=== PATIENT | male | born 1950 | race Caucasian/White ===

== ENCOUNTER → 2016-07-31 | Outpatient (REF) | payer MEDICARE, OTHER ==
[~2016-07-31] MED LIST: ACET500C PO; ASPI325T OR; ATEN100T OR; CARD8TAB2 OR; CHAN0.5P6 PO; CYMB1CAP PO; DILA100C OR; KEPPRA PO; LANO0.252 OR; MAG-TAB OR; NEUR600T PO; PERC7.5T12 PO; PLAV75TA2 OR; SPIR25TA2 OR; VITA250T PO; ZEST20TA OR; ZOCO40TA OR
== END ==
LOC: M LAB REF 11:57
PROVIDERS: ATTEND Physician Assistant
DX: S97.82XA Crushing injury of left foot, initial encounter (principal); X58.XXXA Exposure to other specified factors, initial encounter; Y92.89 Other specified places as the place of occurrence of the external cause; Y93.89 Activity, other specified; Y99.8 Other external cause status; L03.116 Cellulitis of left lower limb

== ENCOUNTER → 2016-07-31 | Outpatient (CLI) | payer MEDICARE, OTHER ==
--- NOTE | 2016-07-31 10:38 | REP ---
LEFT FOOT, FOUR VIEWS: HISTORY: Injury. There is no acute fracture or dislocation. The joint spaces are normal in appearance. IMPRESSION: There is no acute fracture or dislocation. Signed by Deondre Zaidi MD 07/31/2016 10:45 A
== END ==
LOC: M WUC 08:59
PROVIDERS: ATTEND Physician Assistant
DX: S97.82XA Crushing injury of left foot, initial encounter (principal); L03.116 Cellulitis of left lower limb; X58.XXXA Exposure to other specified factors, initial encounter; Y92.89 Other specified places as the place of occurrence of the external cause; Y93.89 Activity, other specified; Y99.8 Other external cause status

== ENCOUNTER → 2016-08-11 | Outpatient (CLI) | payer MEDICARE, OTHER ==
[2016-08-11 18:12] LABS: ALBUMIN 3.8 GM/DL (3.2-5.2); ALBUMIN/GLOBULIN RATIO 1.27 (1.00-1.93); ALKALINE PHOSPHATASE 65 U/L (45-117); ALT/SGPT 26 U/L (12-78); ANION GAP 5 MEQ/L (8-16); AST/SGOT 19 U/L (15-37); BILIRUBIN,TOTAL 0.4 MG/DL (0.2-1.0); BLOOD UREA NITROGEN 7 MG/DL (7-18); CALCIUM LEVEL 8.8 MG/DL (8.8-10.2); CARBON DIOXIDE LEVEL 32 MEQ/L (21-32); CHLORIDE LEVEL 99 MEQ/L (98-107); CREATININE FOR GFR 0.87 MG/DL (0.70-1.30); GLOMERULAR FILTRATION RATE > 60.0 (>49); GLUCOSE, FASTING 94 MG/DL (80-110); SODIUM LEVEL 136 MEQ/L (136-145); TOTAL PROTEIN 6.8 GM/DL (6.4-8.2)
[2016-08-11 19:44] LABS: MEAN CORPUSCULAR HEMOGLOBIN 31.8 pg (27.0-33.0); MEAN CORPUSCULAR VOLUME 96.4 fl (80.0-96.0); WHITE BLOOD COUNT 8.5 K/mm3 (4.0-10.0)
== END ==
LOC: M WUC 13:53
PROVIDERS: ATTEND Family Medicine
DX: D64.9 Anemia, unspecified (principal); I11.9 Hypertensive heart disease without heart failure

== ENCOUNTER → 2017-06-18 | Outpatient (CLI) | payer MEDICARE, OTHER ==
[2017-06-18 14:11] LABS: CREATININE FOR GFR 0.75 MG/DL (0.70-1.30); GLOMERULAR FILTRATION RATE > 60.0 (>49)
[2017-06-18 14:11] LABS: BLOOD UREA NITROGEN 7 MG/DL (7-18)
== END ==
LOC: M WUC 09:23
DX: I70.412 Atherosclerosis of autologous vein bypass graft(s) of the extremities with intermittent claudication, left leg (principal)
CPT/HCPCS: 82565

== ENCOUNTER → 2017-07-07 | Outpatient (CLI) | payer MEDICARE, OTHER ==
[~2017-07-07] MED LIST changes: -ACET500C PO; -ASPI325T OR; -ATEN100T OR; -CARD8TAB2 OR; -CHAN0.5P6 PO; -CYMB1CAP PO; -DILA100C OR; +ISOVUE-370 76% 100ML VIAL (Q9967) As Ordered; -KEPPRA PO; -LANO0.252 OR; -MAG-TAB OR; -NEUR600T PO; -PERC7.5T12 PO; -PLAV75TA2 OR; -SPIR25TA2 OR; -VITA250T PO; -ZEST20TA OR; -ZOCO40TA OR
== END ==
LOC: M RAD 07:47
DX: I65.21 Occlusion and stenosis of right carotid artery (principal)
CPT/HCPCS: Q9967

== ENCOUNTER 2017-09-14 09:45 | Inpatient (IN) | payer MEDICARE, OTHER ==
[2017-09-14] MEDS: NS 1,000 ML IV (11:00)
[2017-09-14 11:23] LABS: BASO % 0.3 % (0.0-1.0); EOS % 0.1 % (0.0-3.0); HEMATOCRIT 16.9 % (42.0-52.0); IMMATURE GRANULOCYTE % 0.7 % (0-3.0); LYMPH # 1.5 10^3/uL (1.5-4.5); LYMPH % 13.2 % (24.0-44.0); MEAN CORPUSCULAR HEMOGLOBIN 26.5 pg (27.0-33.0); MEAN CORPUSCULAR HGB CONC 31.4 g/dl (32.0-36.5); MEAN CORPUSCULAR VOLUME 84.5 fl (80.0-96.0); MONO # 1.2 10^3/uL (0.0-0.8); MONO % 10.9 % (0.0-5.0); NEUTROPHILS # 8.2 10^3/uL (1.8-7.7); NEUTROPHILS % 74.8 % (36.0-66.0); PLATELET COUNT, AUTOMATED 347 10^3/uL (150-450); RED CELL DISTRIBUTION WIDTH 15.6 % (11.5-14.5)
[2017-09-14 11:27] LABS: HEMOGLOBIN 5.3 g/dl (13.5-17.5)
[2017-09-14 11:36] LABS: INR 1.52; PROTHROMBIN TIME 18.7 SECONDS (12.4-14.5)
[2017-09-14 11:37] LABS: PARTIAL THROMBOPLASTIN TIME 29.6 SECONDS (26.8-37.9)
[2017-09-14 11:53] LABS: ALBUMIN 3.6 GM/DL (3.2-5.2); ALBUMIN/GLOBULIN RATIO 0.97 (1.00-1.93); ALKALINE PHOSPHATASE 49 U/L (45-117); ALT/SGPT 134 U/L (12-78); AMYLASE 95 U/L (25-115); ANION GAP 9 MEQ/L (8-16); AST/SGOT 164 U/L (7-37); BILIRUBIN,DIRECT 0.2 MG/DL (0.0-0.2); BLOOD UREA NITROGEN 11 MG/DL (7-18); CALCIUM LEVEL 8.7 MG/DL (8.8-10.2); CARBON DIOXIDE LEVEL 24 MEQ/L (21-32); CHLORIDE LEVEL 100 MEQ/L (98-107); CPK CREATINE PHOSPHOKINASE 80 U/L (39-308); CREATININE FOR GFR 1.02 MG/DL (0.70-1.30); GLOMERULAR FILTRATION RATE > 60.0 (>49); GLUCOSE, FASTING 114 MG/DL (70-100); LIPASE 194 U/L (73-393); POTASSIUM SERUM 4.3 MEQ/L (3.5-5.1); SODIUM LEVEL 133 MEQ/L (136-145); TOTAL PROTEIN 7.3 GM/DL (6.4-8.2); TROPONIN I 0.45 NG/ML (< 0.10)
[2017-09-14 11:55] LABS: CK-MB VALUE MASS 3.2 NG/ML (<3.6); GAMMA GLUTAMYLTRANSPEPTIDASE 34 U/L (15-85)
[2017-09-14 11:56] LABS: AMMONIA 39 uMOL/L (<32)
[2017-09-14] MEDS ORDERED: ACETAMINOPHEN TAB 650MG DOSE (2X325MG) PO (12:45)
[2017-09-14 13:13] LABS: IRON (FE) 16 UG/DL (65-175); PERCENT SATURATION 2.8 % (19.7-50.0); TOTAL IRON BINDING CAPACITY 568 UG/DL (250-450)
[2017-09-14] MEDS: GASTROGRAFIN SOLUTION 30ML PO ×2 (13:26→13:55)
[2017-09-14] MEDS ORDERED: ISOVUE-370 76% 100ML VIAL (Q9967) As Ordered (13:48)
[2017-09-14 14:04] LABS: CPK CREATINE PHOSPHOKINASE 75 U/L (39-308)
[2017-09-14 14:05] LABS: CK-MB VALUE MASS 2.9 NG/ML (<3.6); MB/CK RELATIVE INDEX 3.86 (< OR =4)
[2017-09-14 16:41] LABS: IMMEDIATE SPIN CROSSMATCH 1 2
[2017-09-14] MEDS: DULoxetine 30 MG CAP (CYMBALTA) PO ×2 (16:57→21:33)
[2017-09-14] MEDS: ASCORBIC ACID 250 MG TAB PO ×2 (16:57→21:33)
[2017-09-14] MEDS: levETIRAcetam 250MG TABLET (KEPPRA) PO ×2 (16:57→21:33)
[2017-09-14] MEDS: ATENOLOL 50 MG TAB PO ×2 (16:57→21:34)
[2017-09-14] MEDS: MAGNESIUM CHLORIDE 64 MG TABCR (SLO MAG) PO (16:58)
[2017-09-14] MEDS: ATORVASTATIN 20 MG TAB PO (16:58)
[2017-09-14] MEDS: SPIRONOLACTONE 25 MG TAB PO (16:59)
[2017-09-14] MEDS: GABAPENTIN 400 MG CAP PO ×2 (16:59→21:33)
[2017-09-14] MEDS: LISINOPRIL 20 MG TAB PO (16:59)
[2017-09-14] MEDS: amLODIPine 5 MG TAB PO (17:00)
[2017-09-14] MEDS: DIGOXIN 0.25 MG TAB PO (17:00)
[2017-09-14 17:23] LABS: CK-MB VALUE MASS 2.9 NG/ML (<3.6); CPK CREATINE PHOSPHOKINASE 86 U/L (39-308); MB/CK RELATIVE INDEX 3.37 (< OR =4); TROPONIN I 0.49 NG/ML (< 0.10)
[2017-09-14] MEDS ORDERED: SLF 3 ML SYR IV (18:45)
[2017-09-14 20:41] LABS: MEAN CORPUSCULAR HEMOGLOBIN 27.6 pg (27.0-33.0); MEAN CORPUSCULAR HGB CONC 33.5 g/dl (32.0-36.5); MEAN CORPUSCULAR VOLUME 82.3 fl (80.0-96.0); PLATELET COUNT, AUTOMATED 281 10^3/uL (150-450); RED BLOOD COUNT 2.43 10^6/uL (4.30-6.10); RED CELL DISTRIBUTION WIDTH 14.8 % (11.5-14.5); WHITE BLOOD COUNT 9.9 10^3/uL (4.0-10.0)
[2017-09-14 20:51] LABS: CK-MB VALUE MASS 2.6 NG/ML (<3.6); CPK CREATINE PHOSPHOKINASE 87 U/L (39-308); MB/CK RELATIVE INDEX 2.98 (< OR =4); TROPONIN I 0.47 NG/ML (< 0.10)
[2017-09-14] MEDS: SLF 3 ML SYR IV (21:34)
[2017-09-14 21:51] LABS: HEMOGLOBIN 6.7 g/dl (13.5-17.5)
[2017-09-15 00:44] LABS: IMMEDIATE SPIN CROSSMATCH 1 2
[2017-09-15 03:11] LABS: APPEARANCE, URINE CLEAR (CLEAR); BACTERIA, URINE AUTO NEGATIVE (NEGATIVE); BILIRUBIN, URINE AUTO NEGATIVE (NEGATIVE); BLOOD, URINE BLOOD NEGATIVE (NEGATIVE); COLOR, URINE YELLOW (YELLOW); GLUCOSE, URINE (UA) AUTO NEGATIVE (NEGATIVE); KETONE, URINE AUTO NEGATIVE (NEGATIVE); LEUKOCYTE ESTERASE, URINE AUTO NEGATIVE (NEGATIVE); NITRITE, URINE AUTO NEGATIVE (NEGATIVE); PROTEIN, URINE AUTO NEGATIVE (NEGATIVE); RBC, URINE AUTO 1 /HPF (0-3); SPECIFIC GRAVITY URINE AUTO 1.032 (1.002-1.035); SQUAMOUS EPITHELIAL CELL UR AU 0 /HPF (0-6); UROBILINOGEN, URINE AUTO 0.2 mg/dL (0.0-2.0); WBC, URINE AUTO 1 /HPF (0-3)
[2017-09-15] MEDS: SLF 3 ML SYR IV ×3 (03:26→21:19)
[2017-09-15 05:39] LABS: HEMATOCRIT 26.7 % (42.0-52.0); MEAN CORPUSCULAR HEMOGLOBIN 27.6 pg (27.0-33.0); MEAN CORPUSCULAR HGB CONC 33.3 g/dl (32.0-36.5); MEAN CORPUSCULAR VOLUME 82.7 fl (80.0-96.0); PLATELET COUNT, AUTOMATED 268 10^3/uL (150-450); RED BLOOD COUNT 3.23 10^6/uL (4.30-6.10); RED CELL DISTRIBUTION WIDTH 14.6 % (11.5-14.5); WHITE BLOOD COUNT 11.6 10^3/uL (4.0-10.0)
[2017-09-15 05:43] LABS: HEMOGLOBIN 8.9 g/dl (13.5-17.5)
[2017-09-15 05:54] LABS: ALBUMIN 3.3 GM/DL (3.2-5.2); ALKALINE PHOSPHATASE 50 U/L (45-117); ALT/SGPT 172 U/L (12-78); ANION GAP 5 MEQ/L (8-16); AST/SGOT 184 U/L (7-37); BILIRUBIN,TOTAL 1.8 MG/DL (0.2-1.0); BLOOD UREA NITROGEN 8 MG/DL (7-18); CALCIUM LEVEL 7.8 MG/DL (8.8-10.2); CARBON DIOXIDE LEVEL 25 MEQ/L (21-32); CHLORIDE LEVEL 105 MEQ/L (98-107); CPK CREATINE PHOSPHOKINASE 91 U/L (39-308); GLOMERULAR FILTRATION RATE > 60.0 (>49); GLUCOSE, FASTING 92 MG/DL (70-100); POTASSIUM SERUM 3.4 MEQ/L (3.5-5.1); SODIUM LEVEL 135 MEQ/L (136-145); TOTAL PROTEIN 6.3 GM/DL (6.4-8.2); TROPONIN I 0.42 NG/ML (< 0.10)
[2017-09-15 05:59] LABS: CK-MB VALUE MASS 2.1 NG/ML (<3.6)
[2017-09-15] MEDS: MAGNESIUM CHLORIDE 64 MG TABCR (SLO MAG) PO (08:28)
[2017-09-15] MEDS: ATORVASTATIN 20 MG TAB PO (08:28)
[2017-09-15] MEDS: GABAPENTIN 400 MG CAP PO ×3 (08:29→21:18)
[2017-09-15] MEDS: ATENOLOL 50 MG TAB PO ×2 (08:30→21:18)
[2017-09-15] MEDS: POTASSIUM CHLORIDE 10 MEQ SR TABLET PO (08:31)
[2017-09-15] MEDS: levETIRAcetam 250MG TABLET (KEPPRA) PO ×2 (08:32→21:18)
[2017-09-15] MEDS: DULoxetine 30 MG CAP (CYMBALTA) PO ×2 (08:33→21:18)
[2017-09-15] MEDS: DIGOXIN 0.25 MG TAB PO (08:33)
[2017-09-15] MEDS: amLODIPine 5 MG TAB PO (08:34)
[2017-09-15] MEDS: ASCORBIC ACID 250 MG TAB PO ×2 (08:35→21:18)
[2017-09-15] MEDS: LISINOPRIL 20 MG TAB PO (08:35)
[2017-09-15] MEDS: SPIRONOLACTONE 25 MG TAB PO (08:38)
[2017-09-15] MEDS ORDERED: PILL CRUSHER/CUTTER 1 EACH XX (08:45)
[2017-09-15] MEDS: FERROUS SULFATE 325MG TAB PO (13:40)
[2017-09-15] MEDS: GOLYTELY SOLN 4000 ML BTL PO (22:21)
[2017-09-16] MEDS: SLF 3 ML SYR IV ×3 (05:40→21:53)
[2017-09-16 07:05] LABS: HEMATOCRIT 25.4 % (42.0-52.0); HEMOGLOBIN 8.4 g/dl (13.5-17.5); MEAN CORPUSCULAR HEMOGLOBIN 27.6 pg (27.0-33.0); MEAN CORPUSCULAR HGB CONC 33.1 g/dl (32.0-36.5); MEAN CORPUSCULAR VOLUME 83.6 fl (80.0-96.0); PLATELET COUNT, AUTOMATED 274 10^3/uL (150-450); RED BLOOD COUNT 3.04 10^6/uL (4.30-6.10); RED CELL DISTRIBUTION WIDTH 15.1 % (11.5-14.5); WHITE BLOOD COUNT 10.9 10^3/uL (4.0-10.0)
[2017-09-16] MEDS ORDERED: LIDOCAINE 2% INJ 100 MG/5 ML SYRINGE As Ordered (07:21)
[2017-09-16] MEDS ORDERED: PROPOFOL 200 MG/20 ML VIAL As Ordered ×2 (07:21→15:21)
[2017-09-16 07:22] LABS: ALBUMIN 3.1 GM/DL (3.2-5.2); ALBUMIN/GLOBULIN RATIO 1.07 (1.00-1.93); ALKALINE PHOSPHATASE 54 U/L (45-117); ALT/SGPT 177 U/L (12-78); ANION GAP 6 MEQ/L (8-16); AST/SGOT 119 U/L (7-37); BLOOD UREA NITROGEN 7 MG/DL (7-18); CALCIUM LEVEL 7.9 MG/DL (8.8-10.2); CARBON DIOXIDE LEVEL 25 MEQ/L (21-32); CHLORIDE LEVEL 106 MEQ/L (98-107); GLOMERULAR FILTRATION RATE > 60.0 (>49); GLUCOSE, FASTING 95 MG/DL (70-100); POTASSIUM SERUM 3.8 MEQ/L (3.5-5.1); SODIUM LEVEL 137 MEQ/L (136-145)
[2017-09-16] MEDS: ATORVASTATIN 20 MG TAB PO (08:45)
[2017-09-16] MEDS: levETIRAcetam 250MG TABLET (KEPPRA) PO ×2 (08:45→21:43)
[2017-09-16] MEDS: amLODIPine 5 MG TAB PO (08:46)
[2017-09-16] MEDS: DIGOXIN 0.25 MG TAB PO (08:46)
[2017-09-16] MEDS: LISINOPRIL 20 MG TAB PO (08:46)
[2017-09-16] MEDS: GABAPENTIN 400 MG CAP PO ×3 (08:46→21:43)
[2017-09-16] MEDS: ATENOLOL 50 MG TAB PO ×2 (08:46→21:44)
[2017-09-16] MEDS: DULoxetine 30 MG CAP (CYMBALTA) PO ×2 (08:46→21:43)
[2017-09-16] MEDS: POTASSIUM CHLORIDE 10 MEQ SR TABLET PO (08:47)
[2017-09-16] MEDS: ASCORBIC ACID 250 MG TAB PO ×2 (08:47→21:44)
[2017-09-16] MEDS: SPIRONOLACTONE 25 MG TAB PO (08:47)
[2017-09-16] MEDS: MAGNESIUM CHLORIDE 64 MG TABCR (SLO MAG) PO (11:23)
[2017-09-16] MEDS ORDERED: ISOVUE-370 76% 100ML VIAL (Q9967) As Ordered (11:38)
[2017-09-16] MEDS ORDERED: PHENYLephrine HCL 500 MCG/5 ML (100MCG/ML) SYRINGE (J2370) As Ordered (15:15)
[2017-09-17] MEDS: SLF 3 ML SYR IV (05:37)
[2017-09-17 06:43] LABS: HEMOGLOBIN 8.8 g/dl (13.5-17.5); MEAN CORPUSCULAR HGB CONC 32.6 g/dl (32.0-36.5); PLATELET COUNT, AUTOMATED 267 10^3/uL (150-450); RED BLOOD COUNT 3.14 10^6/uL (4.30-6.10); RED CELL DISTRIBUTION WIDTH 15.2 % (11.5-14.5); WHITE BLOOD COUNT 8.9 10^3/uL (4.0-10.0)
[2017-09-17 07:10] LABS: ANION GAP 6 MEQ/L (8-16); BLOOD UREA NITROGEN 7 MG/DL (7-18); CALCIUM LEVEL 8.4 MG/DL (8.8-10.2); CARBON DIOXIDE LEVEL 24 MEQ/L (21-32); CHLORIDE LEVEL 106 MEQ/L (98-107); CREATININE FOR GFR 0.66 MG/DL (0.70-1.30); GLOMERULAR FILTRATION RATE > 60.0 (>49); GLUCOSE, FASTING 87 MG/DL (70-100); POTASSIUM SERUM 3.9 MEQ/L (3.5-5.1); SODIUM LEVEL 136 MEQ/L (136-145)
[2017-09-17] MEDS: ATORVASTATIN 20 MG TAB PO (08:38)
[2017-09-17] MEDS: FERROUS SULFATE 325MG TAB PO (08:38)
[2017-09-17] MEDS: GABAPENTIN 400 MG CAP PO (08:38)
[2017-09-17] MEDS: DULoxetine 30 MG CAP (CYMBALTA) PO (08:38)
[2017-09-17] MEDS: PANTOPRAZOLE 40MG TAB (PROTONIX) PO (08:39)
[2017-09-17] MEDS: SPIRONOLACTONE 25 MG TAB PO (08:39)
[2017-09-17] MEDS: LISINOPRIL 20 MG TAB PO (08:39)
[2017-09-17] MEDS: ASCORBIC ACID 250 MG TAB PO (08:39)
[2017-09-17] MEDS: levETIRAcetam 250MG TABLET (KEPPRA) PO (08:40)
[2017-09-17] MEDS: amLODIPine 5 MG TAB PO (08:40)
[2017-09-17] MEDS: DIGOXIN 0.25 MG TAB PO (08:40)
[2017-09-17] MEDS: MAGNESIUM CHLORIDE 64 MG TABCR (SLO MAG) PO (08:40)
[2017-09-17] MEDS: ATENOLOL 50 MG TAB PO (08:40)
[2017-09-17] MEDS: POTASSIUM CHLORIDE 10 MEQ SR TABLET PO (08:41)
[2017-09-17] MEDS: SUCRALFATE 1 GM TAB PO (10:16)
== END 2017-09-17 10:30 | disposition home or self-care (01) | DRG 812 ==
LOC: M ED 09:45 → M MS5PR 09-15 18:07 → M ED INP 12:32 → M PCU 15:42
PROC: 0DJ08ZZ Inspection of Upper Intestinal Tract, Via Natural or Artificial Opening Endoscopic (ICD-10-PCS; principal; 2017-09-16 14:00)
PROC: 0DJD8ZZ Inspection of Lower Intestinal Tract, Via Natural or Artificial Opening Endoscopic (ICD-10-PCS; 2017-09-16 14:00)
PROC: 30233N1 Transfusion of Nonautologous Red Blood Cells into Peripheral Vein, Percutaneous Approach (ICD-10-PCS; 2017-09-16 14:52)
DX: D62 Acute posthemorrhagic anemia (principal); K92.2 Gastrointestinal hemorrhage, unspecified; I70.213 Atherosclerosis of native arteries of extremities with intermittent claudication, bilateral legs; I48.2 Chronic atrial fibrillation; Z95.0 Presence of cardiac pacemaker; K26.7 Chronic duodenal ulcer without hemorrhage or perforation; K25.7 Chronic gastric ulcer without hemorrhage or perforation; N28.1 Cyst of kidney, acquired; I10 Essential (primary) hypertension; E78.00 Pure hypercholesterolemia, unspecified; J44.9 Chronic obstructive pulmonary disease, unspecified; F17.200 Nicotine dependence, unspecified, uncomplicated; G40.909 Epilepsy, unspecified, not intractable, without status epilepticus; Z88.8 Allergy status to other drugs, medicaments and biological substances; Z79.899 Other long term (current) drug therapy; Z79.82 Long term (current) use of aspirin; K44.9 Diaphragmatic hernia without obstruction or gangrene; K62.4 Stenosis of anus and rectum

== ENCOUNTER → 2017-09-30 | Outpatient (REF) | payer MEDICARE, OTHER ==
[2017-09-30 19:10] LABS: ALBUMIN 3.8 GM/DL (3.2-5.2); ALBUMIN/GLOBULIN RATIO 1.15 (1.00-1.93); ALKALINE PHOSPHATASE 57 U/L (45-117); ALT/SGPT 27 U/L (12-78); ANION GAP 7 MEQ/L (8-16); AST/SGOT 13 U/L (7-37); BILIRUBIN,TOTAL 0.4 MG/DL (0.2-1.0); BLOOD UREA NITROGEN 7 MG/DL (7-18); CALCIUM LEVEL 9.4 MG/DL (8.8-10.2); CARBON DIOXIDE LEVEL 28 MEQ/L (21-32); CHLORIDE LEVEL 102 MEQ/L (98-107); CHOLESTEROL LEVEL 140 MG/DL (<200); CHOLESTEROL RISK RATIO 2.295 (<5); CREATININE FOR GFR 0.93 MG/DL (0.70-1.30); GLOMERULAR FILTRATION RATE > 60.0 (>49); GLUCOSE, FASTING 69 MG/DL (70-100); HDL CHOLESTEROL 61 MG/DL (>40); LDL CHOLESTEROL 62.8 MG/DL (<100); NON-HDL-C 79 MG/DL; POTASSIUM SERUM 4.6 MEQ/L (3.5-5.1); PSA SCREENING 0.78 NG/ML (< 4.0); SODIUM LEVEL 137 MEQ/L (136-145); TOTAL PROTEIN 7.1 GM/DL (6.4-8.2); TRIGLYCERIDES LEVEL 81 MG/DL (<150)
[2017-09-30 19:29] LABS: HEMATOCRIT 32.9 % (42.0-52.0); HEMOGLOBIN 10.2 g/dl (13.5-17.5); MEAN CORPUSCULAR HEMOGLOBIN 27.6 pg (27.0-33.0); MEAN CORPUSCULAR VOLUME 88.9 fl (80.0-96.0); PLATELET COUNT, AUTOMATED 394 10^3/uL (150-450); RED CELL DISTRIBUTION WIDTH 16.5 % (11.5-14.5); WHITE BLOOD COUNT 7.9 10^3/uL (4.0-10.0)
== END ==
LOC: M SFHCADAM 14:19
DX: D64.9 Anemia, unspecified (principal); E78.5 Hyperlipidemia, unspecified; Z12.5 Encounter for screening for malignant neoplasm of prostate
CPT/HCPCS: 80053

== ENCOUNTER → 2018-01-15 | Outpatient (REF) | payer MEDICARE, OTHER ==
[2018-01-15 16:14] LABS: HEMATOCRIT 35.5 % (42.0-52.0); HEMOGLOBIN 12.5 g/dl (13.5-17.5); MEAN CORPUSCULAR HEMOGLOBIN 32.3 pg (27.0-33.0); MEAN CORPUSCULAR HGB CONC 35.2 g/dl (32.0-36.5); MEAN CORPUSCULAR VOLUME 91.7 fl (80.0-96.0); PLATELET COUNT, AUTOMATED 256 10^3/uL (150-450); RED BLOOD COUNT 3.87 10^6/uL (4.30-6.10); RETIC HEMOGLOBIN EQUIVALENT 37.5 pg (24-36); RETICULOCYTE # 57.7 10^9/L (17-77); RETICULOCYTE % 1.5 % (0.5-1.5)
[2018-01-15 16:28] LABS: ALBUMIN 3.7 GM/DL (3.2-5.2); ALBUMIN/GLOBULIN RATIO 1.19 (1.00-1.93); ALKALINE PHOSPHATASE 58 U/L (45-117); ALT/SGPT 29 U/L (12-78); ANION GAP 7 MEQ/L (8-16); AST/SGOT 17 U/L (7-37); BILIRUBIN,TOTAL 0.5 MG/DL (0.2-1.0); BLOOD UREA NITROGEN 8 MG/DL (7-18); CALCIUM LEVEL 9.1 MG/DL (8.8-10.2); CARBON DIOXIDE LEVEL 29 MEQ/L (21-32); CHLORIDE LEVEL 101 MEQ/L (98-107); CHOLESTEROL LEVEL 123 MG/DL (<200); CHOLESTEROL RISK RATIO 2.411 (<5); CREATININE FOR GFR 0.88 MG/DL (0.70-1.30); FERRITIN 45 NG/ML (26-388); GLOMERULAR FILTRATION RATE > 60.0 (>49); GLUCOSE, FASTING 70 MG/DL (70-100); HDL CHOLESTEROL 51 MG/DL (>40); IRON (FE) 220 UG/DL (65-175); LDL CHOLESTEROL 49.2 MG/DL (<100); NON-HDL-C 72 MG/DL; PERCENT SATURATION 58.8 % (19.7-50.0); POTASSIUM SERUM 4.4 MEQ/L (3.5-5.1); SODIUM LEVEL 137 MEQ/L (136-145); TOTAL IRON BINDING CAPACITY 374 UG/DL (250-450); TOTAL PROTEIN 6.8 GM/DL (6.4-8.2); TRIGLYCERIDES LEVEL 114 MG/DL (<150)
== END ==
LOC: M SFHCADAM 14:18
DX: D50.0 Iron deficiency anemia secondary to blood loss (chronic) (principal); E78.5 Hyperlipidemia, unspecified; Z23 Encounter for immunization
CPT/HCPCS: 83550

== ENCOUNTER → 2018-04-06 | Outpatient (CLI) | payer MEDICARE, OTHER ==
[2018-04-06 11:35] LABS: ANION GAP 7 MEQ/L (8-16); BLOOD UREA NITROGEN 9 MG/DL (7-18); CALCIUM LEVEL 8.8 MG/DL (8.8-10.2); CARBON DIOXIDE LEVEL 29 MEQ/L (21-32); CHLORIDE LEVEL 100 MEQ/L (98-107); CREATININE FOR GFR 0.85 MG/DL (0.70-1.30); GLOMERULAR FILTRATION RATE > 60.0 (>49); GLUCOSE, FASTING 141 MG/DL (70-100); POTASSIUM SERUM 4.1 MEQ/L (3.5-5.1); SODIUM LEVEL 136 MEQ/L (136-145)
== END ==
LOC: M WUC 08:43
DX: N28.1 Cyst of kidney, acquired (principal)
CPT/HCPCS: 80048

== ENCOUNTER → 2018-04-09 | Outpatient (CLI) | payer MEDICARE, OTHER | LOC: M RAD 10:41 | DX: N28.1 Cyst of kidney, acquired (principal); K55.1 Chronic vascular disorders of intestine; I70.1 Atherosclerosis of renal artery; I70.8 Atherosclerosis of other arteries | CPT/HCPCS: Q9967 ==

== ENCOUNTER → 2018-07-08 | Outpatient (REF) | payer MEDICARE, OTHER ==
[~2018-07-08] MED LIST changes: +ACET500C PO; +AMLO5TAB6 PO; +ASPI1TAB15 PO; +ASPI325T OR; +ATEN100T OR; +ATEN50TA2 PO; +CARD8TAB2 OR; +CHAN0.5P6 PO; +CYMB1CAP PO; +CYMB1CAP5 PO; +DILA100C OR; +ELIQ5TAB PO; +FERR325T3 PO; -ISOVUE-370 76% 100ML VIAL (Q9967) As Ordered; +KEPP10002 PO; +KEPPRA PO; +LANO0.252 PO; +LIPI80TA PO; +MAG-TAB PO; +NEUR600T PO; +NEUR800T PO; +PANT40TA3 PO; +PERC7.5T12 PO; +PLAV75TA2 PO; +SPIR-10 PO; +SPIR25TA2 OR; +SUCR1TA PO; +VITA250T PO; +ZEST20TA PO; +ZOCO40TA OR
[2018-07-08 19:43] LABS: HEMOGLOBIN 8.4 g/dl (13.5-17.5); MEAN CORPUSCULAR HEMOGLOBIN 28.4 pg (27.0-33.0); MEAN CORPUSCULAR HGB CONC 31.1 g/dl (32.0-36.5); MEAN CORPUSCULAR VOLUME 91.2 fl (80.0-96.0); PLATELET COUNT, AUTOMATED 352 10^3/uL (150-450); RED BLOOD COUNT 2.96 10^6/uL (4.30-6.10); WHITE BLOOD COUNT 9.1 10^3/uL (4.0-10.0)
[2018-07-08 19:51] LABS: ALBUMIN 3.7 GM/DL (3.2-5.2); ALT/SGPT 16 U/L (12-78); BILIRUBIN,TOTAL 0.2 MG/DL (0.2-1.0); BLOOD UREA NITROGEN 12 MG/DL (7-18); CARBON DIOXIDE LEVEL 30 MEQ/L (21-32); CHLORIDE LEVEL 101 MEQ/L (98-107); CHOLESTEROL LEVEL 126 MG/DL (<200); FERRITIN 29 NG/ML (26-388); FREE T4 0.88 NG/DL (0.76-1.46); GLOMERULAR FILTRATION RATE > 60.0 (>49); GLUCOSE, FASTING 81 MG/DL (70-100); HDL CHOLESTEROL 47 MG/DL (>40); IRON (FE) 261 UG/DL (65-175); LDL CHOLESTEROL 45 MG/DL (<100); NON-HDL-C 79 MG/DL; PERCENT SATURATION 47.4 % (19.7-50.0); POTASSIUM SERUM 4.2 MEQ/L (3.5-5.1); SODIUM LEVEL 137 MEQ/L (136-145); TOTAL IRON BINDING CAPACITY 551 UG/DL (250-450); TOTAL PROTEIN 6.7 GM/DL (6.4-8.2); TRIGLYCERIDES LEVEL 168 MG/DL (<150)
== END ==
LOC: M SFHCADAM 14:34
PROVIDERS: ATTEND Family Medicine
DX: I11.9 Hypertensive heart disease without heart failure (principal); E78.5 Hyperlipidemia, unspecified; D50.0 Iron deficiency anemia secondary to blood loss (chronic); I48.91 Unspecified atrial fibrillation
CPT/HCPCS: 80053; 80061; 82728; 83550; 84439; 84443; 85027; 85046; 99406; G0463

== ENCOUNTER → 2018-07-21 | Outpatient (CLI) | payer MEDICARE, OTHER ==
[~2018-07-21] MED LIST changes: +CLOP75TA2 PO; +DIGO0.25 PO; +LISI-538 PO; +MAGN1CAP PO; +VITA500C24 PO; +[UNRECOGNIZED DRUG - CODE] PO
--- NOTE | 2018-07-21 10:38 | REP ---
Clinical: Chronic obstructive pulmonary disease . Comparison: 09/14/2017 . Technique: PA and lateral. Findings: The mediastinum and cardiac silhouette are normal. Single lead pacemaker in stable position. The lung munson demonstrate chronic stable changes without acute consolidation, effusion, or pneumothorax. The skeletal structures are intact and normal. Impression: 1. No acute cardiopulmonary process. Electronically Signed by Flaco Lomeli MD 07/21/2018 10:29 A
== END ==
LOC: M ADAMS 09:57
PROVIDERS: ATTEND Family Medicine
DX: J44.9 Chronic obstructive pulmonary disease, unspecified (principal)
CPT/HCPCS: 71046; 82607; 82746; 83883; 84165; 86335; G0463

== ENCOUNTER → 2018-07-21 | Outpatient (REF) | payer MEDICARE, OTHER ==
[~2018-07-21] MED LIST changes: -CLOP75TA2 PO; -DIGO0.25 PO; -LISI-538 PO; -MAGN1CAP PO; -VITA500C24 PO; -[UNRECOGNIZED DRUG - CODE] PO
[2018-07-21 13:20] LABS: TOTAL PROTEIN 7.4 GM/DL (6.4-8.2)
[2018-07-21 13:30] LABS: FOLATE > 24.0 NG/ML (>5.4); VITAMIN B12 LEVEL 791 PG/ML (247-911)
[2018-07-22 15:01] LABS: ALBUMIN 4.53 GM/DL (3.29-5.55); ALBUMIN % 61.2 % (55.8-66.1); ALPHA-1-GLOBULIN % 5.1 % (2.9-4.9); ALPHA-1-GLOBULINS 0.38 GM/DL (0.17-0.41); ALPHA-2-GLOBULINS 0.67 GM/DL (0.42-0.99); ALPHA-2-GLOBULINS % 9.1 % (7.1-11.8); BETA-1-GLOBULINS 0.61 GM/DL (0.28-0.60); BETA-1-GLOBULINS % 8.3 % (4.7-7.2); BETA-2-GLOBULINS 0.42 GM/DL (0.19-0.55); BETA-2-GLOBULINS % 5.7 % (3.2-6.5); GAMMA GLOBULIN % 10.6 % (11.1-18.8); GAMMA GLOBULINS 0.78 GM/DL (0.65-1.58)
[2018-07-23 00:08] LABS: FREE KAPPA LIGHT CHAINS SERUM 15.7 mg/L (3.3-19.4); KAPPA/LAMBDA RATIO SERUM 1.12 (0.26-1.65)
== END ==
LOC: M SFHCADAM 09:43
PROVIDERS: ATTEND Family Medicine
DX: D64.9 Anemia, unspecified (principal)

== ENCOUNTER → 2018-09-20 | Outpatient (REF) | payer MEDICARE, OTHER ==
[~2018-09-20] MED LIST changes: +CLOP75TA2 PO; +DIGO0.25 PO; +LISI-538 PO; +MAGN1CAP PO; +VITA500C24 PO; +[UNRECOGNIZED DRUG - CODE] PO
== END ==
LOC: M SFHCADAM 11:16
PROVIDERS: ATTEND Family Medicine
DX: D50.9 Iron deficiency anemia, unspecified (principal)

== ENCOUNTER → 2018-09-28 | Outpatient (CLI) | payer MEDICARE, OTHER ==
[2018-09-28 16:59] LABS: HEMATOCRIT 32.3 % (42.0-52.0); HEMOGLOBIN 10.3 g/dl (13.5-17.5); MEAN CORPUSCULAR HEMOGLOBIN 29.3 pg (27.0-33.0); MEAN CORPUSCULAR HGB CONC 31.9 g/dl (32.0-36.5); PLATELET COUNT, AUTOMATED 279 10^3/uL (150-450); RED BLOOD COUNT 3.51 10^6/uL (4.30-6.10); WHITE BLOOD COUNT 9.2 10^3/uL (4.0-10.0)
[2018-09-28 17:28] LABS: PERCENT SATURATION 6.2 % (19.7-50.0)
== END ==
LOC: M WUC 11:57
PROVIDERS: ATTEND Family Medicine
DX: D50.9 Iron deficiency anemia, unspecified (principal)

== ENCOUNTER 2019-02-04 14:59 | Observation (INO) | payer MEDICARE, OTHER ==
[~2019-02-04] VITALS: Ht 167.6 cm; Wt 59.9 kg
[2019-02-04] MEDS ORDERED: NS 1,000 ML IV ONE (17:00)
[2019-02-04] MEDS ORDERED: ACETAMINOPHEN TAB 650MG DOSE (2X325MG) PO ONE (17:00)
[2019-02-04 17:41] LABS: BASO % 0.1 % (0.0-1.0); HEMATOCRIT 26.6 % (42.0-52.0); HEMOGLOBIN 8.9 g/dl (13.5-17.5); LYMPH # 0.6 10^3/uL (1.5-5.0); LYMPH % 7.2 % (24.0-44.0); MEAN CORPUSCULAR HEMOGLOBIN 29.5 pg (27.0-33.0); MEAN CORPUSCULAR HGB CONC 33.5 g/dl (32.0-36.5); MEAN CORPUSCULAR VOLUME 88.1 fl (80.0-96.0); MONO % 11.1 % (0.0-5.0); NEUTROPHILS % 80.9 % (36.0-66.0); PLATELET COUNT, AUTOMATED 176 10^3/uL (150-450); RED BLOOD COUNT 3.02 10^6/uL (4.30-6.10); WHITE BLOOD COUNT 8.6 10^3/uL (4.0-10.0)
[2019-02-04] MEDS ORDERED: ALBUTEROL SULFATE 2.5 MG/0.5 ML INH NEB SOLN NEB ONE (17:45)
[2019-02-04 17:54] LABS: INR 1.34; PROTHROMBIN TIME 16.3 SECONDS (11.8-14.0)
[2019-02-04 17:55] LABS: PARTIAL THROMBOPLASTIN TIME 37.3 SECONDS (25.0-38.4)
[2019-02-04 17:59] LABS: ALBUMIN 3.2 GM/DL (3.2-5.2); ALT/SGPT 51 U/L (12-78); BILIRUBIN,DIRECT 0.2 MG/DL (0.0-0.2); BILIRUBIN,TOTAL 0.5 MG/DL (0.2-1.0); BLOOD UREA NITROGEN 12 MG/DL (7-18); CALCIUM LEVEL 8.5 MG/DL (8.8-10.2); CARBON DIOXIDE LEVEL 23 MEQ/L (21-32); CHLORIDE LEVEL 90 MEQ/L (98-107); CK-MB VALUE MASS < 1.0 NG/ML (<3.6); CPK CREATINE PHOSPHOKINASE 43 U/L (39-308); CREATININE FOR GFR 0.92 MG/DL (0.70-1.30); GLOMERULAR FILTRATION RATE > 60.0 (>49); GLUCOSE, FASTING 89 MG/DL (70-100); MB/CK RELATIVE INDEX 2.33 (< OR =4); POTASSIUM SERUM 4.3 MEQ/L (3.5-5.1); SODIUM LEVEL 124 MEQ/L (136-145); TOTAL PROTEIN 5.7 GM/DL (6.4-8.2); TROPONIN I < 0.02 NG/ML (< 0.10)
--- NOTE | 2019-02-04 18:21 | REP ---
HISTORY: Abdominal pain. COMPARISON: Multiple, the latest portable examination of 09/14/2017. There is a single chamber bipolar pacemaker device in placed, status quo. The heart is not enlarged. The pleural angles are sharp. The lung munson are clear. IMPRESSION: No acute cardiopulmonary disease. Electronically Signed by Asim Lauren DO 02/04/2019 07:41 P
[2019-02-04 18:32] LABS: ETHYL ALCOHOL (ETHANOL) < 0.003 % (0.000-0.010)
[2019-02-04] MEDS ORDERED: IPRATROPIUM 0.5MG/ALBUTEROL 2.5MG INH SOL UD 3ML (DUONEB)(J7620) NEB ONE (19:15)
[2019-02-04 19:58] LABS: INFLUENZA A AMPLIFICATION NEGATIVE (NEGATIVE); INFLUENZA B AMPLIFICATION NEGATIVE (NEGATIVE)
[2019-02-04] MEDS ORDERED: ACET-897 PO (19:58)
[2019-02-04] MEDS ORDERED: MAGN64TASA PO (19:58)
[2019-02-04] MEDS ORDERED: PURE500C5 PO (19:58)
[2019-02-04] MEDS ORDERED: ACETAMINOPHEN 500 MG TAB PO PRN (20:15)
--- NOTE | 2019-02-04 20:15 | HPEPDOC ---
General Date of Admission 02/04/19 Date of Service: Feb 04, 2019 Primary Care Physician: Louis Seaman MD Attending Physician: ZAID ACKERMAN DO Chief Complaint The patient is a 68-year-old male admitted with a reason for visit of FEVER. Source: Patient, Family Exam Limitations: No limitations Timing/Duration: Day(s) Severity: Mild Associated Symptoms: Fever, Loss of appetite, Malaise History of Present Illness Patient is 68 years old male with past medical history of atrial fibrillation, PVD, pacemaker, seizures, hypertension chronic anemia, duodenal and gastric ulcers presented hospital with generalized weakness and fever. Patient stated that 4 days ago he developed progressive weakness associated with chills. On next day he checked his temperature and it was 100.2. His fever was associated with sweating and loss of appetite. Patient denied any sick contact. Patient denies any cough, sputum, diarrhea or dysuria. HE took Tylenol which alleviate his chills and fever. He decided to come to ER due to continuous weakness and fever. In ER patient was found to have fever of 100.3, chest x-ray was done and it was negative for acute cardiopulmonary diseases. Leukocytes count within normal limit. Hemoglobin 8.9 and sodium level of 124. Home Medications Scheduled Amlodipine Besylate (Amlodipine Besylate) 5 Mg Tab, 5 MG PO DAILY, (Reported) Apixaban (Eliquis) 5 Mg Tab, 5 MG PO BID, (Reported) Ascorbic Acid (Vitamin C) 500 Mg Capsule.er, 500 MG PO DAILY, (Reported) Atenolol (Atenolol) 50 Mg Tab, 50 MG PO BID, (Reported) Atorvastatin Calcium (Lipitor) 80 Mg Tab, 80 MG PO DAILY, (Reported) AT LUNCH Clopidogrel Bisulfate (Clopidogrel) 75 Mg Tab, 75 MG PO DAILY, (Reported) Digoxin (Digoxin) 250 Mcg Tab, 250 MCG PO DAILY, (Reported) Duloxetine Hcl (Cymbalta) 30 Mg Cap, 30 MG PO BID, (Reported) Gabapentin (Neurontin) 800 Mg Tab, 800 MG PO TID, (Reported) Levetiracetam (Keppra) 1,000 Mg Tab, 1,000 MG PO BID, (Reported) Lisinopril (Lisinopril) 20 Mg Tab, 20 MG PO DAILY, (Reported) Magnesium Chloride (Mag64) 64 Mg Tablet.dr, 128 MG PO BID, (Reported) Spironolactone (Spironolactone) 25 Mg Tab, 12.5 MG PO DAILY, (Reported) Scheduled PRN Acetaminophen (Tylenol Extra Strength) 500 Mg Tablet, 1,000 MG PO QHS PRN for FEVER, (Reported) Allergies Coded Allergies: hydrochlorothiazide (Verified Adverse Reaction, Mild, LOW SODIUM , 08/18/18) Past Medical History Medical History Atrial fibrillation, PVD, gastric, duodenal ulcers, anemia, smoking abuse, pacemaker, chronic hyponatremia, seizures, hypertension Surgical History Left and right iliac endarterectomy, right profound femoral endarterectomy, pacemaker placement, bilateral carotid enterectomy Family History Mother from heart attack, father from kidney cancer Social History * Smoker: current smoker Alcohol: other (2 beers daily) Psychosocial History: No pertinent psych hx A-FIB/CHADSVASC A-FIB History Current/History of A-Fib/PAF?: Yes Current PO Anticoag Therapy: Yes Review of Systems Constitutional: Reports: Chills, Fever, Malaise, Fatigue Eyes: Denies: Pain ENT: Denies: Head Aches, Ear Pain Skin: Denies: Rash Pulmonary: Denies: Dyspnea Cardiovascular: Denies: Chest Pain, Orthopnea Gastrointestinal: Denies: Nausea, Vomiting, Abdominal Pain Genitourinary: Denies: Dysuria, Frequency Hematologic: Denies: Bruising, Bleeding Excessively Endocrine: Denies: Polydipsia, Polyphagia, Polyuria Musculoskeletal: Denies: Neck Pain, Back Pain, Shoulder Pain Neurological: Denies: Weakness, Change in speech Psych: Reports: Mood Normal Physical Examination General Exam: Positive: Alert, Cooperative Eye Exam: Positive: PERRLA ENT Exam: Positive: Atraumatic, Mucous membr. moist/pink Neck Exam: Positive: Supple; Negative: JVD, thyromegaly Chest Exam: Positive: Clear to auscultation, Rhonchi (rhonchi bilaterally) Heart Exam: Positive: Irregular Rhythm Telemetry: Positive: Atrial fibrillation Abdomen Exam: Positive: Normal bowel sounds Extremity Exam: Negative: Clubbing, Cyanosis Skin Exam: Positive: Nl turgor and temperature; Negative: Rash Neuro Exam: Positive: Normal Gait, Strength at 5/5 X4 ext Psych Exam: Positive: Mental status NL, Mood NL Vital Signs Vital Signs Date Time Temp Pulse Resp B/P (MAP) Pulse Ox O2 Delivery O2 Flow Rate FiO2 02/04/19 18:36 100.3 02/04/19 18:29 82 136/60 (85) 85 159/70 (99) 88 146/64 (91) 02/04/19 18:10 18 Room Air 02/04/19 15:00 100 Laboratory Data Labs 24H Laboratory Tests 2 02/04/19 17:25: Immature Granulocyte % (Auto) 0.7, White Blood Count 8.6, Red Blood Count 3.02L, Hemoglobin 8.9L, Hematocrit 26.6L, Mean Corpuscular Volume 88.1, Mean Corpuscular Hemoglobin 29.5, Mean Corpuscular Hemoglobin Concent 33.5, Red Cell Distribution Width 21.3H, Platelet Count 176, Neutrophils (%) (Auto) 80.9H, Lymphocytes (%) (Auto) 7.2L, Monocytes (%) (Auto) 11.1H, Eosinophils (%) (Auto) 0.0, Basophils (%) (Auto) 0.1, Neutrophils # (Auto) 7.0, Lymphocytes # (Auto) 0.6L, Monocytes # (Auto) 1.0H, Eosinophils # (Auto) 0.0, Basophils # (Auto) 0.0, Nucleated Red Blood Cells % (auto) 0.0, Prothrombin Time 16.3H, Prothromb Time International Ratio 1.34, Activated Partial Thromboplast Time 37.3, Anion Gap 11, Glomerular Filtration Rate > 60.0, Calcium Level 8.5L, Aspartate Amino Transf (AST/SGOT) 40H, Alanine Aminotransferase (ALT/SGPT) 51, Alkaline Phosphatase 93, Total Bilirubin 0.5, Direct Bilirubin 0.2, Total Creatine Kinase 43, Creatine Kinase MB < 1.0, Creatine Kinase MB Relative Index 2.33, Troponin I < 0.02, Total Protein 5.7L, Albumin 3.2, Albumin/Globulin Ratio 1.28, Ethyl Alcohol Level < 0.003 02/04/19 17:26: Lactic Acid Level 1.3 02/04/19 19:02: CBC/BMP Laboratory Tests 02/04/19 17:25 Red Blood Count 3.02 L, Mean Corpuscular Volume 88.1, Mean Corpuscular Hemoglobin 29.5, Mean Corpuscular Hemoglobin Concent 33.5, Red Cell Distribution Width 21.3 H, Neutrophils (%) (Auto) 80.9 H, Lymphocytes (%) (Auto) 7.2 L, Monocytes (%) (Auto) 11.1 H, Eosinophils (%) (Auto) 0.0, Basophils (%) (Auto) 0.1, Neutrophils # (Auto) 7.0, Lymphocytes # (Auto) 0.6 L, Monocytes # (Auto) 1.0 H, Eosinophils # (Auto) 0.0, Basophils # (Auto) 0.0 Microbiology Microbiology 02/04/19 Blood Culture, Received Pending 02/04/19 Blood Culture, Received Pending Assessment/Plan Patient is 68 years old male with past medical history of atrial fib, pacemaker, PVD, gastric and duodenal ulcer, chronic anemia, chronic hyponatremia presented to the hospital with fever and and generalized weakness. Problems (1) Fever Status: Acute Problem Text: Most likely secondary to viral infection Patient febrile on admission, however he doesn't have leukocytosis, does not have cough, lactic acid within normal limit. Chest x-ray shows clear lungs Blood culture, urine culture, pro-calcitonin, respiratory panel Flu antigen antibody test pending Will hold antibiotics for now Tylenol when necessary (2) Hyponatremia Status: Acute Problem Text: Most likely secondary to beer potomania or spironolactone I will hold spironolactone for now Will check urine lites, serum and urine osmolarity (3) A-fib Status: Chronic Problem Text: Rate is under control, continue by mouth anticoagulation (4) Anemia Problem Text: Chronic anemia most likely secondary to gastric and duodenal ulcer. EGD was done on August 2018 and showed multiple gastric and duodenal ulcers Patient will have appointment with GI on February 10 Continue iron supplementation (5) Alcohol abuse Problem Text: [place] protocol Plan / VTE VTE Prophylaxis Ordered?: Yes ZAID ACKERMAN DO Feb 04, 2019 20:15
[2019-02-04] MEDS ORDERED: ACETAMINOPHEN TAB 650MG DOSE (2X325MG) PO PRN (20:30)
[2019-02-04] MEDS ORDERED: LORazepam 2 MG TAB PO PRN (20:45)
[2019-02-04] MEDS: MAGNESIUM CHLORIDE 64 MG TABCR (SLO MAG) PO SCH (21:00)
[2019-02-04] MEDS: APIXABAN 5 MG TAB (ELIQUIS) PO SCH (21:24)
[2019-02-04] MEDS: DULoxetine 30 MG CAP (CYMBALTA) PO SCH (21:24)
[2019-02-04] MEDS: GABAPENTIN 400 MG CAP PO SCH (21:25)
[2019-02-04] MEDS: levETIRAcetam 250MG TABLET (KEPPRA) PO SCH (21:25)
[2019-02-04] MEDS: THIAMINE 100 MG TAB PO SCH (21:26)
[2019-02-04] MEDS: ATENOLOL 50 MG TAB PO SCH (21:26)
[2019-02-04 22:15] VITALS: BP 138/60
[2019-02-04 22:20] VITALS: BP 138/60
--- NOTE | 2019-02-05 05:53 | ECGEPIP ---
[facility] - ED Test Date: 2019-02-04 Pat Name: TON MATTSON Department: Room: - Gender: Male Fingerer: KAROLINE : 1950 Requested By: BETHANY Harris PA-C Order Number: [id number] Reading MD: Robbin Salter Measurements Intervals [place] Rate: 83 P: MD: 0 QRS: 92 QRSD: 93 T: 56 QT: 314 QTc: 371 Interpretive Statements ATRIAL FIBRILLATION BORDERLINE RIGHT AXIS DEVIATION SIMILAR TO 09/15/17 Electronically Signed on 02-05-2019 5:53:18 EDT by Robbin Salter
[2019-02-05 06:00] VITALS: BP 134/62
[2019-02-05 06:29] LABS: HEMATOCRIT 24.5 % (42.0-52.0); HEMOGLOBIN 8.4 g/dl (13.5-17.5); MEAN CORPUSCULAR HEMOGLOBIN 29.1 pg (27.0-33.0); MEAN CORPUSCULAR HGB CONC 34.3 g/dl (32.0-36.5); MEAN CORPUSCULAR VOLUME 84.8 fl (80.0-96.0); PLATELET COUNT, AUTOMATED 191 10^3/uL (150-450); RED BLOOD COUNT 2.89 10^6/uL (4.30-6.10); WHITE BLOOD COUNT 9.6 10^3/uL (4.0-10.0)
[2019-02-05 06:49] LABS: ALBUMIN 2.9 GM/DL (3.2-5.2); ALT/SGPT 42 U/L (12-78); BILIRUBIN,TOTAL 0.6 MG/DL (0.2-1.0); BLOOD UREA NITROGEN 12 MG/DL (7-18); CALCIUM LEVEL 8.2 MG/DL (8.8-10.2); CARBON DIOXIDE LEVEL 21 MEQ/L (21-32); CHLORIDE LEVEL 93 MEQ/L (98-107); CREATININE FOR GFR 0.91 MG/DL (0.70-1.30); GLOMERULAR FILTRATION RATE > 60.0 (>49); GLUCOSE, FASTING 85 MG/DL (70-100); MAGNESIUM LEVEL 1.5 MG/DL (1.8-2.4); SODIUM LEVEL 124 MEQ/L (136-145); TOTAL PROTEIN 5.8 GM/DL (6.4-8.2)
[2019-02-05 07:00] VITALS: BP 134/62
[2019-02-05] MEDS: FOLIC ACID 1 MG TAB PO SCH (09:00)
[2019-02-05] MEDS ORDERED: SPIRONOLACTONE 25 MG TAB PO SCH (09:00)
[2019-02-05] MEDS: APIXABAN 5 MG TAB (ELIQUIS) PO SCH ×2 (10:28→21:47)
[2019-02-05] MEDS: MULTIVITAMINS/MINERALS THERAP 1 TAB PO SCH (10:29)
[2019-02-05] MEDS: DULoxetine 30 MG CAP (CYMBALTA) PO SCH ×2 (10:29→21:47)
[2019-02-05] MEDS: CLOPIDOGREL 75 MG TAB PO SCH (10:29)
[2019-02-05] MEDS: DIGOXIN 0.25 MG TAB PO SCH (10:29)
[2019-02-05] MEDS: GABAPENTIN 400 MG CAP PO SCH ×3 (10:30→21:46)
[2019-02-05] MEDS: THIAMINE 100 MG TAB PO SCH ×2 (10:30→21:46)
[2019-02-05] MEDS: LISINOPRIL 20 MG TAB PO SCH (10:30)
[2019-02-05] MEDS: ATORVASTATIN 20 MG TAB PO SCH (10:31)
[2019-02-05] MEDS: levETIRAcetam 250MG TABLET (KEPPRA) PO SCH ×2 (10:31→21:46)
[2019-02-05] MEDS: amLODIPine 5 MG TAB PO SCH (10:31)
[2019-02-05] MEDS: ATENOLOL 50 MG TAB PO SCH ×2 (10:32→21:47)
[2019-02-05] MEDS: MAGNESIUM CHLORIDE 64 MG TABCR (SLO MAG) PO SCH ×2 (10:33→21:46)
[2019-02-05] MEDS: PIPERACILLIN/TAZOBACTAM SOD 3.375 GM in D5W MINI-BAG PLUS 50 ML IV SCH ×2 (13:52→19:33)
[2019-02-05] MEDS: NS 0.45% 1,000 ML IV SCH (13:56)
[2019-02-05 14:00] VITALS: BP 169/74
[2019-02-05 14:01] VITALS: BP 162/64
[2019-02-05 22:00] VITALS: BP 120/42
[2019-02-06] MEDS: PIPERACILLIN/TAZOBACTAM SOD 3.375 GM in D5W MINI-BAG PLUS 50 ML IV SCH ×4 (00:02→18:33)
[2019-02-06] MEDS: NS 0.45% 1,000 ML IV SCH ×2 (03:11→15:19)
[2019-02-06 06:00] VITALS: BP 140/65
[2019-02-06 06:29] LABS: HEMATOCRIT 25.9 % (42.0-52.0); HEMOGLOBIN 8.8 g/dl (13.5-17.5); MEAN CORPUSCULAR HEMOGLOBIN 29.5 pg (27.0-33.0); MEAN CORPUSCULAR VOLUME 86.9 fl (80.0-96.0); PLATELET COUNT, AUTOMATED 199 10^3/uL (150-450); RED BLOOD COUNT 2.98 10^6/uL (4.30-6.10); WHITE BLOOD COUNT 9.1 10^3/uL (4.0-10.0)
[2019-02-06 06:54] LABS: BLOOD UREA NITROGEN 15 MG/DL (7-18); CALCIUM LEVEL 8.1 MG/DL (8.8-10.2); CARBON DIOXIDE LEVEL 21 MEQ/L (21-32); CHLORIDE LEVEL 95 MEQ/L (98-107); CREATININE FOR GFR 0.83 MG/DL (0.70-1.30); GLOMERULAR FILTRATION RATE > 60.0 (>49); GLUCOSE, FASTING 91 MG/DL (70-100); POTASSIUM SERUM 3.5 MEQ/L (3.5-5.1); SODIUM LEVEL 125 MEQ/L (136-145)
[2019-02-06] MEDS: DULoxetine 30 MG CAP (CYMBALTA) PO SCH ×2 (08:54→22:03)
[2019-02-06] MEDS: levETIRAcetam 250MG TABLET (KEPPRA) PO SCH ×2 (08:54→22:04)
[2019-02-06] MEDS: APIXABAN 5 MG TAB (ELIQUIS) PO SCH ×2 (08:55→22:04)
[2019-02-06] MEDS: FOLIC ACID 1 MG TAB PO SCH (08:55)
[2019-02-06] MEDS: CLOPIDOGREL 75 MG TAB PO SCH (08:55)
[2019-02-06] MEDS: MULTIVITAMINS/MINERALS THERAP 1 TAB PO SCH (08:55)
[2019-02-06] MEDS: THIAMINE 100 MG TAB PO SCH ×2 (08:55→22:03)
[2019-02-06] MEDS: DIGOXIN 0.25 MG TAB PO SCH (08:56)
[2019-02-06] MEDS: ATENOLOL 50 MG TAB PO SCH ×2 (08:56→22:05)
[2019-02-06] MEDS: LISINOPRIL 20 MG TAB PO SCH (08:57)
[2019-02-06] MEDS: GABAPENTIN 400 MG CAP PO SCH ×3 (08:58→22:04)
[2019-02-06] MEDS: amLODIPine 5 MG TAB PO SCH (08:59)
[2019-02-06] MEDS: MAGNESIUM CHLORIDE 64 MG TABCR (SLO MAG) PO SCH ×2 (09:58→22:06)
[2019-02-06] MEDS: ATORVASTATIN 20 MG TAB PO SCH (12:27)
--- NOTE | 2019-02-06 13:24 | IPN ---
DATE: 02/05/2019 Gio was admitted with fever of unknown origin, certainly looks like he has a urinary tract infection. He has 2+ leukocytes, 26 white cells in urine. He now has bacteremia with gram positive cocci in chains being isolated on two blood cultures (simultaneous). I started him on Zosyn today. PHYSICAL EXAM: Maximum temperature (Tmax) 102.8, blood pressure 172/76, pulse of 90. GENERAL APPEARANCE: He looks well, no distress. HEENT: Unremarkable. LUNGS: Clear. HEART: Regular rate and rhythm. ABDOMEN: Soft. Nontender. No masses. No peripheral edema. IMPRESSION: Suspected urinary tract infection with bacteremia. He has no urinary tract infection (UTI) symptoms at all such as frequency, urgency, dysuria. It could still be prostate symptoms; however, it does look like it is probably urinary source. Urine culture is pending. Blood cultures are pending. Start Zosyn in the meantime. Gram positive cocci in chains could be enterococcus. Zosyn should cover that. He will be here through the weekend until the blood cultures identify (ID) the bacteremia. edited: 02/06/2019 1425 tkf MTDD
[2019-02-06 14:00] VITALS: BP 130/70
--- NOTE | 2019-02-06 20:59 | IPN ---
DATE: 02/06/2019 Gio is seen in [address] [place] [address]. He is admitted with possible urinary tract infection (UTI). He has bacteremia. Blood culture results are still pending. He denies fever, chills, dysuria, frequency, or any prostatic symptoms. PHYSICAL EXAMINATION: Afebrile, vital signs stable. Maximum temperature (T-max) was 102 yesterday, he has had no fever today. Alert, conversant, no distress. Lungs clear. Heart regular rate, rhythm, no murmur. Abdomen soft, nontender, no masses. No peripheral edema. LABORATORY DATA: CBC is unremarkable. He is chronically hyponatremic, sodium is 125. IMPRESSION: 1. Bacteremia with gram-positive cocci in chains on two blood cultures (simultaneous). He is on IV Zosyn to cover for Enterococcus. We are waiting for results of blood cultures. Urine culture was ordered, results are pending. 2. Hyperlipidemia. Continue his atorvastatin. 3. Hypertensive heart disease. Continue his antihypertensives. 4. Atrial fibrillation. Rate is controlled. He is on Eliquis. He is status post pacemaker. 5. Peripheral arterial disease / coronary artery disease. Continue statin therapy and Plavix. 6. Chronic hyponatremia. This is stable and unchanged. When drawing blood cultures again today, make sure these are sterilized. I expect that he will probably be going home Thursday after blood cultures from admission are back and followup blood cultures return sterilized.
[2019-02-06 22:00] VITALS: BP_SYST 136; BP_SYST 151; BP_DIAS 65; BP_DIAS 69
[2019-02-07] MEDS: PIPERACILLIN/TAZOBACTAM SOD 3.375 GM in D5W MINI-BAG PLUS 50 ML IV SCH ×2 (02:03→05:51)
[2019-02-07] MEDS: NS 0.45% 1,000 ML IV SCH ×2 (02:07→14:37)
[2019-02-07 06:00] VITALS: BP 120/62
[2019-02-07 06:22] LABS: HEMATOCRIT 24.3 % (42.0-52.0); HEMOGLOBIN 8.3 g/dl (13.5-17.5); MEAN CORPUSCULAR HEMOGLOBIN 29.7 pg (27.0-33.0); MEAN CORPUSCULAR HGB CONC 34.2 g/dl (32.0-36.5); MEAN CORPUSCULAR VOLUME 87.1 fl (80.0-96.0); PLATELET COUNT, AUTOMATED 220 10^3/uL (150-450); RED BLOOD COUNT 2.79 10^6/uL (4.30-6.10); WHITE BLOOD COUNT 9.8 10^3/uL (4.0-10.0)
[2019-02-07 06:48] LABS: BLOOD UREA NITROGEN 10 MG/DL (7-18); CALCIUM LEVEL 7.9 MG/DL (8.8-10.2); CARBON DIOXIDE LEVEL 19 MEQ/L (21-32); CHLORIDE LEVEL 95 MEQ/L (98-107); CREATININE FOR GFR 0.69 MG/DL (0.70-1.30); GLOMERULAR FILTRATION RATE > 60.0 (>49); GLUCOSE, FASTING 94 MG/DL (70-100); POTASSIUM SERUM 3.3 MEQ/L (3.5-5.1); SODIUM LEVEL 125 MEQ/L (136-145)
[2019-02-07] MEDS ORDERED: POTASSIUM CHLORIDE 10 MEQ SR TABLET PO ONE (08:15)
--- NOTE | 2019-02-07 08:45 | IPNPDOC ---
Subjective Date Seen The patient was seen on 02/07/19. Subjective Chief Complaint/HPI Patient lying comfortably in bed as I entered the room. He reports to be feeling well. Constitutional: Denies: Chills, Fever Pulmonary: Denies: Dyspnea, Cough Cardiovascular: Denies: Chest Pain, Palpitations, Edema Gastrointestinal: Denies: Nausea, Vomiting, Abdominal Pain Genitourinary: Denies: Dysuria, Frequency, Hematuria Psych: Reports: Mood Normal Objective Physical Examination General Exam: Positive: Alert, Cooperative Eye Exam: Positive: PERRLA ENT Exam: Positive: Atraumatic, Mucous membr. moist/pink Neck Exam: Positive: Supple; Negative: JVD, thyromegaly Chest Exam: Positive: Clear to auscultation, Rhonchi (rhonchi bilaterally) Heart Exam: Positive: Irregular Rhythm Telemetry: Positive: Atrial fibrillation Abdomen Exam: Positive: Normal bowel sounds Extremity Exam: Negative: Clubbing, Cyanosis Skin Exam: Positive: Nl turgor and temperature; Negative: Rash Neuro Exam: Positive: Normal Gait, Strength at 5/5 X4 ext Psych Exam: Positive: Mental status NL, Mood NL Assessment /Plan Problems (1) UTI (urinary tract infection) due to Enterococcus Status: Acute Problem Text: 02/07/19: Urine culture positive for E-coli and Enterococcus Faecalis. Patient has remained afebrile. WBC down to 9.8. Temp 98.7. We will tr ansition from IV Zoysn to oral Levaquin (2) Bacteremia due to Enterococcus Status: Acute Response to Treatment: Stable Problem Text: 02/07/19: Blood cultures positive for Enterococcus faecalis, urin culture results as above. Transition to oral Levaquin as stated above. Temp 98.7, WBC 9.8 (3) Hyponatremia Status: Acute Problem Text: 02/07/19: Na+ 125 Most likely secondary to beer potomania or spironolactone I will hold spironolactone for now Will check urine lites, serum and urine osmolarity (4) A-fib Status: Chronic Response to Treatment: Stable Problem Text: 02/07/19: Rate controlled, on Eliquis Rate is under control, continue by mouth anticoagulation (5) Anemia Problem Text: 02/07/19: Remains stable, Hgb 8.3. See comment in next paragraph, will start pantoprazole 40. Chronic anemia most likely secondary to gastric and duodenal ulcer. EGD was done on August 2018 and showed multiple gastric and duodenal ulcers Patient will have appointment with GI on February 10 Continue iron supplementation (6) Alcohol abuse Problem Text: [facility] protocol (7) Fever Status: Resolved Problem Text: Most likely secondary to viral infection Patient febrile on admission, however he doesn't have leukocytosis, does not have cough, lactic acid within normal limit. Chest x-ray shows clear lungs Blood culture, urine culture, pro-calcitonin, respiratory panel Flu antigen antibody test pending Will hold antibiotics for now Tylenol when necessary Plan/VTE VTE Prophylaxis Ordered?: Yes (Eliquis ) VS, I&O, 24H, Fishbone Vital Signs/I&O Vital Signs Date Time Temp Pulse Resp B/P (MAP) Pulse Ox O2 Delivery O2 Flow Rate FiO2 02/07/19 06:00 98.7 79 16 120/62 (81) 94 02/04/19 18:10 Room Air I&O- Last 24 Hours up to 6 AM 02/07/19 06:00 Intake Total 2150 ml Output Total 0 ml Balance 2150 ml Laboratory Data 24H LABS Laboratory Tests 2 02/07/19 05:42: Nucleated Red Blood Cells % (auto) 0.0, Anion Gap 11, Glomerular Filtration Rate > 60.0, Blood Urea Nitrogen 10, Creatinine 0.69L, Sodium Level 125L, Potassium Level 3.3L, Chloride Level 95L, Carbon Dioxide Level 19L, Calcium Level 7.9L CBC/BMP Laboratory Tests 02/07/19 05:42 Red Blood Count 2.79 L, Mean Corpuscular Volume 87.1, Mean Corpuscular Hemoglobin 29.7, Mean Corpuscular Hemoglobin Concent 34.2, Red Cell Distribution Width 21.1 H, Calcium Level 7.9 L Microbiology Microbiology 02/06/19 Blood Culture, Received Pending 02/06/19 Blood Culture, Received Pending 02/04/19 Blood Culture - Final, Complete Enterococcus Faecalis 02/04/19 Blood Culture - Final, Complete Enterococcus Faecalis 02/04/19 Respiratory Virus Panel (PCR) (JUAN M) - Final, Complete 02/04/19 Urine Culture - Final, Complete Escherichia Coli Enterococcus Faecalis MIHIR VAUGHN Feb 07, 2019 08:45 Ry Hassan MD Feb 07, 2019 15:34
[2019-02-07] MEDS: MAGNESIUM CHLORIDE 64 MG TABCR (SLO MAG) PO SCH ×2 (09:26→21:33)
[2019-02-07] MEDS: THIAMINE 100 MG TAB PO SCH (09:27)
[2019-02-07] MEDS: levETIRAcetam 250MG TABLET (KEPPRA) PO SCH ×2 (09:27→21:32)
[2019-02-07] MEDS: GABAPENTIN 400 MG CAP PO SCH ×3 (09:27→21:32)
[2019-02-07] MEDS: LevoFLOXacin 500 MG TABLET PO SCH (09:27)
[2019-02-07] MEDS: FOLIC ACID 1 MG TAB PO SCH (09:28)
[2019-02-07] MEDS: LISINOPRIL 20 MG TAB PO SCH (09:28)
[2019-02-07] MEDS: CLOPIDOGREL 75 MG TAB PO SCH (09:28)
[2019-02-07] MEDS: DIGOXIN 0.25 MG TAB PO SCH (09:29)
[2019-02-07] MEDS: MULTIVITAMINS/MINERALS THERAP 1 TAB PO SCH (09:29)
[2019-02-07] MEDS: DULoxetine 30 MG CAP (CYMBALTA) PO SCH ×2 (09:29→21:32)
[2019-02-07] MEDS: APIXABAN 5 MG TAB (ELIQUIS) PO SCH ×2 (09:30→21:33)
[2019-02-07] MEDS: amLODIPine 5 MG TAB PO SCH (09:30)
[2019-02-07] MEDS: ATENOLOL 50 MG TAB PO SCH ×2 (09:31→21:36)
[2019-02-07] MEDS: ATORVASTATIN 20 MG TAB PO SCH (12:17)
[2019-02-07 14:00] VITALS: BP 138/63
[2019-02-07 22:00] VITALS: BP 131/61
[2019-02-08] MEDS: NS 0.45% 1,000 ML IV SCH ×2 (02:00→02:59)
[2019-02-08 06:00] VITALS: BP 136/72
[2019-02-08] MEDS: LevoFLOXacin 500 MG TABLET PO SCH (06:05)
[2019-02-08 06:44] LABS: HEMATOCRIT 24.5 % (42.0-52.0); HEMOGLOBIN 8.2 g/dl (13.5-17.5); MEAN CORPUSCULAR HEMOGLOBIN 28.9 pg (27.0-33.0); MEAN CORPUSCULAR HGB CONC 33.5 g/dl (32.0-36.5); MEAN CORPUSCULAR VOLUME 86.3 fl (80.0-96.0); PLATELET COUNT, AUTOMATED 307 10^3/uL (150-450); RED BLOOD COUNT 2.84 10^6/uL (4.30-6.10)
[2019-02-08 07:07] LABS: BLOOD UREA NITROGEN 8 MG/DL (7-18); CALCIUM LEVEL 8.2 MG/DL (8.8-10.2); CARBON DIOXIDE LEVEL 21 MEQ/L (21-32); CHLORIDE LEVEL 98 MEQ/L (98-107); CREATININE FOR GFR 0.66 MG/DL (0.70-1.30); GLOMERULAR FILTRATION RATE > 60.0 (>49); GLUCOSE, FASTING 92 MG/DL (70-100); POTASSIUM SERUM 3.7 MEQ/L (3.5-5.1); SODIUM LEVEL 128 MEQ/L (136-145)
[2019-02-08] MEDS ORDERED: LEVA1TAB2 PO (08:18)
[2019-02-08] MEDS ORDERED: PANT40TA3 PO (08:18)
[2019-02-08] MEDS ORDERED: FOLI1TAB11 PO (08:18)
[2019-02-08] MEDS: MAGNESIUM CHLORIDE 64 MG TABCR (SLO MAG) PO SCH (08:46)
[2019-02-08] MEDS: amLODIPine 5 MG TAB PO SCH (08:47)
[2019-02-08] MEDS: MULTIVITAMINS/MINERALS THERAP 1 TAB PO SCH (08:47)
[2019-02-08] MEDS: DIGOXIN 0.25 MG TAB PO SCH (08:47)
[2019-02-08] MEDS: FOLIC ACID 1 MG TAB PO SCH (08:48)
[2019-02-08] MEDS: LISINOPRIL 20 MG TAB PO SCH (08:48)
[2019-02-08] MEDS: DULoxetine 30 MG CAP (CYMBALTA) PO SCH (08:49)
[2019-02-08] MEDS: APIXABAN 5 MG TAB (ELIQUIS) PO SCH (08:49)
[2019-02-08 08:50] VITALS: BP 128/93
[2019-02-08] MEDS: ATENOLOL 50 MG TAB PO SCH (08:50)
[2019-02-08] MEDS: GABAPENTIN 400 MG CAP PO SCH (08:50)
[2019-02-08] MEDS: levETIRAcetam 250MG TABLET (KEPPRA) PO SCH (08:50)
[2019-02-08] MEDS: CLOPIDOGREL 75 MG TAB PO SCH (08:50)
[2019-02-08] MEDS ORDERED: PANTOPRAZOLE 40MG TAB (PROTONIX) PO SCH (09:00)
--- NOTE | 2019-02-08 09:35 | DS.PDOC ---
Discharge Summary General Date of Admission Feb 04, 2019 at 15:00 Date of Discharge Feb 08, 2019 Primary Care Physician: Louis Seaman MD Attending Physician: Ry Hassan MD Discharge Summary PROCEDURES PERFORMED DURING STAY: None ADMITTING DIAGNOSES: 1. Fever of unknown origin 2. Chronic anemia 3. Atrial Fibrillation 4. Seizures DISCHARGE DIAGNOSES: 1. UT-ecoli and enterococcus 2. Bacteremia-enterococcus 3. Chronic anemia 4. Atrial Fibrillation 5. Seizures COMPLICATIONS/CHIEF COMPLAINT: A-Fib,Anemia,Fever,Hyponatremia,Malaise. HISTORY OF PRESENT ILLNESS: Patient is 68 years old male with past medical history of atrial fibrillation, PVD, pacemaker, seizures, hypertension chronic anemia, duodenal and gastric ulcers presented to the hospital with generalized weakness and fever. Patient stated that 4 days prior to hospitalization he developed progressive weakness associated with chills. On next day he checked his temperature and it was 100.2. His fever was associated with sweating and loss of appetite. Patient denied any sick contact. Patient denies any cough, sputum, diarrhea or dysuria. He decided to come to ER due to continuous weakness and fever. In ER patient was found to have fever of 100.3, chest x-ray was done and it was negative for acute cardiopulmonary diseases. Leukocytes count within normal limit. Hemoglobin 8.9 and sodium level of 124. Patient was admitted with fever of unknown origin, believed to be from urinary tract. HOSPITAL COURSE: Patient was admitted with fever of unknown origin, believed to be from urinary tract. He had 2+ leukocytes, 26 white cells in urine. He developed bacteremia with gram positive cocci in chains being isolated on two blood cultures (simultaneous). He was started him on Zosyn initially. BC returned positive for enterococcus and urine culture was positive for e-coli and enteroccous. He was transitioned from IV Zoysn to oral Levaquin. He did well throughout his hospital course and was ready for discharge on 02/08/19 DISCHARGE MEDICATIONS: Please see below. ALLERGIES: Please see below. PHYSICAL EXAMINATION ON DISCHARGE: VITAL SIGNS: Please see below. GENERAL: AOx3, in NAD HEENT: unremarkable NECK: soft, supple CARDIOVASCULAR EXAMINATION: Regular rate RESPIRATORY EXAMINATION: CTA ABDOMINAL EXAMINATION: soft, non-tender, non-distended, no CVA tenderness EXTREMITIES: no edema SKIN: warm, dry, good turgor LABORATORY DATA: Please see below. IMAGING: Chest x-ray: IMPRESSION: No acute cardiopulmonary disease. ACTIVITY: As tolerated DIET: As tolerated DISCHARGE PLAN: To home DISCHARGE INSTRUCTIONS: 1. Complete entire course of Levaquin 2. F/U with PCP within one week 3. Keep upcoming appt with GI 4. Keep upcoming appt with Hematology DISCHARGE CONDITION: Stable Vital Signs/I&Os Vital Signs Date Time Temp Pulse Resp B/P (MAP) Pulse Ox O2 Delivery O2 Flow Rate FiO2 02/08/19 06:00 97.7 71 16 136/72 (93) 94 02/04/19 18:10 Room Air I&O- Last 24 Hours up to 6 AM 02/08/19 06:00 Intake Total 2942 ml Output Total 0 ml Balance 2942 ml Laboratory Data Labs 24H Laboratory Tests 2 02/08/19 06:17: Nucleated Red Blood Cells % (auto) 0.0, Anion Gap 9, Glomerular Filtration Rate > 60.0, Blood Urea Nitrogen 8, Creatinine 0.66L, Sodium Level 128L, Potassium Level 3.7, Chloride Level 98, Carbon Dioxide Level 21, Calcium Level 8.2L CBC/BMP Laboratory Tests 02/08/19 06:17 Red Blood Count 2.84 L, Mean Corpuscular Volume 86.3, Mean Corpuscular Hemoglobin 28.9, Mean Corpuscular Hemoglobin Concent 33.5, Red Cell Distribution Width 21.0 H, Calcium Level 8.2 L Microbiology Microbiology 02/06/19 Blood Culture - Preliminary, Resulted No growth after 24 hours . All specim... 02/06/19 Blood Culture - Preliminary, Resulted No growth after 24 hours . All specim... 02/04/19 Blood Culture - Final, Complete Enterococcus Faecalis 02/04/19 Blood Culture - Final, Complete Enterococcus Faecalis 02/04/19 Respiratory Virus Panel (PCR) (JUAN M) - Final, Complete 02/04/19 Urine Culture - Final, Complete Escherichia Coli Enterococcus Faecalis Discharge Medications Scheduled Amlodipine Besylate (Amlodipine Besylate) 5 Mg Tab, 5 MG PO DAILY, (Reported) Apixaban (Eliquis) 5 Mg Tab, 5 MG PO BID, (Reported) Ascorbic Acid (Vitamin C) 500 Mg Capsule.er, 500 MG PO DAILY, (Reported) Atenolol (Atenolol) 50 Mg Tab, 50 MG PO BID, (Reported) Atorvastatin Calcium (Lipitor) 80 Mg Tab, 80 MG PO DAILY, (Reported) AT LUNCH Clopidogrel Bisulfate (Clopidogrel) 75 Mg Tab, 75 MG PO DAILY, (Reported) Digoxin (Digoxin) 250 Mcg Tab, 250 MCG PO DAILY, (Reported) Duloxetine Hcl (Cymbalta) 30 Mg Cap, 30 MG PO BID, (Reported) Folic Acid (Folic Acid) 1 Mg Tablet, 1 MG PO DAILY Gabapentin (Neurontin) 800 Mg Tab, 800 MG PO TID, (Reported) Levetiracetam (Keppra) 1,000 Mg Tab, 1,000 MG PO BID, (Reported) Levofloxacin (Levaquin) 500 Mg Tablet, 500 MG PO DAILY@06 Lisinopril (Lisinopril) 20 Mg Tab, 20 MG PO DAILY, (Reported) Magnesium Chloride (Mag64) 64 Mg Tablet.dr, 128 MG PO BID, (Reported) Pantoprazole Sodium (Pantoprazole Sodium) 40 Mg Tablet.dr, 40 MG PO DAILY Spironolactone (Spironolactone) 25 Mg Tab, 12.5 MG PO DAILY, (Reported) Scheduled PRN Acetaminophen (Tylenol Extra Strength) 500 Mg Tablet, 1,000 MG PO QHS PRN for FEVER, (Reported) Allergies Coded Allergies: hydrochlorothiazide (Verified Adverse Reaction, Mild, LOW SODIUM , 08/18/18) MIHIR VAUGHN Feb 08, 2019 08:20
== END 2019-02-08 11:00 | disposition home or self-care (01) ==
LOC: M ED 14:59 → M ED INP 15:00 → M MSPAV 22:22
PROVIDERS: ADMIT Internal Medicine; ATTEND Family Medicine
DX: N39.0 Urinary tract infection, site not specified (principal); R78.81 Bacteremia; B95.2 Enterococcus as the cause of diseases classified elsewhere; B96.20 Unspecified Escherichia coli [E. coli] as the cause of diseases classified elsewhere; I48.91 Unspecified atrial fibrillation; G40.919 Epilepsy, unspecified, intractable, without status epilepticus; D64.9 Anemia, unspecified; E87.1 Hypo-osmolality and hyponatremia; I10 Essential (primary) hypertension; I73.9 Peripheral vascular disease, unspecified; Z95.0 Presence of cardiac pacemaker; K25.9 Gastric ulcer, unspecified as acute or chronic, without hemorrhage or perforation; K26.9 Duodenal ulcer, unspecified as acute or chronic, without hemorrhage or perforation; Z79.02 Long term (current) use of antithrombotics/antiplatelets; Z88.8 Allergy status to other drugs, medicaments and biological substances; Z79.899 Other long term (current) drug therapy
CPT/HCPCS: 36415; 71046; 80048; 80053; 80076; 81001; 82550; 82553; 83605; 83735; 83930; 84145; 84484; 85025; 85027; 85610; 85730; 86850; 86900; 86901; 87040; 87077; 87088; 87186; 87486; 87502; 87581; 87633; 87798; 93005; 94640; 96365; 96366; 99285; G0378; G0480; J2543

== ENCOUNTER → 2019-02-15 | Outpatient (REF) | payer MEDICARE, OTHER ==
[~2019-02-15] MED LIST changes: +ACET-897 PO; +AMPI2INJ2 IV; +AMPI500C9 PO; +CEFT2ADD INJ; +CEFU1TAB22 PO; +CEFU50TA PO; +DIGO0.123 PO; -DIGO0.25 PO; +DIGO0.253 PO; +FERR150C PO; +FLOM0.4C39 PO; +FOLI1TAB11 PO; +LEVA1TAB2 PO; +MAGN100T PO; +MAGN400T2 PO; +MAGN64TASA PO; +METR-265 PO; +NEOM500T PO; +PANT-23 PO; +PURE500C5 PO
[2019-02-15 19:11] LABS: ALBUMIN 3.2 GM/DL (3.2-5.2); BLOOD UREA NITROGEN 11 MG/DL (7-18); CALCIUM LEVEL 9.4 MG/DL (8.8-10.2); CARBON DIOXIDE LEVEL 29 MEQ/L (21-32); CHLORIDE LEVEL 99 MEQ/L (98-107); CREATININE FOR GFR 0.94 MG/DL (0.70-1.30); GLOMERULAR FILTRATION RATE > 60.0 (>49); GLUCOSE, FASTING 87 MG/DL (70-100); PHOSPHORUS LEVEL 3.8 MG/DL (2.5-4.9); POTASSIUM SERUM 5.1 MEQ/L (3.5-5.1); SODIUM LEVEL 137 MEQ/L (136-145)
[2019-02-15 19:29] LABS: BASO # 0.1 10^3/uL (0.0-0.2); BASO % 1.1 % (0.0-1.0); EOS # 0.4 10^3/uL (0.0-0.5); EOS % 4.4 % (0.0-3.0); HEMATOCRIT 31.6 % (42.0-52.0); HEMOGLOBIN 10.2 g/dl (13.5-17.5); LYMPH # 2.3 10^3/uL (1.5-5.0); LYMPH % 27.3 % (24.0-44.0); MEAN CORPUSCULAR HEMOGLOBIN 28.7 pg (27.0-33.0); MEAN CORPUSCULAR HGB CONC 32.3 g/dl (32.0-36.5); MEAN CORPUSCULAR VOLUME 88.8 fl (80.0-96.0); MONO # 1.1 10^3/uL (0.0-0.8); NEUTROPHILS # 4.4 10^3/uL (1.5-8.5); NEUTROPHILS % 53.4 % (36.0-66.0); PLATELET COUNT, AUTOMATED 669 10^3/uL (150-450); RED BLOOD COUNT 3.56 10^6/uL (4.30-6.10); WHITE BLOOD COUNT 8.3 10^3/uL (4.0-10.0)
== END ==
LOC: M SFHCADAM 14:56
PROVIDERS: ATTEND Physician Assistant Medical
DX: E87.1 Hypo-osmolality and hyponatremia (principal); D50.0 Iron deficiency anemia secondary to blood loss (chronic)
CPT/HCPCS: 80069; 85025; 99496; G0463

== ENCOUNTER 2019-03-18 01:13 | Inpatient (IN) | payer MEDICARE, OTHER ==
[~2019-03-18] VITALS: Ht 167.6 cm; Wt 59.3 kg
[~2019-03-18 01:13] MED LIST changes: -AMPI2INJ2 IV; -AMPI500C9 PO; -CEFT2ADD INJ; -CEFU1TAB22 PO; -CEFU50TA PO; -DIGO0.123 PO; +DIGO0.25 PO; -DIGO0.253 PO; -FLOM0.4C39 PO; -MAGN100T PO; -MAGN400T2 PO; -METR-265 PO; -NEOM500T PO; -PANT-23 PO
[2019-03-18 01:54] LABS: BASO # 0.1 10^3/uL (0.0-0.2); BASO % 0.3 % (0.0-1.0); EOS # 0.1 10^3/uL (0.0-0.5); EOS % 0.5 % (0.0-3.0); HEMATOCRIT 33.3 % (42.0-52.0); LYMPH # 1.1 10^3/uL (1.5-5.0); LYMPH % 6.3 % (24.0-44.0); MEAN CORPUSCULAR HEMOGLOBIN 29.5 pg (27.0-33.0); MEAN CORPUSCULAR VOLUME 89.3 fl (80.0-96.0); MONO # 1.3 10^3/uL (0.0-0.8); MONO % 7.5 % (0.0-5.0); NEUTROPHILS # 14.6 10^3/uL (1.5-8.5); NEUTROPHILS % 84.8 % (36.0-66.0); PLATELET COUNT, AUTOMATED 405 10^3/uL (150-450); RED BLOOD COUNT 3.73 10^6/uL (4.30-6.10); WHITE BLOOD COUNT 17.2 10^3/uL (4.0-10.0)
[2019-03-18 02:07] LABS: BLOOD UREA NITROGEN 13 MG/DL (7-18); CALCIUM LEVEL 8.7 MG/DL (8.8-10.2); CARBON DIOXIDE LEVEL 27 MEQ/L (21-32); CHLORIDE LEVEL 97 MEQ/L (98-107); CK-MB VALUE MASS < 1.0 NG/ML (<3.6); CPK CREATINE PHOSPHOKINASE 43 U/L (39-308); CREATININE FOR GFR 0.96 MG/DL (0.70-1.30); GLOMERULAR FILTRATION RATE > 60.0 (>49); GLUCOSE, FASTING 94 MG/DL (70-100); MB/CK RELATIVE INDEX 2.33 (< OR =4); NT-PRO BNP 3159 PG/ML (<125); POTASSIUM SERUM 4.6 MEQ/L (3.5-5.1); SODIUM LEVEL 133 MEQ/L (136-145); TROPONIN I < 0.02 NG/ML (< 0.10)
[2019-03-18] MEDS ORDERED: dexameTHASONE 20 MG/5 ML VIAL (J1100) IV ONE (02:15)
[2019-03-18] MEDS ORDERED: FUROSEMIDE 100 MG/10 ML VIAL (J1940) IV ONE (03:15)
[2019-03-18] MEDS ORDERED: PANT-23 PO (03:25)
[2019-03-18] MEDS ORDERED: MAGN100T PO (03:25)
[2019-03-18] MEDS ORDERED: ACETAMINOPHEN TAB 650MG DOSE (2X325MG) PO PRN (03:45)
--- NOTE | 2019-03-18 05:02 | HPEPDOC ---
[facility] Medical History & Physical Date of Admission Mar 18, 2019 Date of Service: Mar 18, 2019 Primary Care Physician: Louis Seaman MD Attending Physician: Louis Seaman MD History and Physical CC: Dyspnea HISTORY OF PRESENT ILLNESS:This is a 68 yr old M who presents with complaints of shortness of breath that began earlier today, and awoke from bed. Associated symptoms include a coughing spell; the cough was not productive. He denied any chest pain, denied increased work of breathing, or orthopnea. Earlier today patient received 2 units of blood transfusion at the cancer center for his chronic anemia. He stated that he felt fine after that blood transfusion. The patient's reports the patient was warm at home, but denies any fever. In the ED patient was noticed to have poor to saturation, was afebrile, hypotensive, with normal respiratory rate. He was given IV Decadron, as well as Lasix. REVIEW OF SYSTEMS: CONSTITUTIONAL: No fevers (admits to being warm), denies chills, denies weight loss, denies lethargy HEENT: No rhinorrhea, no itchy eyes, no congestion, No tonsilar exudates CARDIOVASCULAR: No murmurs no palpitations and arrhythmias RESPIRATORY: Admits to shortness of breath GASTROINTESTINAL: No nausea, no vomiting, no difficulty swallowing, no pain with eating, no diarrhea HEMATOLOGICAL: No bleeding GENITOURINARY:No Issues HEMATOLOGIC/LYMPHATIC: No swelling, No bleeding PAST MEDICAL / SURGICAL HISTORY: Atrial fibrillation ablation PAD COPD pacemaker Seizures chronic hypertension chronic anemia hx of duodenal and gastric ulcer disease, s/p Left and right iliac endarterectomy, right profound femoral endarterectomy, bilateral carotid enterectomy SOCIAL HISTORY: Patient is a current smoker, with occasional alcohol use ALLERGIES: Please see below. PE VITAL SIGNS: see below GENERAL APPEARANCE: Elderly gentleman resting in bed, speaking in full sentences, does not appear to be in distress. SKIN: Warm, LUNGS: Expiratory crackles heard throughout bilateral lower lung [place] HEART: Irregular S1 and S2, tachycardia, no murmurs EXTREMITIES: Moves all extremities equally. No gross deformities. PULSES: 2+ upper and lower extremity . VIEW OF SYSTEMS: HOME MEDICATIONS: Please see below. LABORATORY DATA: See below. IMAGING: Chest x-ray, showed increased vascular pattern, with bilateral lung infiltration, possible pleural fluid as well, pending official read. MICROBIOLOGY: Please see below. ASSESSMENT/PLAN: This is a 68-year-old male with a past medical history of Atrial fibrillation ablation, PAD, COPD, pacemaker, seizures, chronic hypertension, chronic anemia, duodenal and gastric ulcer disease who presented with dyspnea following the transfusion possibly secondary to transfusion associated circulatory overload. 1. Dyspnea -Possibly 2/2 transfusion associated circulatory overload vs possible CHF -Less likely to be PE -BNP 3159 -Obtain echocardiogram -Telemetry -Low-sodium diet -Lasix as needed 2. Leukocytosis. -Possible infectious in origin vs reactive 2/2 blood transfusion - will order influenza panel 3. Chronic Blood Loss Anemia. -Hemoglobin and hematocrit is stable. -We'll continue to monitor. 4. Chronic Hypertension. -Continue home med 5. Chronic A. fib. -Continue anticoagulation 6.Seizure Disorder -Continue home medication 7. Tobacco Abuse -Smoking cessation education DVT prophylaxis with apixaban Vital Signs Vital Signs Date Time Temp Pulse Resp B/P (MAP) Pulse Ox O2 Delivery O2 Flow Rate FiO2 03/18/19 03:25 Nasal Cannula 3.0 03/18/19 03:15 100 20 171/73 (105) 92 03/18/19 01:18 99.6 Laboratory Data Labs 24H Laboratory Tests 2 03/18/19 01:38: Immature Granulocyte % (Auto) 0.6, Neutrophils (%) (Auto) 84.8H, Lymphocytes (%) (Auto) 6.3L, Monocytes (%) (Auto) 7.5H, Eosinophils (%) (Auto) 0.5, Basophils (%) (Auto) 0.3, Neutrophils # (Auto) 14.6H, Lymphocytes # (Auto) 1.1L, Monocytes # (Auto) 1.3H, Eosinophils # (Auto) 0.1, Basophils # (Auto) 0.1, Nucleated Red Blood Cells % (auto) 0.0, Anion Gap 9, Glomerular Filtration Rate > 60.0, Calcium Level 8.7L, Total Creatine Kinase 43, Creatine Kinase MB < 1.0, Creatine Kinase MB Relative Index 2.33, Troponin I < 0.02, ZL-Dee-P-Type Natriuretic Peptide 3159H 03/18/19 02:11: POC pH (Misc Panel) 7.455H, POC Base Excess (Misc Panel) -1.0, POC Saturated Percent O2 (Misc) 88L, POC pO2 (Misc Panel) 52.0L, POC pCO2 (Misc Panel) 32.1L, POC HCO3 (Misc Panel) 22.6, POC Total CO2 (Misc Panel) 24.0 CBC/BMP Laboratory Tests 03/18/19 01:38 Home Medications Scheduled Amlodipine Besylate (Amlodipine Besylate) 5 Mg Tab, 5 MG PO DAILY Apixaban (Eliquis) 5 Mg Tab, 5 MG PO BID Ascorbic Acid (Vitamin C) 500 Mg Capsule.er, 500 MG PO DAILY Atenolol (Atenolol) 50 Mg Tab, 50 MG PO BID Atorvastatin Calcium (Lipitor) 80 Mg Tab, 80 MG PO DAILY TAKES AT LUNCHTIME Cefuroxime Axetil (Cefuroxime) 500 Mg Tablet, 500 MG PO BID Clopidogrel Bisulfate (Clopidogrel) 75 Mg Tab, 75 MG PO DAILY Digoxin (Digoxin) 250 Mcg Tab, 250 MCG PO QHS Duloxetine Hcl (Cymbalta) 30 Mg Cap, 30 MG PO BID Gabapentin (Neurontin) 800 Mg Tab, 800 MG PO TID Iron Polysaccharide Complex (Ferrex 150) 150 Mg Capsule, 150 MG PO BID Levetiracetam (Keppra) 1,000 Mg Tab, 1,000 MG PO BID Lisinopril (Lisinopril) 20 Mg Tab, 20 MG PO DAILY TAKES AT LUNCHTIME Magnesium Citrate (Magnesium Citrate) 100 Mg Tablet, 100 MG PO DAILY Pantoprazole Sodium (Pantoprazole Sodium) 40 Mg Tablet.dr, 40 MG PO BID Spironolactone (Spironolactone) 25 Mg Tab, 12.5 MG PO DAILY TAKES AT LUNCHTIME Scheduled PRN Acetaminophen (Tylenol Extra Strength) 500 Mg Tablet, 1,000 MG PO Q6H PRN for PAIN / FEVER Allergies Coded Allergies: hydrochlorothiazide (Verified Adverse Reaction, Mild, LOW SODIUM , 03/18/19) GME ATTESTATION GME ATTESTATION My faculty preceptor for this patient encounter was physically present during the encounter and was fully available. All aspects of the patient interview, examination, medical decision making process, and medical care plan development were reviewed and approved by the faculty preceptor. The faculty preceptor is aware and concurs with the plan as stated in the body of this note and will attest to such by his/her cosignature. ATTENDING NOTE I examined at 450AM and discussed the case with and agree with the findings as documented above. DAT MENDOZA DO Mar 18, 2019 05:02 SYDNEE SERRA MD Mar 18, 2019 05:05
[2019-03-18 05:05] VITALS: BP 155/68
[2019-03-18] MEDS: BENZONATATE 100 MG CAP PO SCH ×3 (06:09→21:29)
[2019-03-18 06:27] LABS: VENOUS BASE EXCESS 0.4 (-2.0-2.0); VENOUS HCO3 23.9 MEQ/L (23.0-27.0); VENOUS O2 SATURATION 98.9 % (60.0-80.0); VENOUS PARTIAL PRESSURE CO2 34.6 mmHg (38.0-50.0); VENOUS PARTIAL PRESSURE O2 123.1 mmHg (30.0-50.0); VENOUS PH 7.457 UNITS (7.330-7.430); VENOUS STANDARD HCO3 24.9 MEQ/L
[2019-03-18] MEDS: GABAPENTIN 400 MG CAP PO SCH ×3 (08:59→20:54)
[2019-03-18] MEDS: CLOPIDOGREL 75 MG TAB PO SCH (08:59)
[2019-03-18] MEDS: APIXABAN 5 MG TAB (ELIQUIS) PO SCH ×2 (08:59→20:55)
[2019-03-18] MEDS: IRON POLYSAC (NIFEREX) 150 MG CAP PO SCH ×2 (08:59→20:54)
[2019-03-18] MEDS: levETIRAcetam 250MG TABLET (KEPPRA) PO SCH ×2 (08:59→20:54)
[2019-03-18] MEDS: amLODIPine 5 MG TAB PO SCH (09:00)
[2019-03-18] MEDS: DULoxetine 30 MG CAP (CYMBALTA) PO SCH ×2 (09:00→20:55)
[2019-03-18] MEDS: PANTOPRAZOLE 40MG TAB (PROTONIX) PO SCH ×2 (09:00→20:55)
[2019-03-18] MEDS ORDERED: MAGNESIUM CITRATE 300 ML BTL PO SCH (09:00)
[2019-03-18] MEDS: ATENOLOL 50 MG TAB PO SCH ×2 (09:00→20:55)
--- NOTE | 2019-03-18 09:23 | REP ---
Single view chest: 03/18/2019. Indication: Dyspnea. Comparison: 02/04/2019. Findings: There is a new small air space consolidation. There is no pleural effusion or pneumothorax. The left lung is clear. The cardiomediastinal silhouette is unremarkable. Left sided pacer is unchanged in position. Impression: Small right lower lobe pneumonia. Electronically Signed by Amari Quintana DO 03/18/2019 09:15 A
[2019-03-18 10:00] VITALS: BP 150/64
[2019-03-18] MEDS ORDERED: cefTRIAXone SOD 1 GM in D5W MINI-BAG PLUS 50 ML IV SCH (10:00)
--- NOTE | 2019-03-18 11:07 | IPN ---
DATE: 03/18/2019 Today, Gio says he feels well. He is not experiencing dyspnea as he is lying comfortably semi recumbent in his bed. There is no cough and no flaring or use of accessory muscles. He says that he began to feel ill a little before he got transfused yesterday. He was transfused as ordered by medical oncology for a hemoglobin of 8.9. He has a history of blood loss anemia associated with use of his anti clotting regimen, which includes combination of Eliquis 5 mg by mouth twice a day and clopidogrel 75 mg daily. Aspirin had also been on board at this agent was stopped some time in the past. Denies fevers, chills or sputum production. Denies pleuritic pain. After receiving transfusion as an outpatient, he presented to the emergency department with complaints of dyspnea. Pulse oximetry of 100%, 91%, 93% and 91% on room air. Pulse was initially 100. His temperature is 99.6 on presentation and 01:18 today. Respiratory rate was 24. With oxygen his saturations have been 93 to 82 on 2 liters. Heart rate has been a little fast 103, although slowing to 92 this morning. Pressure 155/68. No fever since 0505 this morning. Laboratory did show an elevated white count when he presented at 17,200, definite left shift with 84.8% neutrophils, platelet count was 405,000, hemoglobin 11. BNP was elevated at 3159 and there is no previous BNP for comparison. Chest x-ray did show right lower lobe infiltrate differential compared to the left. He was presumed, despite having elevated white count, low grade temperature and differential interstitial increased markings in right base, to be suffering from fluid overload related to his transfusion rather than infectious process, although a single blood culture was ordered and an influenza screen was apparently ordered and has not yet been resulted, it is unclear that it has even been performed. PHYSICAL EXAMINATION: On examination today, he has faint basilar rales, more prominent on the right than elsewhere. Abdomen: Soft, nontender. HEENT: No oropharyngeal lesions are noted. Heart: Irregular rhythm. No murmur noted. Extremities: No pedal edema and no calf tenderness. IMPRESSION: 1. Dyspnea, cough, right lower lobe infiltrate, elevated white count, low grade temperature, symptoms developing a few hours after receiving transfusion, which brought his hemoglobin from pretransfusion level of 8.9 to posttransfusion level of 11. There was not itching, no hives, no rigors and chest x-ray shows asymmetric increased markings in the right base compared to left, interpreted by the radiologist as representing findings compatible with a small right lower lobe pneumonia. He has received Lasix 100 mg times one dose which resulted in 1100 mL diuresis. Sodium was 133 on admission. In the recent past he has been low with sodiums in the 125 range, documented on February 07. At this point, the possibility of pneumonia should be stronger consideration, particularly in light of the leukocytosis and differential right lower lobe density, which looks like an interstitial infiltrate. PLAN: Procalcitonin, respiratory panel, sputum culture if there is any produced, we will order a second blood culture, one is pending. Start Rocephin and azithromycin, Rocephin IV and azithromycin is equally effective oral versus IV. He is able to take orally so we will give it orally. Activity can be as tolerated. Because of the history of blood loss, we will also order hemoccult testing.
[2019-03-18] MEDS: AZITHROMYCIN 250 MG TAB PO SCH (11:25)
[2019-03-18] MEDS: SPIRONOLACTONE 25 MG TAB PO SCH (11:27)
[2019-03-18] MEDS: LISINOPRIL 20 MG TAB PO SCH (11:27)
[2019-03-18] MEDS: ATORVASTATIN 20 MG TAB PO SCH (11:28)
[2019-03-18 11:32] LABS: DIGOXIN LEVEL 1.3 NG/ML (0.5-2.0)
[2019-03-18] MEDS: MAGNESIUM CHLORIDE 64 MG TABCR (SLO MAG) PO SCH ×3 (13:09→20:56)
[2019-03-18 14:00] VITALS: BP 131/59
[2019-03-18 18:00] VITALS: BP 148/60
--- NOTE | 2019-03-18 18:14 | ECHO ---
DATE OF PROCEDURE: 03/18/2019 DATE OF : 1950 AGE: 68 GENDER: Male HEIGHT: 66 inches WEIGHT: 128 pounds BODY SURFACE AREA: 1.65 meters squared INPATIENT: [address] [place] [address], room 4219 REFERRING PHYSICIAN: Dr. Laney Manley INDICATION: Dyspnea. MEASUREMENTS: 2D Measurements: RV: 4.0 cm LV: 5.2 cm Septum: 1.1 cm Posterior wall: 1.1 cm Aortic root: 3.0 cm LA: 4.7 cm LVEF: 70% DOPPLER MEASUREMENTS: AV: 1.76 meters per second LVOT: 1.1 meters per second MV- E: 90 Early mitral deceleration time: 239 milliseconds E-prime: 10.6 (medial), E prime: 11.6 (lateral), average E/E prime ratio: 8.1. Pulmonary capillary wedge pressure: 12 mmHg PV: 0.9 meters per second Pulmonary artery acceleration time: 102 milliseconds RVSP: 37 mmHg IVC: 2.2 cm COMMENTS: Underlying atrial fibrillation with controlled ventricular response. No intraventricular conduction disturbance. M-mode and two-dimensional echocardiography was performed with pulsed, continuous wave, color flow and tissue Doppler studies. Normal left ventricular size and wall thickness with hyperkinetic wall motion. Moderately dilated left atrium but unable to define LV diastolic function in light of atrial fibrillation. Current estimated mean left atrial pressure was upper limits of normal. Normal right ventricular size and wall motion with current Doppler evidence of mild pulmonary hypertension. Mildly dilated right atrium with inferior vena cava (IVC) upper limits of normal but adequate respiratory collapse against an elevated central venous pressure at this time. Mild-moderate aortic valvular sclerosis without stenosis but mild insufficiency. Normal aortic dimensions. Normal appearing and functioning mitral valvular apparatus. No more than very mild insufficiency (physiologic). Normal appearing tricuspid valve with mild insufficiency (physiologic). Pacing lead can be visualized traversing right heart structures. No separate intracardiac mass. No pericardial effusion.
[2019-03-18] MEDS: DIGOXIN 0.25 MG TAB PO SCH (20:55)
--- NOTE | 2019-03-18 21:26 | ECGEPIP ---
[facility] - ED Test Date: 2019-03-18 Pat Name: TON MATTSON Department: Room: [place] [address] Gender: Male Supervisor Looping: ANNIE : 1950 Requested By: ZAIZA REYNA Order Number: [id number] Reading MD: Ameena Martinez Measurements Intervals [place] Rate: 100 P: NV: 0 QRS: 33 QRSD: 90 T: 57 QT: 312 QTc: 404 Interpretive Statements ATRIAL FIBRILLATION WITH RAPID VENTRICULAR RESPONSE MODERATE ST DEPRESSION INCREASED RATE 02/04/19 Electronically Signed on 03-18-2019 21:26:21 EDT by Ameena Martinez
[2019-03-19] MEDS: BENZONATATE 100 MG CAP PO SCH ×3 (05:16→21:25)
[2019-03-19 06:00] VITALS: BP 124/64
[2019-03-19] MEDS ORDERED: FLUBLOK(EGG FREE)(QUAD)INFLUENZA VACC 0.5ML SYRINGE (90682)18YRS&OLDER IM ONE (06:00)
[2019-03-19] MEDS ORDERED: PNEUMOCOCCAL VACCINE 0.5ML SYRINGE(90732) PNEUMOVAX 23 IM ONE (06:00)
[2019-03-19 07:02] LABS: HEMATOCRIT 31.9 % (42.0-52.0); HEMOGLOBIN 10.6 g/dl (13.5-17.5); MEAN CORPUSCULAR HEMOGLOBIN 29.3 pg (27.0-33.0); MEAN CORPUSCULAR HGB CONC 33.2 g/dl (32.0-36.5); MEAN CORPUSCULAR VOLUME 88.1 fl (80.0-96.0); PLATELET COUNT, AUTOMATED 435 10^3/uL (150-450); RED BLOOD COUNT 3.62 10^6/uL (4.30-6.10); WHITE BLOOD COUNT 17.8 10^3/uL (4.0-10.0)
[2019-03-19 07:29] LABS: ALBUMIN 2.8 GM/DL (3.2-5.2); ALT/SGPT 15 U/L (12-78); BILIRUBIN,TOTAL 0.9 MG/DL (0.2-1.0); BLOOD UREA NITROGEN 28 MG/DL (7-18); CALCIUM LEVEL 8.9 MG/DL (8.8-10.2); CARBON DIOXIDE LEVEL 29 MEQ/L (21-32); CHLORIDE LEVEL 97 MEQ/L (98-107); CREATININE FOR GFR 1.09 MG/DL (0.70-1.30); GLOMERULAR FILTRATION RATE > 60.0 (>49); GLUCOSE, FASTING 119 MG/DL (70-100); MAGNESIUM LEVEL 1.9 MG/DL (1.8-2.4); POTASSIUM SERUM 3.9 MEQ/L (3.5-5.1); SODIUM LEVEL 132 MEQ/L (136-145); TOTAL PROTEIN 6.6 GM/DL (6.4-8.2)
[2019-03-19 08:00] VITALS: BP 113/66
[2019-03-19] MEDS: MAGNESIUM CHLORIDE 64 MG TABCR (SLO MAG) PO SCH ×3 (08:23→20:17)
[2019-03-19] MEDS: levETIRAcetam 250MG TABLET (KEPPRA) PO SCH ×2 (08:23→20:16)
[2019-03-19] MEDS: DULoxetine 30 MG CAP (CYMBALTA) PO SCH ×2 (08:24→20:15)
[2019-03-19] MEDS: AZITHROMYCIN 250 MG TAB PO SCH (08:24)
[2019-03-19] MEDS: PANTOPRAZOLE 40MG TAB (PROTONIX) PO SCH ×2 (08:24→20:15)
[2019-03-19] MEDS: GABAPENTIN 400 MG CAP PO SCH ×3 (08:24→20:16)
[2019-03-19] MEDS: APIXABAN 5 MG TAB (ELIQUIS) PO SCH ×2 (08:24→20:16)
[2019-03-19] MEDS: IRON POLYSAC (NIFEREX) 150 MG CAP PO SCH ×2 (08:24→20:15)
[2019-03-19] MEDS: CLOPIDOGREL 75 MG TAB PO SCH (08:24)
[2019-03-19] MEDS: amLODIPine 5 MG TAB PO SCH (08:25)
[2019-03-19] MEDS: ATENOLOL 50 MG TAB PO SCH ×2 (08:25→20:16)
[2019-03-19] MEDS: cefTRIAXone SOD 2 GM in D5W MINI-BAG PLUS 50 ML IV SCH (09:13)
[2019-03-19] MEDS: ATORVASTATIN 20 MG TAB PO SCH (12:06)
[2019-03-19] MEDS: SPIRONOLACTONE 25 MG TAB PO SCH (12:06)
[2019-03-19] MEDS: LISINOPRIL 20 MG TAB PO SCH (12:08)
[2019-03-19 14:00] VITALS: BP 105/63
[2019-03-19] MEDS: DIGOXIN 0.25 MG TAB PO SCH (20:16)
[2019-03-19 22:00] VITALS: BP 145/58
[2019-03-20 02:00] VITALS: BP 133/61
[2019-03-20] MEDS: BENZONATATE 100 MG CAP PO SCH ×2 (05:12→13:16)
[2019-03-20 06:00] VITALS: BP 139/66
[2019-03-20 06:49] LABS: ALBUMIN 2.7 GM/DL (3.2-5.2); ALT/SGPT 20 U/L (12-78); BILIRUBIN,TOTAL 0.4 MG/DL (0.2-1.0); BLOOD UREA NITROGEN 29 MG/DL (7-18); CARBON DIOXIDE LEVEL 28 MEQ/L (21-32); CHLORIDE LEVEL 103 MEQ/L (98-107); GLOMERULAR FILTRATION RATE > 60.0 (>49); GLUCOSE, FASTING 92 MG/DL (70-100); POTASSIUM SERUM 4.3 MEQ/L (3.5-5.1); SODIUM LEVEL 136 MEQ/L (136-145); TOTAL PROTEIN 6.4 GM/DL (6.4-8.2)
[2019-03-20] MEDS: levETIRAcetam 250MG TABLET (KEPPRA) PO SCH (08:31)
[2019-03-20] MEDS: IRON POLYSAC (NIFEREX) 150 MG CAP PO SCH (08:32)
[2019-03-20] MEDS: GABAPENTIN 400 MG CAP PO SCH (08:32)
[2019-03-20] MEDS: CLOPIDOGREL 75 MG TAB PO SCH (08:32)
[2019-03-20] MEDS: PANTOPRAZOLE 40MG TAB (PROTONIX) PO SCH (08:32)
[2019-03-20] MEDS: amLODIPine 5 MG TAB PO SCH (08:32)
[2019-03-20] MEDS: AZITHROMYCIN 250 MG TAB PO SCH (08:32)
[2019-03-20] MEDS: DULoxetine 30 MG CAP (CYMBALTA) PO SCH (08:32)
[2019-03-20] MEDS: ATENOLOL 50 MG TAB PO SCH (08:33)
[2019-03-20] MEDS: MAGNESIUM CHLORIDE 64 MG TABCR (SLO MAG) PO SCH (08:33)
[2019-03-20] MEDS: APIXABAN 5 MG TAB (ELIQUIS) PO SCH (08:33)
[2019-03-20] MEDS: cefTRIAXone SOD 2 GM in D5W MINI-BAG PLUS 50 ML IV SCH (08:34)
[2019-03-20] MEDS ORDERED: CEFU50TA PO (10:46)
--- NOTE | 2019-03-20 11:58 | IPN ---
DATE: 03/19/2019 Gio was seen on 03/19/2019 on [facility], feeling better, less short of breath, less wheezy. He actually says he feels basically at his baseline. PHYSICAL EXAM: VITAL SIGNS: Stable. LUNGS: Have fibrotic rales, which are baseline. HEART: Regular rate and rhythm. ABDOMEN: Soft. Nontender. No peripheral edema. IMPRESSION: Pneumonia. PLAN: Continue current antibiotic therapy with plan for discharge tomorrow if stable.
[2019-03-20 12:10] VITALS: BP 133/66
[2019-03-20] MEDS: ATORVASTATIN 20 MG TAB PO SCH (12:10)
[2019-03-20] MEDS: LISINOPRIL 20 MG TAB PO SCH (12:10)
[2019-03-20] MEDS: SPIRONOLACTONE 25 MG TAB PO SCH (12:10)
--- NOTE | 2019-03-20 12:12 | DSES ---
DATE OF ADMISSION: 03/18/2019 DATE OF DISCHARGE: PRINCIPAL DIAGNOSIS: Right lower lobe pneumonia. HISTORY: Gio Garcia was admitted with shortness of breath. He had received an outpatient transfusion, presented to emergency room with dyspnea. Oxygen saturation was 91% on room air. Originally felt to have a transfusion-related event, but chest x-ray actually showed a pneumonia, so he was admitted for further treatment of that. HOSPITAL COURSE: He felt well on admission and felt well during the course of the hospitalization. On day of discharge, he is eager to go home. His vital signs are stable. His oxygen saturation is 99% on room air at rest but drops to 80% with walking on room air, comes back up to over 90% with 2 liters, so he will be discharged on 2 liters nasal cannula. SIGNIFICANT LABS: Electrolytes are unremarkable. White count 17.8, hemoglobin 10.6, platelets 435. Procalcitonin is 0.28, which is slightly elevated. With history of severe lung disease, we are going to cover with antibiotic regardless DISCHARGE MEDICATIONS: He has received Zithromax for 3 days in the hospital. He will receive Ceftin 500 mg twice a day for 7 days after discharge. He needs O2 a liter nasal cannula with exertion. Oxygen saturation 80-82% with exertion on room air and corrects to 96%.
[2019-03-20] MEDS ORDERED: FLUBLOK(EGG FREE)(QUAD)INFLUENZA VACC 0.5ML SYRINGE (90682)18YRS&OLDER IM ONE (13:15)
[2019-03-20 14:00] VITALS: BP 145/63
[2019-03-21] MEDS ORDERED: PNEUMOCOCCAL VACCINE 0.5ML SYRINGE(90732) PNEUMOVAX 23 IM ONE (09:00)
== END 2019-03-20 14:17 | disposition home or self-care (01) | DRG 195 ==
LOC: M ED 01:13 → M ED INP 03:34 → M MSPAV 05:09
PROVIDERS: ADMIT Internal Medicine; ATTEND Family Medicine
DX: J18.9 Pneumonia, unspecified organism (principal); D50.0 Iron deficiency anemia secondary to blood loss (chronic); J44.9 Chronic obstructive pulmonary disease, unspecified; Z95.0 Presence of cardiac pacemaker; I10 Essential (primary) hypertension; F17.200 Nicotine dependence, unspecified, uncomplicated; D72.829 Elevated white blood cell count, unspecified; G40.909 Epilepsy, unspecified, not intractable, without status epilepticus; Z79.899 Other long term (current) drug therapy; Z88.8 Allergy status to other drugs, medicaments and biological substances

== ENCOUNTER → 2019-03-21 | Outpatient (CLI) | payer MEDICARE, OTHER ==
[~2019-03-21] MED LIST changes: +AMPI500C9 PO; +CEFU1TAB22 PO; +CEFU50TA PO; +MAGN100T PO; +MAGN400T2 PO; +PANT-23 PO
== END ==
LOC: M LAB 13:58
PROVIDERS: ATTEND Family Medicine
DX: R78.81 Bacteremia (principal)

== ENCOUNTER → 2019-03-23 | Outpatient (CLI) | payer MEDICARE, OTHER | LOC: M LAB 15:49 | PROVIDERS: ATTEND Family Medicine | DX: R78.81 Bacteremia (principal) ==

== ENCOUNTER 2019-03-24 09:47 | Inpatient (IN) | payer MEDICARE, OTHER ==
[~2019-03-24] VITALS: Ht 167.6 cm; Wt 55.1 kg
[~2019-03-24 09:47] MED LIST changes: -AMPI500C9 PO; -CEFU1TAB22 PO; -MAGN400T2 PO
[2019-03-24] MEDS ORDERED: AMPICILLIN SOD 2 GM in D5W 50 ML IV SCH (10:15)
[2019-03-24] MEDS ORDERED: GENTAMICIN 80 MG in IV 1 EA IV SCH (10:15)
[2019-03-24 11:25] VITALS: BP 165/73
[2019-03-24] MEDS ORDERED: CEFU1TAB22 PO (11:57)
[2019-03-24] MEDS ORDERED: AMPI500C9 PO (11:57)
[2019-03-24] MEDS ORDERED: MAGN400T2 PO (11:57)
[2019-03-24] MEDS ORDERED: FERR150C PO (11:57)
[2019-03-24 12:00] VITALS: BP 185/87
[2019-03-24 12:08] LABS: HEMATOCRIT 33.9 % (42.0-52.0); HEMOGLOBIN 10.8 g/dl (13.5-17.5); MEAN CORPUSCULAR HEMOGLOBIN 28.7 pg (27.0-33.0); MEAN CORPUSCULAR HGB CONC 31.9 g/dl (32.0-36.5); MEAN CORPUSCULAR VOLUME 90.2 fl (80.0-96.0); PLATELET COUNT, AUTOMATED 421 10^3/uL (150-450); RED BLOOD COUNT 3.76 10^6/uL (4.30-6.10); WHITE BLOOD COUNT 9.2 10^3/uL (4.0-10.0)
[2019-03-24 12:19] LABS: INR 1.32; PARTIAL THROMBOPLASTIN TIME 31.1 SECONDS (25.0-38.4); PROTHROMBIN TIME 16.1 SECONDS (11.8-14.0)
[2019-03-24 12:43] LABS: ALBUMIN 3.2 GM/DL (3.2-5.2); ALT/SGPT 36 U/L (12-78); BILIRUBIN,TOTAL 0.4 MG/DL (0.2-1.0); BLOOD UREA NITROGEN 15 MG/DL (7-18); CALCIUM LEVEL 9.3 MG/DL (8.8-10.2); CARBON DIOXIDE LEVEL 28 MEQ/L (21-32); CHLORIDE LEVEL 101 MEQ/L (98-107); GLOMERULAR FILTRATION RATE > 60.0 (>49); GLUCOSE, FASTING 87 MG/DL (70-100); POTASSIUM SERUM 4.6 MEQ/L (3.5-5.1); SODIUM LEVEL 135 MEQ/L (136-145); TOTAL PROTEIN 6.6 GM/DL (6.4-8.2)
[2019-03-24] MEDS ORDERED: ACETAMINOPHEN 500 MG TAB PO PRN (13:45)
[2019-03-24] MEDS ORDERED: AMPICILLIN SOD 2 GM in D5W MINI-BAG PLUS 100 ML IV SCH (14:00)
[2019-03-24] MEDS: ATORVASTATIN 20 MG TAB PO SCH (14:35)
[2019-03-24] MEDS: SPIRONOLACTONE 12.5MG PER 1/2 TABLET PO SCH (14:36)
[2019-03-24] MEDS: LISINOPRIL 20 MG TAB PO SCH (14:36)
[2019-03-24] MEDS: AMPICILLIN SOD 2 GM in D5W MINI-BAG PLUS 100 ML IV SCH ×3 (14:36→22:50)
[2019-03-24] MEDS ORDERED: GENTAMICIN 60 MG in D5W 50 ML IV SCH (15:00)
[2019-03-24] MEDS ORDERED: GENTAMICIN 60 MG in D5W 50 ML IV ONE (15:00)
[2019-03-24 15:03] LABS: APPEARANCE, URINE CLEAR (CLEAR); BACTERIA, URINE AUTO NEGATIVE (NEGATIVE); BILIRUBIN, URINE AUTO NEGATIVE (NEGATIVE); BLOOD, URINE BLOOD NEGATIVE (NEGATIVE); COLOR, URINE STRAW (YELLOW); GLUCOSE, URINE (UA) AUTO NEGATIVE (NEGATIVE); KETONE, URINE AUTO NEGATIVE (NEGATIVE); LEUKOCYTE ESTERASE, URINE AUTO NEGATIVE (NEGATIVE); NITRITE, URINE AUTO NEGATIVE (NEGATIVE); PROTEIN, URINE AUTO NEGATIVE (NEGATIVE); RBC, URINE AUTO 1 /HPF (0-3); SPECIFIC GRAVITY URINE AUTO 1.006 (1.002-1.035); SQUAMOUS EPITHELIAL CELL UR AU 0 /HPF (0-6); UROBILINOGEN, URINE AUTO 0.2 mg/dL (0.0-2.0); WBC, URINE AUTO 0 /HPF (0-3)
[2019-03-24] MEDS: GABAPENTIN 400 MG CAP PO SCH ×2 (15:29→20:24)
[2019-03-24 16:00] VITALS: BP 158/80
[2019-03-24] MEDS ORDERED: LIDOCAINE 2% INJ 100 MG/5 ML SDV (FOR ANES.) As Ordered ONE (17:52)
[2019-03-24] MEDS ORDERED: PROPOFOL 200 MG/20 ML VIAL As Ordered ONE ×2 (17:52→18:48)
[2019-03-24] MEDS ORDERED: PERCOCET 5MG/325MG TAB PO PRN (19:30)
[2019-03-24] MEDS ORDERED: fentaNYL 100 MCG/2 ML INJECTION (J3010) IV PRN (19:30)
[2019-03-24] MEDS ORDERED: ONDANSETRON 4MG/2ML VIAL (J2405) IV PRN (19:30)
[2019-03-24] MEDS ORDERED: LR 1,000 ML IV SCH (19:30)
[2019-03-24] MEDS ORDERED: METOCLOPRAMIDE INJ 10MG/2ML VIAL (J2765) IV PRN (19:30)
[2019-03-24 20:00] VITALS: BP 173/70
[2019-03-24] MEDS: DULoxetine 30 MG CAP (CYMBALTA) PO SCH (20:25)
[2019-03-24] MEDS: PANTOPRAZOLE 40MG TAB (PROTONIX) PO SCH (20:25)
[2019-03-24] MEDS: ATENOLOL 50 MG TAB PO SCH (20:25)
[2019-03-24] MEDS: APIXABAN 5 MG TAB (ELIQUIS) PO SCH (20:26)
[2019-03-24] MEDS: DIGOXIN 0.25 MG TAB PO SCH (20:26)
[2019-03-24] MEDS: levETIRAcetam 250MG TABLET (KEPPRA) PO SCH (20:32)
[2019-03-24] MEDS: cefTRIAXone SOD 2 GM in D5W MINI-BAG PLUS 50 ML IV SCH (23:55)
[2019-03-25] VITALS (8 sets, daily range): BP systolic 140–174; BP diastolic 58–84
[2019-03-25] MEDS: AMPICILLIN SOD 2 GM in D5W MINI-BAG PLUS 100 ML IV SCH ×6 (01:55→22:09)
[2019-03-25] MEDS ORDERED: GENTAMICIN 60 MG in D5W 50 ML IV SCH (03:00)
[2019-03-25 05:55] LABS: BASO # 0.1 10^3/uL (0.0-0.2); BASO % 0.8 % (0.0-1.0); EOS # 0.3 10^3/uL (0.0-0.5); EOS % 3.7 % (0.0-3.0); HEMATOCRIT 33.8 % (42.0-52.0); HEMOGLOBIN 10.7 g/dl (13.5-17.5); LYMPH # 1.4 10^3/uL (1.5-5.0); LYMPH % 16.1 % (24.0-44.0); MEAN CORPUSCULAR HEMOGLOBIN 28.4 pg (27.0-33.0); MEAN CORPUSCULAR HGB CONC 31.7 g/dl (32.0-36.5); MEAN CORPUSCULAR VOLUME 89.7 fl (80.0-96.0); MONO # 0.9 10^3/uL (0.0-0.8); MONO % 10.8 % (0.0-5.0); NEUTROPHILS # 5.7 10^3/uL (1.5-8.5); NEUTROPHILS % 67.9 % (36.0-66.0); PLATELET COUNT, AUTOMATED 374 10^3/uL (150-450); RED BLOOD COUNT 3.77 10^6/uL (4.30-6.10); WHITE BLOOD COUNT 8.5 10^3/uL (4.0-10.0)
[2019-03-25 06:23] LABS: BLOOD UREA NITROGEN 9 MG/DL (7-18); C REACTIVE PROTEIN QUANTITATIV 0.89 MG/DL (0.00-0.30); CALCIUM LEVEL 8.9 MG/DL (8.8-10.2); CARBON DIOXIDE LEVEL 28 MEQ/L (21-32); CHLORIDE LEVEL 103 MEQ/L (98-107); CREATININE FOR GFR 0.86 MG/DL (0.70-1.30); ERYTHROCYTE SEDIMENTATION RATE 24 mm/hr (0-20); GLOMERULAR FILTRATION RATE > 60.0 (>49); GLUCOSE, FASTING 88 MG/DL (70-100); POTASSIUM SERUM 3.9 MEQ/L (3.5-5.1); SODIUM LEVEL 136 MEQ/L (136-145)
--- NOTE | 2019-03-25 06:50 | T-ECHO ---
DATE OF PROCEDURE: 03/24/2019 REFERRING PHYSICIAN: Dr. Louis Seaman INDICATION: Enterococcus Faecalis bacteremia. PREPROCEDURE DIAGNOSIS: Enterococcus Faecalis bacteremia. POSTPROCEDURE DIAGNOSES: Enterococcus Faecalis bacteremia. 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 PRINCIPAL FINDINGS: Vegetation attached to the aortic valve. Underlying mild aortic valve sclerosis of a three-cuspid aortic valve. Mild aortic regurgitation. PROCEDURE PERFORMED: Transesophageal echocardiogram. PROCEDURE PERFORMED BY: Yakov Rizo MD WET FINISHER: None. IV SEDATION: IV sedation administered by the anesthesiologist. COMPLICATIONS: None. PROCEDURE DESCRIPTION: Rhythm was underlying atrial fibrillation. Even before starting the patient had blood tinged sputum. The patient received Cetacaine spray to the back of the pharynx at the start of the procedure. After receiving adequate sedation, esophageal intubation was accomplished by Dr. Rizo, which was very difficult and took multiple tries. The left and right ventricles appeared normal in size and systolic function. LVEF 60% by visual estimate. Atrial septum is intact anatomically. Type 1 spontaneous echocontrast was seen in the left atrium. No masses or thrombi were seen in the left atrium or the left atrial appendage. Right ventricle pacing lead was seen in the right atrium and right ventricle, and visualized portions did not appear to have any attached vegetations. Aortic valve was three-cuspid and displayed mild focal thickening and focal calcific deposits. Mild aortic regurgitation was present (central). A vegetation measuring maximum length of 0.65 centimeters was seen at the junction of the posterior cusp with the aortic mitral continuity. Mitral leaflets appeared structurally and functional. Mild mitral regurgitation was present. Tricuspid and pulmonic valves appeared normal without apparent regurgitation. No pericardial effusion. Distal aortic arch and descending thoracic aorta showed mild atheroma plaque. CONCLUSIONS: 1. 0.65 cm vegetation attached to the junction of the posterior aortic cusp with the aortic-mitral continuity. 2. Mild aortic valve sclerosis of a three-cuspid aortic valve. Mild aortic regurgitation. 3. No vegetations seen attached to the visualized portions of the right ventricle pacemaker lead. 4. Normal left and right ventricle systolic function. 5. No pericardial effusion. Upon completion of this transesophageal echocardiogram I text the main findings of this study by test message via [employer] to both Dr. Louis Seaman and Dr. Tiffani Lewis, who acknowledged my message with thanks. cc: MD Louis Valentino MD
--- NOTE | 2019-03-25 08:16 | IPNPDOC ---
Subjective Date Seen The patient was seen on 03/25/19. Subjective Chief Complaint/HPI Pt this morning without new concerns. He does want to know when he can go home. General: Denies: Night Sweats, Fatigue Constitutional: Denies: Chills, Fever ENT: Denies: Head Aches Pulmonary: Denies: Dyspnea, Cough Cardiovascular: Denies: Chest Pain, Palpitations Gastrointestinal: Denies: Nausea, Vomiting, Diarrhea Neurological: Denies: Weakness Psych: Reports: Mood Normal Objective Physical Examination General Exam: Positive: Alert, No Acute Distress ENT Exam: Positive: Mucous membr. moist/pink Chest Exam: Positive: Clear to auscultation, Normal air movement Heart Exam: Positive: Rate Normal, Normal S1, Normal S2 Extremity Exam: Negative: Edema Neuro Exam: Positive: Normal Speech Psych Exam: Positive: Mental status NL, Mood NL Assessment /Plan Problems (1) Endocarditis Status: Acute Response to Treatment: Stable Discussed With: Patient Problem Specific Plan: Consult Specialist, Monitor Clinically, Repeat Labs Problem Text: 03/25/19 plan 6W ceft 2 IV BID c amp 2 q4H per ID, plan DUAL-LINE PICC 03/28/19 IF BCX remain NG 03/24/19 BCX2 NG 03/24/19 UCX P 03/25 ECHO done 03/24 with 0.65 cm vegetation noted on the aortic cusp Afebrile, nl WBC, will check CRP (2) Enterococcus faecalis infection Status: Acute Problem Text: as per endocarditis (3) Anemia, iron deficiency Status: Chronic Problem Text: 03/25 stable at 10.7 03/25/[address] Prince-plan EGD/colon for 03/28/19 tf case, will hold clopid (for PVD)/apix (for pAF) today (adequate hold time per Suresh) 03/25/19 case portia Lewis-favor repeat EGD/colon as inpx given persistent Fe def anemia requiring Fe/RBC tx (03/16 tx 2u RBCs) AND as complete rivas for E. faecalis sepsis 08/2017 EGD/colon-Mikael: anal stricture (no biopsied) and : - Normal esophagus. - Small hiatal hernia. - Nodular mucosa in the gastric body and in the gastric antrum. - Erythematous mucosa in the stomach. - Non-bleeding gastric ulcers. - Multiple non-bleeding duodenal ulcers. - Normal second portion of the duodenum and third portion of the duodenum. - No specimens collected. (4) Hypertensive heart disease Status: Chronic Response to Treatment: Stable Problem Specific Plan: Monitor Clinically Problem Text: Cont home meds, pressures controlled. (5) A-fib Status: Chronic Response to Treatment: Stable Problem Specific Plan: Monitor Clinically Problem Text: RC-aten 50 BID, dig 250 AC-apix Plan/VTE VTE Prophylaxis Ordered?: Yes VS, I&O, 24H, Fishbone Vital Signs/I&O Vital Signs Date Time Temp Pulse Resp B/P (MAP) Pulse Ox O2 Delivery O2 Flow Rate FiO2 03/25/19 06:22 59 18 160/64 (96) 03/25/19 04:00 98.6 96 Room Air 03/24/19 19:15 3 I&O- Last 24 Hours up to 6 AM 03/25/19 06:00 Intake Total 1650 ml Output Total 1000 ml Balance 650 ml Laboratory Data 24H LABS Laboratory Tests 2 03/24/19 11:41: Nucleated Red Blood Cells % (auto) 0.0, Prothrombin Time 16.1H, Prothromb Time International Ratio 1.32, Activated Partial Thromboplast Time 31.1, Anion Gap 6L, Glomerular Filtration Rate > 60.0, Calcium Level 9.3, Total Bilirubin 0.4, Aspartate Amino Transf (AST/SGOT) 13, Alanine Aminotransferase (ALT/SGPT) 36, Alkaline Phosphatase 85, Total Protein 6.6, Albumin 3.2, Albumin/Globulin Ratio 0.94L 03/24/19 14:45: Urine Color STRAW, Urine Appearance CLEAR, Urine pH 6.0, Urine Specific [place] 1.006, Urine Protein NEGATIVE, Urine Glucose (Auto)(UA) NEGATIVE, Urine Ketones (Auto) NEGATIVE, Urine Blood NEGATIVE, Urine Nitrite NEGATIVE, Urine Bilirubin NEGATIVE, Urine Urobilinogen 0.2, Urine Leukocyte Esterase (Auto) NEGATIVE, Urine WBC (Auto) 0, Urine RBC (Auto) 1, Urine Hyaline Casts (Auto) 0, Urine Bacteria (Auto) NEGATIVE, Urine Squamous Epithelial Cells 0, Urine Sperm (Auto) 03/25/19 05:28: Nucleated Red Blood Cells % (auto) 0.0, Anion Gap 5L, Glomerular Filtration Rate > 60.0, Calcium Level 8.9, Immature Granulocyte % (Auto) 0.7, Neutrophils (%) (Auto) 67.9H, Lymphocytes (%) (Auto) 16.1L, Monocytes (%) (Auto) 10.8H, Eosinophils (%) (Auto) 3.7H, Basophils (%) (Auto) 0.8, Neutrophils # (Auto) 5.7, Lymphocytes # (Auto) 1.4L, Monocytes # (Auto) 0.9H, Eosinophils # (Auto) 0.3, Basophils # (Auto) 0.1, Erythrocyte Sedimentation Rate 24H, C-Reactive Protein, Quantitative 0.89H CBC/BMP Laboratory Tests 03/24/19 11:41 03/25/19 05:28 Microbiology Microbiology 03/24/19 Urine Culture, Received Pending 03/24/19 Blood Culture, Received Pending 03/24/19 Blood Culture, Received Pending YUMIKO FLOREZ PA-C Mar 25, 2019 08:16 Chuy Pearl M.D. Mar 25, 2019 12:28
[2019-03-25] MEDS ORDERED: CLOPIDOGREL 75 MG TAB PO SCH (09:00)
[2019-03-25] MEDS: levETIRAcetam 250MG TABLET (KEPPRA) PO SCH ×2 (09:17→20:22)
[2019-03-25] MEDS: MAGNESIUM OXIDE 400 MG TAB (MAG-OX) PO SCH (09:17)
[2019-03-25] MEDS: PANTOPRAZOLE 40MG TAB (PROTONIX) PO SCH ×2 (09:17→20:22)
[2019-03-25] MEDS: GABAPENTIN 400 MG CAP PO SCH ×3 (09:17→20:21)
[2019-03-25] MEDS: APIXABAN 5 MG TAB (ELIQUIS) PO SCH (09:17)
[2019-03-25] MEDS: DULoxetine 30 MG CAP (CYMBALTA) PO SCH ×2 (09:17→20:22)
[2019-03-25] MEDS: amLODIPine 5 MG TAB PO SCH (09:17)
[2019-03-25] MEDS: ATENOLOL 50 MG TAB PO SCH ×2 (09:18→20:24)
--- NOTE | 2019-03-25 10:15 | CR ---
DATE OF CONSULTATION: 03/24/2019 I was asked to consult by Dr. Seaman for evaluation of Enterococcus faecalis bacteremia. HISTORY OF PRESENT ILLNESS: Mr. Garcia is a pleasant 68-year-old gentleman who has had recurrent Enterococcus Faecalis bacteremia since 02/04/2019. During that hospitalization he was admitted with a five day history of fever, up to 102.8. He was in the hospital from 02/04 discharged on 02/08 when he had two positive blood cultures. He was treated with IV Zosyn for two days then switched to p.o. Levaquin and discharged home with a presumptive diagnosis of a UTI as his urine culture had E. coli and E. Faecalis. He then presented again to the hospital on 03/18 after he had a blood transfusion of 2 units of blood on 03/17 following which he developed shortness of breath, felt warm, but did not have any fever. His white count was 17,000. He was admitted, had a diagnosis of possible pneumonia, was treated with Z-Gonzalo, blood cultures two sets were positive, but the patient was discharged home on 03/20. On 03/21 his blood cultures were again positive and the patient was admitted. He has been getting iron infusions since November 2018 for iron-deficiency anemia. His colonoscopy and endoscopy were done by Dr. Youssef, 09/16/2017, when he was noted to have gastric and duodenal ulcers. His colonoscopy was negative. PAST MEDICAL HISTORY: Significant for tobacco abuse continued. Severe peripheral vascular disease status post multiple stents and endarterectomies, most recently bilateral carotid endarterectomy for carotid artery stenosis. Iron deficiency anemia. Atrial fibrillation ablation with pacemaker placement. Seizure disorder. Chronic hypertension. Kidney cyst but no history of kidney disease. PAST SURGICAL HISTORY: Left common iliac stent 08/24/2008. Right common iliac stent 08/29/2008. Left external iliac artery stent 04/16/2010. Pacemaker insertion by Dr. Rizo 12/03/2011. Right [place]unda artery endarterectomy 2011. Right carotid endarterectomy 05/07/2018 with a patch. Left carotid endarterectomy with a patch 11/22/2015. Most of his vascular surgery was done by Dr. Polanco at [facility]. SOCIAL HISTORY: He is . His is at the bedside. He smokes half to one pack per day, but trying to taper down. Occasional alcohol use. No drug use. He is retired. PHYSICAL EXAMINATION: Pleasant frail gentleman in no acute distress. Lungs: Few expiratory crackles heard at the base of the lung [place]. Heart: Irregularly irregular, S1-S2 tachycardic. No murmurs appreciated. Abdomen: Soft, nontender. No hepatosplenomegaly. Extremities: No clubbing, cyanosis or edema. He has a few erythematous papules on his knees but he states that could be the cat scratched him. Bilateral carotid scars, well healed. Lower extremity no clubbing, cyanosis or edema. No rashes other than the knee papules. Groin: Bilateral groin surgery well healed. Circulation: Posterior tibial pulse is diminished, could not be felt. Neurologic exam: Alert and oriented times three. Motor strength is normal. LABORATORY DATA: White count 9.2, on 03/19 was 17.8, hemoglobin 10.8, hematocrit 33.9, platelets 421. Sodium 135, potassium 4.6, chloride 101, bicarb 28, BUN 15, creatinine 1, glucose 87, calcium 9.3, AST 13, ALT 36, alkaline phosphatase 85, total protein 6.6, albumin 3.2. Digoxin level 1.3. Methicillin-resistant Staphylococcus aureus (MRSA) screen negative. Urinalysis had 0 white cells, 1 red cell. MEDICATIONS: - amlodipine 5 mg daily - Plavix 75 mg by mouth daily - mag oxide 400 mg by mouth daily - gentamicin 60 mg IV every 12 hours - Eliquis 5 mg by mouth twice a day - atenolol 50 mg by mouth twice a day - digoxin 0.25 mg by mouth at bedtime - duloxetine 30 mg by mouth twice a day - Keppra 1000 mg by mouth twice a day - pantoprazole 40 mg by mouth twice a day - gabapentin 800 mg by mouth three times a day - ampicillin 200 IV every 4 hours - Tylenol as needed - Lipitor 80 mg by mouth daily - lisinopril 20 mg by mouth daily - Aldactone 12.5 mg by mouth daily ALLERGIES: 1. HYDROCHLOROTHIAZIDE. Transesophageal echocardiogram done today by Dr. Rizo showed a vegetation of the aortic valve measuring 0.65 cm with some mild aortic regurgitation. There is no evidence of vegetation on the pacemaker leads. IMPRESSION: This is a 68-year-old gentleman with Enterococcus faecalis bacteremia since January 2019. It could have been of urinary origin, but now has had bacteremia for 6 weeks with intermittent fevers. No nausea, vomiting or diarrhea. No weight loss. Appetite has been fair. The patient had aortic valve endocarditis and will need to be treated with 6 weeks of IV antibiotic combination of ampicillin and gentamicin or ampicillin and Rocephin. Since the patient has significant peripheral vascular disease and risk of having acute kidney injury from aminoglycoside, I would suggest switching gentamicin to Rocephin 2 grams IV every 12 hours along with ampicillin 2 grams IV every 4 hours. I would also suggest obtaining a repeat colonoscopy as the patient has persistent iron deficiency anemia, most likely from peptic ulcer disease, but since the patient has Enterococcus Faecalis endocarditis, that could be associated with colonic pathology including polyps and carcinoma, and therefore would suggest obtaining a repeat colonoscopy even thought it was done 08/[address] Youssef. Repeat blood cultures until negative. Could schedule PICC line once cultures are negative. The patient will need home IV antibiotics. Consult Patient and family services (PFS) on Thursday. He will need combination medication including ampicillin and Rocephin for 6 weeks. Labs CBC, CRP, ESR in the morning.
[2019-03-25] MEDS ORDERED: SLF 3 ML SYR IV PRN (11:45)
[2019-03-25] MEDS: LISINOPRIL 20 MG TAB PO SCH (12:53)
[2019-03-25] MEDS: cefTRIAXone SOD 2 GM in D5W MINI-BAG PLUS 50 ML IV SCH ×2 (12:53→23:12)
[2019-03-25] MEDS: ATORVASTATIN 20 MG TAB PO SCH (12:53)
[2019-03-25] MEDS: SPIRONOLACTONE 12.5MG PER 1/2 TABLET PO SCH (12:53)
[2019-03-25] MEDS: SLF 3 ML SYR IV SCH ×2 (14:23→22:09)
--- NOTE | 2019-03-25 17:21 | IPN ---
DATE: 03/25/2019 INFECTIOUS DISEASE PROGRESS NOTE Mr. Garcia has no complaints. No nausea, vomiting or diarrhea. No dysuria, flank pain, hematuria. He has no chest pain or palpitations. He states he has never seen black stools or melena. LABS: White count is 8.5, hemoglobin 10.7, hematocrit 33.8, platelets 374, 68% neutrophils, 16% lymphocytes, 10% monocytes. ESR 24. Sodium 136, potassium 3.9, chloride 103, bicarbonate 23, BUN 9, creatinine 0.86, glucose 88, calcium 8.9, CRP 0.89. Urinalysis has 0 white cells, 1 red cell. Urine culture was negative. Blood cultures from 03/24/2019 are still pending. Blood cultures from 03/18/2019 two sets were positive for Enterococcus faecalis; 03/21/2019, two sets were positive for Enterococcus faecalis and 03/23/2019 are no growth after 24 hours. IMPRESSION: 1. Aortic valve endocarditis of the [place] valve. On intravenous (IV) ampicillin and Rocephin. The patient has had symptoms for at least 6 weeks now. Transesophageal echocardiogram done by Dr. Rizo, 0.65 cm vegetation with mild aortic valve sclerosis, mild aortic regurgitation. No vegetations seen on the pacemaker leads. Normal right ventricular systolic function. No pericardial effusion. 2. Severe peripheral vascular disease. Status post carotid endarterectomy recently in the past 10 months, patient on Plavix and Eliquis. 3. Recurrent gastrointestinal (GI) bleed requiring IV iron and transfusions, that needs to be further work with colonoscopy To RO colonoc malignancy and endoscopy for FU on PUD PLAN: I would suggest obtaining consultation from Dr. Prince who saw the patient as an outpatient for evaluation of GI bleeding. He had started him on pantoprazole, but I would recommend following up with a repeat endoscopy, colonoscopy to rule out continued bleeding ulcers as well as colonic pathology, cancer versus polyps as a cause of Enterococcus (E) faecalis bacteremia. Peripherally inserted central catheter (PICC) line on Thursday. Consult patient and family services (PFS) for home IV antibiotic. Please obtain two dual port PICC line as he will need synergistic antibiotic with ampicillin and Rocephin; ampicillin would be a continuous infusion and Rocephin 2 grams every 12 hours. Monitor CBC, CMP, ESR, CRP weekly. MTDD
[2019-03-25] MEDS: DIGOXIN 0.25 MG TAB PO SCH (20:22)
[2019-03-26] MEDS: AMPICILLIN SOD 2 GM in D5W MINI-BAG PLUS 100 ML IV SCH ×6 (02:24→21:12)
[2019-03-26 04:00] VITALS: BP 150/62
[2019-03-26 06:15] LABS: BASO # 0.1 10^3/uL (0.0-0.2); BASO % 0.7 % (0.0-1.0); EOS # 0.3 10^3/uL (0.0-0.5); EOS % 3.3 % (0.0-3.0); HEMATOCRIT 32.9 % (42.0-52.0); HEMOGLOBIN 10.5 g/dl (13.5-17.5); LYMPH # 1.6 10^3/uL (1.5-5.0); MEAN CORPUSCULAR HEMOGLOBIN 28.6 pg (27.0-33.0); MEAN CORPUSCULAR HGB CONC 31.9 g/dl (32.0-36.5); MEAN CORPUSCULAR VOLUME 89.6 fl (80.0-96.0); MONO # 1.1 10^3/uL (0.0-0.8); MONO % 10.8 % (0.0-5.0); NEUTROPHILS % 68.5 % (36.0-66.0); PLATELET COUNT, AUTOMATED 363 10^3/uL (150-450); RED BLOOD COUNT 3.67 10^6/uL (4.30-6.10); WHITE BLOOD COUNT 10.3 10^3/uL (4.0-10.0)
[2019-03-26] MEDS: SLF 3 ML SYR IV SCH ×3 (06:40→21:12)
[2019-03-26] MEDS: GASTROGRAFIN SOLUTION 30ML PO SCH ×2 (06:48→07:31)
[2019-03-26 07:22] LABS: BLOOD UREA NITROGEN 17 MG/DL (7-18); C REACTIVE PROTEIN QUANTITATIV 0.61 MG/DL (0.00-0.30); CALCIUM LEVEL 8.8 MG/DL (8.8-10.2); CARBON DIOXIDE LEVEL 29 MEQ/L (21-32); CHLORIDE LEVEL 103 MEQ/L (98-107); CREATININE FOR GFR 1.18 MG/DL (0.70-1.30); FERRITIN 46 NG/ML (26-388); GLOMERULAR FILTRATION RATE > 60.0 (>49); GLUCOSE, FASTING 98 MG/DL (70-100); IRON (FE) 69 UG/DL (65-175); PERCENT SATURATION 18.3 % (19.7-50.0); POTASSIUM SERUM 4.3 MEQ/L (3.5-5.1); SODIUM LEVEL 137 MEQ/L (136-145); TOTAL IRON BINDING CAPACITY 377 UG/DL (250-450)
[2019-03-26 08:00] VITALS: BP 119/68
[2019-03-26] MEDS ORDERED: ISOVUE-370 76% 100ML VIAL (Q9967) As Ordered ONE (08:04)
[2019-03-26] MEDS: ATENOLOL 50 MG TAB PO SCH ×2 (09:00→21:12)
--- NOTE | 2019-03-26 09:11 | REP ---
Clinical: Sepsis. Technique: Axial contrast enhanced images from the lung bases to the pubic symphysis using oral (per protocol) and 100 ml Isovue 370 intravenous contrast material with coronal and sagittal re-formations. Comparison: 04/09/2018. Findings: Lung bases demonstrate minimal posterior basilar dependent changes. Visualized heart and pericardium grossly normal. Liver, spleen, pancreas, gallbladder, and bilateral adrenal glands are normal. Kidneys demonstrate mild perinephric stranding along with renovascular calcifications essentially unchanged compared to 2018. No hydronephrosis. The enteric system is without obstruction or acute inflammatory process. Pelvis demonstrates normal bladder and age appropriate prostate/seminal vesicles. No ascites. No free air. No adenopathy. Extensive atherosclerotic changes to the aorta and vasculature noted without aneurysm. Musculoskeletal structures demonstrate degenerative changes along with evidence for prior trauma and lumbar laminectomy and posterior fixation unchanged in appearance from 2018. Impression: No obvious acute abdominopelvic pathology appreciated. No ascites, drainable collection/abscess or adenopathy. Chronic stable changes. Electronically Signed by Flaco Lomeli MD 03/26/2019 09:02 A
[2019-03-26] MEDS: PANTOPRAZOLE 40MG TAB (PROTONIX) PO SCH ×2 (09:15→21:12)
[2019-03-26] MEDS: GABAPENTIN 400 MG CAP PO SCH ×3 (09:15→21:11)
[2019-03-26] MEDS: DULoxetine 30 MG CAP (CYMBALTA) PO SCH ×2 (09:15→21:11)
[2019-03-26] MEDS: levETIRAcetam 250MG TABLET (KEPPRA) PO SCH ×2 (09:16→21:09)
[2019-03-26] MEDS: MAGNESIUM OXIDE 400 MG TAB (MAG-OX) PO SCH (09:16)
[2019-03-26] MEDS: amLODIPine 5 MG TAB PO SCH (09:17)
--- NOTE | 2019-03-26 10:04 | IPNPDOC ---
Subjective Date Seen The patient was seen on 03/26/19. Subjective Chief Complaint/HPI no complaints. no dyspnea, no chest pain, no chills, no fevers, no palpitations. General: Denies: Chills Constitutional: Denies: Fever ENT: Denies: Head Aches Skin: Denies: Rash Pulmonary: Denies: Dyspnea, Cough Cardiovascular: Denies: Chest Pain, Orthopnea Gastrointestinal: Denies: Nausea, Abdominal Pain Genitourinary: Denies: Dysuria Hematologic: Denies: Bruising Psych: Reports: Mood Normal Objective Physical Examination General Exam: Positive: Alert, No Acute Distress ENT Exam: Positive: Mucous membr. moist/pink Chest Exam: Positive: Clear to auscultation, Normal air movement Heart Exam: Positive: Rate Normal, Normal S1, Normal S2 Abdomen Exam: Positive: Normal bowel sounds, Soft; Negative: Tenderness Extremity Exam: Negative: Edema Skin Exam: Positive: Nl turgor and temperature; Negative: Rash Neuro Exam: Positive: Normal Speech Psych Exam: Positive: Mental status NL, Mood NL Assessment /Plan Problems (1) Endocarditis Status: Acute Response to Treatment: Stable Discussed With: Patient Problem Specific Plan: Consult Specialist, Monitor Clinically, Repeat Labs Problem Text: 03/26/19: urine culture was negative presumably not the source. suspect GI origin. 03/25/19 plan 6W ceft 2 IV BID c amp 2 q4H per ID, plan DUAL-LINE PICC 03/28/19 IF BCX remain NG 03/24/19 BCX2 NG 03/24/19 UCX P 03/25 ECHO done 03/24 with 0.65 cm vegetation noted on the aortic cusp Afebrile, nl WBC, will check CRP (2) Enterococcus faecalis infection Status: Acute Problem Text: as per endocarditis (3) Anemia, iron deficiency Status: Chronic Problem Text: 03/26: Hgb 10.5, panendoscopy planned as noted. 03/25 stable at 10.7 03/25/19 case portia Prince-plan EGD/colon for 03/28/19 tf case, will hold clop id (for PVD)/apix (for pAF) today (adequate hold time per Suresh) 03/25/19 case portia Lewis-favor repeat EGD/colon as inpx given persistent Fe def anemia requiring Fe/RBC tx (03/16 tx 2u RBCs) AND as complete rivas for E. faecalis sepsis 08/2017 EGD/colon-Mikael: anal stricture (no biopsied) and : - Normal esophagus. - Small hiatal hernia. - Nodular mucosa in the gastric body and in the gastric antrum. - Erythematous mucosa in the stomach. - Non-bleeding gastric ulcers. - Multiple non-bleeding duodenal ulcers. - Normal second portion of the duodenum and third portion of the duodenum. - No specimens collected. (4) Hypertensive heart disease Status: Chronic Response to Treatment: Stable Problem Specific Plan: Monitor Clinically Problem Text: Cont home meds, pressures controlled. (5) A-fib Status: Chronic Response to Treatment: Stable Problem Specific Plan: Monitor Clinically Problem Text: 03/26: rate control:RC-aten 50 BID, dig 250-eliquis for stroke prophylaxis on hold since 03/25 due to anticipated procedure and heme pos stool.. Plan/VTE VTE Prophylaxis Ordered?: Yes VS, I&O, 24H, Fishbone Vital Signs/I&O Vital Signs Date Time Temp Pulse Resp B/P (MAP) Pulse Ox O2 Delivery O2 Flow Rate FiO2 03/26/19 09:17 53 119/68 03/26/19 08:00 98.2 18 97 Room Air 03/24/19 19:15 3 I&O- Last 24 Hours up to 6 AM 03/26/19 06:00 Intake Total 1480 ml Output Total 925 ml Balance 555 ml Laboratory Data 24H LABS Laboratory Tests 2 03/26/19 05:45: Immature Granulocyte % (Auto) 0.7, Neutrophils (%) (Auto) 68.5H, Lymphocytes (%) (Auto) 16.0L, Monocytes (%) (Auto) 10.8H, Eosinophils (%) (Auto) 3.3H, Basophils (%) (Auto) 0.7, Neutrophils # (Auto) 7.0, Lymphocytes # (Auto) 1.6, Monocytes # (Auto) 1.1H, Eosinophils # (Auto) 0.3, Basophils # (Auto) 0.1, Reticulocyte # (auto) 29.4, Nucleated Red Blood Cells % (auto) 0.0, Percent Reticulocyte Count 0.8, Reticulocyte Hemoglobin Equivalent 34.3, Anion Gap 5L, Glomerular Filtration Rate > 60.0, Calcium Level 8.8, Iron Level 69, Total Iron Binding Capacity 377, Transferrin % Saturation 18.3L, Ferritin 46, C-Reactive Protein, Quantitative 0.61H CBC/BMP Laboratory Tests 03/26/19 05:45 Microbiology Microbiology 03/24/19 Urine Culture - Final, Complete 03/24/19 Blood Culture - Preliminary, Resulted No growth after 24 hours . All specim... 03/24/19 Blood Culture - Preliminary, Resulted No growth after 24 hours . All specim... Ry Hassan MD Mar 26, 2019 10:04
[2019-03-26] MEDS: cefTRIAXone SOD 2 GM in D5W MINI-BAG PLUS 50 ML IV SCH ×2 (11:55→23:29)
[2019-03-26] MEDS: LISINOPRIL 20 MG TAB PO SCH (11:55)
[2019-03-26] MEDS: SPIRONOLACTONE 12.5MG PER 1/2 TABLET PO SCH (11:55)
[2019-03-26] MEDS: ATORVASTATIN 20 MG TAB PO SCH (11:55)
[2019-03-26 12:00] VITALS: BP 152/70
[2019-03-26 16:00] VITALS: BP 145/68
[2019-03-26 20:00] VITALS: BP 148/64
[2019-03-26] MEDS: DIGOXIN 0.25 MG TAB PO SCH (21:11)
[2019-03-26 23:59] VITALS: BP 160/62
[2019-03-27] MEDS: AMPICILLIN SOD 2 GM in D5W MINI-BAG PLUS 100 ML IV SCH ×6 (01:08→21:27)
[2019-03-27 04:00] VITALS: BP 140/60
[2019-03-27] MEDS: SLF 3 ML SYR IV SCH ×3 (05:18→21:29)
[2019-03-27 05:40] LABS: BASO # 0.1 10^3/uL (0.0-0.2); BASO % 0.9 % (0.0-1.0); EOS # 0.3 10^3/uL (0.0-0.5); HEMATOCRIT 32.1 % (42.0-52.0); HEMOGLOBIN 10.4 g/dl (13.5-17.5); LYMPH # 1.5 10^3/uL (1.5-5.0); LYMPH % 13.6 % (24.0-44.0); MEAN CORPUSCULAR HEMOGLOBIN 28.7 pg (27.0-33.0); MEAN CORPUSCULAR HGB CONC 32.4 g/dl (32.0-36.5); MEAN CORPUSCULAR VOLUME 88.4 fl (80.0-96.0); MONO # 1.2 10^3/uL (0.0-0.8); NEUTROPHILS % 70.9 % (36.0-66.0); PLATELET COUNT, AUTOMATED 348 10^3/uL (150-450); RED BLOOD COUNT 3.63 10^6/uL (4.30-6.10); WHITE BLOOD COUNT 11.2 10^3/uL (4.0-10.0)
[2019-03-27 06:08] LABS: BLOOD UREA NITROGEN 16 MG/DL (7-18); CALCIUM LEVEL 8.8 MG/DL (8.8-10.2); CARBON DIOXIDE LEVEL 27 MEQ/L (21-32); CHLORIDE LEVEL 105 MEQ/L (98-107); CREATININE FOR GFR 1.21 MG/DL (0.70-1.30); GLOMERULAR FILTRATION RATE > 60.0 (>49); GLUCOSE, FASTING 99 MG/DL (70-100); POTASSIUM SERUM 3.9 MEQ/L (3.5-5.1); SODIUM LEVEL 139 MEQ/L (136-145)
[2019-03-27 08:00] VITALS: BP 142/70
--- NOTE | 2019-03-27 08:10 | IPNPDOC ---
Subjective Date Seen The patient was seen on 03/27/19. Subjective Chief Complaint/HPI no dyspnea, no CP, no palpitations, no nausea, no abdominal discomfort. Constitutional: Denies: Chills Pulmonary: Denies: Dyspnea, Cough Cardiovascular: Denies: Chest Pain, Orthopnea Gastrointestinal: Denies: Nausea, Abdominal Pain Genitourinary: Denies: Dysuria Hematologic: Denies: Bruising Neurological: Denies: Weakness, Numbness Psych: Reports: Mood Normal; Denies: Anxiety Objective Physical Examination General Exam: Positive: Alert, No Acute Distress ENT Exam: Positive: Mucous membr. moist/pink Chest Exam: Positive: Clear to auscultation, Normal air movement Heart Exam: Positive: Rate Normal, Normal S1, Normal S2 Abdomen Exam: Positive: Normal bowel sounds, Soft; Negative: Tenderness Extremity Exam: Negative: Edema Skin Exam: Positive: Nl turgor and temperature; Negative: Rash Neuro Exam: Positive: Normal Speech Psych Exam: Positive: Mental status NL, Mood NL Assessment /Plan Problems (1) Endocarditis Status: Acute Response to Treatment: Stable Discussed With: Patient Problem Specific Plan: Consult Specialist, Monitor Clinically, Repeat Labs Problem Text: 03/27: stable overnight. no fever, no embolic phenomena 03/26/19: urine culture was negative presumably not the source. suspect GI origin. 03/25/19 plan 6W ceft 2 IV BID c amp 2 q4H per ID, plan DUAL-LINE PICC 03/28/19 IF BCX remain NG 03/24/19 BCX2 NG 03/24/19 UCX P 03/25 ECHO done 03/24 with 0.65 cm vegetation noted on the aortic cusp Afebrile, nl WBC, will check CRP (2) Enterococcus faecalis infection Status: Acute Problem Text: as per endocarditis (3) Anemia, iron deficiency Status: Chronic Problem Text: 03/26: Hgb 10.5, panendoscopy planned as noted. 03/25 stable at 10.7 03/25/19 case portia Prince-plan EGD/colon for 03/28/19 tf case, will hold clopid (for PVD)/apix (for pAF) today (adequate hold time per Suresh) 03/25/19 case portia Lewis-favor repeat EGD/colon as inpx given persistent Fe def anemia requiring Fe/RBC tx (03/16 tx 2u RBCs) AND as complete rivas for E. faecalis sepsis 08/2017 EGD/colon-Mikael: anal stricture (no biopsied) and : - Normal esophagus. - Small hiatal hernia. - Nodular mucosa in the gastric body and in the gastric antrum. - Erythematous mucosa in the stomach. - Non-bleeding gastric ulcers. - Multiple non-bleeding duodenal ulcers. - Normal second portion of the duodenum and third portion of the duodenum. - No specimens collected. (4) Hypertensive heart disease Status: Chronic Response to Treatment: Stable Problem Specific Plan: Monitor Clinically Problem Text: Cont home meds, pressures controlled. (5) A-fib Status: Chronic Response to Treatment: Stable Problem Specific Plan: Monitor Clinically Problem Text: 03/26: rate control:RC-aten 50 BID, dig 250-eliquis for stroke prophylaxis on hold since 03/25 due to anticipated procedure and heme pos stool.. Plan/VTE VTE Prophylaxis Ordered?: Yes VS, I&O, 24H, Fishbone Vital Signs/I&O Vital Signs Date Time Temp Pulse Resp B/P (MAP) Pulse Ox O2 Delivery O2 Flow Rate FiO2 03/27/19 04:00 98.8 62 16 140/60 (86) 97 Room Air 03/24/19 19:15 3 I&O- Last 24 Hours up to 6 AM 03/27/19 06:00 Intake Total 1310 ml Output Total 0 ml Balance 1310 ml Laboratory Data 24H LABS Laboratory Tests 2 03/27/19 05:16: Immature Granulocyte % (Auto) 0.6, Neutrophils (%) (Auto) 70.9H, Lymphocytes (%) (Auto) 13.6L, Monocytes (%) (Auto) 11.0H, Eosinophils (%) (Auto) 3.0, Basophils (%) (Auto) 0.9, Neutrophils # (Auto) 8.0, Lymphocytes # (Auto) 1.5, Monocytes # (Auto) 1.2H, Eosinophils # (Auto) 0.3, Basophils # (Auto) 0.1, Nucleated Red Blood Cells % (auto) 0.0, Anion Gap 7L, Glomerular Filtration Rate > 60.0, Calcium Level 8.8 CBC/BMP Laboratory Tests 03/27/19 05:16 Microbiology Microbiology 03/24/19 Urine Culture - Final, Complete 03/24/19 Blood Culture - Preliminary, Resulted No Growth after 48 hours. All Specime... 03/24/19 Blood Culture - Preliminary, Resulted No Growth after 48 hours. All Specime... Ry Hassan MD Mar 27, 2019 08:10
[2019-03-27] MEDS: levETIRAcetam 250MG TABLET (KEPPRA) PO SCH ×2 (09:07→21:28)
[2019-03-27] MEDS: amLODIPine 5 MG TAB PO SCH (09:07)
[2019-03-27] MEDS: DULoxetine 30 MG CAP (CYMBALTA) PO SCH ×2 (09:07→21:27)
[2019-03-27] MEDS: GABAPENTIN 400 MG CAP PO SCH ×3 (09:07→21:27)
[2019-03-27] MEDS: MAGNESIUM OXIDE 400 MG TAB (MAG-OX) PO SCH (09:07)
[2019-03-27] MEDS: PANTOPRAZOLE 40MG TAB (PROTONIX) PO SCH ×2 (09:08→21:28)
[2019-03-27] MEDS: ATENOLOL 50 MG TAB PO SCH ×2 (09:08→21:28)
[2019-03-27 12:00] VITALS: BP 138/62
[2019-03-27] MEDS: cefTRIAXone SOD 2 GM in D5W MINI-BAG PLUS 50 ML IV SCH ×2 (12:12→23:53)
[2019-03-27] MEDS: LISINOPRIL 20 MG TAB PO SCH (12:13)
[2019-03-27] MEDS: ATORVASTATIN 20 MG TAB PO SCH (12:13)
[2019-03-27] MEDS: SPIRONOLACTONE 12.5MG PER 1/2 TABLET PO SCH (12:13)
--- NOTE | 2019-03-27 12:40 | CR.PDOC ---
General Date of Consultation: Mar 27, 2019 Referring Provider: Ry Hassan MD Attending Physician: KRISTEN SMITH MD Consultation Primary physician/ hospitalist: Dr. Seaman/ Dr. Hassan Reason for consult: Chronic JOCELYNN and rule out GI source of bacteremia. HPI: 68-year-old male patient with multiple medical comorbidities as mentioned below is currently hospitalized for endocarditis and recurrent enterococcus faecalis bacteremia. GI was consulted for possible inpatient endoscopic work up. Patient reports symptoms of feeling generalized weakness and shortness of breath, but denies any active GI symptoms. Pertinent negative GI symptoms: Patient denies nausea, vomiting, diarrhea, abdominal pain, loss of appetite, early satiety or unintentional weight loss. No history of hematemesis, melena or hematochezia. Patient reports regular bowel movements. Medical history reviewed from EMR: Patient has HTN, seizure disorder (on keppra), active smoker, chronic alcohol use, PVD with iliac artery stents in 2008/[address] Polanco, tachybrady syndrome s/p ablation on cardiac pacemaker in 2011(on Eliquis), s/p carotid endarterectomy in 2015, 2017/2018 (on Plavix, as per his vascular surgeon), had GI bleeding with FOBT positive and drop in Hemoglobin in August 2017 when he had EGD and Colonoscopy by Dr. Youssef -- noted no active bleeding but had non bleeding gastric and duodenal ulcers, erythematous gastric mucosa, and anal stricture, and since then patient is following with hematology for intermittent Iron infusions, was hospitalized in Feb 06-2018 for sepsis from enterococcus bateremia suspected from UTI, treated with levoquin course, later seen in GI clinic on 02/10/2019 for chronic iron deficiency anemia, planned for elective repeat EGD and Colonoscopy, started on PPI and recommended re- evaluation for anticoagulation use, later patient was noted with drop in hemoglobin from baseline and received two units of blood transfusion on 03/17/2019, later noted with shortness of breath and hospitalized (2018) for suspected pneumonia and treated with antibiotics, but blood cultures reported later with positive E. faecalis. Patient is now hospitalized on 03/24/2019 due to persistent bacteremia despite prior antibiotics use. Patient had SHARMIN on 03/24/2019 - which showed endocarditis of [place] aortic valve and cardiac pacemaker lead in right ventricle free of vegetations. Review of Systems: GI: as stated above CVS: No chest pain, No palpitations, No leg swelling. RS: No Shortness of breath, No Wheezing, no cough [employer]ER: No dizziness, No motor weakness, No sensory problems Hematology: No bruising, No gum bleeding, Musculoskeletal: No joint pain, ambulating well. Skin: No rash : No hematuria, No burning sensation of the urine ENT: No ear discharge/ pain, No dysphagia. Eyes: No photophobia. Home medications: reviewed. Antithrombotic agents - Eliquis and Plavix Medical h/o: As above. Surgical h/o: None on abdomen. Social h/o: Alcohol- upto 2 drinks of bear daily to every other day, tobacco- Active smoking 10 cigarretts daily, > 40 years smoking, IVDA/ drugs- Denies . Family h/o of GI cancers - None Prior Endoscopies: --- EGD - done by Dr. Youssef, for Anemia -- Small hiatal hernia, nodular mucosa and gastric body and gastric antrum, nonbleeding gastric ulcer, multiple nonbleeding duodenal ulcers, erythematous mucosa in the stomach --- Colonoscopy - Stricture found on digital rectal exam, normal colon Exam: Vitals: reviewed General: Alert and oriented x 3, not in distress HEENT: NO pallor, no icterus. Normal oropharynx, NO cervical lymph nodes. Chest: symmetric with bilateral clear air entry, CVS: S1, S2 heard, normal, no murmurs . Abdomen: non-distended, no surgical scars, soft, non-tender, no palpable masses, normal bowel sounds heard. Rectal exam: Patient refused / Deferred at this time in view of scheduled colonoscopy. Extremities: no pedal edema, pulses palpable. [employer]ER: no focal motor or sensory deficits. Moves all extremities Skin: no rash. Labs: reviewed. Imaging tests: reviewed. CT abdomen with Contrast done on 03/26/2019 -- no acute abdominal pelvic pathology. Impression: -- Chronic iron deficiency anemia, with multiple antithrombotic agents (Plavix and Eliquis) -- prior EGD and colonoscopy in 2018 - showing gastric and duodenal ulcers, no active bleeding, currently no overt external bleeding and stable H/H -- DDx -- occult GI bleeding from AVMs vs PUD vs polyps vs small bowel bleeding. -- Recurrent enterococcus bacteremia with wall endocarditis -- needs further evaluation. Recommendations: - Patient educated about the test results, possible differential diagnoses and All questions answered. - Continue PPI oral for now. - Follow up with ID recommendations for antibiotics and to ruleout other sources of bacteremia and endocarditis. - As per ID recommendations, will plan for repeat endoscopic work up to rule out Gi sources of bacteremia. - Patient is scheduled for EGD and Colonoscopy tomorrow. - The procedures, indications, risks (bleeding, perforation, infection, hypotension, respiratory depression, allergy, need for endotracheal intubation, surgery, colostomy, cardiac arrest, even ), benefits, limitations (e.g., mi ssing a lesion), and all other alternatives (including no intervention) were explained to the patient who understood and agreed for the procedures. - Bowel prep orders placed and discussed with RN on floor. - Patient is cleared from Primary team for above procedures. Discussed the per- procedural anticoagulation management, in view of risks and benefits, after dicussing with patient in detail Eliquis and Plavix were held for now prior to procedure and patient verbalized understanding of the elevated risks. - Follow up operative notes for post procedure recommendations. - extermination supervisor anti- thrombotic management to be planned based on the discussion with vascular surgery and Cardiology. - Patient educated about the smoking cessation. Plan of care discussed with patient and primary team. Patient verbalized understanding and agreed with the plan. Laboratory Data CBC/BMP Laboratory Tests 03/27/19 05:16 Allergies Coded Allergies: hydrochlorothiazide (Verified Adverse Reaction, Mild, LOW SODIUM , 03/18/19) Home Medications Scheduled Amlodipine Besylate (Amlodipine Besylate) 5 Mg Tab, 5 MG PO DAILY, (Reported) Ampicillin Trihydrate (Ampicillin Trihydrate) 500 Mg Capsule, 500 MG PO Q6H, (Reported) FILLED 03/21/19 FOR 7 DAYS Apixaban (Eliquis) 5 Mg Tab, 5 MG PO BID, (Reported) Ascorbic Acid (Vitamin C) 500 Mg Capsule.er, 500 MG PO DAILY, (Reported) Atenolol (Atenolol) 50 Mg Tab, 50 MG PO BID, (Reported) Atorvastatin Calcium (Lipitor) 80 Mg Tab, 80 MG PO DAILY, (Reported) TAKES AT LUNCHTIME Clopidogrel Bisulfate (Clopidogrel) 75 Mg Tab, 75 MG PO DAILY, (Reported) Digoxin (Digoxin) 250 Mcg Tab, 250 MCG PO QHS, (Reported) Duloxetine Hcl (Cymbalta) 30 Mg Cap, 30 MG PO BID, (Reported) Gabapentin (Neurontin) 800 Mg Tab, 800 MG PO TID, (Reported) Iron Polysaccharide Complex (Ferrex 150) 150 Mg Capsule, 150 MG PO BID, (Reported) Levetiracetam (Keppra) 1,000 Mg Tab, 1,000 MG PO BID, (Reported) Lisinopril (Lisinopril) 20 Mg Tab, 20 MG PO DAILY, (Reported) TAKES AT LUNCHTIME Magnesium Oxide (Magnesium Oxide) 400 Mg Tablet, 400 MG PO DAILY, (Reported) Pantoprazole Sodium (Pantoprazole Sodium) 40 Mg Tablet.dr, 40 MG PO BID, (Reported) Spironolactone (Spironolactone) 25 Mg Tab, 12.5 MG PO DAILY, (Reported) TAKES AT LUNCHTIME cefUROXime axetil (Cefuroxime) 500 Mg Tablet, 500 MG PO BID, (Reported) FILLED 03/20/19 FOR 7 DAYS Scheduled PRN Acetaminophen (Tylenol Extra Strength) 500 Mg Tablet, 1,000 MG PO Q6H PRN for PAIN / FEVER, (Reported) KRISTEN SMITH MD Mar 27, 2019 12:40
[2019-03-27] MEDS ORDERED: GOLYTELY SOLN 4000 ML BTL PO ONE (15:00)
[2019-03-27 16:00] VITALS: BP 142/64
[2019-03-27] MEDS ORDERED: BISACODYL 5 MG TAB PO ONE (17:00)
[2019-03-27 20:00] VITALS: BP 156/62
[2019-03-27] MEDS: DIGOXIN 0.25 MG TAB PO SCH (21:27)
[2019-03-27 23:59] VITALS: BP 150/70
[2019-03-28] MEDS: AMPICILLIN SOD 2 GM in D5W MINI-BAG PLUS 100 ML IV SCH ×6 (01:51→22:55)
[2019-03-28 04:00] VITALS: BP 162/64
[2019-03-28] MEDS: SLF 3 ML SYR IV SCH ×3 (05:16→22:54)
[2019-03-28 05:37] LABS: BASO # 0.1 10^3/uL (0.0-0.2); BASO % 0.7 % (0.0-1.0); EOS # 0.4 10^3/uL (0.0-0.5); EOS % 3.2 % (0.0-3.0); HEMATOCRIT 34.5 % (42.0-52.0); HEMOGLOBIN 10.9 g/dl (13.5-17.5); LYMPH # 1.4 10^3/uL (1.5-5.0); LYMPH % 12.6 % (24.0-44.0); MEAN CORPUSCULAR HEMOGLOBIN 28.4 pg (27.0-33.0); MEAN CORPUSCULAR HGB CONC 31.6 g/dl (32.0-36.5); MEAN CORPUSCULAR VOLUME 89.8 fl (80.0-96.0); MONO # 1.1 10^3/uL (0.0-0.8); MONO % 9.8 % (0.0-5.0); NEUTROPHILS # 8.2 10^3/uL (1.5-8.5); NEUTROPHILS % 73.1 % (36.0-66.0); PLATELET COUNT, AUTOMATED 322 10^3/uL (150-450); RED BLOOD COUNT 3.84 10^6/uL (4.30-6.10); WHITE BLOOD COUNT 11.2 10^3/uL (4.0-10.0)
[2019-03-28 05:56] LABS: CALCIUM LEVEL 8.8 MG/DL (8.8-10.2); CREATININE FOR GFR 1.59 MG/DL (0.70-1.30); GLOMERULAR FILTRATION RATE 46.6 (>49); POTASSIUM SERUM 3.6 MEQ/L (3.5-5.1)
[2019-03-28 08:00] VITALS: BP 178/88
[2019-03-28] MEDS: DULoxetine 30 MG CAP (CYMBALTA) PO SCH ×2 (08:51→21:37)
[2019-03-28] MEDS: PANTOPRAZOLE 40MG TAB (PROTONIX) PO SCH ×2 (08:51→21:37)
[2019-03-28] MEDS: GABAPENTIN 400 MG CAP PO SCH ×3 (08:51→21:37)
[2019-03-28] MEDS: levETIRAcetam 250MG TABLET (KEPPRA) PO SCH ×2 (08:51→21:38)
[2019-03-28] MEDS: amLODIPine 5 MG TAB PO SCH (08:51)
[2019-03-28] MEDS: MAGNESIUM OXIDE 400 MG TAB (MAG-OX) PO SCH (08:51)
[2019-03-28] MEDS: ATENOLOL 50 MG TAB PO SCH ×2 (08:52→21:38)
--- NOTE | 2019-03-28 09:12 | IPNPDOC ---
Subjective Date Seen The patient was seen on 03/28/19. Subjective Chief Complaint/HPI Pt this morning without new concerns. He is scheduled for upper and lower endoscopy later today. General: Denies: Fatigue Constitutional: Denies: Chills, Fever ENT: Denies: Head Aches Pulmonary: Denies: Dyspnea, Cough Cardiovascular: Denies: Chest Pain, Palpitations Gastrointestinal: Denies: Nausea, Vomiting, Diarrhea Neurological: Denies: Weakness Psych: Denies: Mood Normal Objective Physical Examination General Exam: Positive: Alert, No Acute Distress ENT Exam: Positive: Mucous membr. moist/pink Chest Exam: Positive: Clear to auscultation, Normal air movement Heart Exam: Positive: Rate Normal, Normal S1, Normal S2 Abdomen Exam: Positive: Normal bowel sounds, Soft; Negative: Tenderness Extremity Exam: Negative: Edema Skin Exam: Positive: Nl turgor and temperature; Negative: Rash Neuro Exam: Positive: Normal Speech Psych Exam: Positive: Mental status NL, Mood NL Assessment /Plan Problems (1) Colonic mass Problem Text: hold clopid/apix until at least 03/30/19, until colectomy if decide to do this admission 03/26/19 CT AP NAD 03/29/19 CEA P 03/28/19 case dw and consulted Dr. Youssef for consideration of L sided colectomy 03/28/19 EGD/colon: - Z-line regular, in the distal esophagus. - Gastritis. Biopsied. - Non-bleeding duodenal diverticulum. - Normal mucosa was found in the duodenal bulb and in the second portion of the duodenum. Biopsied. -An infiltrative, sessile and ulcerated non-obstructing large mass was found in the descending colon. The mass was non-circumferential. The mass measured four cm in length. In addition, its diameter measured three mm. No bleeding was present. Biopsies were taken with a cold forceps for histology. (2) RICKI (acute kidney injury) Status: Acute Problem Text: 03/28 15/1.6; therefore, held shay 12.5, lisin 20 (already given today) and dig (last dose 03/27), check renal US/PVR 03/27 1.2 baseline cr 0.9-1.0 03/18 dig 1.3 on 250 QD at baseline GFR 03/24/19 UCX NG (3) Endocarditis Status: Acute Response to Treatment: Stable Discussed With: Patient Problem Specific Plan: Consult Specialist, Monitor Clinically, Repeat Labs Problem Text: IV Ceftriaxone/Ampicillin D3/[address] Lewis[address] Endoscopy upper and lower scheduled for today with Dr Prince. 03/25/19 plan 6W ceft 2 IV BID c amp 2 q4H per ID plan DUAL-LINE PICC 03/29/19 03/24/19 BCX2 NG 03/24/19 UCX NG 02/04 BCX2, 03/18 BCX2, 03/21 BCX2 E faecalis 02/04/19 UCX E faecalis 03/25 ECHO done 03/24 with 0.65 cm vegetation noted on the aortic cusp\ 03/26 CT AP NAD (4) Enterococcus faecalis infection Status: Acute Problem Text: as per endocarditis (5) Anemia, iron deficiency Status: Chronic Problem Text: 03/28 remains stable. 03/26: Hgb 10.5, panendoscopy planned as noted. 03/25 stable at 10.7 03/25/[address] Prince-plan EGD/colon for 03/28/19 tf case, will hold cl opid (for PVD)/apix (for pAF) today (adequate hold time per Suresh) 03/25/[address] Lewis-favor repeat EGD/colon as inpx given persistent Fe def anemia requiring Fe/RBC tx (03/16 tx 2u RBCs) AND as complete rivas for E. faecalis sepsis 08/2017 EGD/colon-[place]: anal stricture (no biopsied) and : - Normal esophagus. - Small hiatal hernia. - Nodular mucosa in the gastric body and in the gastric antrum. - Erythematous mucosa in the stomach. - Non-bleeding gastric ulcers. - Multiple non-bleeding duodenal ulcers. - Normal second portion of the duodenum and third portion of the duodenum. - No specimens collected. (6) Hypertensive heart disease Status: Chronic Response to Treatment: Stable Problem Specific Plan: Monitor Clinically Problem Text: Cont home meds, pressures controlled. (7) A-fib Status: Chronic Response to Treatment: Stable Problem Specific Plan: Monitor Clinically Problem Text: 03/26: rate control:RC-aten 50 BID, dig 250-eliquis for stroke prophylaxis on hold since 03/25 due to anticipated procedure and heme pos stool.. Plan/VTE VTE Prophylaxis Ordered?: Yes VS, I&O, 24H, Fishbone Vital Signs/I&O Vital Signs Date Time Temp Pulse Resp B/P (MAP) Pulse Ox O2 Delivery O2 Flow Rate FiO2 03/28/19 08:52 74 178/88 03/28/19 04:00 99.0 16 96 Room Air 03/24/19 19:15 3 I&O- Last 24 Hours up to 6 AM 03/28/19 06:00 Intake Total 1280 ml Balance 1280 ml Laboratory Data 24H LABS Laboratory Tests 2 03/28/19 05:13: Immature Granulocyte % (Auto) 0.6, Neutrophils (%) (Auto) 73.1H, Lymphocytes (%) (Auto) 12.6L, Monocytes (%) (Auto) 9.8H, Eosinophils (%) (Auto) 3.2H, Basophils (%) (Auto) 0.7, Neutrophils # (Auto) 8.2, Lymphocytes # (Auto) 1.4L, Monocytes # (Auto) 1.1H, Eosinophils # (Auto) 0.4, Basophils # (Auto) 0.1, Nucleated Red Blood Cells % (auto) 0.0, Anion Gap 8, Glomerular Filtration Rate 46.6L, Calcium Level 8.8 CBC/BMP Laboratory Tests 03/28/19 05:13 Microbiology Microbiology 03/24/19 Urine Culture - Final, Complete 03/24/19 Blood Culture - Preliminary, Resulted No Growth after 72 hours. All specime... 03/24/19 Blood Culture - Preliminary, Resulted No Growth after 72 hours. All specime... YUMIKO FLOREZ PA-C Mar 28, 2019 09:12 Chuy Pearl M.D. Mar 28, 2019 16:19
[2019-03-28] MEDS: LISINOPRIL 20 MG TAB PO SCH (11:58)
[2019-03-28] MEDS: SPIRONOLACTONE 12.5MG PER 1/2 TABLET PO SCH (11:58)
[2019-03-28] MEDS: cefTRIAXone SOD 2 GM in D5W MINI-BAG PLUS 50 ML IV SCH (11:59)
[2019-03-28] MEDS: ATORVASTATIN 20 MG TAB PO SCH (11:59)
[2019-03-28 12:00] VITALS: BP 170/72
[2019-03-28 12:33] LABS: VITAMIN B12 LEVEL 654 PG/ML (247-911)
[2019-03-28] MEDS ORDERED: fentaNYL 100 MCG/2 ML INJECTION (J3010) As Ordered ONE (14:11)
[2019-03-28] MEDS ORDERED: PROPOFOL 200 MG/20 ML VIAL As Ordered ONE ×2 (14:11→15:10)
[2019-03-28] MEDS ORDERED: LIDOCAINE 2% INJ 100 MG/5 ML SDV (FOR ANES.) As Ordered ONE (14:11)
--- NOTE | 2019-03-28 15:42 | ROOR ---
Patient Name: Gio Garcia Procedure Date: 03/28/2019 2:38 PM Date of : 1950 Age: 68 Room: [facility] Gender: Male Note Status: Finalized Procedure: Upper GI endoscopy Indications: Follow-up of peptic ulcer Providers: Terrell Prince MD Referring MD: 2. Inpatient 2. Inpatient Requesting Provider: Medicines: Monitored Anesthesia Care Complications: No immediate complications. Procedure: Pre-Anesthesia Assessment: - Prior to the procedure, a History and Physical was performed, and patient medications and allergies were reviewed. The patient is competent. The risks and benefits of the procedure and the sedation options and risks were discussed with the patient. All questions were answered and informed consent was obtained. Patient identification and proposed procedure were verified by the physician, the nurse and the anesthesiologist in the procedure room. Mental Status Examination: normal. Airway Examination: normal oropharyngeal airway and neck mobility. Respiratory Examination: clear to auscultation. CV Examination: normal. Prophylactic Antibiotics: The patient does not require prophylactic antibiotics. Prior Anticoagulants: The patient has taken Eliquis (apixaban), last dose was 3 days prior to procedure. ASA Grade Assessment: III - A patient with severe systemic disease. After reviewing the risks and benefits, the patient was deemed in satisfactory condition to undergo the procedure. The anesthesia plan was to use monitored anesthesia care (MAC). Immediately prior to administration of medications, the patient was re-assessed for adequacy to receive sedatives. The heart rate, respiratory rate, oxygen saturations, blood pressure, adequacy of pulmonary ventilation, and response to care were monitored throughout the procedure. The physical status of the patient was re-assessed after the procedure. The Endoscope was introduced through the mouth, and advanced to the second part of duodenum. The upper GI endoscopy was accomplished without difficulty. The patient tolerated the procedure well. Findings: The Z-line was regular and was found in the distal esophagus. Diffuse moderate inflammation characterized by erosions, erythema, friability and granularity was found in the gastric body and in the gastric antrum. Biopsies were taken with a cold forceps for Helicobacter pylori testing. Verification of patient identification for the specimen was done by the physician and nurse using the patient's name, date and medical record number. Estimated blood loss was minimal. A small non-bleeding diverticulum was found in the second portion of the duodenum. Normal mucosa was found in the duodenal bulb and in the second portion of the duodenum. Biopsies for histology were taken with a cold forceps for evaluation of celiac disease. Impression: - Z-line regular, in the distal esophagus. - Gastritis. Biopsied. - Non-bleeding duodenal diverticulum. - Normal mucosa was found in the duodenal bulb and in the second portion of the duodenum. Biopsied. Recommendation: - Patient has a contact number available for emergencies. The signs and symptoms of potential delayed complications were discussed with the patient. Return to normal activities tomorrow. Written discharge instructions were provided to the patient. - Resume previous diet. - Continue present medications. - Resume Eliquis (apixaban) in 2 days and Plavix (clopidogrel) in 2 days at prior doses. Refer to primary physician for further adjustment of therapy. - Await pathology results. - Use Protonix (pantoprazole) 40 mg PO twice daily - to be taken in morning (1/2 hour before breakfast) and at bedtime ( atleast 3 hours after last meal) for 8 weeks. - Follow Colonoscopy report findings and recommendations. - Return to primary care physician. Terrell Prince MD Terrell Prince MD 03/28/2019 3:42:27 PM Electronically signed by Terrell Prince MD Number of Addenda: 0 Note Initiated On: 03/28/2019 2:38 PM Estimated Blood Loss: Estimated blood loss was minimal.
--- NOTE | 2019-03-28 15:51 | ROOR ---
Patient Name: Gio Garcia Procedure Date: 03/28/2019 2:37 PM Date of : 1950 Age: 68 Room: [facility] Gender: Male Note Status: Finalized Procedure: Colonoscopy Indications: Gastrointestinal bleeding, Iron deficiency anemia, Follow-up of rectal stenosis Providers: Terrell Prince MD Referring MD: 2. Inpatient 2. Inpatient Requesting Provider: Medicines: Monitored Anesthesia Care Complications: No immediate complications. Procedure: Pre-Anesthesia Assessment: - Prior to the procedure, a History and Physical was performed, and patient medications and allergies were reviewed. The patient is competent. The risks and benefits of the procedure and the sedation options and risks were discussed with the patient. All questions were answered and informed consent was obtained. Patient identification and proposed procedure were verified by the physician, the nurse and the anesthesiologist in the procedure room. Mental Status Examination: alert and oriented. Airway Examination: normal oropharyngeal airway and neck mobility. Respiratory Examination: clear to auscultation. CV Examination: normal. Prophylactic Antibiotics: The patient does not require prophylactic antibiotics. Prior Anticoagulants: The patient has taken Eliquis (apixaban), last dose was 2 days prior to procedure. ASA Grade Assessment: III - A patient with severe systemic disease. After reviewing the risks and benefits, the patient was deemed in satisfactory condition to undergo the procedure. The anesthesia plan was to use monitored anesthesia care (MAC). Immediately prior to administration of medications, the patient was re-assessed for adequacy to receive sedatives. The heart rate, respiratory rate, oxygen saturations, blood pressure, adequacy of pulmonary ventilation, and response to care were monitored throughout the procedure. The physical status of the patient was re-assessed after the procedure. The Colonoscope was introduced through the anus and advanced to the terminal ileum, with identification of the appendiceal orifice and IC valve. The colonoscopy was performed without difficulty. The patient tolerated the procedure well. The quality of the bowel preparation was good. The terminal ileum, ileocecal valve, appendiceal orifice, and rectum were photographed. Scope insertion time was 3 minutes. Scope withdrawal time was 8 minutes. The total duration of the procedure was 12 minutes. Findings: The perianal and digital rectal examinations were normal. The terminal ileum appeared normal. An infiltrative, sessile and ulcerated non-obstructing large mass was found in the descending colon. The mass was non-circumferential. The mass measured four cm in length. In addition, its diameter measured three mm. No bleeding was present. Biopsies were taken with a cold forceps for histology. Area was tattooed on proximal and distal side of the mass lesion, with an injection of Catia ink. Verification of patient identification for the specimen was done by the physician and nurse using the patient's name, date and medical record number. Estimated blood loss was minimal. Non-bleeding external and internal hemorrhoids were found during retroflexion. The hemorrhoids were medium-sized. Impression: - The examined portion of the ileum was normal. 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 Biopsied. Tattooed. - Non-bleeding external and internal hemorrhoids. Recommendation: - Patient has a contact number available for emergencies. The signs and symptoms of potential delayed complications were discussed with the patient. Return to normal activities tomorrow. Written discharge instructions were provided to the patient. - Resume previous diet. - Resume Eliquis (apixaban) in 2 days and Plavix (clopidogrel) in 2 days at prior doses. Refer to primary physician for further adjustment of therapy. - Await pathology results. - Refer to a surgeon tomorrow. - Refer to an oncologist at the next available appointment. - Repeat colonoscopy after studies are complete for surveillance based on pathology results. - Return to GI clinic in [facility] (address [address], [address], [place], [address]) in 4 -- 6 weeks. Please call GI clinic @ [phone] for apppointment date and time. - Return to primary care physician. Terrell Prince MD Terrell Prince MD 03/28/2019 3:51:13 PM Electronically signed by Terrell Prince MD Number of Addenda: 0 Note Initiated On: 03/28/2019 2:37 PM Estimated Blood Loss: Estimated blood loss was minimal.
[2019-03-28 16:05] VITALS: BP 150/70
--- NOTE | 2019-03-28 18:03 | REP ---
Urinary tract sonography: History: Acute kidney injury. Findings: Exam quality inhibited some degree by bowel gas. Renal cortical echogenicity pattern is increased bilaterally consistent with medical renal disease. There is no evidence of hydronephrosis on either side. No mass lesion is seen. There is a 0.7 cm cyst in the lower pole right kidney. There is a 1.3 cm cyst in the upper pole of the left kidney. Right renal dimensions are 10.3 x 4.7 x 4.4 cm. Left kidney measures 10.7 x 5.3 x 6.9 cm. Scanning at the level urinary bladder shows that it is empty at the time of scanning. Impression: Increased renal cortical echogenicity pattern bilaterally consistent with medical renal disease. No hydronephrosis is seen. Small renal cysts, one on each side. Electronically Signed by Cornelio Wilde MD 03/28/2019 06:52 P
--- NOTE | 2019-03-28 18:06 | IPN ---
DATE: 03/28/2019 Mr. Garcia went for endoscopy and colonoscopy today. Unfortunately, he was noted to have a mass in the descending colon that was biopsied that is very suggestive of colon cancer. The mass was infiltrative, sessile and ulcerated, nonobstructing. He has no fever or chills. No nausea, vomiting or diarrhea. Temperature is 97.5, pulse 62, respirations 18, blood pressure 150/70, oxygen saturation (O2 sat) 96% on room air. Heart: Normal S1, S2 with no murmurs appreciated. Lungs: Clear to auscultation. No wheezes, rales or rhonchi. Abdomen: Soft, nontender. No hepatosplenomegaly. Extremities: No edema. IMPRESSION: 1. Subacute bacterial endocarditis with Enterococcus faecalis, on IV Rocephin, ampicillin. On day #5 of IV antibiotic, currently on IV Rocephin and ampicillin The patient will be treated for a total of 6 weeks with end of therapy of May 05, 2019. 2. Colonic mass. Waiting for pathology. Surgery has been consulted. The patient may need colectomy. 3. Iron deficiency anemia. Probably a combination of colonic bleed and peptic ulcer disease. LABORATORY: White count 11.2, hemoglobin 10.9, hematocrit 34.5, platelets 322, 73% neutrophils, 12% lymphocytes,10 monocytes. Sodium 137, potassium 3.6, chloride 102, bicarbonate 27, BUN 15, creatinine 1.59, glucose 89, calcium 8.8. PLAN: Continue same IV antibiotics with IV ampicillin and Rocephin. Monitor creatinine to make sure he is not developing acute kidney injury/interstitial nephritis. Repeat basic profile in the morning. MTDD
[2019-03-28 20:00] VITALS: BP 164/68
[2019-03-29] VITALS: BP 160/52
[2019-03-29] MEDS: cefTRIAXone SOD 2 GM in D5W MINI-BAG PLUS 50 ML IV SCH ×2 (00:11→12:08)
[2019-03-29] MEDS: AMPICILLIN SOD 2 GM in D5W MINI-BAG PLUS 100 ML IV SCH ×5 (02:53→21:23)
[2019-03-29 04:00] VITALS: BP 172/58
[2019-03-29] MEDS: SLF 3 ML SYR IV SCH ×3 (06:12→21:25)
[2019-03-29 06:14] LABS: BASO # 0.1 10^3/uL (0.0-0.2); EOS # 0.3 10^3/uL (0.0-0.5); EOS % 2.7 % (0.0-3.0); HEMATOCRIT 32.1 % (42.0-52.0); HEMOGLOBIN 10.3 g/dl (13.5-17.5); LYMPH # 1.3 10^3/uL (1.5-5.0); LYMPH % 11.4 % (24.0-44.0); MEAN CORPUSCULAR HEMOGLOBIN 28.4 pg (27.0-33.0); MEAN CORPUSCULAR HGB CONC 32.1 g/dl (32.0-36.5); MEAN CORPUSCULAR VOLUME 88.4 fl (80.0-96.0); MONO # 1.2 10^3/uL (0.0-0.8); MONO % 10.5 % (0.0-5.0); NEUTROPHILS # 8.4 10^3/uL (1.5-8.5); PLATELET COUNT, AUTOMATED 284 10^3/uL (150-450); RED BLOOD COUNT 3.63 10^6/uL (4.30-6.10); WHITE BLOOD COUNT 11.3 10^3/uL (4.0-10.0)
[2019-03-29 06:54] LABS: CALCIUM LEVEL 8.5 MG/DL (8.8-10.2); CREATININE FOR GFR 2.43 MG/DL (0.70-1.30); DIGOXIN LEVEL 0.9 NG/ML (0.5-2.0); GLOMERULAR FILTRATION RATE 28.6 (>49); POTASSIUM SERUM 3.7 MEQ/L (3.5-5.1)
[2019-03-29 08:07] VITALS: BP 150/62
--- NOTE | 2019-03-29 08:54 | IPNPDOC ---
Subjective Date Seen The patient was seen on 03/29/19. Subjective Chief Complaint/HPI Pt this morning without new concerns. He wants to know if he can go home today. General: Denies: Fatigue Constitutional: Denies: Chills, Fever Pulmonary: Denies: Dyspnea, Cough Cardiovascular: Denies: Chest Pain, Palpitations Gastrointestinal: Denies: Nausea, Vomiting, Diarrhea Neurological: Denies: Weakness Psych: Reports: Mood Normal Objective Physical Examination General Exam: Positive: Alert, No Acute Distress ENT Exam: Positive: Mucous membr. moist/pink Chest Exam: Positive: Clear to auscultation, Normal air movement Heart Exam: Positive: Rate Normal, Normal S1, Normal S2 Abdomen Exam: Positive: Normal bowel sounds, Soft; Negative: Tenderness Extremity Exam: Negative: Edema Skin Exam: Positive: Nl turgor and temperature; Negative: Rash Neuro Exam: Positive: Normal Speech Psych Exam: Positive: Mental status NL, Mood NL Assessment /Plan Problems (1) A-fib Status: Chronic Response to Treatment: Stable Problem Specific Plan: Monitor Clinically Problem Text: apix held for potential colectomy-03/[address] therapeutic LMWH 03/29 dig 0.9-restarted dig at 125 (HD 250) given RICKI (2) Colonic mass Problem Text: 03/28 case dw and consulted Dr. Youssef for consideration of L sided colectomy 03/28 held clopid/apix until at least 03/30/19 or until colectomy if decide to do this admission 03/26/19 CT AP NAD 03/29/19 CEA 1.9 06/2015 NST normal perfusion, low risk-Antecol 03/28 EGD/colon path P 03/28/19 EGD/colon: - Z-line regular, in the distal esophagus. - Gastritis. Biopsied. - Non-bleeding duodenal diverticulum. - Normal mucosa was found in the duodenal bulb and in the second portion of the duodenum. Biopsied. -An infiltrative, sessile and ulcerated non-obstructing large mass was found in the descending colon. The mass was non-circumferential. The mass measured four cm in length. In addition, its diameter measured three mm. No bleeding was present. Biopsies were taken with a cold forceps for histology. (3) Hypertension Status: Chronic Problem Text: HD lisin 20, shay 12.5, aten 50 BID, amlo 5 03/29 amlo 5 QD to BID given elevated SBP given shay/lisin hold 2 RICKI (4) RICKI (acute kidney injury) Status: Acute Problem Text: favor ATN 2 ACEI/shay/ampicillin, acute/chronic urinary rete ntion (ro AIN 2 ceftriax, CPK ro rhabdo 2 HI statin) 03/29 20/2.4, 3.7, PVR 450; therefore, willett cath placed-+ tamsul 0.8 03/28 15/1.6; therefore, held shay 12.5, lisin 20 (already given today) and dig (last dose 03/27), check renal US/PVR 03/27 1.2 baseline cr 0.9-1.0 03/28 PVR 141 03/18 dig 1.3 on 250 QD at baseline GFR 03/29 urine for eos P (no rash/fever/eosinophilia) 03/28 renal US cw MRD 03/24/19 UCX NG (5) Endocarditis Status: Acute Response to Treatment: Stable Discussed With: Patient Problem Specific Plan: Consult Specialist, Monitor Clinically, Repeat Labs Problem Text: ceftriaxone 2 BID /ampicillin 2 q4H D5/42 per ID DUAL-LINE PICC placed 03/29/19 03/24/19 BCX2 NG 03/24/19 UCX NG 02/04 BCX2, 03/18 BCX2, 03/21 BCX2 E faecalis 02/04/19 UCX E faecalis 03/25 ECHO done 03/24 with 0.65 cm vegetation noted on the aortic cusp\ 03/26 CT AP NAD (6) Enterococcus faecalis infection Status: Acute Problem Text: as per endocarditis (7) Anemia, iron deficiency Status: Chronic Problem Text: 03/28 remains stable. 03/26: Hgb 10.5, panendoscopy planned as noted. 03/25 stable at 10.7 03/25/19 case portia Prince-plan EGD/colon for 03/28/19 tf case, will hold clopid (for PVD)/apix (for pAF) today (adequate hold time per Suresh) 03/25/19 case portia Lewis-favor repeat EGD/colon as inpx given persistent Fe def anemia requiring Fe/RBC tx (03/16 tx 2u RBCs) AND as complete rivas for E. faecalis sepsis 08/2017 EGD/colon-Mikael: anal stricture (no biopsied) and : - Normal esophagus. - Small hiatal hernia. - Nodular mucosa in the gastric body and in the gastric antrum. - Erythematous mucosa in the stomach. - Non-bleeding gastric ulcers. - Multiple non-bleeding duodenal ulcers. - Normal second portion of the duodenum and third portion of the duodenum. - No specimens collected. (8) Seizure disorder Status: Chronic Response to Treatment: Stable Problem Text: Stable on HD leve 1000 BID Plan/VTE VTE Prophylaxis Ordered?: Yes VS, I&O, 24H, Fishbone Vital Signs/I&O Vital Signs Date Time Temp Pulse Resp B/P (MAP) Pulse Ox O2 Delivery O2 Flow Rate FiO2 03/29/19 08:07 98.6 63 18 150/62 (91) 95 Room Air 03/24/19 19:15 3 I&O- Last 24 Hours up to 6 AM 03/29/19 06:00 Intake Total 1530 ml Output Total 566 ml Balance 964 ml Laboratory Data 24H LABS Laboratory Tests 2 03/29/19 05:51: Immature Granulocyte % (Auto) 0.4, Neutrophils (%) (Auto) 74.0H, Lymphocytes (%) (Auto) 11.4L, Monocytes (%) (Auto) 10.5H, Eosinophils (%) (Auto) 2.7, Basophils (%) (Auto) 1.0, Neutrophils # (Auto) 8.4, Lymphocytes # (Auto) 1.3L, Monocytes # (Auto) 1.2H, Eosinophils # (Auto) 0.3, Basophils # (Auto) 0.1, Nucleated Red Blood Cells % (auto) 0.0, Anion Gap 10, Glomerular Filtration Rate 28.6L, Calcium Level 8.5L, Digoxin Level 0.9 03/29/19 07:03: CBC/BMP Laboratory Tests 03/29/19 05:51 Microbiology Microbiology 03/24/19 Urine Culture - Final, Complete 03/24/19 Blood Culture - Preliminary, Resulted No Growth after 72 hours. All specime... 03/24/19 Blood Culture - Preliminary, Resulted No Growth after 72 hours. All specime... YUMIKO FLOREZ PA-C Mar 29, 2019 08:54 Chuy Pearl M.D. Mar 29, 2019 17:01
[2019-03-29] MEDS: levETIRAcetam 250MG TABLET (KEPPRA) PO SCH ×2 (09:02→21:23)
[2019-03-29] MEDS: GABAPENTIN 400 MG CAP PO SCH ×3 (09:02→21:24)
[2019-03-29] MEDS: MAGNESIUM OXIDE 400 MG TAB (MAG-OX) PO SCH (09:03)
[2019-03-29] MEDS: DIGOXIN 0.125 MG TAB PO SCH (09:03)
[2019-03-29] MEDS: ATENOLOL 50 MG TAB PO SCH ×2 (09:05→21:25)
[2019-03-29] MEDS: DULoxetine 30 MG CAP (CYMBALTA) PO SCH ×2 (09:05→21:25)
[2019-03-29] MEDS: amLODIPine 5 MG TAB PO SCH ×2 (09:06→21:24)
[2019-03-29] MEDS: PANTOPRAZOLE 40MG TAB (PROTONIX) PO SCH ×2 (09:06→21:25)
[2019-03-29 12:00] VITALS: BP 130/62
[2019-03-29] MEDS: ATORVASTATIN 20 MG TAB PO SCH (12:08)
[2019-03-29] MEDS ORDERED: LIDOCAINE 1% MDV 20ML VIAL As Ordered ONE (15:23)
[2019-03-29 16:00] VITALS: BP 138/60
[2019-03-29] MEDS ORDERED: ENOXAPARIN 100MG/1ML SYRINGE (J1650) SC SCH (17:30)
[2019-03-29 18:20] LABS: CREATININE FOR GFR 3.11 MG/DL (0.70-1.30); GLOMERULAR FILTRATION RATE 21.5 (>49)
--- NOTE | 2019-03-29 19:58 | REP ---
Procedure: PICC line insertion with Ana M The procedure was performed under the direct supervision of Dr. Wilde. The risks and benefits of the procedure were explained to the patient and informed consent was obtained. The right brachial vein was localized using ultrasound guidance. The skin was prepped and draped in a sterile fashion. 2% lidocaine was used as a local anesthetic. Using ultrasound guidance the brachial vein was cannulated and a 0.018 guidewire was inserted and advanced to the SVC using fluoroscopic guidance. The needle was removed and a 5.5 Icelandic dilator and peel-away sheath was inserted over the guide wire. A 5.5 [place]ic dual lumen catheter was cut to length of 41 cm. The dilator was removed and the catheter was inserted over the guide wire with the tip ending in the SVC. The peel-away sheath was removed and the catheter was flushed with heparinized saline as per Hospital protocol. The catheter was affixed to the skin and a sterile dressing was applied. The patient tolerated the procedure well and there were no immediate complications. 0.2 minutes of fluoro time was utilized for this procedure. Electronically Signed by PAUL Zazueta 03/29/2019 04:37 P Electronically Signed by Cornelio Wilde MD 03/29/2019 07:50 P
[2019-03-29 20:00] VITALS: BP 178/72
--- NOTE | 2019-03-29 20:46 | IPN ---
DATE: 03/29/2019 Mr. Garcia has no complaints today. He wants to go home. He has no nausea, vomiting, diarrhea. No cough or shortness of breath. He was noted to have acute kidney injury today. His creatinine bumped up to 2.4. He had decreased urinary output and has had postvoid residues of over 400. Temperature is 98.6, pulse 56, respirations 18, blood pressure 138/60, oxygen saturation 95% on room air. HEART: Normal S1, S2. No murmurs appreciated. LUNGS: Few crackles at the bases. No rhonchi or wheezes. ABDOMEN: Soft, nontender. No visceromegaly. BACK: No costovertebral angle (CVA) or lumbosacral tenderness. EXTREMITIES: No clubbing, cyanosis or edema. LABORATORY DATA: White count 11.3, hemoglobin 10.3, hematocrit 32.1, platelets 284, 74% neutrophils, 11% lymphocytes, 10% monocytes. Sodium 138, potassium 3.7, chloride 101, BUN 20, creatinine 2.43, which has increased to 3.11, glucose 109, calcium 8.5. CEA 1.9. Blood cultures 03/24/2019: Two sets are negative. Urine culture is negative. MEDICATIONS: - ampicillin 2 grams intravenous (IV) every 4 hours, was decreased to every 8 hours due to decrease in GFR - Rocephin 2 grams IV every 12 hours - tamsulosin 0.8 mg by mouth daily was also started for benign prostatic hypertrophy (BPH) Peripherally inserted central catheter (PICC) line was placed today in the right arm. IMPRESSION: 1. 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 On ampicillin and Rocephin. Patient only has received one dose of gentamicin on 03/24/2019, so this is unlikely to be the culprit of his acute kidney injury. Dose of ampicillin needs to be adjusted for a GFR of 20-30, was decreased to 2 grams every 8 hours. Will continue to monitor. 2. Acute kidney injury. Patient had postvoid residue of over 400, but renal ultrasound does not suggest hydronephrosis. Patient was started on Flomax. Differential diagnosis includes interstitial nephritis possibly versus endocarditis. 3. Iron-deficiency anemia from chronic blood loss from gastrointestinal (GI) origin. 4. Colonic mass. Probably colon cancer as a source of Enterococcus faecalis bacteremia. A biopsy is still pending. Planned consult Dr. Youssef is still pending regarding colectomy timing. Decrease dose of ampicillin to 2 grams every 8 hours and a dose depending on kidney function. Consult nephrology in the morning. Will obtain urine for eosinophils.
[2019-03-30] VITALS: BP 168/64
[2019-03-30] MEDS: cefTRIAXone SOD 2 GM in D5W MINI-BAG PLUS 50 ML IV SCH ×2 (00:09→11:35)
[2019-03-30 04:00] VITALS: BP 152/64
[2019-03-30 05:52] LABS: BASO # 0.1 10^3/uL (0.0-0.2); BASO % 0.4 % (0.0-1.0); EOS # 0.3 10^3/uL (0.0-0.5); EOS % 2.4 % (0.0-3.0); HEMATOCRIT 30.7 % (42.0-52.0); HEMOGLOBIN 9.9 g/dl (13.5-17.5); LYMPH # 1.2 10^3/uL (1.5-5.0); MEAN CORPUSCULAR HEMOGLOBIN 28.7 pg (27.0-33.0); MEAN CORPUSCULAR HGB CONC 32.2 g/dl (32.0-36.5); MONO # 1.2 10^3/uL (0.0-0.8); MONO % 8.8 % (0.0-5.0); NEUTROPHILS # 10.6 10^3/uL (1.5-8.5); NEUTROPHILS % 78.8 % (36.0-66.0); PLATELET COUNT, AUTOMATED 243 10^3/uL (150-450); RED BLOOD COUNT 3.45 10^6/uL (4.30-6.10); WHITE BLOOD COUNT 13.5 10^3/uL (4.0-10.0)
[2019-03-30 06:11] LABS: CALCIUM LEVEL 8.3 MG/DL (8.8-10.2); CREATININE FOR GFR 3.77 MG/DL (0.70-1.30); GLOMERULAR FILTRATION RATE 17.2 (>49); POTASSIUM SERUM 3.5 MEQ/L (3.5-5.1)
[2019-03-30] MEDS: SLF 3 ML SYR IV SCH (06:23)
[2019-03-30] MEDS: ENOXAPARIN 100MG/1ML SYRINGE (J1650) SC SCH (06:23)
[2019-03-30] MEDS: AMPICILLIN SOD 2 GM in D5W MINI-BAG PLUS 100 ML IV SCH ×3 (06:23→22:06)
[2019-03-30 08:00] VITALS: BP 148/60
[2019-03-30] MEDS: levETIRAcetam 250MG TABLET (KEPPRA) PO SCH ×2 (08:45→20:28)
[2019-03-30] MEDS: GABAPENTIN 400 MG CAP PO SCH ×3 (08:46→20:28)
[2019-03-30] MEDS: TAMSULOSIN 0.4 MG CAP PO SCH (08:46)
[2019-03-30] MEDS: amLODIPine 5 MG TAB PO SCH ×2 (08:46→20:29)
[2019-03-30] MEDS: PANTOPRAZOLE 40MG TAB (PROTONIX) PO SCH (08:46)
[2019-03-30] MEDS: DULoxetine 30 MG CAP (CYMBALTA) PO SCH ×2 (08:46→20:28)
[2019-03-30] MEDS: DIGOXIN 0.125 MG TAB PO SCH (08:47)
[2019-03-30] MEDS: MAGNESIUM OXIDE 400 MG TAB (MAG-OX) PO SCH (08:47)
[2019-03-30] MEDS: ATENOLOL 50 MG TAB PO SCH ×2 (08:47→20:29)
--- NOTE | 2019-03-30 09:18 | IPNPDOC ---
Subjective Date Seen The patient was seen on 03/30/19. Subjective Chief Complaint/HPI No complaints. Eating well. Normal BMs. Ambulating without difficulty Had urinary retention overnight requiring Willett Constitutional: Denies: Chills, Fever Pulmonary: Denies: Dyspnea, Cough Cardiovascular: Denies: Chest Pain, Palpitations Gastrointestinal: Denies: Nausea, Vomiting, Abdominal Pain, Diarrhea, Constipation Genitourinary: Reports: Retention (willett placed 03/29) Objective Physical Examination General Exam: Positive: Alert, No Acute Distress ENT Exam: Positive: Mucous membr. moist/pink Chest Exam: Positive: Clear to auscultation, Normal air movement Heart Exam: Positive: Rate Normal, Normal S1, Normal S2 Abdomen Exam: Positive: Normal bowel sounds, Soft; Negative: Tenderness Extremity Exam: Negative: Edema Skin Exam: Positive: Nl turgor and temperature; Negative: Rash Neuro Exam: Positive: Normal Speech Psych Exam: Positive: Mental status NL, Mood NL Assessment /Plan Problems (1) RICKI (acute kidney injury) Status: Acute Problem Text: 03/30 - Renal function continues to decline depite willett placed for Urinary retention 03/[address] Lewis for renal fx 03/29 All diuretics held 03/29 Start slow rate IVF and get nephrology consult favor ATN 2 ACEI/shay/ampicillin, acute/chronic urinary retention (ro AIN 2 ceftriax, CPK ro rhabdo 2 HI statin) 03/29 20/2.4, 3.7, PVR 450; therefore, willett cath placed-+ tamsul 0.8 03/28 15/1.6; therefore, held shay 12.5, lisin 20 (already given today) and dig (last dose 03/27), check renal US/PVR 03/27 1.2 baseline cr 0.9-1.0 03/28 PVR 141 03/18 dig 1.3 on 250 QD at baseline GFR 03/29 urine for eos P (no rash/fever/eosinophilia) 03/28 renal US cw MRD 03/24/19 UCX NG (2) A-fib Status: Chronic Response to Treatment: Stable Problem Specific Plan: Monitor Clinically Problem Text: apix held for potential colectomy-03/[address] therapeutic LMWH 03/29 dig 0.9-restarted dig at 125 (HD 250) given RICKI (3) Colonic mass Problem Text: 03/31 - Biopsy still pending Still waiting for Dr. Youssef to see patient in consultation 03/28 case dw and consulted Dr. Youssef for consideration of L sided colectomy 03/28 held clopid/apix until at least 03/30/19 or until colectomy if decide to do this admission 03/26/19 CT AP NAD 03/29/19 CEA 1.9 06/2015 NST normal perfusion, low risk-Antecol 03/28 EGD/colon path P 03/28/19 EGD/colon: - Z-line regular, in the distal esophagus. - Gastritis. Biopsied. - Non-bleeding duodenal diverticulum. - Normal mucosa was found in the duodenal bulb and in the second portion of the duodenum. Biopsied. -An infiltrative, sessile and ulcerated non-obstructing large mass was found in the descending colon. The mass was non-circumferential. The mass measured four cm in length. In addition, its diameter measured three mm. No bleeding was present. Biopsies were taken with a cold forceps for histology. (4) Hypertension Status: Chronic Problem Text: HD lisin 20, shay 12.5, aten 50 BID, amlo 5 03/29 amlo 5 QD to BID given elevated SBP given shay/lisin hold 2 RICKI (5) Endocarditis Status: Acute Response to Treatment: Stable Discussed With: Patient Problem Specific Plan: Consult Specialist, Monitor Clinically, Repeat Labs Problem Text: 03/30 - Rocephin/Ampicillin x 42 days totoal per ID - Dose adjusted for RICKI 03/29 ceftriaxone 2 BID /ampicillin 2 q4H D5/42 per ID DUAL-LINE PICC placed 03/29/19 03/24/19 BCX2 NG 03/24/19 UCX NG 02/04 BCX2, 03/18 BCX2, 03/21 BCX2 E faecalis 02/04/19 UCX E faecalis 03/25 ECHO done 03/24 with 0.65 cm vegetation noted on the aortic cusp\ 03/26 CT AP NAD (6) Enterococcus faecalis infection Status: Acute Problem Text: as per endocarditis (7) Anemia, iron deficiency Status: Chronic Problem Text: 03/28 remains stable. 03/26: Hgb 10.5, panendoscopy planned as noted. 03/25 stable at 10.7 03/25/[address] Prince-plan EGD/colon for 03/28/19 tf case, will hold clopid (for PVD)/apix (for pAF) today (adequate hold time per [facility]) 03/25/[address] Lewis-favor repeat EGD/colon as inpx given persistent Fe def anemia requiring Fe/RBC tx (03/16 tx 2u RBCs) AND as complete rivas for E. faecalis sepsis 08/2017 EGD/colon-Toole: anal stricture (no biopsied) and : - Normal esophagus. - Small hiatal hernia. - Nodular mucosa in the gastric body and in the gastric antrum. - Erythematous mucosa in the stomach. - Non-bleeding gastric ulcers. - Multiple non-bleeding duodenal ulcers. - Normal second portion of the duodenum and third portion of the duodenum. - No specimens collected. (8) Seizure disorder Status: Chronic Response to Treatment: Stable Problem Text: Stable on HD leve 1000 BID Plan/VTE VTE Prophylaxis Ordered?: Yes (Now on therapeutic Lovenox) VS, I&O, 24H, Fishbone Vital Signs/I&O Vital Signs Date Time Temp Pulse Resp B/P (MAP) Pulse Ox O2 Delivery O2 Flow Rate FiO2 03/30/19 08:47 64 03/30/19 08:46 152/64 03/30/19 08:00 98.7 18 96 Room Air 03/24/19 19:15 3 I&O- Last 24 Hours up to 6 AM 03/30/19 06:00 Intake Total 550 ml Output Total 650 ml Balance -100 ml Laboratory Data 24H LABS Laboratory Tests 2 03/29/19 17:42: Glomerular Filtration Rate 21.5L 03/30/19 00:58: Urine Color YELLOW, Urine Appearance HAZY, Urine pH 6.0, Urine Specific [place] 1.018, Urine Protein 1+H, Urine Glucose (UA) 1+H, Urine Ketones NEGATIVE, Urine Blood 1+H, Urine Nitrite NEGATIVE, Urine Bilirubin NEGATIVE, Urine Urobilinogen 0.2, Urine Leukocyte Esterase NEGATIVE, Urine WBC (Auto) 3, Urine RBC (Auto) 9H, Urine Hyaline Casts (Auto) 1, Urine Bacteria (Auto) NEGATIVE, Urine Squamous Epithelial Cells 0, Urine Mucus (Auto) SMALL, Urine Sperm (Auto) 03/30/19 05:27: Glomerular Filtration Rate 17.2L, Immature Granulocyte % (Auto) 0.6, Neutrophils (%) (Auto) 78.8H, Lymphocytes (%) (Auto) 9.0L, Monocytes (%) (Auto) 8.8H, Eosinophils (%) (Auto) 2.4, Basophils (%) (Auto) 0.4, Neutrophils # (Auto) 10.6H, Lymphocytes # (Auto) 1.2L, Monocytes # (Auto) 1.2H, Eosinophils # (Auto) 0.3, Basophils # (Auto) 0.1, Nucleated Red Blood Cells % (auto) 0.0, Anion Gap 8, Calcium Level 8.3L, Total Creatine Kinase 26L CBC/BMP Laboratory Tests 03/29/19 17:42 03/30/19 05:27 Microbiology Microbiology 03/24/19 Urine Culture - Final, Complete 03/24/19 Blood Culture - Final, Complete NO GROWTH AFTER 5 DAYS 03/24/19 Blood Culture - Final, Complete NO GROWTH AFTER 5 DAYS LEELA JIM PA-C Mar 30, 2019 09:18
[2019-03-30] MEDS: ATORVASTATIN 20 MG TAB PO SCH (11:35)
[2019-03-30 12:00] VITALS: BP 128/58
[2019-03-30 16:00] VITALS: BP 120/60
[2019-03-30] MEDS: SODIUM CHLORIDE 0.9% INJ 10 ML SYR IV SCH (17:11)
[2019-03-30 20:00] VITALS: BP 134/58
--- NOTE | 2019-03-30 21:44 | CR ---
DATE OF CONSULTATION: 03/30/2019 REQUESTING PHYSICIAN: Dr. Louis Seaman. CONSULTING PHYSICIAN: Dr. Smith. REASON FOR CONSULTATION: Management of acute renal failure. CHIEF COMPLAINT: Patient was admitted to the hospital with positive bacteremia. HISTORY OF PRESENT ILLNESS: Mr. Gio Garcia is a 68-year-old male with past medical history of normal renal function, with a baseline creatinine of 1 on 03/23/2019, currently admitted for Enterococcus faecalis bacteremia being treated with dual antibiotics, including ampicillin and ceftriaxone, undergoing workup for source of bacteremia. Patient's renal function certainly started getting worse. His creatinine bumped from 1.2 to 1.5 between 03/27/2019 to 03/28/2019 and renal function continues to deteriorate and his creatinine has bumped up to 3.7 today. Despite all the interventions done by primary team, renal function is not improving, so nephrology service was called for further help in the management of this patient. I evaluated the patient at the bedside. He is a very poor historian. Most of the history was obtained from the chart and from the medical team. Patient is afebrile and hemodynamically stable when I saw him. He has an indwelling Simmons catheter and he is nonoliguric at this time. PAST MEDICAL HISTORY: Past medical history of: 1. Recurrent bacteremia since January 2019. 2. History of peripheral vascular disease. 3. History of carotid artery stenosis. 4. Recurrent iron-deficiency anemia. 5. History of atrial fibrillation status post ablation. 6. Seizure disorder. 7. Hypertension. PAST SURGICAL HISTORY: 1. Status post bilateral carotid endarterectomy in the past. 2. History of left common iliac stent in August 2008. 3. Right common iliac stent in August 2008. 4. Left external iliac artery stent in March 2010. 5. Status post pacemaker in November 2011. 6. Right profunda artery endarterectomy in 2011. ALLERGIES: Patient is allergic to HYDROCHLOROTHIAZIDE. FAMILY HISTORY: No significant family history of end-stage renal disease requiring hemodialysis. SOCIAL HISTORY: Patient is an active smoker. He smokes half a pack per day. He drinks alcohol occasionally. No history of drug abuse. He lives with his . REVIEW OF SYSTEMS: CONSTITUTIONAL: He denies any fevers or chills. EYES: He denies any blurry vision, double vision. EARS/NOSE/THROAT (ENT): Denies any dysphagia, odynophagia. CARDIOVASCULAR: Denies any chest pain or palpitation. RESPIRATORY: He denies any shortness of breath. GASTROINTESTINAL (GI): He denies any nausea or vomiting. GENITOURINARY: He reports recent urinary retention and he got Simmons catheter placed. MUSCULOSKELETAL: Denies any muscle aches and pains. SKIN: He denies any rashes or ulcers. HEMATOLOGY/ONCOLOGY: He reports anemia requiring recurrent blood transfusions. PSYCHOLOGICAL: He denies any depression or anxiety. CENTRAL NERVOUS SYSTEM (ADMISSION SPECIALIST): He denies any strokes or seizures. All other review of systems is negative. PHYSICAL EXAMINATION: GENERAL: Patient is awake, alert, oriented times two, laying in bed in no apparent distress. HEAD AND NECK EXAM: Extraocular muscles intact. Pupils equally round and reactive to light. Mucous membranes are moist. Neck is supple. He has bilateral carotid endarterectomy scars. No jugular venous distention (JVD) noted. CARDIOVASCULAR: S1, S2. Regular rate. No edema of the bilateral lower extremities. RESPIRATORY: Chest is clear to auscultation bilaterally. Bilateral equal air entry. No rales or rhonchi. ABDOMEN: Soft. Positive bowel sounds. Nontender. No organomegaly. GENITOURINARY: He has an indwelling Simmons catheter. Urine in the bag is slightly blood tinged. MUSCULOSKELETAL: No clubbing or cyanosis. Pulses are 2+. He has incisions in both groins CENTRAL NERVOUS SYSTEM (ADMISSION SPECIALIST): No focal deficit. Power is 5/5 in all extremities. SKIN: No rashes or ulcers. LABORATORY REVIEW: Complete blood count (CBC) showed a WBC 13.5, hemoglobin 9.9, platelets are 243. Urinalysis done today showed 1+ protein, 1+ blood, 9 RBCs. Basic metabolic panel (BMP) done today morning showed sodium 135, potassium 3.5, chloride 101, bicarbonate 26, BUN 26, creatinine is 3.7, glucose is 92, calcium 8.3. IMAGING STUDIES: Renal ultrasound was done on 03/28/2019, which showed medical renal disease. There was a 0.7 cm cyst in the lower pole of the right kidney, a 1.3 cm cyst in the upper pole of the left kidney. CAT scan of the abdomen/pelvis with contrast: Patient got the CAT scan abdomen/pelvis on 03/26/2019 and 100 MM of the intravenous (IV) contrast was used at that time, which showed no obvious acute abdominal/pelvic pathology. CURRENT INPATIENT MEDICATIONS: Patient's medications include: - ampicillin 2 grams IV every 8 hours - ceftriaxone 2 gram IV every 12 hours; I am changing it to once a day because of acute renal failure - Tylenol as needed - amlodipine 5 mg by mouth twice a day - atenolol 50 mg by mouth twice a day - Lipitor 80 mg daily - digoxin 0.125 mg by mouth daily - Cymbalta 30 mg by mouth twice a day - Lovenox 50 mg subcutaneous daily - Neurontin 800 mg by mouth three times a day - Keppra 100 mg by mouth twice a day - magnesium 400 mg by mouth daily - Protonix 40 mg by mouth twice a day; I am changing it to once a day only because of acute renal failure and possible risk of acute interstitial nephritis - Flomax 0.8 mg by mouth daily ASSESSMENT: A 68-year-old male with acute renal failure, currently being treated for Enterococcus faecalis bacteremia, has acute renal failure, newly diagnosed colonic mass in the descending colon on colonoscopy done 03/28/2019, with history of hypertension, hyperlipidemia and severe peripheral vascular disease. PLAN 1. Acute renal failure. Patient has an indwelling Simmons catheter at this time. He is nonoliguric. Multiple etiologies are possible, but given that patient's creatinine suddenly bumped from 03/27/2019 to 03/28/2019 and kept on rising, I assume that it is secondary to contrast-induced nephropathy because the patient got the contrast on the morning of 03/27/2019, and his creatinine started bumping on 03/28/2019 and he was also kept nothing by mouth overnight for the procedures, so he was likely dehydrated as well. Creatinine continues to rise. I expect that his creatinine would plateau over the next 24-48 hours and then his renal function would start improving. I do see some hematuria and proteinuria on the urinalysis done today, so there is a possibility that infective endocarditis and bacteremia versus drug-induced acute interstitial nephritis can play a part as well. However, at this point, there is no urgent need to do a renal biopsy. I will continue to monitor the patient for renal improvement. Okay to continue current antibiotics at this time; however, I am going to decrease dose of the Rocephin because of GFR of less than 20. Continue ampicillin 2 grams IV every 8 hours. If renal function improves, the frequency of the ampicillin will be increased. 2. Hypertension. Blood pressure is well optimized. Continue current dose of amlodipine 5 mg by mouth twice a day with atenolol 50 mg by mouth twice a day. Angiotensin-converting enzyme (MEGAN) inhibitor have already been stopped a few days ago. 3. Enterococcus faecalis bacteremia. Patient is being seen by infectious disease, as mentioned above. He is currently on ampicillin and ceftriaxone and it is okay to use the current combination at this point. Duration of antibiotics is as per infectious disease recommendations. 4. History of atrial fibrillation. Heart rate is controlled with atenolol and digoxin. Patient is getting daily digoxin. If renal function does not start improving, then digoxin dose will need to be decreased to every other day. He is currently being anticoagulated with Lovenox and again, if renal function does not start improving, Lovenox would need to be switched to IV heparin. 5. Urinary retention. Patient already has indwelling Simmons catheter. He is currently on Flomax. Thank you for involving me in the care of this patient. I shall be happy to follow the patient along with you tomorrow morning.
[2019-03-31] VITALS: BP 106/58
[2019-03-31 04:00] VITALS: BP 138/52
[2019-03-31 04:55] LABS: BASO # 0.1 10^3/uL (0.0-0.2); BASO % 0.7 % (0.0-1.0); EOS # 0.3 10^3/uL (0.0-0.5); EOS % 2.6 % (0.0-3.0); HEMATOCRIT 28.2 % (42.0-52.0); HEMOGLOBIN 9.1 g/dl (13.5-17.5); LYMPH # 1.2 10^3/uL (1.5-5.0); LYMPH % 10.8 % (24.0-44.0); MEAN CORPUSCULAR HEMOGLOBIN 28.6 pg (27.0-33.0); MEAN CORPUSCULAR HGB CONC 32.3 g/dl (32.0-36.5); MEAN CORPUSCULAR VOLUME 88.7 fl (80.0-96.0); MONO % 8.9 % (0.0-5.0); NEUTROPHILS # 8.2 10^3/uL (1.5-8.5); NEUTROPHILS % 76.6 % (36.0-66.0); PLATELET COUNT, AUTOMATED 222 10^3/uL (150-450); RED BLOOD COUNT 3.18 10^6/uL (4.30-6.10); WHITE BLOOD COUNT 10.7 10^3/uL (4.0-10.0)
[2019-03-31 05:16] LABS: CALCIUM LEVEL 8.1 MG/DL (8.8-10.2); CREATININE FOR GFR 4.88 MG/DL (0.70-1.30); GLOMERULAR FILTRATION RATE 12.8 (>49); POTASSIUM SERUM 3.6 MEQ/L (3.5-5.1)
[2019-03-31] MEDS: SODIUM CHLORIDE 0.9% INJ 10 ML SYR IV SCH ×2 (05:24→17:04)
[2019-03-31] MEDS: ENOXAPARIN 100MG/1ML SYRINGE (J1650) SC SCH (05:24)
[2019-03-31] MEDS: AMPICILLIN SOD 2 GM in D5W MINI-BAG PLUS 100 ML IV SCH ×3 (05:24→21:19)
[2019-03-31 08:00] VITALS: BP 140/64
[2019-03-31] MEDS: DIGOXIN 0.125 MG TAB PO SCH (09:00)
[2019-03-31] MEDS: GABAPENTIN 400 MG CAP PO SCH ×3 (09:27→21:17)
[2019-03-31] MEDS: TAMSULOSIN 0.4 MG CAP PO SCH (09:27)
[2019-03-31] MEDS: DULoxetine 30 MG CAP (CYMBALTA) PO SCH ×2 (09:27→21:16)
[2019-03-31] MEDS: ATENOLOL 50 MG TAB PO SCH ×2 (09:27→21:16)
[2019-03-31] MEDS: amLODIPine 5 MG TAB PO SCH ×2 (09:28→21:16)
[2019-03-31] MEDS: levETIRAcetam 250MG TABLET (KEPPRA) PO SCH ×2 (09:28→21:17)
[2019-03-31] MEDS: MAGNESIUM OXIDE 400 MG TAB (MAG-OX) PO SCH (09:29)
[2019-03-31] MEDS: cefTRIAXone SOD 2 GM in D5W MINI-BAG PLUS 50 ML IV SCH (09:29)
[2019-03-31] MEDS: PANTOPRAZOLE 40MG TAB (PROTONIX) PO SCH (09:29)
[2019-03-31] MEDS: SODIUM CHLORIDE 0.9% INJ 10 ML SYR IV PRN (10:16)
--- NOTE | 2019-03-31 10:18 | IPNPDOC ---
Subjective Date Seen The patient was seen on 03/31/19. Subjective Chief Complaint/HPI Pt this morning without new concerns. He states that he is feeling just fine. His Scr cont to climb however. General: Denies: Fatigue Constitutional: Denies: Chills, Fever Pulmonary: Denies: Dyspnea, Cough Cardiovascular: Denies: Chest Pain, Palpitations Gastrointestinal: Denies: Nausea, Vomiting, Diarrhea Neurological: Denies: Weakness Psych: Reports: Mood Normal Objective Physical Examination General Exam: Positive: Alert, No Acute Distress ENT Exam: Positive: Mucous membr. moist/pink Chest Exam: Positive: Clear to auscultation, Normal air movement Heart Exam: Positive: Rate Normal, Normal S1, Normal S2 Abdomen Exam: Positive: Normal bowel sounds, Soft; Negative: Tenderness Extremity Exam: Negative: Edema Skin Exam: Positive: Nl turgor and temperature; Negative: Rash Neuro Exam: Positive: Normal Speech Psych Exam: Positive: Mental status NL, Mood NL Assessment /Plan Problems (1) RICKI (acute kidney injury) Status: Acute Problem Text: favor ATN 2 ACEI/shay acute/chronic urinary retention/IV contrast 03/31 32/4.9 03/29 20/2.4, 3.7, PVR 450; therefore, willett cath placed-+ tamsul 0.8 03/28 15/1.6; therefore, held shay 12.5, lisin 20 (already given today) and dig (last dose 03/27), check renal US/PVR 03/27 1.2 baseline cr 0.9-1.0 03/28 PVR 141 03/18 dig 1.3 on 250 QD at baseline GFR 03/29 - urine for eos 03/28 renal US cw MRD 03/24/19 UCX NG (2) A-fib Status: Chronic Response to Treatment: Stable Problem Specific Plan: Monitor Clinically Problem Text: 03/[address] therapeutic LMWH (remains off apix for colectomy and 2 RICKI) 03/31 1.2; therefore, changed to 125 QOD-last dose 03/30 03/29 dig 0.9-restarted dig at 125 (HD 250) given RICKI (3) Colonic mass Problem Text: 03/30 Mikael plans colectomy p resolution of RICKI 03/28 case dw and consulted Dr. Youssef for consideration of L sided colectomy 03/28 held clopid/apix until at least 03/30/19 or until colectomy if decide to do this admission 03/26/19 CT AP NAD 03/29/19 CEA 1.9 06/2015 NST normal perfusion, low risk-Antecol 03/28 EGD/colon path P 03/28/19 EGD/colon: - Z-line regular, in the distal esophagus. - Gastritis. Biopsied. - Non-bleeding duodenal diverticulum. - Normal mucosa was found in the duodenal bulb and in the second portion of the duodenum. Biopsied. -An infiltrative, sessile and ulcerated non-obstructing large mass was found in the descending colon. The mass was non-circumferential. The mass measured four cm in length. In addition, its diameter measured three mm. No bleeding was present. Biopsies were taken with a cold forceps for histology. (4) Hypertension Status: Chronic Problem Text: 03/31 Cont with atenolol, amlodipine, [place] and lisinopril held d/t renal failure. 03/29 amlo 5 QD to BID given elevated SBP given shay/lisin hold 2 RICKI (5) Endocarditis Status: Acute Response to Treatment: Stable Discussed With: Patient Problem Specific Plan: Consult Specialist, Monitor Clinically, Repeat Labs Problem Text: ceftriaxone 2 BID /ampicillin 2 q4H D7/42 per ID DUAL-LINE PICC placed 03/29/19 03/24/19 BCX2 NG 03/24/19 UCX NG 02/04 BCX2, 03/18 BCX2, 03/21 BCX2 E faecalis 02/04/19 UCX E faecalis 03/25 ECHO done 03/24 with 0.65 cm vegetation noted on the aortic cusp\ 03/26 CT AP NAD (6) Enterococcus faecalis infection Status: Acute Problem Text: as per endocarditis (7) Anemia, iron deficiency Status: Chronic Problem Text: 03/28 remains stable. 03/26: Hgb 10.5, panendoscopy planned as noted. 03/25 stable at 10.7 03/25/19 case portia Prince-plan EGD/colon for 03/28/19 tf case, will hold clopid (for PVD)/apix (for pAF) today (adequate hold time per Suresh) 03/25/19 case portia Lewis-favor repeat EGD/colon as inpx given persistent Fe def anemia requiring Fe/RBC tx (03/16 tx 2u RBCs) AND as complete rivas for E. faecalis sepsis 08/2017 EGD/colon-Mikael: anal stricture (no biopsied) and : - Normal esophagus. - Small hiatal hernia. - Nodular mucosa in the gastric body and in the gastric antrum. - Erythematous mucosa in the stomach. - Non-bleeding gastric ulcers. - Multiple non-bleeding duodenal ulcers. - Normal second portion of the duodenum and third portion of the duodenum. - No specimens collected. (8) Seizure disorder Status: Chronic Response to Treatment: Stable Problem Text: Stable on HD leve 1000 BID Plan/VTE VTE Prophylaxis Ordered?: Yes (Now on therapeutic Lovenox) VS, I&O, 24H, Fishbone Vital Signs/I&O Vital Signs Date Time Temp Pulse Resp B/P (MAP) Pulse Ox O2 Delivery O2 Flow Rate FiO2 03/31/19 08:00 98.0 57 18 140/64 (89) 94 Room Air I&O- Last 24 Hours up to 6 AM 03/31/19 06:00 Intake Total 1850 ml Output Total 1050 ml Balance 800 ml Laboratory Data 24H LABS Laboratory Tests 2 03/31/19 04:32: Immature Granulocyte % (Auto) 0.4, Neutrophils (%) (Auto) 76.6H, Lymphocytes (%) (Auto) 10.8L, Monocytes (%) (Auto) 8.9H, Eosinophils (%) (Auto) 2.6, Basophils (%) (Auto) 0.7, Neutrophils # (Auto) 8.2, Lymphocytes # (Auto) 1.2L, Monocytes # (Auto) 1.0H, Eosinophils # (Auto) 0.3, Basophils # (Auto) 0.1, Nucleated Red Blood Cells % (auto) 0.0, Anion Gap 11, Glomerular Filtration Rate 12.8L, Calcium Level 8.1L CBC/BMP Laboratory Tests 03/31/19 04:32 Microbiology Microbiology 03/24/19 Urine Culture - Final, Complete 03/24/19 Blood Culture - Final, Complete NO GROWTH AFTER 5 DAYS 03/24/19 Blood Culture - Final, Complete NO GROWTH AFTER 5 DAYS YUMIKO FLOREZ PA-C Mar 31, 2019 10:18 Chuy Pearl M.D. Mar 31, 2019 16:12
[2019-03-31 10:35] LABS: APPEARANCE, URINE HAZY (CLEAR); BACTERIA, URINE AUTO 1+ (NEGATIVE); BILIRUBIN, URINE AUTO NEGATIVE (NEGATIVE); BLOOD, URINE BLOOD 3+ (NEGATIVE); CALCIUM OXALATE CRYSTALS SMALL; COLOR, URINE YELLOW (YELLOW); GLUCOSE, URINE (UA) AUTO 2+ mg/dL (NEGATIVE); KETONE, URINE AUTO NEGATIVE (NEGATIVE); LEUKOCYTE ESTERASE, URINE AUTO NEGATIVE (NEGATIVE); NITRITE, URINE AUTO NEGATIVE (NEGATIVE); PROTEIN, URINE AUTO 1+ mg/dL (NEGATIVE); RBC, URINE AUTO TNTC /HPF (0-3); SPECIFIC GRAVITY URINE AUTO 1.008 (1.002-1.035); SQUAMOUS EPITHELIAL CELL UR AU 0 /HPF (0-6); TRANSITIONAL EPITHELIAL AUTO 1 /HPF; UROBILINOGEN, URINE AUTO 0.2 mg/dL (0.0-2.0); WBC, URINE AUTO 20 /HPF (0-3)
[2019-03-31 12:00] VITALS: BP 148/66
[2019-03-31] MEDS: ATORVASTATIN 20 MG TAB PO SCH (12:01)
[2019-03-31 12:36] LABS: DIGOXIN LEVEL 1.2 NG/ML (0.5-2.0); MAGNESIUM LEVEL 1.7 MG/DL (1.8-2.4)
--- NOTE | 2019-03-31 14:04 | IPN ---
DATE: 03/31/2019 The patient was seen today at bedside and endorsed no complaints at this time. His kidney function has worsened overnight from 3.77 to 4.88. Urine cytology obtained did not show any eosinophils and the biopsy results from the pathology demonstrated fragments of tubular adenoma with high grade dysplasia in the distal colon with mild chronic gastritis from the stomach biopsy and nonspecific chronic inflammation in the small bowel biopsy. VITAL SIGNS: Temperature 98.1, pulse 50, respiratory rate 16, blood pressure 140/66, saturating 96% on room air. Put out 950 mL of urine in the last 24 hours. PHYSICAL EXAMINATION: GENERAL: The patient is awake, alert and oriented times three. Lying comfortably in bed in no acute distress. HEENT: Extraocular muscles intact. Pupils are equal, round and reactive to light. Mucous membranes are moist. NECK: Supple. Bilateral carotid endarterectomy scars. No jugular venous distention (JVD) present. CARDIOVASCULAR: Regular rate and rhythm. Normal S1, S2. No murmurs, gallops or rubs. No edema of bilateral lower extremities. RESPIRATORY: Clear to auscultation bilaterally with no wheezes, crackles, rhonchi. ABDOMEN: Soft, nontender, nondistended. No hepatosplenomegaly. Positive bowel sounds. GENITOURINARY: Indwelling Simmons catheter is present. Urine in the bag is slightly red tinged. NEUROLOGIC: No focal neuro deficits. LABORATORY REVIEW: White blood cell count of 10.7, hemoglobin 9.1, hematocrit of 28.2, platelet count of 222. Chemistry: Sodium 136, potassium 3.6, chloride 100, CO2 of 25, BUN 32, creatinine 4.88, glucose of 85, calcium of 8.1, magnesium of 1.7. ASSESSMENT AND PLAN: 1. Acute renal failure. The patient continues to have indwelling Simmons catheter present. He is nonoliguric. We suspect that in the setting of his previous MEGAN inhibitor use and the period of time where he was nothing by mouth prior to his test that this is likely contrast induced nephropathy, as stated previously and this will likely peak. This may be the day where his worsening renal function peaks and may continue to improve. Also in our differential remains AIN and infection induced glomerular nephritis. We will continue to monitor his progress. We are also holding his digoxin until his creatinine improves and we will replace his magnesium appropriately. We have no further medication changes to make at this time. Should his creatinine not improve, we will consider doing a renal biopsy. He will continue on ampicillin 2 grams every 8 hours and ceftriaxone 2 grams IV every 12 hours. 2. Hypertension. Blood pressure is well controlled. We will continue current dose of amlodipine 5 mg twice a day with atenolol 50 mg by mouth twice a day. MEGAN inhibitor has been stopped in the setting of his acute renal failure many days ago. 3. Enterococcus faecalis bacteremia. The patient is being seen by infectious disease. He is currently on ampicillin and ceftriaxone. Duration of antibiotics as per infectious disease recommendations. 4. History of atrial fibrillation. Heart rate is well controlled with the atenolol and digoxin. We are holding his digoxin in the setting of his renal function. He is currently anticoagulated with Lovenox and we will continue that for the time being. 5. Urinary retention. The patient has chronic indwelling Simmons catheter and is on Flomax.
--- NOTE | 2019-03-31 15:53 | CR ---
DATE OF CONSULTATION: 03/30/2019 REASON FOR CONSULTATION: Colon mass. HISTORY OF PRESENT ILLNESS: This is a pleasant 68-year-old man who was admitted on March [address] Seaman for treatment of multiple positive blood cultures for Enterococcus. Concern was that he might have endocarditis. He had been in the hospital recently following a transfusion for anemia. He complained of some shortness of breath and was noted to have an elevated white blood cell count. Blood cultures were obtained at that time but did not return until after his discharge from the hospital showing Enterococcus faecalis. He was seen back in the office apparently and had additional blood cultures obtained and these also returned positive for gram-positive cocci. He was therefore admitted to the hospital on the . He received a transesophageal echocardiogram from Dr. Rizo on the and this showed a small vegetation attached to the aortic valve consistent with endocarditis. He has been treated with antibiotics consisting of ampicillin and ceftriaxone at the direction of Dr. Lewis. He underwent an endoscopic evaluation with an esophagogastroduodenoscopy (EGD) and colonoscopy by Dr. Prince on March 28. His EGD showed evidence for some gastritis of the gastric body and antrum. A diverticulum was found in the second portion of the duodenum. The colonoscopy revealed an infiltrative, sessile and ulcerated nonobstructing mass in the descending colon. This was not circumferential and measured approximately 4 cm in length. No bleeding was noted. Biopsies were taken and the area was tattooed proximal and distal to the mass. I was consulted to evaluate the patient for colonic resection for his mass. ALLERGIES: The patient's only recorded allergy is to HYDROCHLOROTHIAZIDE. MEDICATIONS: His medications prior to admission included:' - amlodipine - atenolol - Cymbalta - Eliquis - Keppra - Lanoxin - Lipitor - pantoprazole - Plavix - vitamin C - Zestril - cefuroxime - Axetil - iron supplement - acetaminophen as needed - magnesium oxide - oral ampicillin - Neurontin - spironolactone MEDICAL HISTORY: Significant for hypertension. He has a history of atrial fibrillation for which she had been started on Eliquis. He has undergone an angioplasty in December 2010. He had a right iliac artery stent and bilateral femoral endarterectomies in December 2008. He has a history of hyperlipidemia. He has chronic obstructive pulmonary disease. He has a history of seizures and a history of ethanol abuse. There is a history of lumbar spinal stenosis. He has had some anemia due to presumed to gastrointestinal blood loss. SURGICAL HISTORY: Surgical history is significant for a left femoral-popliteal bypass graft in May 2009. He has had right and left common iliac artery stents placed in August 2008. He had a left external iliac artery stents in March 2010. He had an angioplasty of a stenosis of the right leg in August 2010. He underwent a right femoral-popliteal bypass in May 2010. He has had a patch angioplasty of his right leg bypass graft in January 2012. A pacemaker was placed in March 2012. He has had a left carpal tunnel procedure in 2012. He had an L4-5 decompression in May 2013. He had a left carotid endarterectomy in November 2015 and has had a carotid endarterectomy in May 2018. FAMILY HISTORY: The patient's father had renal cell carcinoma. SOCIAL HISTORY: He is current smoker, smoking half to one pack per day. He has what sounds like a fairly limited alcohol intake at this point. He is and retired. The patient has not had any recent cardiac or respiratory symptomatology. He has not noticed any obvious rectal bleeding or melena. PHYSICAL EXAMINATION: The patient is a gentleman who I think appears slightly older than his chronologic age. He is lying quietly in the hospital bed. He is alert and responsive. His skin is warm and dry. Sclerae are anicteric. Heart exam shows a regular rhythm. He has a pacemaker palpable in the left infraclavicular fossa. Lungs are generally clear to auscultation. The abdomen is flat. He has bowel sounds present. The abdomen is soft and nontender without appreciable mass. There is no sign of hernia. Extremities are without any significant edema. LABORATORY STUDIES: Laboratory studies from the morning of the show a white count of 14, hemoglobin 10, hematocrit 31 and platelet count of 243,000. Differential count shows 79% neutrophils, 9% lymphocytes and 9% monocytes. He last had coagulation studies on the , which showed a PT of 16, INR of 1.3 and PTT of 31. Chemistry profile from the morning of the showed a sodium of 135, potassium 3.5, chloride 101, CO2 of 26, BUN of 26, creatinine of 3.77 and glucose of 92. His labs do show that his creatinine has been increasing since the morning of the . On admission, his creatinine was 1.0, on the morning of March 27 it was 1.2, on the morning of the it was 1.6, on the morning of the it was 2.4, and on the morning of the it is 3.77. IMAGING STUDIES: Imaging so far has included a CT the abdomen and pelvis with contrast on March 26. This was interpreted by the radiologist as showing no obvious acute abdominopelvic pathology with no ascites and no evidence of abscess. He had a renal ultrasound on March 28 that showed increased renal cortical echogenicity bilaterally consistent with medical renal disease, but no hydronephrosis was seen. His echocardiogram as noted previously had shown evidence of a vegetation on one of the aortic valve leaflets. His pathology from his colonoscopy and EGD showed that biopsies of the small bowel revealed duodenal mucosa with some mild nonspecific chronic inflammation. His gastric biopsies showed some mild chronic gastritis with some features of chemical gastritis. The biopsy of his colon lesion revealed fragments of tubular adenoma with high-grade dysplasia. IMPRESSION: 1. Descending colon mass consistent with cancer with a biopsy revealing adenoma with high-grade dysplasia. 2. 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 3. Acute kidney injury of unclear etiology. 4. Atrial fibrillation. 5. Anemia secondary to gastrointestinal blood loss 6. Hypertensive heart disease. 7. Atherosclerotic peripheral vascular disease. RECOMMENDATIONS: At this point, the patient clearly requires resection of the colon mass as a partial colectomy when his medical issues allow. It may be that this tumor mass represents the source for bacteremia leading to his endocarditis. His endocarditis treatment could continue, and I do not believe that would require completion before proceeding with a colectomy, but his acute kidney injury seems to be worsening and I cannot proceed with any resection until the renal function either stabilizes or improves. Even though his biopsy of the colon mass showed only adenomatous tissue with high-grade dysplasia, I do not doubt that there is an invasive adenocarcinoma present. The patient and his are both interested in proceeding with the surgery when this is possible. I will follow along as we see what becomes of his kidney issue and will plan to proceed with surgery when his medical issues are all felt to be stable.
[2019-03-31 16:00] VITALS: BP 122/78
--- NOTE | 2019-03-31 17:17 | IPN ---
DATE: 03/31/2019 Gio has no complaints today. He has no nausea, vomiting or diarrhea. No abdominal pain, fever or chills. He has a Simmons catheter due to some urinary retention. The patient was seen in consultation by Dr. Youssef who was waiting for his kidney function to improve for him to get a partial colectomy. No chest pain, palpitations or shortness of breath. No fever or chills. PHYSICAL EXAMINATION: Temperature is 98.1 irregular, respiratory rate 16, blood pressure 148/66, O2 sat 96% on room air with pulse of 50. Heart: Normal S1-S2 irregular. Lungs: Few exterior rhonchi bilaterally. Abdomen: Soft, nontender. No visceromegaly. Back: No CVA or lumbosacral tenderness. : Simmons catheter with dark urine. Extremities: No clubbing, cyanosis or edema. No rashes. LABORATORY DATA: Sodium 136, potassium 3.6, chloride 100, bicarb 25, BUN 32, creatinine 4.88, glucose 85, calcium 8.1, magnesium 1.7, CPK 26, white count 10.7, hemoglobin 9.1, hematocrit 28.2, platelets 222, 77% neutrophils, 11% lymphocytes, 9% monocytes, CRP 0.61. Digoxin level 1.2, blood cultures 03/24 no growth after 5 days. Urine culture negative. Urine for eosinophils negative. Colonic biopsy shows a tubular adenoma with high-grade dysplasia. IMPRESSION: 1. Subacute bacterial endocarditis with Enterococcus faecalis on ampicillin 2 grams IV every 8 hours renally dosed and Rocephin 2 grams IV daily that has been decreased due to acute kidney injury. The patient is tolerating antibiotics well without side effects. He will need 6 weeks of IV antibiotics with end of treatment date being May 05. 2. Colonic mass with high-grade dysplasia. The patient will be scheduled for a partial colectomy by Dr. Youssef once his kidney function improves. 3. Acute kidney injury antibiotics have been renally dosed. It is felt to be related to contrast nephropathy with possible dehydration. 3. Urine hematuria on urinalysis with too numerous to count red cells. I wonder whether patient could be having glomerulonephritis from endocarditis complication. PLAN: Continue current medication IV ampicillin, Rocephin for synergy on May 05.
[2019-03-31 20:00] VITALS: BP 147/65
[2019-04-01] VITALS: BP 142/62
[2019-04-01 04:00] VITALS: BP 131/59
[2019-04-01] MEDS: AMPICILLIN SOD 2 GM in D5W MINI-BAG PLUS 100 ML IV SCH ×2 (05:47→17:44)
[2019-04-01] MEDS: ENOXAPARIN 100MG/1ML SYRINGE (J1650) SC SCH (05:48)
[2019-04-01] MEDS: SODIUM CHLORIDE 0.9% INJ 10 ML SYR IV SCH ×2 (05:48→17:44)
[2019-04-01 08:00] VITALS: BP 134/65
[2019-04-01 08:04] LABS: HEMATOCRIT 29.5 % (42.0-52.0); HEMOGLOBIN 9.8 g/dl (13.5-17.5); MEAN CORPUSCULAR HGB CONC 33.2 g/dl (32.0-36.5); MEAN CORPUSCULAR VOLUME 87.3 fl (80.0-96.0); PLATELET COUNT, AUTOMATED 266 10^3/uL (150-450); RED BLOOD COUNT 3.38 10^6/uL (4.30-6.10); WHITE BLOOD COUNT 10.8 10^3/uL (4.0-10.0)
[2019-04-01 08:34] LABS: ALBUMIN 2.7 GM/DL (3.2-5.2); CALCIUM LEVEL 8.3 MG/DL (8.8-10.2); CREATININE FOR GFR 4.47 MG/DL (0.70-1.30); DIGOXIN LEVEL 0.8 NG/ML (0.5-2.0); GLOMERULAR FILTRATION RATE 14.1 (>49); PHOSPHORUS LEVEL 5.4 MG/DL (2.5-4.9); POTASSIUM SERUM 3.2 MEQ/L (3.5-5.1)
[2019-04-01] MEDS: MAGNESIUM OXIDE 400 MG TAB (MAG-OX) PO SCH (08:40)
[2019-04-01] MEDS: levETIRAcetam 250MG TABLET (KEPPRA) PO SCH ×2 (08:40→20:59)
[2019-04-01] MEDS: TAMSULOSIN 0.4 MG CAP PO SCH (08:40)
[2019-04-01] MEDS: PANTOPRAZOLE 40MG TAB (PROTONIX) PO SCH (08:40)
[2019-04-01] MEDS: amLODIPine 5 MG TAB PO SCH ×2 (08:41→20:56)
[2019-04-01] MEDS: GABAPENTIN 400 MG CAP PO SCH ×3 (08:41→20:57)
[2019-04-01] MEDS: DULoxetine 30 MG CAP (CYMBALTA) PO SCH ×2 (08:41→20:59)
[2019-04-01] MEDS: ATENOLOL 50 MG TAB PO SCH ×2 (08:41→20:59)
[2019-04-01] MEDS: cefTRIAXone SOD 2 GM in D5W MINI-BAG PLUS 50 ML IV SCH (08:42)
[2019-04-01] MEDS: DIGOXIN 0.125 MG TAB PO SCH (08:42)
[2019-04-01] MEDS ORDERED: POTASSIUM CHLORIDE 10 MEQ SR TABLET PO ONE (10:00)
--- NOTE | 2019-04-01 10:27 | IPNPDOC ---
Subjective Date Seen The patient was seen on 04/01/19. Subjective Chief Complaint/HPI Pt this morning without new concerns. His is at bedside. General: Denies: Fatigue Constitutional: Denies: Chills, Fever ENT: Denies: Head Aches Pulmonary: Denies: Dyspnea, Cough Cardiovascular: Denies: Chest Pain, Palpitations Gastrointestinal: Denies: Nausea, Vomiting, Abdominal Pain, Diarrhea Neurological: Denies: Weakness Psych: Reports: Mood Normal Objective Physical Examination General Exam: Positive: Alert, No Acute Distress ENT Exam: Positive: Mucous membr. moist/pink Chest Exam: Positive: Clear to auscultation, Normal air movement Heart Exam: Positive: Rate Normal, Normal S1, Normal S2 Abdomen Exam: Positive: Normal bowel sounds, Soft; Negative: Tenderness Extremity Exam: Negative: Edema Skin Exam: Positive: Nl turgor and temperature; Negative: Rash Neuro Exam: Positive: Normal Speech Psych Exam: Positive: Mental status NL, Mood NL Assessment /Plan Problems (1) Endocarditis Status: Acute Response to Treatment: Stable Discussed With: Patient Problem Specific Plan: Consult Specialist, Monitor Clinically, Repeat Labs Problem Text: ceftriaxone 2 QD /ampicillin 2 BID per ID DUAL-LINE PICC placed 03/29/19 03/24/19 BCX2 NG 03/24/19 UCX NG 02/04 BCX2, 03/18 BCX2, 03/21 BCX2 E faecalis 02/04/19 UCX E faecalis 03/25 ECHO done 03/24 with 0.65 cm vegetation noted on the aortic cusp\ 03/26 CT AP NAD (2) RICKI (acute kidney injury) Status: Acute Problem Text: favor ATN 2 ACEI/shay acute/chronic urinary retention/IV contrast 04/01, 4.5, w/u ordered by Nephro 03/31 32/4.9, UOP 2050 03/29 20/2.4, 3.7, PVR 450; therefore, willett cath placed-+ tamsul 0.8 03/28 15/1.6; therefore, held shay 12.5, lisin 20 (already given today) and dig (last dose 03/27), check renal US/PVR 03/27 1.2 baseline cr 0.9-1.0 03/28 PVR 141 03/18 dig 1.3 on 250 QD at baseline GFR 03/29 - urine for eos 03/28 renal US cw MRD 03/24/19 UCX NG (3) A-fib Status: Chronic Response to Treatment: Stable Problem Specific Plan: Monitor Clinically Problem Text: 03/[address] therapeutic LMWH (remains off apix for colectomy and 2 RICKI) RC aten 50 BID, dig 03/31 1.2; therefore, changed to 125 QOD-last dose 03/30 03/29 dig 0.9-restarted dig at 125 (HD 250) given RICKI (4) Colonic mass Problem Text: Mikael plans colectomy p resolution of RICKI, favor scheduling as short interval fu as outpx 03/28 case dw and consulted Dr. Youssef for consideration of L sided colectomy 03/28 held clopid/apix until at least 03/30/19 or until colectomy if decide to do this admission 03/26/19 CT AP NAD 03/29/19 CEA 1.9 06/2015 NST normal perfusion, low risk-Antecol 03/28 EGD/colon path P 03/28/19 EGD/colon: - Z-line regular, in the distal esophagus. - Gastritis. Biopsied. - Non-bleeding duodenal diverticulum. - Normal mucosa was found in the duodenal bulb and in the second portion of the duodenum. Biopsied. -An infiltrative, sessile and ulcerated non-obstructing large mass was found in the descending colon. The mass was non-circumferential. The mass measured four cm in length. In addition, its diameter measured three mm. No bleeding was present. Biopsies were taken with a cold forceps for histology. (5) Hypertension Status: Chronic Problem Text: Stable on amlo 5 BID 03/29 amlo 5 QD to BID given elevated SBP given shay/lisin hold 2 RICKI (6) Enterococcus faecalis infection Status: Acute Problem Text: as per endocarditis (7) Anemia, iron deficiency Status: Chronic Problem Text: 03/28 remains stable. 03/26: Hgb 10.5, panendoscopy planned as noted. 03/25 stable at 10.7 03/25/[address] Prnice-plan EGD/colon for 03/28/19 tf case, will hold clopid (for PVD)/apix (for pAF) today (adequate hold time per Suresh) 03/25/[address] Lewis-favor repeat EGD/colon as inpx given persistent Fe def anemia requiring Fe/RBC tx (03/16 tx 2u RBCs) AND as complete rivas for E. faecalis sepsis 08/2017 EGD/colon-Mikael: anal stricture (no biopsied) and : - Normal esophagus. - Small hiatal hernia. - Nodular mucosa in the gastric body and in the gastric antrum. - Erythematous mucosa in the stomach. - Non-bleeding gastric ulcers. - Multiple non-bleeding duodenal ulcers. - Normal second portion of the duodenum and third portion of the duodenum. - No specimens collected. (8) Seizure disorder Status: Chronic Response to Treatment: Stable Problem Text: Stable on HD leve 1000 BID (9) Physical deconditioning Status: Chronic Response to Treatment: Stable Problem Text: 03/27 safe for dc home per PT Plan/VTE VTE Prophylaxis Ordered?: Yes (Now on therapeutic Lovenox) VS, I&O, 24H, Fishbone Vital Signs/I&O Vital Signs Date Time Temp Pulse Resp B/P (MAP) Pulse Ox O2 Delivery O2 Flow Rate FiO2 04/01/19 08:42 77 04/01/19 04:00 98.9 16 131/59 (83) 95 Room Air I&O- Last 24 Hours up to 6 AM 04/01/19 05:59 Intake Total 790 ml Output Total 2050 ml Balance -1260 ml Laboratory Data 24H LABS Laboratory Tests 2 04/01/19 07:40: Nucleated Red Blood Cells % (auto) 0.0, Anion Gap 11, Glomerular Filtration Rate 14.1L, Calcium Level 8.3L, Phosphorus Level 5.4H, Albumin 2.7L, Digoxin Level 0.8 CBC/BMP Laboratory Tests 04/01/19 07:40 Microbiology Microbiology 03/24/19 Urine Culture - Final, Complete 03/24/19 Blood Culture - Final, Complete NO GROWTH AFTER 5 DAYS 03/24/19 Blood Culture - Final, Complete NO GROWTH AFTER 5 DAYS YUMIKO FLOREZ PA-C Apr 01, 2019 10:27 Chuy Pearl M.D. Apr 01, 2019 17:56
[2019-04-01 11:39] LABS: BASO # 0.1 10^3/uL (0.0-0.2); BASO % 0.6 % (0.0-1.0); EOS # 0.2 10^3/uL (0.0-0.5); EOS % 2.5 % (0.0-3.0); HEMATOCRIT 29.4 % (42.0-52.0); HEMOGLOBIN 9.5 g/dl (13.5-17.5); LYMPH # 1.3 10^3/uL (1.5-5.0); MEAN CORPUSCULAR HEMOGLOBIN 28.8 pg (27.0-33.0); MEAN CORPUSCULAR HGB CONC 32.3 g/dl (32.0-36.5); MEAN CORPUSCULAR VOLUME 89.1 fl (80.0-96.0); MONO # 0.8 10^3/uL (0.0-0.8); MONO % 8.1 % (0.0-5.0); NEUTROPHILS # 7.1 10^3/uL (1.5-8.5); NEUTROPHILS % 74.3 % (36.0-66.0); PLATELET COUNT, AUTOMATED 249 10^3/uL (150-450); WHITE BLOOD COUNT 9.5 10^3/uL (4.0-10.0)
[2019-04-01 12:00] VITALS: BP 150/78
[2019-04-01 12:09] LABS: COMPLEMENT C3 118 MG/DL (90-180); COMPLEMENT C4 27 MG/DL (10-40); RHEUMATOID FACTOR QUANT < 10.0 IU/ML (<15.0)
[2019-04-01] MEDS: ATORVASTATIN 20 MG TAB PO SCH (12:56)
[2019-04-01 13:36] LABS: HEPATITIS B CORE ANTIBODY IGM NEGATIVE (NEGATIVE); HEPATITIS B SURFACE ANTIBODY NEGATIVE (POSITIVE); HEPATITIS B SURFACE ANTIGEN NEGATIVE (NEGATIVE)
--- NOTE | 2019-04-01 13:37 | IPN ---
DATE: 04/01/2019 HISTORY: The patient was admitted for treatment of Enterococcus bacteremia and endocarditis. He developed acute kidney injury. His endoscopic exam identified a mass in his descending colon, which will require resection. Vital signs show that the patient has been afebrile over the past 24 hours. His pulse is in the 60s and 70s and his blood pressure is normal. Intake and output show that yesterday he had 790 in recorded with 2000 of urine output recorded. PHYSICAL EXAMINATION: The patient is lying quietly on the hospital bed appearing comfortable. The abdomen shows positive bowel sounds, and the abdomen is soft and nontender without appreciable mass. LABORATORY STUDIES: Today show white count of 10, hemoglobin 10, hematocrit 29 and a platelet count of 249,000. Differential count shows 74% neutrophils, 14% lymphocytes and 8% monocytes. Chemistry profile shows a sodium of 136, potassium 3.2, chloride 99, CO2 of 26, BUN of 40, creatinine 4.47 and the glucose is 128. The creatinine has actually now for the first time decreased from 4.88 yesterday, suggesting that he has peaked and hopefully will be returning toward normal. IMPRESSION: 1. Probable colon cancer for resection. 2. Endocarditis on antibiotics. 3. Acute kidney injury, now possibly turning the corner and showing improvement. RECOMMENDATIONS: At this point, I think that I would not be in a great vicente to proceed with his colon resection. If we assume that his kidney injury is transient it will take him the next week to return to relatively normal values and I do not wish to put him through a bowel prep and the potential for dehydration until his kidneys have had a chance to fully recover. I would therefore recommend that when he is medically stable for discharge that he be discharged home to allow some time for continued healing of his kidneys and to continue his treatment for his endocarditis. I counseled the patient and his that delaying a few weeks in the treatment of his colon lesion is not going to put him at any increased risk. I would anticipate seeing him back in the office within a week or two after discharge from the hospital and if he is felt to be medically stable to proceed with a colon resection we will make arrangements at that time.
--- NOTE | 2019-04-01 14:57 | IPN ---
DATE: 04/01/2019 SUBJECTIVE: Patient was seen and examined today. He currently has no complaints. He denies any fevers, chills, nausea, vomiting, diarrhea. He denies any abdominal pain. The patient continues to have a Simmons catheter in place and he continues to have gross hematuria as well. The patient is currently awaiting possible partial colectomy, however given his acute kidney injury this is currently on hold. Currently, the patient is denying any symptoms. He states that he has no chest pain, palpitations or shortness of breath. OBJECTIVE:: VITAL SIGNS: Temperature 98.6, pulse 72, respiratory rate 18, blood pressure 134/65, pulse oximetry 92% on room air. GENERAL: Patient is awake, alert and oriented. He does not appear in acute distress. He is sitting up comfortably in bed. HEENT: Atraumatic, normocephalic. Eyes are nonicteric. Trachea is midline. The patient has a left and right scar from his carotid endarterectomy. There is no jugular venous distention (JVD). CARDIOVASCULAR: Normal S1 and S2, regular rate and rhythm. No clicks, rubs or murmurs. PULMONARY: Clear vesicular breath sounds bilaterally with good respiratory effort. No wheezes, rhonchi or rales. ABDOMINAL: Nondistended, nontender to palpation. No rebound tenderness or guarding. No palpable masses. Normal active bowel sounds throughout. GENITOURINARY (): Patient has a Simmons catheter in place with gross hematuria in his Simmons bag. EXTREMITIES: Without edema. There is no areas of ulceration. There is 2+/4 posterior tibial and radial pulses bilaterally. PSYCH: Mood and affect appear appropriate. LABORATORY DATA: Hematology: White blood count 9.5, hemoglobin 9.5, hematocrit 29.4, platelet count 249, Chemistries: Sodium 136, potassium 3.2, chloride 99, carbon dioxide 26, BUN 40, creatinine 4.47, fasting glucose 128, calcium 8.3, phosphorous 5.4, albumin 2.7. Rheumatoid factor less than 10. Complement C3 118. Complement C4 27. Glomerulonephritis workup currently pending. ASSESSMENT/PLAN: 1. Subacute bacterial endocarditis with Enterococcus Faecalis. Patient was previously on ampicillin 2 grams every 8 hours, but this has now been changed to 2 grams every 12 hours. He is continued on Rocephin 2 grams IV daily. The patient is currently tolerating the antibiotics well without any side effects. He will need to be continued on IV antibiotics for a total of six weeks with a treatment ending date of May 05. The patient is currently pending colectomy with general surgery secondary to colonic mass, however given his current acute kidney injury, he may be discharged with antibiotics with followup for colectomy in the near future. 2. Colonic mass with high grade dysplasia. The patient has been seen by general surgery. He has a colonic mass with high grade dysplasia, currently planned for a partial colectomy. The patient developed RICKI which originally we felt to be secondary to nephropathy, however, the patient has developed gross hematuria. His creatinine had improved slightly, however, at this point in time, general surgery is not considering performing surgery and waiting until his kidney functions recover. 3. Acute kidney injury with gross hematuria. The patient has an RICKI with an elevated creatinine of 4.47, which is down from 4.8 yesterday. He also has gross hematuria. Originally this was felt to be secondary to contrast nephropathy and dehydration, however the patient continues to have hematuria and may be due secondary to interstitial nephritis or glomerulonephritis secondary to endocarditis. The patient has had a glomerulonephritis workup ordered and currently ELIE, ANCA, myeloperoxidase and double stranded DNA are pending. His complement C3 and C4 was normal and had a negative rheumatoid factor. PLAN: The patient's current plan is to continue on IV ampicillin and Rocephin for a total of six weeks making his end of treatment date 05/05/2019. MTDD
[2019-04-01 16:00] VITALS: BP 122/56
--- NOTE | 2019-04-01 17:17 | IPN ---
DATE: 04/01/2019 SUBJECTIVE: The patient was seen and examined at the bedside today morning. He is afebrile, hemodynamically stable. He continues to be on IV antibiotics. Ampicillin dose was decreased by infectious disease. He has a good urine output. Renal function is gradually improving, creatinine plateaued yesterday and it has improved to 4.4 today. The patient still has an indwelling Simmons catheter. OBJECTIVE: Vital signs: Temperature is 97.3 degrees Fahrenheit, blood pressure 150/78, pulse is 77, respiratory rate of 18, saturating 94% on room air. Intake and output: Urine output recorded is 2 liters yesterday, 600 mL so far today since overnight. Weight in the bed scale is 55.5 kg. PHYSICAL EXAMINATION: General: The patient is awake, alert, oriented times three, laying in bed in no apparent distress. Head and neck exam: Extraocular muscles intact. Pupils equally round and reactive to light. Mucous membranes are moist. Neck is supple. There is no jugular venous distention (JVD). Cardiovascular: S1, S2, regular rate. No edema of the bilateral lower extremities. Respiratory: Chest is clear to auscultation bilaterally. Bilateral equal air entry. No rales or rhonchi. Abdomen: Soft, positive bowel sounds. Nontender. No organomegaly. Genitourinary: He has an indwelling Simmons catheter. Urine in the bag is blood tinged. Musculoskeletal: No clubbing or cyanosis. Pulses are 2+. Central nervous system ([employer]): No focal deficit. Power is 5/5 in all extremities. LAB REVIEW: CBC showed a WBC of 9.5, hemoglobin 9.5, platelets are 249. Repeat urinalysis done yesterday showed persistent proteinuria and 3+ blood. BMP today morning showed sodium 136, potassium 3.2, chloride 99, bicarbonate 26, BUN 40, creatinine is 4.4, it was 4.8 yesterday, calcium 8.3, phosphorus is 5.4. Immunology: Rheumatoid factor is negative. Complement 3 is 118, C4 is 27, and both of these numbers are within the normal range. Hepatitis B serology and hepatitis C is negative. CURRENT INPATIENT MEDICATIONS: The patient's medications were all reviewed by myself. Ampicillin has been changed to 2 grams IV every 12 hours, ceftriaxone is 2 grams IV daily. I have ordered a dose of potassium chloride 40 mEq to be given today morning. No other change in the medications today as compared with yesterday. ASSESSMENT/PLAN: 1. Acute renal failure. The patient's creatinine plateaued yesterday. It has started improving now. The patient is nonoliguric. He still has persistent proteinuria and hematuria. It is possible that it might be contrast-induced nephropathy versus infection-related glomerulonephritis or acute interstitial nephritis. However, at this time, since renal function is improving, continue the current antibiotics and continue to monitor for improvement in the renal function. Autoimmune serology has already been ordered; C3, C4 level is within the normal range. If renal function does not show much improvement by Thursday, the patient will get a renal biopsy done. 2. Hypertension. Blood pressure is controlled with atenolol and amlodipine. 3. Enterococcus faecalis bacteremia. It is secondary to a mass in the colon. Currently he is on ampicillin and ceftriaxone; doses have been adjusted according to patient's glomerular filtration rate (GFR). 4. History of atrial fibrillation. Digoxin level is appropriate, dose was changed to every other day because of acute renal failure. 5. BPH and urinary retention. The patient is currently on Flomax. Continue the indwelling Simmons catheter since we need to do 24-hour urine and monitor the urine output.
[2019-04-01 20:00] VITALS: BP 154/74
[2019-04-02] VITALS: BP 150/62
[2019-04-02 05:00] VITALS: BP 138/58
[2019-04-02] MEDS: AMPICILLIN SOD 2 GM in D5W MINI-BAG PLUS 100 ML IV SCH ×2 (06:03→17:21)
[2019-04-02] MEDS: ENOXAPARIN 100MG/1ML SYRINGE (J1650) SC SCH (06:04)
[2019-04-02] MEDS: SODIUM CHLORIDE 0.9% INJ 10 ML SYR IV SCH ×2 (06:04→17:22)
[2019-04-02 06:07] LABS: BASO # 0.1 10^3/uL (0.0-0.2); BASO % 1.1 % (0.0-1.0); EOS # 0.3 10^3/uL (0.0-0.5); EOS % 2.9 % (0.0-3.0); HEMATOCRIT 26.6 % (42.0-52.0); HEMOGLOBIN 8.8 g/dl (13.5-17.5); LYMPH # 1.3 10^3/uL (1.5-5.0); LYMPH % 14.3 % (24.0-44.0); MEAN CORPUSCULAR HEMOGLOBIN 28.9 pg (27.0-33.0); MEAN CORPUSCULAR HGB CONC 33.1 g/dl (32.0-36.5); MEAN CORPUSCULAR VOLUME 87.2 fl (80.0-96.0); MONO # 0.7 10^3/uL (0.0-0.8); MONO % 8.3 % (0.0-5.0); NEUTROPHILS # 6.5 10^3/uL (1.5-8.5); NEUTROPHILS % 73.1 % (36.0-66.0); PLATELET COUNT, AUTOMATED 256 10^3/uL (150-450); RED BLOOD COUNT 3.05 10^6/uL (4.30-6.10); WHITE BLOOD COUNT 8.8 10^3/uL (4.0-10.0)
[2019-04-02 06:43] LABS: ALBUMIN 2.5 GM/DL (3.2-5.2); CALCIUM LEVEL 8.5 MG/DL (8.8-10.2); CREATININE FOR GFR 2.93 MG/DL (0.70-1.30); DIGOXIN LEVEL 0.8 NG/ML (0.5-2.0); PHOSPHORUS LEVEL 3.9 MG/DL (2.5-4.9); POTASSIUM SERUM 3.4 MEQ/L (3.5-5.1)
[2019-04-02 08:00] VITALS: BP 140/62
[2019-04-02] MEDS ORDERED: POTASSIUM CHLORIDE 10 MEQ SR TABLET PO ONE (08:00)
[2019-04-02 08:49] LABS: CRYOGLOBULINS NEGATIVE (NEGATIVE)
[2019-04-02] MEDS: levETIRAcetam 250MG TABLET (KEPPRA) PO SCH ×2 (09:54→20:44)
[2019-04-02] MEDS: amLODIPine 5 MG TAB PO SCH ×2 (09:55→20:49)
[2019-04-02] MEDS: PANTOPRAZOLE 40MG TAB (PROTONIX) PO SCH (09:55)
[2019-04-02] MEDS: TAMSULOSIN 0.4 MG CAP PO SCH (09:55)
[2019-04-02] MEDS: ATENOLOL 50 MG TAB PO SCH ×2 (09:55→20:46)
[2019-04-02] MEDS: DULoxetine 30 MG CAP (CYMBALTA) PO SCH ×2 (09:55→20:48)
[2019-04-02] MEDS: MAGNESIUM OXIDE 400 MG TAB (MAG-OX) PO SCH (09:55)
[2019-04-02] MEDS: GABAPENTIN 400 MG CAP PO SCH ×3 (09:55→20:48)
[2019-04-02] MEDS: cefTRIAXone SOD 2 GM in D5W MINI-BAG PLUS 50 ML IV SCH (09:56)
[2019-04-02 12:00] VITALS: BP 130/58
--- NOTE | 2019-04-02 12:26 | IPNPDOC ---
Subjective Date Seen The patient was seen on 04/02/19. Subjective Chief Complaint/HPI stable dyspnea s CP Constitutional: Denies: Chills Eyes: Denies: Pain Skin: Denies: Rash Pulmonary: Denies: Dyspnea, Cough Cardiovascular: Denies: Chest Pain, Palpitations Objective Physical Examination General Exam: Positive: Alert, No Acute Distress ENT Exam: Positive: Mucous membr. moist/pink Chest Exam: Positive: Clear to auscultation, Normal air movement Heart Exam: Positive: Rate Normal, Normal S1, Normal S2 Abdomen Exam: Positive: Normal bowel sounds, Soft; Negative: Tenderness Extremity Exam: Negative: Edema Skin Exam: Positive: Nl turgor and temperature; Negative: Rash Neuro Exam: Positive: Normal Speech Psych Exam: Positive: Mental status NL, Mood NL Assessment /Plan Problems (1) Endocarditis Status: Acute Response to Treatment: Stable Discussed With: Patient Problem Specific Plan: Consult Specialist, Monitor Clinically, Repeat Labs Problem Text: D ceftriaxone 2 QD /ampicillin 2 BID per ID 04/02 WBC down to 8.8 (03/30 13.5), AF DUAL-LINE PICC placed 03/29/19 03/24/19 BCX2 NG 03/24/19 UCX NG 02/04 BCX2, 03/18 BCX2, 03/21 BCX2 E faecalis 02/04/19 UCX E faecalis 03/25 ECHO done 03/24 with 0.65 cm vegetation noted on the aortic cusp\ 03/26 CT AP NAD (2) RICKI (acute kidney injury) Status: Acute Problem Text: favor ATN 2 ACEI/shay acute/chronic urinary retention/IV contrast 04/02 32/2.9, 3.4 +K 40 04/01, 4.5, w/u ordered by Nephro 03/31 32/4.9, UOP 2050 03/29 20/2.4, 3.7, PVR 450; therefore, willett cath placed-+ tamsul 0.8 03/28 15/1.6; therefore, held shay 12.5, lisin 20 (already given today) and dig (last dose 03/27), check renal US/PVR 03/27 1.2 baseline cr 0.9-1.0 03/28 PVR 141 03/18 dig 1.3 on 250 QD at baseline GFR 03/29 - urine for eos 03/28 renal US cw MRD 03/24/19 UCX NG (3) A-fib Status: Chronic Response to Treatment: Stable Problem Specific Plan: Monitor Clinically Problem Text: 03/[address] therapeutic LMWH (remains off apix for colectomy and 2 RICKI) RC aten 50 BID, dig 04/02 0.8 03/31 1.2; therefore, changed to 125 QOD-last dose 03/30 03/29 dig 0.9-restarted dig at 125 (HD 250) given RICKI (4) Colonic mass Problem Text: Mikael plans colectomy p resolution of RICKI, favor scheduling as short interval fu as outpx 03/28 case dw and consulted Dr. Youssef for consideration of L sided colectomy 03/28 held clopid/apix until at least 03/30/19 or until colectomy if decide to do this admission 03/26/19 CT AP NAD 03/29/19 CEA 1.9 06/2015 NST normal perfusion, low risk-Antecol 03/28 EGD/colon path P 03/28/19 EGD/colon: - Z-line regular, in the distal esophagus. - Gastritis. Biopsied. - Non-bleeding duodenal diverticulum. - Normal mucosa was found in the duodenal bulb and in the second portion of the duodenum. Biopsied. -An infiltrative, sessile and ulcerated non-obstructing large mass was found in the descending colon. The mass was non-circumferential. The mass measured four cm in length. In addition, its diameter measured three mm. No bleeding was present. Biopsies were taken with a cold forceps for histology. (5) Hypertension Status: Chronic Problem Text: Stable on amlo 5 BID 03/29 amlo 5 QD to BID given elevated SBP given shay/lisin hold 2 RICKI (6) Enterococcus faecalis infection Status: Acute Problem Text: as per endocarditis (7) Anemia, iron deficiency Status: Chronic Problem Text: 03/28 remains stable. 03/26: Hgb 10.5, panendoscopy planned as noted. 03/25 stable at 10.7 03/25/[address] Prince-plan EGD/colon for 03/28/19 tf case, will hold clopid (for PVD)/apix (for pAF) today (adequate hold time per Suresh) 03/25/[address] Lewis-favor repeat EGD/colon as inpx given persistent Fe def anemia requiring Fe/RBC tx (03/16 tx 2u RBCs) AND as complete rivas for E. faecalis sepsis 08/2017 EGD/colon-Mikael: anal stricture (no biopsied) and : - Normal esophagus. - Small hiatal hernia. - Nodular mucosa in the gastric body and in the gastric antrum. - Erythematous mucosa in the stomach. - Non-bleeding gastric ulcers. - Multiple non-bleeding duodenal ulcers. - Normal second portion of the duodenum and third portion of the duodenum. - No specimens collected. (8) Seizure disorder Status: Chronic Response to Treatment: Stable Problem Text: Stable on HD leve 1000 BID (9) Physical deconditioning Status: Chronic Response to Treatment: Stable Problem Text: 03/27 safe for dc home per PT Plan/VTE VTE Prophylaxis Ordered?: Yes (Now on therapeutic Lovenox) VS, I&O, 24H, Fishbone Vital Signs/I&O Vital Signs Date Time Temp Pulse Resp B/P (MAP) Pulse Ox O2 Delivery O2 Flow Rate FiO2 04/02/19 12:00 98.7 55 16 130/58 (82) 96 Room Air I&O- Last 24 Hours up to 6 AM 04/02/19 05:59 Intake Total 1930 ml Output Total 1700 ml Balance 230 ml Laboratory Data 24H LABS Laboratory Tests 2 04/02/19 05:41: Immature Granulocyte % (Auto) 0.3, Neutrophils (%) (Auto) 73.1H, Lymphocytes (%) (Auto) 14.3L, Monocytes (%) (Auto) 8.3H, Eosinophils (%) (Auto) 2.9, Basophils (%) (Auto) 1.1H, Neutrophils # (Auto) 6.5, Lymphocytes # (Auto) 1.3L, Monocytes # (Auto) 0.7, Eosinophils # (Auto) 0.3, Basophils # (Auto) 0.1, Nucleated Red Blood Cells % (auto) 0.0, Anion Gap 8, Glomerular Filtration Rate 23.0L, Calcium Level 8.5L, Phosphorus Level 3.9#, Albumin 2.5L, Digoxin Level 0.8 CBC/BMP Laboratory Tests 04/02/19 05:41 Microbiology Microbiology 03/24/19 Urine Culture - Final, Complete 03/24/19 Blood Culture - Final, Complete NO GROWTH AFTER 5 DAYS 03/24/19 Blood Culture - Final, Complete NO GROWTH AFTER 5 DAYS Chuy Pearl M.D. Apr 02, 2019 12:26
--- NOTE | 2019-04-02 13:10 | IPN ---
DATE: 04/02/2019 SUBJECTIVE: Patient seen and examined this morning at bedside. He is continued on IV antibiotics. His urine output continues to be good and his renal function has significantly improved with his creatinine down to 2.93 from 4.47 yesterday. Overall he reports he is doing well and has no complaints at this time. OBJECTIVE: Vitals: Temperature: 98.8, pulse 62, respiratory rate 18, blood pressure 140/62, pulse ox 97% on room air. He put out 1700 mL of urine in the last 24 hours. PHYSICAL EXAMINATION: GENERAL: Patient is awake, alert, and oriented, in no acute distress, resting comfortably in bed. HEENT: Head is normocephalic, atraumatic. Extraocular muscles intact. Pupils equal, round, and reactive to light. Mucous membranes are moist. NECK: Supple without jugular venous distention (JVD). CARDIOVASCULAR: Regular rate and rhythm, normal S1 and S2. No edema in bilateral lower extremities. RESPIRATORY: Clear to auscultation bilaterally. No wheezes, crackles, or rhonchi. ABDOMEN: Abdomen, soft, nontender, nondistended. Positive bowel sounds. EXTREMITIES: No clubbing, cyanosis, or edema. NEUROLOGIC: Alert and oriented, follows commands, moving extremities appropriately. Moves all extremities. LAB REVIEW: White blood cell count of 8.8, hemoglobin of 8.8, hematocrit 26.6, platelet count of 256, sodium of 137, potassium 3.4, chloride 102, CO2 27, BUN of 32, creatinine of 2.93, glucose of 88, calcium of 8.5, phosphorus of 3.9, albumin 2.5. Digoxin level 0.8. Serology is negative for serum cryoglobulins, hepatitis B surface antigen antibody core IgM antibody negative hepatitis C antibody index 0.0. ASSESSMENT AND PLAN: 1. Acute renal failure. Patient's creatinine plateaued 2 days ago, he is now non-oliguric and his urine output has subsequently improved. His creatinine is also significant reduced. We still feel as though this is likely contrast induced nephropathy as he has continued to improve so right now we do not feel a biopsy is necessary. We have ordered glomerular nephritis work-up and the results are still pending, however, we expect that his creatinine will continue to improve on its own. 2. Hypertension. Blood pressure is controlled with atenolol and amlodipine. 3. Enterococcus faecalis bacteremia. Management per infectious disease. Patient is currently on ampicillin and ceftriaxone with dose adjustments for a GFR which has also significantly improved. 4. History of atrial fibrillation. Digoxin level is appropriate. Will continue very other day dosing due to acute renal failure. 5. Benign prostatic hyperplasia (BPH) and urinary retention. Patient is currently on Flomax. Continue with indwelling Simmons catheter to monitor urine output.
[2019-04-02 16:00] VITALS: BP 180/62
[2019-04-02 20:00] VITALS: BP 147/62
[2019-04-02] MEDS: ATORVASTATIN 20 MG TAB PO SCH (20:46)
[2019-04-02] MEDS ORDERED: ATORVASTATIN 20 MG TAB PO SCH (21:00)
[2019-04-03] VITALS: BP 145/64
[2019-04-03 03:40] LABS: CREATININE 24 HOUR, URINE 1529.6 MG/24HR (950-2500); CREATININE, URINE 95.6 MG/DL; TOTAL PROTEIN 24 HOUR URINE 929.6 MG/24HR (50-150); URINE TOTAL PROTEIN 58.1 MG/DL (0-12)
[2019-04-03 04:00] VITALS: BP 148/64
[2019-04-03] MEDS: SODIUM CHLORIDE 0.9% INJ 10 ML SYR IV SCH ×2 (05:50→17:14)
[2019-04-03] MEDS: ENOXAPARIN 100MG/1ML SYRINGE (J1650) SC SCH ×2 (05:51→21:46)
[2019-04-03] MEDS: AMPICILLIN SOD 2 GM in D5W MINI-BAG PLUS 100 ML IV SCH ×3 (05:52→21:46)
[2019-04-03 06:22] LABS: ALBUMIN 2.7 GM/DL (3.2-5.2); CALCIUM LEVEL 8.7 MG/DL (8.8-10.2); CREATININE FOR GFR 1.89 MG/DL (0.70-1.30); GLOMERULAR FILTRATION RATE 38.2 (>49); PHOSPHORUS LEVEL 3.8 MG/DL (2.5-4.9); POTASSIUM SERUM 4.1 MEQ/L (3.5-5.1)
[2019-04-03 08:00] VITALS: BP 150/60
[2019-04-03] MEDS: DULoxetine 30 MG CAP (CYMBALTA) PO SCH ×2 (09:48→21:46)
[2019-04-03] MEDS: levETIRAcetam 250MG TABLET (KEPPRA) PO SCH ×2 (09:48→21:43)
[2019-04-03] MEDS: amLODIPine 5 MG TAB PO SCH ×2 (09:49→21:45)
[2019-04-03] MEDS: PANTOPRAZOLE 40MG TAB (PROTONIX) PO SCH (09:49)
[2019-04-03] MEDS: TAMSULOSIN 0.4 MG CAP PO SCH ×2 (09:49→21:44)
[2019-04-03] MEDS: GABAPENTIN 400 MG CAP PO SCH ×3 (09:50→21:43)
[2019-04-03] MEDS: DIGOXIN 0.125 MG TAB PO SCH (09:51)
[2019-04-03] MEDS: MAGNESIUM OXIDE 400 MG TAB (MAG-OX) PO SCH (09:51)
[2019-04-03] MEDS: ATENOLOL 50 MG TAB PO SCH ×2 (09:51→21:45)
[2019-04-03 10:30] LABS: HEMATOCRIT 26.5 % (42.0-52.0); HEMOGLOBIN 8.5 g/dl (13.5-17.5); MEAN CORPUSCULAR HEMOGLOBIN 28.8 pg (27.0-33.0); MEAN CORPUSCULAR HGB CONC 32.1 g/dl (32.0-36.5); MEAN CORPUSCULAR VOLUME 89.8 fl (80.0-96.0); PLATELET COUNT, AUTOMATED 292 10^3/uL (150-450); RED BLOOD COUNT 2.95 10^6/uL (4.30-6.10); WHITE BLOOD COUNT 8.1 10^3/uL (4.0-10.0)
[2019-04-03 11:45] VITALS: BP 160/60
--- NOTE | 2019-04-03 14:47 | IPNPDOC ---
Subjective Date Seen The patient was seen on 04/03/19. Subjective Chief Complaint/HPI no complaints General: Reports: Chills, Night Sweats Constitutional: Denies: Chills Eyes: Denies: Pain Skin: Denies: Rash Pulmonary: Denies: Dyspnea, Cough Cardiovascular: Denies: Chest Pain, Palpitations Gastrointestinal: Denies: Nausea, Vomiting Objective Physical Examination General Exam: Positive: Alert, No Acute Distress ENT Exam: Positive: Mucous membr. moist/pink Chest Exam: Positive: Clear to auscultation, Normal air movement Heart Exam: Positive: Rate Normal, Normal S1, Normal S2 Abdomen Exam: Positive: Normal bowel sounds, Soft; Negative: Tenderness Extremity Exam: Negative: Edema Skin Exam: Positive: Nl turgor and temperature; Negative: Rash Neuro Exam: Positive: Normal Speech Psych Exam: Positive: Mental status NL, Mood NL Assessment /Plan Problems (1) Endocarditis Status: Acute Response to Treatment: Stable Discussed With: Patient Problem Specific Plan: Consult Specialist, Monitor Clinically, Repeat Labs Problem Text: D1 ceftriaxone 2 QD /amp 2 QID per ID 04/03 WBC down to 8.1 (03/30 13.5), AF DUAL-LINE PICC placed 03/29/19 03/24/19 BCX2 NG 03/24/19 UCX NG 02/04 BCX2, 03/18 BCX2, 03/21 BCX2 E faecalis 02/04/19 UCX E faecalis 03/25 ECHO done 03/24 with 0.65 cm vegetation noted on the aortic cusp\ 03/26 CT AP NAD (2) RICKI (acute kidney injury) Status: Acute Problem Text: favor ATN 2 ACEI/shay acute/chronic urinary retention/IV contrast 04/03 24/1.9. 4.1 04/02 32/2.9, 3.4 +K 40 04/01, 4.5, w/u ordered by Nephro 03/31 32/4.9, UOP 2050 03/29 20/2.4, 3.7, PVR 450; therefore, willett cath placed-+ tamsul 0.8 03/28 15/1.6; therefore, held shay 12.5, lisin 20 (already given today) and dig (last dose 03/27), check renal US/PVR 03/27 1.2 baseline cr 0.9-1.0 03/28 PVR 141 10/25 dig 1.3 on 250 QD at baseline GFR 03/29 - urine for eos 03/28 renal US cw MRD 03/24/19 UCX NG (3) A-fib Status: Chronic Response to Treatment: Stable Problem Specific Plan: Monitor Clinically Problem Text: Patient remains asx 04/03 increased to BID dosing given CC>30 03/[address] therapeutic LMWH (remains off apix for colectomy and 2 RICKI) RC aten 50 BID, dig 04/02 0.8 03/31 1.2; therefore, changed to 125 QOD-last dose 03/30 03/29 dig 0.9-restarted dig at 125 (HD 250) given RICKI (4) Colonic mass Problem Text: Mikael plans colectomy p resolution of RICKI, favor scheduling as short interval fu as outpx 03/28 case dw and consulted Dr. Youssef for consideration of L sided colectomy 03/28 held clopid/apix until at least 03/30/19 or until colectomy if decide to do this admission 03/26/19 CT AP NAD 03/29/19 CEA 1.9 06/2015 NST normal perfusion, low risk-Antecol 03/28 EGD/colon path P 03/28/19 EGD/colon: - Z-line regular, in the distal esophagus. - Gastritis. Biopsied. - Non-bleeding duodenal diverticulum. - Normal mucosa was found in the duodenal bulb and in the second portion of the duodenum. Biopsied. -An infiltrative, sessile and ulcerated non-obstructing large mass was found in the descending colon. The mass was non-circumferential. The mass measured four cm in length. In addition, its diameter measured three mm. No bleeding was present. Biopsies were taken with a cold forceps for histology. (5) Hypertension Status: Chronic Problem Text: Stable on amlo 5 BID 03/29 amlo 5 QD to BID given elevated SBP given shay/lisin hold 2 RICKI (6) Enterococcus faecalis infection Status: Acute Problem Text: as per endocarditis (7) Anemia, iron deficiency Status: Chronic Problem Text: caution on LMWH 04/03 hgb down to 8.5 03/25/[address] Prince-plan EGD/colon for 03/28/19 tf case, will hold clopid (for PVD)/apix (for pAF) today (adequate hold time per [facility]) 03/25/[address] Lewis-favor repeat EGD/colon as inpx given persistent Fe def anemia requiring Fe/RBC tx (03/16 tx 2u RBCs) AND as complete rivas for E. faecalis sepsis 08/2017 EGD/colon-Mikael: anal stricture (no biopsied) and : - Normal esophagus. - Small hiatal hernia. - Nodular mucosa in the gastric body and in the gastric antrum. - Erythematous mucosa in the stomach. - Non-bleeding gastric ulcers. - Multiple non-bleeding duodenal ulcers. - Normal second portion of the duodenum and third portion of the duodenum. - No specimens collected. (8) Seizure disorder Status: Chronic Response to Treatment: Stable Problem Text: Stable on HD leve 1000 BID (9) Physical deconditioning Status: Chronic Response to Treatment: Stable Problem Text: 03/27 safe for dc home per PT Plan/VTE VTE Prophylaxis Ordered?: Yes (Now on therapeutic Lovenox) VS, I&O, 24H, Fishbone Vital Signs/I&O Vital Signs Date Time Temp Pulse Resp B/P (MAP) Pulse Ox O2 Delivery O2 Flow Rate FiO2 04/03/19 11:45 98.1 63 16 160/60 (93) 97 Room Air I&O- Last 24 Hours up to 6 AM 04/03/19 06:00 Intake Total 1060 ml Output Total 1550 ml Balance -490 ml Laboratory Data 24H LABS Laboratory Tests 2 04/03/19 03:00: Urine Creatinine 95.6, Urine Creatinine 24 Hour 1529.6, Urine Total Volume (Protein) 1600, Urine Total Protein 24 Hour 929.6H, Urine Total Protein 58.1H 04/03/19 05:31: Nucleated Red Blood Cells % (auto) 0.0, Anion Gap 6L, Glomerular Filtration Rate 38.2L, Calcium Level 8.7L, Phosphorus Level 3.8, Albumin 2.7L CBC/BMP Laboratory Tests 04/03/19 05:31 Microbiology Microbiology 03/24/19 Urine Culture - Final, Complete 03/24/19 Blood Culture - Final, Complete NO GROWTH AFTER 5 DAYS 03/24/19 Blood Culture - Final, Complete NO GROWTH AFTER 5 DAYS Chuy Pearl M.D. Apr 03, 2019 14:47
--- NOTE | 2019-04-03 15:01 | IPN ---
DATE OF SERVICE: 04/03/2019 SUBJECTIVE: Gio is seen and examined this morning at the bedside. He complains of itching on his scalp, otherwise denies any overnight events or issues. Has not had any trouble with voiding and his renal function continues to improve. Creatinine is down to 1.8 today. OBJECTIVE: Vital Signs: Temperature 98.1, pulse 63, respiratory rate 16, blood pressure 150/60, saturating 97% on room air. Intake yesterday 1540, urine output 1250, weight in bed scale today is 55.8 kg. General: The patient is seen lying in bed, family is present at the bedside. He appears older than stated age. Awake, alert and oriented to person, place and situation, in no apparent distress. Extraocular muscles are intact. Mucous membranes are moist. Neck is supple. The jugular veins are not elevated. Cardiac: S1 and S2, regular rate. No edema in the bilateral lower extremities. Lungs were clear to auscultation bilaterally. No crackle or rales. Abdomen is soft and nontender. There are bowel sounds. Genitourinary: He has an indwelling Simmons catheter. Musculoskeletal: No clubbing, cyanosis or leg edema. Neurologic: He is oriented to person, place and situation. Interactive and conversational. LABORATORY DATA: Sodium 138, potassium 4.1, bicarbonate 27, BUN 24, creatinine 1.8, hemoglobin 8.5. INPATIENT MEDICATIONS: Reviewed by myself and no change from prior. He continues on ampicillin and ceftriaxone. PROBLEMS: 1. Nonoliguric acute renal failure superimposed on chronic kidney disease (CKD) stage II with a baseline creatinine of around 1 or better. His renal function continues to improve on a daily basis. Creatinine is down to 1.8 today. His serologic workup is in process. His 24-hour urine protein was fairly benign at less than 1 gram. Given the ongoing improvement in renal function, this was probably contrast induced nephropathy in the setting of MEGAN inhibitor and aminoglycoside use. Continue to monitor for further recovery of renal function. Continue Simmons catheter for now as well. 2. Hypertension. Blood pressures are systolic 140-150 at present, which is reasonable. Please keep him off of MEGAN inhibitor or angiotensin receptive emelia. He continues on amlodipine and atenolol. 3. Colonic mass pending colectomy. The patient is not yet optimized from a renal point of view. He is not yet back to his baseline renal function.
[2019-04-03 16:00] VITALS: BP 145/70
[2019-04-03] MEDS: cefTRIAXone SOD 2 GM in D5W MINI-BAG PLUS 50 ML IV SCH (16:07)
[2019-04-03 20:00] VITALS: BP 165/70
[2019-04-03] MEDS: ATORVASTATIN 20 MG TAB PO SCH (21:43)
[2019-04-04] VITALS: BP 140/62
[2019-04-04 04:00] VITALS: BP 158/170
[2019-04-04 05:48] LABS: HEMATOCRIT 26.1 % (42.0-52.0); HEMOGLOBIN 8.5 g/dl (13.5-17.5); MEAN CORPUSCULAR HEMOGLOBIN 28.9 pg (27.0-33.0); MEAN CORPUSCULAR HGB CONC 32.6 g/dl (32.0-36.5); MEAN CORPUSCULAR VOLUME 88.8 fl (80.0-96.0); PLATELET COUNT, AUTOMATED 295 10^3/uL (150-450); RED BLOOD COUNT 2.94 10^6/uL (4.30-6.10); WHITE BLOOD COUNT 8.7 10^3/uL (4.0-10.0)
[2019-04-04 06:25] LABS: ALBUMIN 2.7 GM/DL (3.2-5.2); BILIRUBIN,TOTAL 0.3 MG/DL (0.2-1.0); CALCIUM LEVEL 8.8 MG/DL (8.8-10.2); CREATININE FOR GFR 1.39 MG/DL (0.70-1.30); DIGOXIN LEVEL 0.7 NG/ML (0.5-2.0); GLOMERULAR FILTRATION RATE 54.4 (>49); PHOSPHORUS LEVEL 3.4 MG/DL (2.5-4.9); POTASSIUM SERUM 3.9 MEQ/L (3.5-5.1); TOTAL PROTEIN 6.5 GM/DL (6.4-8.2)
[2019-04-04] MEDS: SODIUM CHLORIDE 0.9% INJ 10 ML SYR IV SCH ×2 (06:47→17:16)
[2019-04-04 08:00] VITALS: BP 152/71
[2019-04-04] MEDS: levETIRAcetam 250MG TABLET (KEPPRA) PO SCH ×2 (08:51→20:41)
[2019-04-04] MEDS: ENOXAPARIN 100MG/1ML SYRINGE (J1650) SC SCH ×2 (08:51→20:44)
[2019-04-04] MEDS: DULoxetine 30 MG CAP (CYMBALTA) PO SCH ×2 (08:51→20:41)
--- NOTE | 2019-04-04 08:51 | IPNPDOC ---
Subjective Date Seen The patient was seen on 04/04/19. Subjective Chief Complaint/HPI bacteremia Events since last encounter Denies c/o today. Constitutional: Denies: Chills, Fever, Night Sweats Pulmonary: Denies: Dyspnea, Cough Cardiovascular: Denies: Chest Pain, Palpitations, Orthopnea, Paroxysmal Noc. Dyspnea, Lt Headedness Genitourinary: Reports: Retention (Willett) Psych: Reports: Mood Normal; Denies: Depression, Memory Issues Objective Physical Examination General Exam: Positive: Alert, No Acute Distress ENT Exam: Positive: Mucous membr. moist/pink Chest Exam: Positive: Clear to auscultation, Normal air movement Heart Exam: Positive: Rate Normal, Normal S1, Normal S2 Abdomen Exam: Positive: Normal bowel sounds, Soft; Negative: Tenderness Extremity Exam: Negative: Edema Skin Exam: Positive: Nl turgor and temperature; Negative: Rash Neuro Exam: Positive: Normal Speech Psych Exam: Positive: Mental status NL, Mood NL Assessment /Plan Problems (1) Endocarditis Status: Acute Response to Treatment: Stable Discussed With: Patient Problem Specific Plan: Consult Specialist, Monitor Clinically, Repeat Labs Problem Text: 04/04: D11/42 ceftriaxone 2 QD /amp 2 QID per ID 04/03 WBC down to 8.1 (03/30 13.5), AF DUAL-LINE PICC placed 03/29/19 03/24/19 BCX2 NG 03/24/19 UCX NG 02/04 BCX2, 03/18 BCX2, 03/21 BCX2 E faecalis 02/04/19 UCX E faecalis 03/25 ECHO done 03/24 with 0.65 cm vegetation noted on the aortic cusp\ 03/26 CT AP NAD (2) RICKI (acute kidney injury) Status: Acute Problem Text: favor ATN 2 ACEI/shay acute/chronic urinary retention/IV contrast 04/04/19: Down to 1.3. Close to baseline. Continues with Willett cath for urinary retention 04/03 24/1.9. 4.1 04/02 32/2.9, 3.4 +K 40 04/01, 4.5, w/u ordered by Nephro 03/31 32/4.9, UOP 2050 03/29 20/2.4, 3.7, PVR 450; therefore, willett cath placed-+ tamsul 0.8 03/28 15/1.6; therefore, held shay 12.5, lisin 20 (already given today) and dig (last dose 03/27), check renal US/PVR 03/27 1.2 baseline cr 0.9-1.0 03/28 PVR 141 03/18 dig 1.3 on 250 QD at baseline GFR 03/29 - urine for eos 03/28 renal US cw MRD 03/24/19 UCX NG (3) A-fib Status: Chronic Response to Treatment: Stable Problem Specific Plan: Monitor Clinically Problem Text: Patient remains asx 04/03 increased to BID dosing given CC>30 03/[address] therapeutic LMWH (remains off apix for colectomy and 2 RICKI) RC aten 50 BID, dig 04/02 0.8 03/31 1.2; therefore, changed to 125 QOD-last dose 03/30 03/29 dig 0.9-restarted dig at 125 (HD 250) given RICKI (4) Colonic mass Problem Text: 04/04: will review with Dr. Youssef to firm up plans. Mikael plans colectomy p resolution of RICKI, favor scheduling as short interval fu as outpx 03/28 case dw and consulted Dr. Youssef for consideration of L sided colectomy 03/28 held clopid/apix until at least 03/30/19 or until colectomy if decide to do this admission 03/26/19 CT AP NAD 03/29/19 CEA 1.9 06/2015 NST normal perfusion, low risk-Antecol 03/28 EGD/colon path P 03/28/19 EGD/colon: - Z-line regular, in the distal esophagus. - Gastritis. Biopsied. - Non-bleeding duodenal diverticulum. - Normal mucosa was found in the duodenal bulb and in the second portion of the duodenum. Biopsied. -An infiltrative, sessile and ulcerated non-obstructing large mass was found in the descending colon. The mass was non-circumferential. The mass measured four cm in length. In addition, its diameter measured three mm. No bleeding was present. Biopsies were taken with a cold forceps for histology. (5) Hypertension Status: Chronic Problem Text: Stable on amlo 5 BID 03/29 amlo 5 QD to BID given elevated SBP given shay/lisin hold 2 RICKI (6) Enterococcus faecalis infection Status: Acute Problem Text: as per endocarditis (7) Anemia, iron deficiency Status: Chronic Problem Text: caution on LMWH 04/03 hgb down to 8.5 03/25/19 case portia Prince-plan EGD/colon for 03/28/19 tf case, will hold clopid (for PVD)/apix (for pAF) today (adequate hold time per Suresh) 03/25/[address] Lewis-favor repeat EGD/colon as inpx given persistent Fe def anemia requiring Fe/RBC tx (03/16 tx 2u RBCs) AND as complete rivas for E. faecalis sepsis 08/2017 EGD/colon-Sanders: anal stricture (no biopsied) and : - Normal esophagus. - Small hiatal hernia. - Nodular mucosa in the gastric body and in the gastric antrum. - Erythematous mucosa in the stomach. - Non-bleeding gastric ulcers. - Multiple non-bleeding duodenal ulcers. - Normal second portion of the duodenum and third portion of the duodenum. - No specimens collected. (8) Seizure disorder Status: Chronic Response to Treatment: Stable Problem Text: Stable on HD leve 1000 BID (9) Physical deconditioning Status: Chronic Response to Treatment: Stable Problem Text: 03/27 safe for dc home per PT Plan/VTE VTE Prophylaxis Ordered?: Yes (Now on therapeutic Lovenox) VS, I&O, 24H, Gee Vital Signs/I&O Vital Signs Date Time Temp Pulse Resp B/P (MAP) Pulse Ox O2 Delivery O2 Flow Rate FiO2 04/04/19 08:00 98.5 75 16 152/71 (98) 94 Room Air I&O- Last 24 Hours up to 6 AM 04/04/19 05:59 Intake Total 1620 ml Output Total 1565 ml Balance 55 ml Laboratory Data 24H LABS Laboratory Tests 2 04/04/19 05:16: Nucleated Red Blood Cells % (auto) 0.0, Anion Gap 7L, Glomerular Filtration Rate 54.4, Calcium Level 8.8, Phosphorus Level 3.4, Total Bilirubin 0.3, Aspartate Amino Transf (AST/SGOT) 21, Alanine Aminotransferase (ALT/SGPT) 27, Alkaline Phosphatase 71, Total Protein 6.5, Albumin 2.7L, Albumin/Globulin Ratio 0.71L, Digoxin Level 0.7 CBC/BMP Laboratory Tests 04/04/19 05:16 Carole Eduardo Apr 04, 2019 08:51 Ry Hassan MD Apr 04, 2019 11:42
[2019-04-04] MEDS: MAGNESIUM OXIDE 400 MG TAB (MAG-OX) PO SCH (08:52)
[2019-04-04] MEDS: amLODIPine 5 MG TAB PO SCH ×2 (08:52→20:43)
[2019-04-04] MEDS: ATENOLOL 50 MG TAB PO SCH ×2 (08:52→20:43)
[2019-04-04] MEDS: GABAPENTIN 400 MG CAP PO SCH ×3 (08:52→20:43)
[2019-04-04] MEDS: PANTOPRAZOLE 40MG TAB (PROTONIX) PO SCH (08:52)
[2019-04-04] MEDS: AMPICILLIN SOD 2 GM in D5W MINI-BAG PLUS 100 ML IV SCH ×4 (08:54→20:43)
[2019-04-04] MEDS: cefTRIAXone SOD 2 GM in D5W MINI-BAG PLUS 50 ML IV SCH (08:54)
[2019-04-04] MEDS ORDERED: SLF 3 ML SYR IV PRN (11:15)
[2019-04-04 12:00] VITALS: BP 138/80
[2019-04-04 16:00] VITALS: BP 130/60
[2019-04-04] MEDS: SLF 3 ML SYR IV SCH ×2 (17:06→22:45)
[2019-04-04 19:33] VITALS: BP 147/78
[2019-04-04] MEDS: ATORVASTATIN 20 MG TAB PO SCH (20:42)
[2019-04-04] MEDS: TAMSULOSIN 0.4 MG CAP PO SCH (20:42)
[2019-04-05] VITALS (11 sets, daily range): BP systolic 128–148; BP diastolic 58–70
[2019-04-05 06:00] LABS: BASO # 0.1 10^3/uL (0.0-0.2); BASO % 1.1 % (0.0-1.0); EOS # 0.4 10^3/uL (0.0-0.5); EOS % 4.8 % (0.0-3.0); HEMATOCRIT 26.3 % (42.0-52.0); HEMOGLOBIN 8.4 g/dl (13.5-17.5); LYMPH # 1.3 10^3/uL (1.5-5.0); LYMPH % 17.1 % (24.0-44.0); MEAN CORPUSCULAR HEMOGLOBIN 28.9 pg (27.0-33.0); MEAN CORPUSCULAR HGB CONC 31.9 g/dl (32.0-36.5); MEAN CORPUSCULAR VOLUME 90.4 fl (80.0-96.0); MONO # 0.7 10^3/uL (0.0-0.8); NEUTROPHILS # 5.1 10^3/uL (1.5-8.5); NEUTROPHILS % 67.5 % (36.0-66.0); PLATELET COUNT, AUTOMATED 315 10^3/uL (150-450); RED BLOOD COUNT 2.91 10^6/uL (4.30-6.10); WHITE BLOOD COUNT 7.5 10^3/uL (4.0-10.0)
[2019-04-05] MEDS: SLF 3 ML SYR IV SCH ×3 (06:00→21:06)
[2019-04-05 06:19] LABS: ALBUMIN 2.7 GM/DL (3.2-5.2); CALCIUM LEVEL 8.4 MG/DL (8.8-10.2); CREATININE FOR GFR 1.3 MG/DL (0.70-1.30); GLOMERULAR FILTRATION RATE 58.8 (>49); PHOSPHORUS LEVEL 3.7 MG/DL (2.5-4.9); POTASSIUM SERUM 3.6 MEQ/L (3.5-5.1)
[2019-04-05] MEDS: SODIUM CHLORIDE 0.9% INJ 10 ML SYR IV SCH ×2 (06:49→16:43)
[2019-04-05] MEDS: amLODIPine 5 MG TAB PO SCH ×3 (09:00→21:05)
[2019-04-05] MEDS: AMPICILLIN SOD 2 GM in D5W MINI-BAG PLUS 100 ML IV SCH ×4 (09:22→21:01)
[2019-04-05] MEDS: cefTRIAXone SOD 2 GM in D5W MINI-BAG PLUS 50 ML IV SCH (09:22)
[2019-04-05] MEDS: levETIRAcetam 250MG TABLET (KEPPRA) PO SCH ×2 (09:23→21:04)
[2019-04-05] MEDS: DULoxetine 30 MG CAP (CYMBALTA) PO SCH ×2 (09:24→21:05)
[2019-04-05] MEDS: MAGNESIUM OXIDE 400 MG TAB (MAG-OX) PO SCH (09:24)
[2019-04-05] MEDS: GABAPENTIN 400 MG CAP PO SCH ×3 (09:24→21:05)
[2019-04-05] MEDS: PANTOPRAZOLE 40MG TAB (PROTONIX) PO SCH (09:24)
[2019-04-05] MEDS: DIGOXIN 0.125 MG TAB PO SCH (09:25)
[2019-04-05] MEDS: ENOXAPARIN 100MG/1ML SYRINGE (J1650) SC SCH ×2 (09:26→21:07)
[2019-04-05] MEDS ORDERED: AMLO5TAB6 PO (10:02)
[2019-04-05] MEDS ORDERED: FLOM0.4C39 PO (10:02)
[2019-04-05] MEDS ORDERED: DIGO0.12 PO (10:02)
[2019-04-05] MEDS ORDERED: CEFT2ADD INJ (10:02)
[2019-04-05] MEDS ORDERED: AMPI2INJ2 IV (10:02)
[2019-04-05] MEDS: ATENOLOL 50 MG TAB PO SCH ×2 (10:36→21:05)
--- NOTE | 2019-04-05 11:32 | DSES ---
DATE OF ADMISSION: 03/24/2019 DATE OF DISCHARGE: BRIEF HISTORY AND PHYSICAL: The patient 68-year-old patient of Dr. Deleon, recently admitted from 03/18/2019 to 03/20/2019 for right lower lobe pneumonia for which he was treated with Zithromax and Ceftin and discharged home on Ceftin with oxygen for desaturations into the 80s. After discharge from home, his blood cultures returned positive for Enterococcus. Outpatient blood cultures returned positive for gram-positive cocci in chains. No fever, chills, or night sweats, and no shortness of breath. PAST MEDICAL HISTORY: Is significant for hypertension, hyperlipidemia, COPD, history of seizure disorder, history of alcohol abuse, nicotine dependence, atrial fibrillation on Eliquis, peripheral artery disease, status post right iliac artery stent, and bilateral fem-endarterectomy in 12/2008 with patch angioplasty in 2010, on Plavix, chronic hyponatremia, L4 right nerve root impingement, nuclear stress test in 2015 showed normal perfusion with an ejection fraction (EF) of 61%. He has lumbar spinal stenosis, acute gastrointestinal (GI) blood loss anemia in August 2017 secondary to gastric ulcers while on aspirin, Plavix, and Eliquis. The aspirin was stopped at that time. He had a left renal nodule consistent with a Bosniak class II per CT in 09/2017 and was referred to urology. HOSPITAL COURSE: 1. The patient was admitted for Enterococcus faecalis bacteremia with concern for endocarditis. He underwent echocardiogram on 03/24/2019, transesophageal, by Dr. Rizo, showing a 0.65 cm vegetation attached to the junction of the posterior aortic cusp with the aortic mitral continuity. He had mitral, aortic valve sclerosis of a three-cusp aortic valve, mild aortic regurgitation. No vegetations were seen attached to the visualized portion of the right ventricular pacemaker lead. Normal left and right ventricular systolic dysfunction. No pericardial effusion. Dr. Lewis from infectious disease was consulted. Peripherally inserted central catheter (PICC) line was placed. The patient was started on Rocephin 2 grams intravenous (IV) twice a day and ampicillin 2 grams every 4 hours. Followup blood cultures were all negative. His antibiotics were adjusted for his renal function. He remains on Rocephin 2 grams daily and ampicillin 2 grams four times a day. He is on day 12 of 42 of his IV antibiotics and will be discharged home on IV antibiotics to complete his course. 2. Colonic mass. The patient had iron-deficiency anemia, a decline in his hemoglobin, underwent colonoscopy showing an infiltrative sessile and ulcerated nonobstructing large mass in the descending colon. Mass was circumferential. Mass measured 4 cm in length. In addition, its diameter measured 3 mm. No bleeding was present. 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 Dr. Youssef has seen the patient in consultation and is planning a colectomy. He plans to do this as an outpatient while the patient is still on IV antibiotics in an effort to prevent further recurrent bacteremia and seeding of his valve. Arrangements will be made for him to followup with Dr. Youssef as an outpatient to plan his colon surgery. 3. Iron-deficiency anemia. His upper endoscopy showed a normal esophagus, small hiatal hernia, nodule mucosa in the gastric body and the gastric antrum, erythematous mucosa in the stomach, nonbleeding gastric ulcers, multiple nonbleeding duodenal ulcers, normal second portion of the duodenum and third portion of the duodenum. No specimens were collected. He is on proton pump inhibitor (PPI) twice a day, at baseline. His Plavix has been held. He is on iron supplementation. He was transfused 2 units of packed red blood cells on the 17 of March. Prior to his previous admission, his hemoglobin has drifted down slightly. With reinitiation of anticoagulation with therapeutic Lovenox, hemoglobin at the time of discharge is 8.4, has been fairly stable for the last few days since restarting this. We are restarting Eliquis at discharge, which he was on prior to admission. His Plavix again remains on hold. Will need to follow his hemoglobin. Will check this again in a couple of days. He may need outpatient transfusions if his hemoglobin continues to fall. He does not have any active gross bleeding at this time. 4. Acute kidney injury. The patient's hemoglobin acutely jeannine during the hospitalization. This was ultimately evaluated by nephrology and felt to be multifactorial favoring ATN secondary to his angiotensin-converting enzyme (MEGAN) inhibitor, spironolactone therapy, IV contrast, and chronic urinary retention. His ampicillin dose was adjusted for his renal function. His MEGAN and spironolactone remain on hold and will remain on hold as an outpatient. He has a Simmons catheter placed for his urinary retention and was started on Flomax. Will need followup with urology as an outpatient. His renal function has improved. Creatinine is 1.3 at the time of discharge. His baseline creatinine is around 1 or even slightly less than this. 5. Atrial fibrillation. His digoxin level was borderline elevated; dose was changed to 125 every other day. Rate has been stable. His Eliquis was held in anticipation for possible colectomy and also in face of his acute kidney injury. Now that his renal function has normalized with the plan for outpatient surgery, will send him home on his previous dose of Eliquis, which will need to be held prior to surgery. 6. Hypertension. Blood pressure medications were adjusted due to acute kidney injury. MEGAN inhibitor and spironolactone were held. Amlodipine dose was increased to 5 mg twice a day, and his blood pressure overall has been fairly well controlled on this. 7. Peripheral vascular disease. His Plavix is held as above. 8. Seizure disorder. Stable on his dose of Keppra. DISPOSITION: He is stable for discharge home. Followup with Dr. Seaman next week. Followup with Dr. Youssef per his office to arrange outpatient surgery. Followup with neurology regarding his urinary retention and Simmons catheter. Diet, regular. Activity as tolerated. Simmons catheter will remain in place. MEDICATIONS: - amlodipine 5 mg twice a day - digoxin 0.125 mg every 48 hours - Flomax 0.8 mg at bedtime. - He is on ampicillin 2 grams IV every 6 hours for 30 more days. - Rocephin 2 grams IV daily for 30 more days - acetaminophen 1000 mg every 6 hours as needed for pain - Eliquis 5 mg twice a day - ascorbic acid 500 mg daily - atenolol 50 mg twice a day - atorvastatin 80 mg daily - Cymbalta 30 mg twice a day - gabapentin 800 mg three times a day - iron polysaccharide 150 mg twice a day - Keppra 1000 mg twice a day - magnesium 400 mg daily - pantoprazole 40 mg twice a day His oral ampicillin and cefuroxime were discontinued. Plavix is on hold. Digoxin dose was adjusted. Amlodipine dose was adjusted. Lisinopril and spironolactone were discontinued. DISCHARGE DIAGNOSES: 1. 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 2. Acute kidney injury. 3. Iron-deficiency anemia. 4. Colonic mass. 5. Atrial fibrillation. 6. Hypertension. 7. Seizure disorder.
--- NOTE | 2019-04-05 18:06 | IPN ---
DATE: Gio is doing very well. He is being discharged home today after he gets a blood transfusion. He has no nausea, vomiting or diarrhea. No fever or chills. No abdominal pain. He will be scheduled as an outpatient to have resection of colonic mass. Temperature is 99.1, pulse 73, respiration 18, blood pressure 146/70, oxygen saturation 95% on room air. HEART: Normal S1, S2. No murmurs appreciated. LUNGS: Diminished breath sounds but clear. No wheezes, rales, or rhonchi. ABDOMEN: Soft, nontender. No hepatosplenomegaly. EXTREMITIES: No edema. Simmons catheter in place. LABORATORY DATA: White count is 7.5, hemoglobin 8.4, hematocrit 26.3, platelets 315, 67% neutrophils, 17% lymphocytes, 9% monocytes. Sodium 136, potassium 3.6, chloride 103, bicarbonate 26, BUN 20, creatinine 1.3 down from 4.47, glucose 104, calcium 8.4, albumin 2.7. MEDICATIONS: - ampicillin 2 grams IV was increased to every six hours on 04/03/2019 - ceftriaxone 2 grams IV daily IMPRESSION: Endocarditis, Enterococcus faecalis with normal renal function. Dose of ampicillin needs to be 2 grams IV every four hours and Rocephin 2 grams every 12 hours. PLAN The patient needs treatment for a total of six weeks from 03/24/2019 and end of therapy will be on 05/05/2019. The patient will be discharged home today to be followed up in my office in 2-3 weeks. He needs complete blood count (CBC), comprehensive metabolic panel (CMP), erythrocyte sedimentation rate (ESR), C-reactive protein (CRP) monitored weekly. Ampicillin at a dose of 12 grams every 24 hours and Rocephin 2 grams IV every 12 hours. new scipts were sent to [facility] with labs and antibiotics MTDD
[2019-04-05 18:45] LABS: ALBUMIN 3.1 GM/DL (3.2-5.2); BLOOD UREA NITROGEN 17 MG/DL (7-18); CALCIUM LEVEL 8.9 MG/DL (8.8-10.2); CARBON DIOXIDE LEVEL 28 MEQ/L (21-32); CHLORIDE LEVEL 104 MEQ/L (98-107); CREATININE FOR GFR 1.26 MG/DL (0.70-1.30); GLOMERULAR FILTRATION RATE > 60.0 (>49); GLUCOSE, FASTING 96 MG/DL (70-100); MAGNESIUM LEVEL 1.4 MG/DL (1.8-2.4); PHOSPHORUS LEVEL 3.8 MG/DL (2.5-4.9); POTASSIUM SERUM 3.8 MEQ/L (3.5-5.1); SODIUM LEVEL 137 MEQ/L (136-145); TROPONIN I < 0.02 NG/ML (< 0.10)
[2019-04-05] MEDS: TAMSULOSIN 0.4 MG CAP PO SCH (21:04)
[2019-04-05] MEDS: ATORVASTATIN 20 MG TAB PO SCH (21:04)
[2019-04-05] MEDS: SODIUM CHLORIDE 0.9% INJ 10 ML SYR IV PRN (22:01)
--- NOTE | 2019-04-06 00:18 | IPN ---
DATE: 04/05/2019 SUBJECTIVE: Gio is seen and examined this morning at the bedside. Denies any overnight events or complaints. He continues to have ongoing improvement in renal function. His hemoglobin is slowly down trending, and he is agreeable for blood product transfusion today. Otherwise, denies any shortness of breath or leg swelling. Temperature 99.1, pulse 73, respiratory rate 18, blood pressure 146/70, saturating 95% on room air. Intake yesterday was 1760, urine output yesterday was 1950, net negative 200 mL. Weight in the bed scale today is not recorded. General: The patient is seen sitting up in bed. Family is present at the bedside. He appears older than stated age, awake, alert, comfortable, in no acute distress. Extraocular muscles are intact. Tongue is moist. Neck is supple. Jugular veins are not elevated. Cardiac: Normal S1 and S2. No edema in the peripheries. Palpable radial pulse. Lungs show symmetric air entry. No crackles, rale or rhonchus. Abdomen is soft and nontender. There are bowel sounds. Genitourinary: Shows Simmons catheter in place. Extremities are negative for edema. Skin: Normal turgor and temperature. Neurologic: He is awake, alert, interactive and conversational, oriented to person, place, situation. Psychiatric: Appropriate mood and affect. LABORATORY: Hemoglobin 8.4, platelets 315, sodium 137, potassium 3.8, bicarbonate 28, BUN 17, creatinine 1.2. INPATIENT MEDICATIONS: Reviewed by myself and no change from prior. PROBLEMS: 1. Nonoliguric acute kidney injury superimposed on chronic kidney disease, stage II with a baseline creatinine of around 1 or better. His renal function continues to improve on a daily basis with supportive care. His acute kidney injury was felt to be secondary to contrast-induced nephropathy in the setting of concomitant angiotensin-converting enzyme (MEGAN) inhibitor and aminoglycoside use, and also with urinary retention. He continues with a Simmons catheter, and he has been discontinued off of his MEGAN inhibitor and spironolactone. Serologic workup thus far has been negative. 2. Anemia related to iron deficiency. Transferrin saturation of 18% and also in the setting of colonic mass. Status post packed red blood cells (PRBC), and in the setting of colonic, I would suggest that in order to optimize him from the operating room (OR), that he should be transfused. 3. Hypertension. Systolic has been in the 140s, and he continues on amlodipine and atenolol. I would keep him off of his prior home regimen of lisinopril and spironolactone until he is in the postoperative period. 4. Endocarditis and Enterococcus faecalis. Infectious disease is managing his antibiotics. Plan is for resection of the colonic mass prior to completion of antimicrobial course. DISPOSITION: Patient is acceptable for discharge from a nephrology point of view. He will be discharged with Simmons catheter in place to follow up with urology for voiding trial, suggest PRBC transfusion prior to discharge. Keep off of MEGAN inhibitor and spironolactone.
[2019-04-06 04:00] VITALS: BP 132/68
[2019-04-06] MEDS: SLF 3 ML SYR IV SCH (05:04)
[2019-04-06] MEDS: SODIUM CHLORIDE 0.9% INJ 10 ML SYR IV SCH (05:14)
--- NOTE | 2019-04-06 06:18 | ECGEPIP ---
[facility] Test Date: 2019-04-05 Pat Name: TON MATTSON Department: Room: [place] [address] Gender: Male Incubator Operator: TRE : 1950 Requested By: Chuy REYNOSO Order Number: [id number] Reading MD: Yuni Holm Measurements Intervals [place] Rate: 60 P: [place]: 0 QRS: -12 QRSD: 100 T: 28 QT: 395 QTc: 397 Interpretive Statements ATRIAL FIBRILLATION SLOW ABNORMAL RHYTHM ECG RATE SLOWER C/W 03/18/19 Electronically Signed on 04-06-2019 6:17:56 EST by Yuni Holm
[2019-04-06 06:33] LABS: ALBUMIN 2.7 GM/DL (3.2-5.2); BLOOD UREA NITROGEN 17 MG/DL (7-18); CALCIUM LEVEL 8.6 MG/DL (8.8-10.2); CARBON DIOXIDE LEVEL 26 MEQ/L (21-32); CHLORIDE LEVEL 106 MEQ/L (98-107); CREATININE FOR GFR 1.25 MG/DL (0.70-1.30); GLOMERULAR FILTRATION RATE > 60.0 (>49); GLUCOSE, FASTING 96 MG/DL (70-100); PHOSPHORUS LEVEL 4.2 MG/DL (2.5-4.9); POTASSIUM SERUM 3.8 MEQ/L (3.5-5.1); SODIUM LEVEL 139 MEQ/L (136-145)
[2019-04-06] MEDS ORDERED: MAG SULF 1GM/100ML (MAG RUN) 1 GM in IV 1 EA IV ONE (07:30)
[2019-04-06 08:00] VITALS: BP 138/56
[2019-04-06 08:23] LABS: HEMATOCRIT 28.1 % (42.0-52.0); HEMOGLOBIN 9.2 g/dl (13.5-17.5); MEAN CORPUSCULAR HEMOGLOBIN 29.2 pg (27.0-33.0); MEAN CORPUSCULAR HGB CONC 32.7 g/dl (32.0-36.5); MEAN CORPUSCULAR VOLUME 89.2 fl (80.0-96.0); PLATELET COUNT, AUTOMATED 338 10^3/uL (150-450); RED BLOOD COUNT 3.15 10^6/uL (4.30-6.10); WHITE BLOOD COUNT 7.2 10^3/uL (4.0-10.0)
[2019-04-06] MEDS: cefTRIAXone SOD 2 GM in D5W MINI-BAG PLUS 50 ML IV SCH (08:46)
[2019-04-06] MEDS: AMPICILLIN SOD 2 GM in D5W MINI-BAG PLUS 100 ML IV SCH (08:46)
[2019-04-06] MEDS: GABAPENTIN 400 MG CAP PO SCH (08:47)
[2019-04-06] MEDS: ENOXAPARIN 100MG/1ML SYRINGE (J1650) SC SCH (08:47)
[2019-04-06] MEDS: levETIRAcetam 250MG TABLET (KEPPRA) PO SCH (08:47)
[2019-04-06] MEDS: amLODIPine 5 MG TAB PO SCH (08:47)
[2019-04-06] MEDS: MAGNESIUM OXIDE 400 MG TAB (MAG-OX) PO SCH (08:48)
[2019-04-06] MEDS: PANTOPRAZOLE 40MG TAB (PROTONIX) PO SCH (08:48)
[2019-04-06] MEDS: DULoxetine 30 MG CAP (CYMBALTA) PO SCH (08:48)
[2019-04-06] MEDS: ATENOLOL 50 MG TAB PO SCH (08:48)
[2019-04-07 14:51] LABS: ANA (HEP2) Negative (.); ANCA-ATYPICAL <1:20 titer (Neg:<1:20); ANTI DS-DNA AB Negative (Negative); CYTOPLASMIC NEUTROP AB ANCA-C <1:20 titer (Neg:<1:20); HEPATITIS B CORE ANTIBODY IGG Negative (Negative); PERINUCLEAR AB ANCA-P <1:20 titer (Neg:<1:20)
== END 2019-04-06 11:17 | disposition home or self-care (01) | DRG 289 ==
LOC: M PCU 11:04
PROVIDERS: ADMIT Family Medicine; ATTEND Family Medicine
PROC: 0DBM8ZX Excision of Descending Colon, Via Natural or Artificial Opening Endoscopic, Diagnostic (ICD-10-PCS; 2019-03-28)
PROC: 0DB98ZX Excision of Duodenum, Via Natural or Artificial Opening Endoscopic, Diagnostic (ICD-10-PCS; 2019-03-28)
PROC: 30233N1 Transfusion of Nonautologous Red Blood Cells into Peripheral Vein, Percutaneous Approach (ICD-10-PCS; principal; 2019-04-05)
DX: I33.0 Acute and subacute infective endocarditis (principal); R78.81 Bacteremia; C18.6 Malignant neoplasm of descending colon; N17.9 Acute kidney failure, unspecified; I47.2 Ventricular tachycardia; E87.1 Hypo-osmolality and hyponatremia; I48.20 Chronic atrial fibrillation, unspecified; E83.42 Hypomagnesemia; I11.9 Hypertensive heart disease without heart failure; E78.5 Hyperlipidemia, unspecified; J44.9 Chronic obstructive pulmonary disease, unspecified; G40.909 Epilepsy, unspecified, not intractable, without status epilepticus; F17.200 Nicotine dependence, unspecified, uncomplicated; Z79.01 Long term (current) use of anticoagulants; D50.9 Iron deficiency anemia, unspecified; K44.9 Diaphragmatic hernia without obstruction or gangrene; Z79.899 Other long term (current) drug therapy; B97.10 Unspecified enterovirus as the cause of diseases classified elsewhere; K29.50 Unspecified chronic gastritis without bleeding; D12.4 Benign neoplasm of descending colon; K64.8 Other hemorrhoids; K64.4 Residual hemorrhoidal skin tags; Z95.0 Presence of cardiac pacemaker; Z88.8 Allergy status to other drugs, medicaments and biological substances; I70.209 Unspecified atherosclerosis of native arteries of extremities, unspecified extremity; R31.0 Gross hematuria; N40.0 Benign prostatic hyperplasia without lower urinary tract symptoms

== ENCOUNTER 2019-04-08 12:08 | Emergency (ER) | payer MEDICARE, OTHER ==
[~2019-04-08] VITALS: Ht 167.6 cm; Wt 59.8 kg
[~2019-04-08 12:08] MED LIST changes: +AMPI2INJ2 IV; +AMPI500C9 PO; +CEFT2ADD INJ; +CEFU1TAB22 PO; +DIGO0.12 PO; +FLOM0.4C39 PO; +MAGN400T2 PO
[2019-04-08 15:09] LABS: BASO # 0.1 10^3/uL (0.0-0.2); EOS # 0.6 10^3/uL (0.0-0.5); EOS % 6.9 % (0.0-3.0); HEMATOCRIT 30.8 % (42.0-52.0); HEMOGLOBIN 9.9 g/dl (13.5-17.5); LYMPH # 1.6 10^3/uL (1.5-5.0); LYMPH % 19.1 % (24.0-44.0); MEAN CORPUSCULAR HGB CONC 32.1 g/dl (32.0-36.5); MEAN CORPUSCULAR VOLUME 90.3 fl (80.0-96.0); MONO # 0.9 10^3/uL (0.0-0.8); MONO % 10.5 % (0.0-5.0); NEUTROPHILS # 5.1 10^3/uL (1.5-8.5); PLATELET COUNT, AUTOMATED 408 10^3/uL (150-450); RED BLOOD COUNT 3.41 10^6/uL (4.30-6.10); WHITE BLOOD COUNT 8.2 10^3/uL (4.0-10.0)
[2019-04-08 15:19] LABS: INR 1.25; PROTHROMBIN TIME 15.4 SECONDS (11.8-14.0)
[2019-04-08 15:20] LABS: PARTIAL THROMBOPLASTIN TIME 35.1 SECONDS (25.0-38.4)
[2019-04-08 16:06] VITALS: BP 188/83
== END 2019-04-08 16:08 | disposition home or self-care (01) ==
LOC: M ED 12:08
DX: T82.838A Hemorrhage due to vascular prosthetic devices, implants and grafts, initial encounter (principal); C18.9 Malignant neoplasm of colon, unspecified; M48.00 Spinal stenosis, site unspecified; J44.9 Chronic obstructive pulmonary disease, unspecified; F17.210 Nicotine dependence, cigarettes, uncomplicated; Z79.810 Long term (current) use of selective estrogen receptor modulators (SERMs); Z79.83 Long term (current) use of bisphosphonates; Z79.899 Other long term (current) drug therapy

== ENCOUNTER → 2019-04-12 | Outpatient (REF) | payer MEDICARE, OTHER ==
[2019-04-12 12:31] LABS: BASO # 0.1 10^3/uL (0.0-0.2); EOS # 0.7 10^3/uL (0.0-0.5); EOS % 7.8 % (0.0-3.0); HEMATOCRIT 29.5 % (42.0-52.0); HEMOGLOBIN 9.4 g/dl (13.5-17.5); LYMPH # 1.6 10^3/uL (1.5-5.0); LYMPH % 17.7 % (24.0-44.0); MEAN CORPUSCULAR HEMOGLOBIN 29.4 pg (27.0-33.0); MEAN CORPUSCULAR HGB CONC 31.9 g/dl (32.0-36.5); MEAN CORPUSCULAR VOLUME 92.2 fl (80.0-96.0); MONO # 0.8 10^3/uL (0.0-0.8); MONO % 9.2 % (0.0-5.0); NEUTROPHILS # 5.7 10^3/uL (1.5-8.5); NEUTROPHILS % 63.7 % (36.0-66.0); PLATELET COUNT, AUTOMATED 409 10^3/uL (150-450); WHITE BLOOD COUNT 8.9 10^3/uL (4.0-10.0)
[2019-04-12 12:59] LABS: ERYTHROCYTE SEDIMENTATION RATE 35 mm/hr (0-20)
[2019-04-12 13:10] LABS: ALT/SGPT 19 U/L (12-78); BILIRUBIN,TOTAL 0.4 MG/DL (0.2-1.0); BLOOD UREA NITROGEN 9 MG/DL (7-18); C REACTIVE PROTEIN QUANTITATIV 0.89 MG/DL (0.00-0.30); CALCIUM LEVEL 8.7 MG/DL (8.8-10.2); CARBON DIOXIDE LEVEL 27 MEQ/L (21-32); CHLORIDE LEVEL 104 MEQ/L (98-107); CREATININE FOR GFR 0.96 MG/DL (0.70-1.30); GLOMERULAR FILTRATION RATE > 60.0 (>49); GLUCOSE, FASTING 91 MG/DL (70-100); POTASSIUM SERUM 3.9 MEQ/L (3.5-5.1); SODIUM LEVEL 140 MEQ/L (136-145); TOTAL PROTEIN 6.5 GM/DL (6.4-8.2)
== END ==
LOC: M LAB REF 12:03 → M SHH 12:03
PROVIDERS: ATTEND Physician Assistant
DX: I33.9 Acute and subacute endocarditis, unspecified (principal); R78.81 Bacteremia; B95.2 Enterococcus as the cause of diseases classified elsewhere

== ENCOUNTER → 2019-04-14 | Outpatient (CLI) | payer MEDICARE, OTHER ==
[~2019-04-14] MED LIST changes: +METR-265 PO; +NEOM500T PO
--- NOTE | 2019-04-20 22:54 | SLEEPCENT ---
DATE OF PROCEDURE: 04/14/2019 Ordered by: RERE Apple Nocturnal polysomnography was performed for evaluation of sleep physiology in this patient with a history of hypertension and significant cardiac rhythm disease. 8 hours and 55 minutes of data were reviewed. There were 220 minutes of sleep identified. Sleep latency was prolonged at 54.5 minutes. REM latency was prolonged at 284 minutes. Sleep architecture was fragmented with poor progression with periods of wake. There were two REM episodes late in the study. Overall sleep efficiency 44.5%. The electrocardiogram showed atrial fibrillation with a controlled ventricular response rate of 80 beats per minute. EEG showed normal waveforms for awake and sleep. There were 64 respiratory events identified of 10 seconds in duration or greater for an apnea-hypopnea index of 17.5. The events were primarily obstructive, not exclusive to sleep stage nor body posture. Arousals from respiratory events occurred 15.5 times per hour and oxygen desaturations were seen into the 80s. There was some minimal limb activity appreciated. Limb movement arousal index was 3.5. Snoring was noted over the course of the study. IMPRESSION Obstructive sleep apnea syndrome (G47.33). Apnea-hypopnea index 17.5. RECOMMENDATIONS The patient should be encouraged to return to the sleep disorder center for pressure therapy titration. In the interim alcohol and sedative avoidance should be practiced and caution exercised during operation of motor vehicles.
== END ==
LOC: M SLEEP 19:33
PROVIDERS: ATTEND Nurse Practitioner Family
DX: Z01.818 Encounter for other preprocedural examination (principal); G47.33 Obstructive sleep apnea (adult) (pediatric)
CPT/HCPCS: 51700; 95810; G0463

== ENCOUNTER 2019-04-19 05:59 | Inpatient (IN) | payer MEDICARE, OTHER ==
--- NOTE | 2019-04-18 23:25 | HPE ---
DATE OF PLANNED ADMISSION: 04/19/2019 ADMITTING DIAGNOSIS: Left colon mass. HISTORY OF PRESENT ILLNESS The patient is a 68-year-old man who is being admitted for elective left hemicolectomy for a mass of the left colon, felt to represent cancer. He had been admitted at [facility] on March 24 after he had several blood cultures that were positive for Enterococcus. He was started on antibiotics and had an echocardiogram that revealed a small vegetation attached to the aortic valve consistent with endocarditis. He was seen by Dr. Lewis of infectious disease and started on a regimen of ampicillin and ceftriaxone. A colonoscopy and EGD were performed by Dr. Prince to look for a GI source for infection and he was found to have a infiltrative, sessile, and ulcerated nonobstructing mass in the descending colon which was described as approximately 4 cm in length. Biopsies were obtained that revealed fragments of tubular adenoma with high-grade dysplasia. The clinical appearance was of a cancer. The patient is now being admitted to undergo a left hemicolectomy. ALLERGIES The patient has a reported allergy to HYDROCHLOROTHIAZIDE. MEDICATIONS At his last office visit included amlodipine, Cymbalta, Eliquis, Keppra, Lanoxin, Lipitor, pantoprazole, Plavix, vitamin C, Zestril, cefuroxime, ampicillin, acetaminophen as needed, magnesium oxide, Neurontin and spironolactone. MEDICAL HISTORY He has a history of hypertension. He has atrial fibrillation and has been on Eliquis. He had a coronary angioplasty in December of 2010. He has a history of hyperlipidemia. He has chronic obstructive pulmonary disease. He has a history of seizures and a history of ethanol abuse. He has lumbar spine stenosis. He has anemia, presumed secondary to gastrointestinal blood loss. His recent diagnosis of bacterial endocarditis is noted. SURGICAL HISTORY Is significant for a left femoral-popliteal bypass graft in May of 2009. He has had right and left common iliac artery stents placed in August of 2008. He had a left external iliac artery stent in March of 2010. He had an angioplasty of a stenosis in the right lower extremity in August of 2010. A right femoral-popliteal bypass was performed in May of 2010. Patch angioplasty of his right leg bypass was performed in January of 2012. A pacemaker was placed in March of 2012. He has had a left carpal tunnel release and has had a L4-5 decompression in May of 2013. A left carotid endarterectomy was performed in November of 2015 and a carotid endarterectomy was also performed in May of 2018. FAMILY HISTORY There is no family history of colon cancer. SOCIAL HISTORY The patient is a current smoker, smoking about half a pack a day. He has a fairly limited alcohol intake at this point. He is and retired. REVIEW OF SYSTEMS Patient has not had any recent cardiac or respiratory symptomatology. He has not had any obvious rectal bleeding or melena. He denies any dysuria or hematuria. PHYSICAL EXAMINATION The patient is a pleasant man who appears of average build. Skin: Is warm and dry. Sclerae are anicteric. Neck shows scarring consistent with his prior carotid endarterectomies. Heart exam shows a regular rhythm. His pacemaker is palpable in the left infraclavicular fossa. Lungs are generally clear to auscultation though the breath sounds may be somewhat distant. The abdomen is flat. He has bowel sounds present. The abdomen is soft and nontender without appreciable mass. There is no hernia evident. Extremities are without any edema and he does have some scarring in the lower extremities consistent with his prior bypass operations. IMPRESSION 1. Left lower descending colon cancer. 2. Bacterial endocarditis. 3. Atrial fibrillation. 4. Atherosclerotic heart disease. 5. Essential hypertension. 6. Atherosclerotic peripheral vascular disease. 7. History of tobacco abuse, nicotine dependence. 8. The patient was also recently diagnosed with obstructive sleep apnea. PLAN The patient is being admitted on April 18 to undergo a robotic-assisted laparoscopic left hemicolectomy. His colon mass is described as being in approximately the mid descending colon. This area was marked with a spot marker at the time of his endoscopy. Biopsies showed adenomatous change with high-grade dysplasia and I do not doubt that this is actually a malignancy. The patient is to perform a full mechanical and antibiotic bowel preparation the day before surgery. He remains on his ampicillin and ceftriaxone for his endocarditis as well. He has seen Dr. Morrow of cardiology for preoperative optimization. The patient was counseled in the office regarding the risks of the surgery which include but are not limited to bleeding, infection, scarring, adverse drug reaction, need for further surgery, injury of internal organ, anastomotic leak, and hernia. He had an opportunity to ask questions. He desires to proceed with the surgery.
[~2019-04-19] VITALS: Ht 167.6 cm; Wt 58.5 kg
[2019-04-19] VITALS (7 sets, daily range): BP systolic 135–149; BP diastolic 70–84
[~2019-04-19 05:59] MED LIST changes: -METR-265 PO; -NEOM500T PO
[2019-04-19] MEDS ORDERED: LR 1,000 ML IV ONE (06:00)
[2019-04-19] MEDS ORDERED: cefoTEtan DISODIUM 2 GM in D5W MINI-BAG PLUS 50 ML IV ONE (06:00)
[2019-04-19] MEDS ORDERED: LIDOCAINE 1% MDV 20ML VIAL SQ PRN (06:00)
[2019-04-19] MEDS ORDERED: ALVIMOPAN 12 MG CAPSULE (ENTEREG) PO ONE (06:00)
[2019-04-19] MEDS ORDERED: MIDAZOLAM INJ 2 MG/2 ML VIAL (J2250) As Ordered ONE (07:11)
[2019-04-19] MEDS ORDERED: ROCURONIUM BROMIDE 50 MG/5 ML VIAL As Ordered ONE ×2 (07:11→09:38)
[2019-04-19] MEDS ORDERED: PROPOFOL 200 MG/20 ML VIAL As Ordered ONE (07:11)
[2019-04-19] MEDS ORDERED: LIDOCAINE 2% INJ 100 MG/5 ML SDV (FOR ANES.) As Ordered ONE (07:11)
[2019-04-19] MEDS ORDERED: fentaNYL 250 MCG/5 ML INJECTION (J3010) As Ordered ONE (07:11)
[2019-04-19] MEDS ORDERED: BUPIVACAINE HCL 0.25% 30 ML VIAL As Ordered ONE (07:18)
[2019-04-19] MEDS ORDERED: METR-265 PO (07:20)
[2019-04-19] MEDS ORDERED: NEOM500T PO (07:20)
--- NOTE | 2019-04-19 07:54 | REPVR ---
PROCEDURE INFORMATION: Exam: US Duplex Right Lower Extremity Veins, Limited Exam date and time: 04/19/2019 7:38 AM Age: 68 years old Clinical history: Swelling (edema) of limb; Lower extremity, right; Additional info: Right lower extremity swelling TECHNIQUE: Imaging protocol: Real-time Duplex ultrasound of the Right Lower Extremity with 2-D bryant scale, color Doppler flow and spectral waveform analysis with image documentation. Limited exam was focused on the right lower extremity veins. COMPARISON: No relevant prior studies available. FINDINGS: Right deep veins: Unremarkable. The common femoral, femoral, proximal profunda femoral and popliteal veins are patent without thrombus. Normal Doppler waveforms. Normal compressibility and/or augmentation response. Right superficial veins: Unremarkable. Saphenofemoral junction is patent without thrombus. Soft tissues: Unremarkable. IMPRESSION: No deep venous thrombus demonstrated in the right lower extremity. Electronically signed by: Sincere Sanchez On 04/19/2019 07:54:21 AM
[2019-04-19] MEDS ORDERED: METOCLOPRAMIDE INJ 10MG/2ML VIAL (J2765) As Ordered ONE (08:56)
[2019-04-19] MEDS ORDERED: HYDROmorphone HCL 2 MG/ML 1ML VIAL (J1170) As Ordered ONE (09:11)
[2019-04-19] MEDS ORDERED: ACETAMINOPHEN 1000MG 100ML IV BTL (OFIRMEV) (J0131 PER 10MG) As Ordered ONE (10:39)
[2019-04-19] MEDS ORDERED: ONDANSETRON 4MG/2ML VIAL (J2405) As Ordered ONE (10:39)
[2019-04-19] MEDS ORDERED: cefoTEtan INJ 2GM VIAL (S0074 PER 500MG) As Ordered ONE (11:21)
[2019-04-19] MEDS ORDERED: SUGAMMADEX SODIUM 500 MG/5 ML VIAL (BRIDION) As Ordered ONE (12:56)
[2019-04-19] MEDS ORDERED: fentaNYL 100 MCG/2 ML INJECTION (J3010) IV PRN (14:00)
[2019-04-19] MEDS ORDERED: HYDROMORPHONE HCL 0.5 MG/ 0.5 ML SYRINGE (J1170 PER 1) IV PRN (14:00)
[2019-04-19] MEDS ORDERED: ONDANSETRON 4MG/2ML VIAL (J2405) IV PRN ×2 (14:00→14:30)
[2019-04-19] MEDS ORDERED: LR 1,000 ML IV SCH (14:00)
[2019-04-19] MEDS ORDERED: oxyCODONE 5MG TAB PO PRN (14:00)
[2019-04-19] MEDS ORDERED: MORPHINE 2 MG/ML 1ML VIAL (J2270) IV PRN (14:30)
[2019-04-19] MEDS ORDERED: ACETAMINOPHEN TAB 650MG DOSE (2X325MG) PO PRN (14:30)
[2019-04-19] MEDS: LR 1,000 ML IV SCH ×2 (15:43→23:46)
[2019-04-19] MEDS: KETOROLAC 30 MG/ML VIAL (J1885) IV PRN (15:49)
[2019-04-19] MEDS: GABAPENTIN 400 MG CAP PO SCH ×2 (15:55→20:28)
[2019-04-19] MEDS: AMPICILLIN SOD 2 GM in D5W MINI-BAG PLUS 100 ML IV SCH ×2 (18:22→22:03)
[2019-04-19] MEDS: TAMSULOSIN 0.4 MG CAP PO SCH (20:27)
[2019-04-19] MEDS: ATENOLOL 50 MG TAB PO SCH (20:28)
[2019-04-19] MEDS: ALVIMOPAN 12 MG CAPSULE (ENTEREG) PO SCH (20:28)
[2019-04-19] MEDS: DULoxetine 30 MG CAP (CYMBALTA) PO SCH (20:28)
[2019-04-19] MEDS: amLODIPine 5 MG TAB PO SCH (20:28)
[2019-04-19] MEDS: levETIRAcetam 250MG TABLET (KEPPRA) PO SCH (20:29)
[2019-04-19] MEDS: ENOXAPARIN 40 MG/0.4 ML SYRINGE (J1650) SC SCH (22:03)
[2019-04-20 02:00] VITALS: BP 114/78
[2019-04-20] MEDS: AMPICILLIN SOD 2 GM in D5W MINI-BAG PLUS 100 ML IV SCH ×4 (04:14→22:00)
[2019-04-20] MEDS: KETOROLAC 30 MG/ML VIAL (J1885) IV PRN ×2 (04:22→12:31)
[2019-04-20] MEDS: SODIUM CHLORIDE 0.9% INJ 10 ML SYR IV SCH ×2 (05:05→17:30)
[2019-04-20] MEDS: cefTRIAXone SOD 2 GM in D5W MINI-BAG PLUS 50 ML IV SCH (05:05)
[2019-04-20] MEDS: SODIUM CHLORIDE 0.9% INJ 10 ML SYR IV PRN ×3 (05:05→22:42)
[2019-04-20 06:00] VITALS: BP 123/67
[2019-04-20 06:23] LABS: BASO % 0.5 % (0.0-1.0); EOS # 0.2 10^3/uL (0.0-0.5); HEMOGLOBIN 8.7 g/dl (13.5-17.5); MEAN CORPUSCULAR HEMOGLOBIN 29.1 pg (27.0-33.0); MEAN CORPUSCULAR HGB CONC 32.2 g/dl (32.0-36.5); MEAN CORPUSCULAR VOLUME 90.3 fl (80.0-96.0); MONO # 0.6 10^3/uL (0.0-0.8); MONO % 7.8 % (0.0-5.0); NEUTROPHILS # 5.7 10^3/uL (1.5-8.5); NEUTROPHILS % 75.4 % (36.0-66.0); PLATELET COUNT, AUTOMATED 233 10^3/uL (150-450); RED BLOOD COUNT 2.99 10^6/uL (4.30-6.10); WHITE BLOOD COUNT 7.6 10^3/uL (4.0-10.0)
[2019-04-20 06:53] LABS: ALBUMIN 2.4 GM/DL (3.2-5.2); ALT/SGPT 14 U/L (12-78); BILIRUBIN,TOTAL 0.4 MG/DL (0.2-1.0); BLOOD UREA NITROGEN 6 MG/DL (7-18); CALCIUM LEVEL 8.3 MG/DL (8.8-10.2); CARBON DIOXIDE LEVEL 29 MEQ/L (21-32); CHLORIDE LEVEL 105 MEQ/L (98-107); CREATININE FOR GFR 1.03 MG/DL (0.70-1.30); GLOMERULAR FILTRATION RATE > 60.0 (>49); GLUCOSE, FASTING 103 MG/DL (70-100); SODIUM LEVEL 140 MEQ/L (136-145); TOTAL PROTEIN 5.6 GM/DL (6.4-8.2)
[2019-04-20] MEDS: ALVIMOPAN 12 MG CAPSULE (ENTEREG) PO SCH ×2 (08:02→20:20)
[2019-04-20] MEDS: levETIRAcetam 250MG TABLET (KEPPRA) PO SCH ×2 (08:02→20:18)
[2019-04-20] MEDS: GABAPENTIN 400 MG CAP PO SCH ×3 (08:02→20:18)
[2019-04-20] MEDS: PANTOPRAZOLE 40MG TAB (PROTONIX) PO SCH (08:02)
[2019-04-20] MEDS: DULoxetine 30 MG CAP (CYMBALTA) PO SCH ×2 (08:03→20:21)
[2019-04-20] MEDS: amLODIPine 5 MG TAB PO SCH ×2 (08:03→20:20)
[2019-04-20] MEDS: ATENOLOL 50 MG TAB PO SCH ×2 (08:03→20:21)
[2019-04-20] MEDS: NORCO, ANEXSIA 5/325MG TABLET (HYDROcodone/ACETAMINOPHEN) PO PRN ×2 (08:05→20:22)
[2019-04-20 08:10] VITALS: BP 114/78
[2019-04-20] MEDS: POTASSIUM CHLORIDE 10 MEQ SR TABLET PO SCH ×2 (09:04→20:19)
[2019-04-20 12:10] VITALS: BP 119/62
[2019-04-20 16:10] VITALS: BP 136/74
[2019-04-20 20:10] VITALS: BP 163/85
[2019-04-20] MEDS: TAMSULOSIN 0.4 MG CAP PO SCH (20:18)
[2019-04-20] MEDS: ENOXAPARIN 40 MG/0.4 ML SYRINGE (J1650) SC SCH (20:30)
[2019-04-20] MEDS ORDERED: DIGOXIN INJ 0.5 MG/2 ML AMP (J1160) IV STA (23:17)
[2019-04-21] MEDS ORDERED: FUROSEMIDE 20 MG TAB PO ONE (00:15)
[2019-04-21 00:23] LABS: BLOOD UREA NITROGEN 7 MG/DL (7-18); CALCIUM LEVEL 8.6 MG/DL (8.8-10.2); CARBON DIOXIDE LEVEL 27 MEQ/L (21-32); CHLORIDE LEVEL 105 MEQ/L (98-107); CREATININE FOR GFR 1.22 MG/DL (0.70-1.30); GLOMERULAR FILTRATION RATE > 60.0 (>49); GLUCOSE, FASTING 104 MG/DL (70-100); POTASSIUM SERUM 3.6 MEQ/L (3.5-5.1); SODIUM LEVEL 140 MEQ/L (136-145)
[2019-04-21] MEDS: SODIUM CHLORIDE 0.9% INJ 10 ML SYR IV PRN ×2 (00:29→06:40)
[2019-04-21 02:00] VITALS: BP 149/77
[2019-04-21] MEDS: AMPICILLIN SOD 2 GM in D5W MINI-BAG PLUS 100 ML IV SCH ×4 (04:51→22:16)
[2019-04-21] MEDS: cefTRIAXone SOD 2 GM in D5W MINI-BAG PLUS 50 ML IV SCH (05:50)
[2019-04-21 06:00] VITALS: BP 148/78
[2019-04-21] MEDS ORDERED: DIGOXIN 0.125 MG TAB PO SCH (06:00)
[2019-04-21 06:26] LABS: BASO % 0.3 % (0.0-1.0); EOS # 0.1 10^3/uL (0.0-0.5); EOS % 1.1 % (0.0-3.0); HEMATOCRIT 29.8 % (42.0-52.0); HEMOGLOBIN 9.4 g/dl (13.5-17.5); MEAN CORPUSCULAR HGB CONC 31.5 g/dl (32.0-36.5); MONO # 0.9 10^3/uL (0.0-0.8); MONO % 7.4 % (0.0-5.0); NEUTROPHILS # 9.4 10^3/uL (1.5-8.5); NEUTROPHILS % 81.7 % (36.0-66.0); PLATELET COUNT, AUTOMATED 237 10^3/uL (150-450); RED BLOOD COUNT 3.24 10^6/uL (4.30-6.10); WHITE BLOOD COUNT 11.5 10^3/uL (4.0-10.0)
[2019-04-21 06:33] LABS: ALBUMIN 2.7 GM/DL (3.2-5.2); ALT/SGPT 14 U/L (12-78); BILIRUBIN,TOTAL 0.5 MG/DL (0.2-1.0); BLOOD UREA NITROGEN 7 MG/DL (7-18); CALCIUM LEVEL 8.7 MG/DL (8.8-10.2); CARBON DIOXIDE LEVEL 27 MEQ/L (21-32); CHLORIDE LEVEL 106 MEQ/L (98-107); CREATININE FOR GFR 1.09 MG/DL (0.70-1.30); GLOMERULAR FILTRATION RATE > 60.0 (>49); GLUCOSE, FASTING 115 MG/DL (70-100); POTASSIUM SERUM 3.5 MEQ/L (3.5-5.1); SODIUM LEVEL 140 MEQ/L (136-145); TOTAL PROTEIN 6.3 GM/DL (6.4-8.2)
[2019-04-21] MEDS: SODIUM CHLORIDE 0.9% INJ 10 ML SYR IV SCH ×2 (06:40→17:28)
[2019-04-21] MEDS: GABAPENTIN 400 MG CAP PO SCH ×3 (08:10→22:05)
[2019-04-21] MEDS: DULoxetine 30 MG CAP (CYMBALTA) PO SCH ×2 (08:10→22:05)
[2019-04-21] MEDS: PANTOPRAZOLE 40MG TAB (PROTONIX) PO SCH (08:10)
[2019-04-21] MEDS: ALVIMOPAN 12 MG CAPSULE (ENTEREG) PO SCH (08:10)
[2019-04-21] MEDS: MAGNESIUM OXIDE 400 MG TAB (MAG-OX) PO SCH (08:11)
[2019-04-21] MEDS: ATENOLOL 50 MG TAB PO SCH ×2 (08:11→22:06)
[2019-04-21] MEDS: levETIRAcetam 250MG TABLET (KEPPRA) PO SCH ×2 (08:11→22:05)
[2019-04-21] MEDS: NORCO, ANEXSIA 5/325MG TABLET (HYDROcodone/ACETAMINOPHEN) PO PRN ×2 (08:12→16:36)
[2019-04-21] MEDS: amLODIPine 5 MG TAB PO SCH ×2 (08:14→22:04)
[2019-04-21] MEDS: APIXABAN 5 MG TAB (ELIQUIS) PO SCH ×2 (09:23→22:05)
[2019-04-21] MEDS: POTASSIUM CHLORIDE 10 MEQ SR TABLET PO SCH ×2 (09:23→22:06)
[2019-04-21 10:00] VITALS: BP 146/77
--- NOTE | 2019-04-21 13:44 | IPN ---
DATE: 04/20/2019 HISTORY: The patient is postop day #1 from a robotic-assisted laparoscopic transverse colectomy. He has tolerated clear liquids well with no nausea or vomiting and reports some flatus this morning. Apparently, his Simmons catheter was reinserted last night by my covering partner for a report of an elevated bladder scan volume. Vital signs show that the patient has been afebrile since surgery. His pulse has been running in the 80s and 90s. Blood pressure has been generally in the 130s to 140 systolic. Intake and output shows that yesterday he had 5700 recorded in with only 1025 recorded out. He took 1700 oral yesterday. Physical exam shows the patient is lying quietly in the hospital bed. He is alert and oriented. Breathing easily. Heart exam shows a regular rhythm. The lungs are clear. The abdomen is mildly protuberant. He has bowel sounds present. His dressings are dry and clean. There is no undue tenderness on palpation of the abdomen. Laboratory studies include a CBC showing a white count of 8, hemoglobin 9, hematocrit 27, and platelet count 233,000. Differential count shows 75% neutrophils, 13% lymphocytes, and 8% monocytes. Chemistry profile shows sodium of 140, potassium 3.0, chloride 105, CO2 of 29, BUN of 6, creatinine 1.0, and glucose of 103. Liver function tests are normal. IMPRESSION: The patient is doing well and has tolerated clear liquids without any nausea or vomiting. He reports positive flatus. His potassium is somewhat low this morning. PLAN: The patient will have his Simmons catheter removed again and we will monitor his voiding. I will stop his IV fluid. He will be advanced to a regular diet. I will give him two doses of 40 mEq of potassium today and recheck his potassium in the morning. [facility]
[2019-04-21 14:00] VITALS: BP 149/65
[2019-04-21 18:00] VITALS: BP 137/76
[2019-04-21 22:00] VITALS: BP 144/78
[2019-04-21] MEDS: TAMSULOSIN 0.4 MG CAP PO SCH (22:05)
[2019-04-22 02:00] VITALS: BP 134/73
[2019-04-22 06:00] VITALS: BP 141/78
[2019-04-22] MEDS: AMPICILLIN SOD 2 GM in D5W MINI-BAG PLUS 100 ML IV SCH ×2 (06:24→10:53)
[2019-04-22 06:28] LABS: BASO % 0.3 % (0.0-1.0); EOS # 0.2 10^3/uL (0.0-0.5); EOS % 1.8 % (0.0-3.0); HEMATOCRIT 28.5 % (42.0-52.0); HEMOGLOBIN 9.1 g/dl (13.5-17.5); LYMPH # 1.2 10^3/uL (1.5-5.0); MEAN CORPUSCULAR HEMOGLOBIN 29.1 pg (27.0-33.0); MEAN CORPUSCULAR HGB CONC 31.9 g/dl (32.0-36.5); MEAN CORPUSCULAR VOLUME 91.1 fl (80.0-96.0); MONO # 1.1 10^3/uL (0.0-0.8); MONO % 9.6 % (0.0-5.0); NEUTROPHILS # 9.1 10^3/uL (1.5-8.5); NEUTROPHILS % 77.7 % (36.0-66.0); PLATELET COUNT, AUTOMATED 223 10^3/uL (150-450); RED BLOOD COUNT 3.13 10^6/uL (4.30-6.10); WHITE BLOOD COUNT 11.7 10^3/uL (4.0-10.0)
[2019-04-22 06:37] LABS: BLOOD UREA NITROGEN 6 MG/DL (7-18); CALCIUM LEVEL 8.8 MG/DL (8.8-10.2); CARBON DIOXIDE LEVEL 27 MEQ/L (21-32); CHLORIDE LEVEL 104 MEQ/L (98-107); CREATININE FOR GFR 0.99 MG/DL (0.70-1.30); GLOMERULAR FILTRATION RATE > 60.0 (>49); GLUCOSE, FASTING 99 MG/DL (70-100); POTASSIUM SERUM 3.5 MEQ/L (3.5-5.1); SODIUM LEVEL 138 MEQ/L (136-145)
[2019-04-22] MEDS: cefTRIAXone SOD 2 GM in D5W MINI-BAG PLUS 50 ML IV SCH (07:07)
[2019-04-22] MEDS: SODIUM CHLORIDE 0.9% INJ 10 ML SYR IV SCH (07:08)
[2019-04-22 08:20] VITALS: BP 142/82
[2019-04-22] MEDS: DULoxetine 30 MG CAP (CYMBALTA) PO SCH (08:20)
[2019-04-22] MEDS: amLODIPine 5 MG TAB PO SCH (08:20)
[2019-04-22] MEDS: GABAPENTIN 400 MG CAP PO SCH (08:21)
[2019-04-22] MEDS: MAGNESIUM OXIDE 400 MG TAB (MAG-OX) PO SCH (08:21)
[2019-04-22] MEDS: PANTOPRAZOLE 40MG TAB (PROTONIX) PO SCH (08:21)
[2019-04-22] MEDS: levETIRAcetam 250MG TABLET (KEPPRA) PO SCH (08:21)
[2019-04-22] MEDS: APIXABAN 5 MG TAB (ELIQUIS) PO SCH (08:21)
[2019-04-22] MEDS: ATENOLOL 50 MG TAB PO SCH (08:21)
[2019-04-22] MEDS: SODIUM CHLORIDE 0.9% INJ 10 ML SYR IV PRN (08:22)
--- NOTE | 2019-04-22 08:35 | IPN ---
DATE: 04/21/2019 HISTORY: The patient is a 68-year-old man who is now postop day #2 from a robotic-assisted laparoscopic transverse colectomy with anastomosis. He has generally done quite well and was advanced to a regular diet yesterday which he took well. Last evening he became somewhat more tachycardiac into the 120s with a drop in his oxygen saturation. The nurse and I had spoken late last evening. He received an extra dose of digoxin as well as a small dose of Lasix based on my review of his intake and output and the impression that he was probably fluid ahead. This morning he reports that he is feeling fine. He has a little discomfort in his epigastrium, which is where his largest incision is. He reports that he had a bowel movement this morning. He indicates that he has been voiding just fine but has not been saving it for the nurses to record the output. Vital signs: Show that his maximum temperature (T max) is his current temperature of 99.1 degrees. His pulse this morning is down to 99. His blood pressure is good, and his oxygen saturations on 2 liters of nasal cannula oxygen are in the low to mid 90s. Intake and output recorded show that he had 2900 in yesterday with 950 out, but I suspect we are missing some output based on his unmeasured voids. His weight has not been recorded since the day of admission. PHYSICAL EXAMINATION: The patient is lying quietly on the hospital bed. He is on telemetry. He seems alert and comfortable. Heart exam shows an irregularly irregular rhythm at about 90-100. The lungs show good bilateral breath sounds. The abdomen is nondistended. He has bowel sounds present. The abdomen is soft without any undue tenderness. Laboratory studies this morning include a CBC showing a white count of 12 with a hemoglobin of 9, hematocrit of 30 and a platelet count of 237,000. Differential count shows 82% neutrophils, 9% lymphocytes and 7% monocytes. Chemistry profile shows a sodium of 140, potassium 3.5, chloride 106, CO2 of 27, BUN of 7, creatinine 1.09 and a glucose of 115. Liver function tests are normal. His total protein is up to 6.3 with an albumin of 2.7. IMPRESSION: Overall the patient seems to be doing well from his partial colectomy. Last night he became more tachycardiac. He is chronically in atrial fibrillation. I suspect some of this may have been from a degree of fluid overload. He was pretty aggressive at taking liquids yesterday, and his urine output is really undetermined. He got one small dose of Lasix last night and an extra dose of digoxin and his pulse rate seems better today. He remains comfortable. He reports having had a bowel movement. PLAN: I am going to give him a little extra potassium today; it was low yesterday and still borderline low today. His digoxin level this morning actually showed that his digoxin was 0.5, which is at the lower end of therapeutic, and he had been somewhat higher than this. He is due for his regular every other day dose today so that will probably bring that up some. I am going to stop his Lovenox, his last dose being last night at 9 o'clock and start him back on his Eliquis this evening. I did talk to the nurse about trying to keep a better handle on his output. I will also ask them to weigh him daily, so that we have another data point to evaluate. I would hope that he would be ready to go home in the next day or two at the most. DARRYN
[2019-04-22 10:00] VITALS: BP 158/75
--- NOTE | 2019-04-28 15:22 | RO ---
DATE OF PROCEDURE: 04/19/2019 PREOPERATIVE DIAGNOSIS: Left colon cancer. POSTOPERATIVE DIAGNOSIS: Mid transverse colon cancer. PROCEDURE PERFORMED: Robotic-assisted laparoscopic transverse colectomy with mobilization of splenic flexure. SURGEON: Noam Youssef MD CLIENT SERVICE SUPERVISOR: Dr. Og Mancilla. Dr. Mancilla's help was necessary in retrieving the specimen and positioning the bowel for anastomosis. ANESTHESIA: General. INDICATIONS FOR PROCEDURE The patient is a 68-year-old man who had recently presented to the hospital with bacterial endocarditis. He was also showing signs of anemia. He underwent evaluation with upper and lower endoscopy and was found to have a ulcerated lesion which was identified as being in the descending colon. A carbon spot marker was used to wagner proximal and distal to the lesion. The pathology from the biopsies of the lesion showed fragments of tubular adenoma with high-grade dysplasia. The appearance was felt to be consistent with a malignancy and the patient was scheduled for a robotic-assisted left colectomy. OPERATIVE PROCEDURE The patient was brought to the operating room and placed on the table in a supine position. He was placed under general endotracheal anesthesia. A Simmons catheter was inserted. He was placed into a low lithotomy position with the lower extremities in padded leg holders. The patient's abdomen was prepped and draped in a sterile fashion. Initial entry in the abdomen was in the left upper quadrant. 0.25% Marcaine was infiltrated at the trocar sites as needed. A short incision was made and a Veress needle was inserted and after positive hanging drop test the abdomen was insufflated with carbon dioxide gas. The 8 mm port was placed over a 5 mm 30 degrees scope and advanced through the abdominal wall without difficulty. Initial exam showed no evidence of trocar injury. Inspection showed no significant adhesions within the abdomen. However with inspection, it was clear that there was a dark wagner consistent with the spot marker in the proximal transverse colon. The expected location of the tumor had been in the descending colon but clearly the tumor was not in that segment of the bowel. The initial port placement had been selected to work in the left lower quadrant and I elected to place the ports similarly to that plan, though targeting the right upper quadrant to address the transverse colon. Therefore a second port was placed just above the umbilicus. A third was placed midway between these first two ports and the 12-mm port was placed in the right lower quadrant. The robot was brought into position and docked to the camera port and targeting then took place. The other ports were then docked. I then moved to the console to begin the robotic-assisted portion of the procedure. A grasping retractor, force bipolar, and cauterizing scissors were used. The omentum was lifted and dissected off of the transverse colon. It was clear that there was a definite spot wagner in the proximal transverse colon. With dissection of the greater omentum off of the transverse colon, a second marker spot was identified in the distal transverse colon indicating that the tumor should be in the mid transverse colon. Working with the initial placement of the robot and trocars, the hepatic flexure was mobilized. The omentum was elevated superiorly and dissected away. The attachments of the hepatic flexure beneath the liver were divided. In this segment of the procedure, the vessel sealer was utilized to divide the tissues. Dissection proceeded to mobilize the entire hepatic flexure and then worked back freeing the mid transverse colon. It was not possible to work on the distal transverse colon and splenic flexure with the current robotic docking. Therefore the robot was undocked and then rotated and repositioned and redocked focusing toward the left midabdomen. With this placement, it was possible to continue mobilization of the distal transverse colon and the splenic flexure. The splenic flexure was completely mobilized down to include the beginning of the descending colon. The spot marker plaza were both clearly identified. A definite mass was not identified on palpation with a grasper of the transverse colon. Once the colon had been adequately mobilized, the robot was redocked back to focusing in the right upper quadrant. The colon was divided proximally and distally using green loads of the 45 mm linear cutter stapler for the Da Lazaro system. The mesentery was divided on each and down to the base of the mesentery and dissection then proceeded transversely at the base of the mesentery taking the middle colic vessels with the vessel sealer. The specimen was set aside in the abdomen. The proximal and distal ends of the transverse colon were then additionally mobilized to ensure that they could be placed into apposition for an anastomosis. Once this mobilization was felt to be adequate, the robot was undocked and the robotic instruments removed. A standard laparoscope was inserted and graspers were used to hold the ends of the transverse colon and the specimen. The supraumbilical incision was extended to approximately 5-6 cm. A small Ty retractor was placed. The specimen was removed and set aside. There appeared to be a small area of thickening in the midportion of the specimen. The proximal and distal ends of the bowel were brought to the abdominal incision. There was just enough room to bring them together for a stapled anastomosis. Two tacking sutures of #3-0 Vicryl were placed first and then a stapled anastomosis was performed with a linear cutter 55 and a TX60 G stapler to complete the anastomosis. Several reinforcing sutures of #3-0 Vicryl were placed. The anastomosis was irrigated and then reduced into the abdomen. Prior to closing the abdomen, I opened the specimen longitudinally. There was a flat area about 2 to 2-1/2 cm in size. This was slightly raised with a small central ulcerated appearing area perhaps 7-8 mm in diameter. There did not appear to be any penetration of the bowel wall and there were no definite nodes palpated in the mesenteric tissues. This was sent for permanent pathology. The surgical team then changed gown and gloves. The midline fascia was closed with interrupted simple sutures of #1 Vicryl. The abdomen was reinflated. Final inspection showed no evidence of any bleeding. The anastomosis did not appear to be under any significant tension. The abdomen was deflated and the trocars were removed. Through the incision in the right lower quadrant 12 mm port it was possible to identify the fascia and close this with a #2-0 Vicryl. The skin incisions were all closed with buried sutures of #4-0 Vicryl and Steri-Strips. The patient tolerated the procedure well without apparent complication. His Simmons catheter was removed. He was awakened in the operating room, extubated and moved to the recovery room in stable condition.
== END 2019-04-22 11:50 | disposition home or self-care (01) | DRG 329 ==
LOC: M OR 05:59 → M MSPAV 15:10
PROVIDERS: ADMIT Surgery; ATTEND Surgery
PROC: 8E0W4CZ Robotic Assisted Procedure of Trunk Region, Percutaneous Endoscopic Approach (ICD-10-PCS; 2019-04-19)
PROC: 0DBL4ZZ Excision of Transverse Colon, Percutaneous Endoscopic Approach (ICD-10-PCS; principal; 2019-04-19 07:30)
DX: C18.4 Malignant neoplasm of transverse colon (principal); I33.0 Acute and subacute infective endocarditis; Z88.8 Allergy status to other drugs, medicaments and biological substances; Z79.01 Long term (current) use of anticoagulants; Z79.899 Other long term (current) drug therapy; I48.91 Unspecified atrial fibrillation; I10 Essential (primary) hypertension; J44.9 Chronic obstructive pulmonary disease, unspecified; I70.209 Unspecified atherosclerosis of native arteries of extremities, unspecified extremity; G47.33 Obstructive sleep apnea (adult) (pediatric)

== ENCOUNTER → 2019-04-25 | Outpatient (REF) | payer MEDICARE, OTHER ==
[~2019-04-25] MED LIST changes: +METR-265 PO; +NEOM500T PO
[2019-04-25 14:51] LABS: BASO # 0.1 10^3/uL (0.0-0.2); BASO % 0.7 % (0.0-1.0); EOS # 0.3 10^3/uL (0.0-0.5); EOS % 4.6 % (0.0-3.0); HEMATOCRIT 29.2 % (42.0-52.0); HEMOGLOBIN 9.4 g/dl (13.5-17.5); LYMPH # 1.4 10^3/uL (1.5-5.0); MEAN CORPUSCULAR HEMOGLOBIN 29.2 pg (27.0-33.0); MEAN CORPUSCULAR HGB CONC 32.2 g/dl (32.0-36.5); MEAN CORPUSCULAR VOLUME 90.7 fl (80.0-96.0); MONO # 0.8 10^3/uL (0.0-0.8); NEUTROPHILS # 4.7 10^3/uL (1.5-8.5); NEUTROPHILS % 64.4 % (36.0-66.0); PLATELET COUNT, AUTOMATED 299 10^3/uL (150-450); RED BLOOD COUNT 3.22 10^6/uL (4.30-6.10); WHITE BLOOD COUNT 7.3 10^3/uL (4.0-10.0)
[2019-04-25 15:18] LABS: ALBUMIN 2.6 GM/DL (3.2-5.2); ALT/SGPT 12 U/L (12-78); BILIRUBIN,TOTAL 0.2 MG/DL (0.2-1.0); BLOOD UREA NITROGEN 6 MG/DL (7-18); C REACTIVE PROTEIN QUANTITATIV 5.75 MG/DL (0.00-0.30); CALCIUM LEVEL 8.5 MG/DL (8.8-10.2); CARBON DIOXIDE LEVEL 27 MEQ/L (21-32); CHLORIDE LEVEL 105 MEQ/L (98-107); CREATININE FOR GFR 0.86 MG/DL (0.70-1.30); ERYTHROCYTE SEDIMENTATION RATE 46 mm/hr (0-20); GLOMERULAR FILTRATION RATE > 60.0 (>49); GLUCOSE, FASTING 71 MG/DL (70-100); POTASSIUM SERUM 3.7 MEQ/L (3.5-5.1); SODIUM LEVEL 140 MEQ/L (136-145); TOTAL PROTEIN 6.2 GM/DL (6.4-8.2)
== END ==
LOC: M SHH 14:29
PROVIDERS: ATTEND Physician Assistant
DX: I33.9 Acute and subacute endocarditis, unspecified (principal); R78.81 Bacteremia

== ENCOUNTER → 2019-05-02 | Outpatient (REF) | payer MEDICARE, OTHER ==
[~2019-05-02] MED LIST changes: -DIGO0.12 PO; +DIGO0.123 PO; -DIGO0.25 PO; +DIGO0.253 PO
[2019-05-02 15:39] LABS: BASO # 0.1 10^3/uL (0.0-0.2); BASO % 0.8 % (0.0-1.0); EOS # 0.4 10^3/uL (0.0-0.5); HEMATOCRIT 33.2 % (42.0-52.0); HEMOGLOBIN 10.4 g/dl (13.5-17.5); LYMPH # 1.7 10^3/uL (1.5-5.0); LYMPH % 19.1 % (24.0-44.0); MEAN CORPUSCULAR HEMOGLOBIN 28.9 pg (27.0-33.0); MEAN CORPUSCULAR HGB CONC 31.3 g/dl (32.0-36.5); MEAN CORPUSCULAR VOLUME 92.2 fl (80.0-96.0); MONO # 0.9 10^3/uL (0.0-0.8); MONO % 10.3 % (0.0-5.0); NEUTROPHILS # 5.8 10^3/uL (1.5-8.5); NEUTROPHILS % 64.8 % (36.0-66.0); PLATELET COUNT, AUTOMATED 428 10^3/uL (150-450)
[2019-05-02 16:02] LABS: ALT/SGPT 12 U/L (12-78); BILIRUBIN,TOTAL 0.2 MG/DL (0.2-1.0); BLOOD UREA NITROGEN 8 MG/DL (7-18); C REACTIVE PROTEIN QUANTITATIV 1.25 MG/DL (0.00-0.30); CALCIUM LEVEL 9.2 MG/DL (8.8-10.2); CARBON DIOXIDE LEVEL 27 MEQ/L (21-32); CHLORIDE LEVEL 103 MEQ/L (98-107); CREATININE FOR GFR 0.97 MG/DL (0.70-1.30); GLOMERULAR FILTRATION RATE > 60.0 (>49); GLUCOSE, FASTING 98 MG/DL (70-100); POTASSIUM SERUM 3.8 MEQ/L (3.5-5.1); SODIUM LEVEL 139 MEQ/L (136-145); TOTAL PROTEIN 6.7 GM/DL (6.4-8.2)
[2019-05-02 16:13] LABS: ERYTHROCYTE SEDIMENTATION RATE 41 mm/hr (0-20)
== END ==
LOC: M SHH 15:10
PROVIDERS: ATTEND Physician Assistant
DX: I33.9 Acute and subacute endocarditis, unspecified (principal); R78.81 Bacteremia; B95.2 Enterococcus as the cause of diseases classified elsewhere

== ENCOUNTER → 2019-05-10 | Outpatient (CLI) | payer MEDICARE, OTHER | LOC: M WUC 14:53 | PROVIDERS: ATTEND Nurse Practitioner Family | DX: Z12.5 Encounter for screening for malignant neoplasm of prostate (principal) | CPT/HCPCS: 36415; G0103 ==

== ENCOUNTER → 2019-05-23 | Outpatient (CLI) | payer MEDICARE, OTHER ==
[2019-05-23 13:11] LABS: HEMATOCRIT 33.9 % (42.0-52.0); HEMOGLOBIN 10.8 g/dl (13.5-17.5); MEAN CORPUSCULAR HEMOGLOBIN 28.5 pg (27.0-33.0); MEAN CORPUSCULAR HGB CONC 31.9 g/dl (32.0-36.5); MEAN CORPUSCULAR VOLUME 89.4 fl (80.0-96.0); PLATELET COUNT, AUTOMATED 255 10^3/uL (150-450); RED BLOOD COUNT 3.79 10^6/uL (4.30-6.10); WHITE BLOOD COUNT 7.6 10^3/uL (4.0-10.0)
[2019-05-23 14:14] LABS: ALBUMIN 3.6 GM/DL (3.2-5.2); ALT/SGPT 20 U/L (12-78); BILIRUBIN,TOTAL 0.6 MG/DL (0.2-1.0); BLOOD UREA NITROGEN 11 MG/DL (7-18); CALCIUM LEVEL 9.1 MG/DL (8.8-10.2); CARBON DIOXIDE LEVEL 28 MEQ/L (21-32); CHLORIDE LEVEL 103 MEQ/L (98-107); CREATININE FOR GFR 0.99 MG/DL (0.70-1.30); DIGOXIN LEVEL 1.1 NG/ML (0.5-2.0); FERRITIN 17 NG/ML (26-388); GLOMERULAR FILTRATION RATE > 60.0 (>49); GLUCOSE, FASTING 105 MG/DL (70-100); IRON (FE) 44 UG/DL (65-175); POTASSIUM SERUM 3.5 MEQ/L (3.5-5.1); SODIUM LEVEL 139 MEQ/L (136-145); TOTAL IRON BINDING CAPACITY 490 UG/DL (250-450); TOTAL PROTEIN 6.7 GM/DL (6.4-8.2)
== END ==
LOC: M WUC 10:40
PROVIDERS: ATTEND Family Medicine
DX: D50.0 Iron deficiency anemia secondary to blood loss (chronic) (principal); I11.9 Hypertensive heart disease without heart failure; I48.91 Unspecified atrial fibrillation

== ENCOUNTER → 2019-05-23 | Outpatient (CLI) | payer MEDICARE, OTHER ==
[2019-05-23 14:02] LABS: PERCENT SATURATION 9.3 % (19.7-50.0)
== END ==
LOC: M WUC 10:35
PROVIDERS: ATTEND Internal Medicine Medical Oncology
DX: D50.9 Iron deficiency anemia, unspecified (principal); Z79.899 Other long term (current) drug therapy

== ENCOUNTER → 2019-06-02 | Outpatient (CLI) | payer MEDICARE, OTHER ==
[2019-06-02 16:41] LABS: BASO # 0.1 10^3/uL (0.0-0.2); BASO % 1.1 % (0.0-1.0); EOS # 0.4 10^3/uL (0.0-0.5); EOS % 5.3 % (0.0-3.0); HEMATOCRIT 36.1 % (42.0-52.0); HEMOGLOBIN 11.2 g/dl (13.5-17.5); LYMPH # 2.2 10^3/uL (1.5-5.0); LYMPH % 28.8 % (24.0-44.0); MEAN CORPUSCULAR HEMOGLOBIN 27.7 pg (27.0-33.0); MEAN CORPUSCULAR VOLUME 89.4 fl (80.0-96.0); MONO # 0.8 10^3/uL (0.0-0.8); MONO % 11.1 % (0.0-5.0); NEUTROPHILS % 53.3 % (36.0-66.0); PLATELET COUNT, AUTOMATED 253 10^3/uL (150-450); RED BLOOD COUNT 4.04 10^6/uL (4.30-6.10); WHITE BLOOD COUNT 7.6 10^3/uL (4.0-10.0)
[2019-06-02 18:18] LABS: ERYTHROCYTE SEDIMENTATION RATE 16 mm/hr (0-20)
== END ==
LOC: M LAB 16:04
PROVIDERS: ATTEND Family Medicine
DX: I35.8 Other nonrheumatic aortic valve disorders (principal)

== ENCOUNTER → 2019-06-14 | Outpatient (CLI) | payer MEDICARE, OTHER ==
--- NOTE | 2019-06-14 09:41 | REP ---
Low-dose lung screening CT of the chest: There are no comparison studies. The study is performed without IV contrast. The images are presented at lung windowing only. There are no lung masses or nodules. There are no infiltrates or pleural effusions. There is a single lead pacemaker entering from left. Impression: There are no lung masses or nodules. Category one low-dose lung screening CT of the chest. The probability of malignancy is less than 1%. Depending on risk factors consider annual follow-up low-dose lung screening CT. Electronically Signed by Og Pena MD 06/14/2019 09:32 A
== END ==
LOC: M RAD 08:58
PROVIDERS: ATTEND Internal Medicine Medical Oncology
DX: Z87.891 Personal history of nicotine dependence (principal); Z12.2 Encounter for screening for malignant neoplasm of respiratory organs

== ENCOUNTER 2019-06-27 14:54 | Day surgery (SDC) | payer MEDICARE, OTHER ==
[~2019-06-27] VITALS: Ht 167.6 cm; Wt 59.9 kg
[2019-06-27] MEDS ORDERED: CETACAINE SPRAY 5GM As Ordered ONE (19:03)
[2019-06-27] MEDS ORDERED: LIDOCAINE 2% INJ 100 MG/5 ML SDV (FOR ANES.) As Ordered ONE (19:13)
[2019-06-27] MEDS ORDERED: propofoL 200 MG/20 ML VIAL As Ordered ONE (19:13)
[2019-06-27] MEDS ORDERED: MIDAZOLAM INJ 2 MG/2 ML VIAL (J2250) As Ordered ONE ×2 (19:13→19:20)
[2019-06-27] MEDS ORDERED: ONDANSETRON 4MG/2ML VIAL (J2405) IV PRN (20:15)
[2019-06-27] MEDS ORDERED: LR 1,000 ML IV SCH (20:15)
--- NOTE | 2019-06-27 20:52 | T-ECHO ---
DATE OF PROCEDURE: 06/27/2019 REFERRING INDIVIDUAL: Oumou Muniz, Physician Permanent [employer]aver PREPROCEDURE DIAGNOSIS: Infective endocarditis. POSTPROCEDURE DIAGNOSIS: Aortic valve sclerosis with aortic regurgitation, thoracic aorta atheroma. PRINCIPAL FINDINGS: No vegetations. Moderate aortic valve sclerosis with very mild aortic regurgitation. Moderate atheroma involving the distal aortic arch and descending thoracic aorta. PROCEDURE PERFORMED: Transesophageal echocardiogram. PROCEDURE PERFORMED BY: Yakov Rizo MD HEAD OF VISUAL MERCHANDISING: None. IV SEDATION: Monitored anesthetic care per Dr. Darius Bennett COMPLICATIONS: None. PROCEDURE DESCRIPTION: Rhythm appeared to be atrial fibrillation. Esophageal intubation was accomplished by Dr. Rizo without difficulty using a Naga three-dimensional transesophageal echocardiogram performed after the patient received adequate amounts of sedation and Cetacaine spray to the back of the pharynx. The left ventricle appeared normal in size and systolic function without regional wall motion abnormalities. Left ventricle ejection fraction was 60% by visual estimate. Right ventricle appeared normal in size and systolic function. Atrial septum was intact anatomically and by color flow Doppler. Left atrium appeared enlarged and left atrial appendage was enlarged. No mass or thrombi were seen within the left atrium or left atrial appendage. A pacemaker lead was seen in the right ventricle and right atrium without attached vegetations for the visualized portions of the pacemaker lead. No pericardial effusion. Aortic valve was 3-cusp and had moderate focal thickening and focal calcific deposits. No reduction in mobility of the aortic cusps. Very mild central aortic regurgitation was present. Mitral leaflets appeared normal. Mild-moderate mitral regurgitation was present. Tricuspid leaflets appeared normal. Very mild tricuspid regurgitation. Pulmonic valve was only moderately well visualized and appeared normal and without regurgitation. The distal aortic arch and descending thoracic aorta showed moderate atheroma. CONCLUSIONS: 1. No vegetations. 2. Moderate aortic valve sclerosis of a 3-cusp aortic valve. Very mild aortic regurgitation. 3. Mild-moderate mitral regurgitation. 4. Left atrial enlargement with enlargement of the left atrial appendage. 5. Presence of a pacemaker lead seen in the right ventricle and right atrium. 6. Moderate atheroma involving the distal aortic arch and descending thoracic aorta.
[2019-06-27 20:55] VITALS: BP 179/79
== END 2019-06-27 21:00 | disposition home or self-care (01) ==
LOC: M SDC 14:54
PROVIDERS: ATTEND Internal Medicine Cardiovascular Disease
DX: I35.1 Nonrheumatic aortic (valve) insufficiency (principal); I70.0 Atherosclerosis of aorta; I11.9 Hypertensive heart disease without heart failure; Z95.0 Presence of cardiac pacemaker; G47.30 Sleep apnea, unspecified; F17.218 Nicotine dependence, cigarettes, with other nicotine-induced disorders; Z79.899 Other long term (current) drug therapy; Z88.8 Allergy status to other drugs, medicaments and biological substances; Z85.038 Personal history of other malignant neoplasm of large intestine; Z79.01 Long term (current) use of anticoagulants
CPT/HCPCS: 93312; J2250

== ENCOUNTER → 2019-10-02 | Outpatient (CLI) | payer MEDICARE, OTHER ==
[2019-10-02 19:05] LABS: BASO # 0.1 10^3/uL (0.0-0.2); BASO % 0.9 % (0.0-1.0); EOS # 0.3 10^3/uL (0.0-0.5); HEMOGLOBIN 10.1 g/dl (13.5-17.5); LYMPH % 25.4 % (24.0-44.0); MEAN CORPUSCULAR HEMOGLOBIN 29.6 pg (27.0-33.0); MEAN CORPUSCULAR HGB CONC 31.6 g/dl (32.0-36.5); MEAN CORPUSCULAR VOLUME 93.8 fl (80.0-96.0); MONO # 0.7 10^3/uL (0.0-0.8); MONO % 8.7 % (0.0-5.0); NEUTROPHILS # 4.8 10^3/uL (1.5-8.5); NEUTROPHILS % 60.7 % (36.0-66.0); PLATELET COUNT, AUTOMATED 313 10^3/uL (150-450); RED BLOOD COUNT 3.41 10^6/uL (4.30-6.10)
== END ==
LOC: M WUC 12:51
PROVIDERS: ATTEND Internal Medicine Medical Oncology
DX: D50.9 Iron deficiency anemia, unspecified (principal)

== ENCOUNTER → 2019-11-11 | Outpatient (REF) | payer MEDICARE, OTHER | LOC: M LAB REF 14:20 | PROVIDERS: ATTEND Internal Medicine Gastroenterology | DX: D50.9 Iron deficiency anemia, unspecified (principal) ==

== ENCOUNTER → 2020-01-15 | Outpatient (CLI) | payer MEDICARE, OTHER ==
[~2020-01-15] MED LIST changes: +AMLO1TAB24 PO; +AMLO25TA PO; -AMLO5TAB6 PO; +ASPI-546 PO; -ASPI1TAB15 PO; +PANT40TA29 PO; -PANT40TA3 PO; +PLAV1TAB2 PO
== END ==
LOC: M LABSMTC 09:18
PROVIDERS: ATTEND Anesthesiology
DX: Z11.59 Encounter for screening for other viral diseases (principal)

== ENCOUNTER → 2020-01-19 | Outpatient (REF) | payer MEDICARE, OTHER ==
[2020-01-19 15:16] LABS: HEMOGLOBIN 16.4 g/dl (13.5-17.5); MEAN CORPUSCULAR HEMOGLOBIN 26.8 pg (27.0-33.0); MEAN CORPUSCULAR HGB CONC 31.5 g/dl (32.0-36.5); MEAN CORPUSCULAR VOLUME 85.1 fl (80.0-96.0); PLATELET COUNT, AUTOMATED 219 10^3/uL (150-450); RED BLOOD COUNT 6.11 10^6/uL (4.30-6.10); WHITE BLOOD COUNT 9.6 10^3/uL (4.0-10.0)
[2020-01-19 15:44] LABS: ALBUMIN 2.9 GM/DL (3.2-5.2); ALT/SGPT 41 U/L (12-78); BILIRUBIN,TOTAL 0.6 MG/DL (0.2-1.0); BLOOD UREA NITROGEN 12 MG/DL (7-18); CALCIUM LEVEL 9.2 MG/DL (8.8-10.2); CARBON DIOXIDE LEVEL 34 MEQ/L (21-32); CHLORIDE LEVEL 101 MEQ/L (98-107); CREATININE FOR GFR 1.25 MG/DL (0.70-1.30); FERRITIN 39 NG/ML (26-388); GLOMERULAR FILTRATION RATE > 60.0 (>49); GLUCOSE, FASTING 83 MG/DL (70-100); IRON (FE) 190 UG/DL (65-175); PERCENT SATURATION 50.5 % (19.7-50.0); POTASSIUM SERUM 3.7 MEQ/L (3.5-5.1); SODIUM LEVEL 140 MEQ/L (136-145); TOTAL IRON BINDING CAPACITY 376 UG/DL (250-450); TOTAL PROTEIN 6.2 GM/DL (6.4-8.2)
== END ==
LOC: M LABDRWAD 12:31
PROVIDERS: ATTEND Family Medicine
DX: D50.9 Iron deficiency anemia, unspecified (principal); I11.9 Hypertensive heart disease without heart failure
CPT/HCPCS: 36415; 80053; 82728; 83550; 85027; G0463

== ENCOUNTER 2020-01-20 06:54 | Day surgery (SDC) | payer MEDICARE, OTHER ==
[~2020-01-20] VITALS: Ht 167.6 cm; Wt 51.7 kg
[~2020-01-20 06:54] MED LIST changes: +NS 1,000 ML IV SCH
[2020-01-20] MEDS ORDERED: amLODIPine 5 MG TAB PO ONE (08:15)
[2020-01-20] MEDS ORDERED: atenoloL 50 MG TAB PO ONE (08:15)
[2020-01-20] MEDS ORDERED: LIDOCAINE 2% 100MG/5ML SDV (FOR ANES.) As Ordered ONE (10:37)
[2020-01-20] MEDS ORDERED: fentaNYL 100 MCG/2 ML INJECTION (J3010) As Ordered ONE (10:37)
[2020-01-20] MEDS ORDERED: propofoL 500 MG/50 ML VIAL As Ordered ONE (10:37)
[2020-01-20 12:00] VITALS: BP 184/77
--- NOTE | 2020-02-01 11:30 | ROOR ---
Patient Name: Gio Garcia Procedure Date: 01/20/2020 7:51 AM Date of : 1950 Age: 69 Room: [facility] Gender: Male Note Status: Finalized Procedure: Upper GI endoscopy Indications: Iron deficiency anemia Providers: Terrell Prince MD Referring MD: Louis Seaman MD Requesting Provider: Medicines: Monitored Anesthesia Care Complications: No immediate complications. Procedure: Pre-Anesthesia Assessment: - Prior to the procedure, a History and Physical was performed, and patient medications and allergies were reviewed. The patient is competent. The risks and benefits of the procedure and the sedation options and risks were discussed with the patient. All questions were answered and informed consent was obtained. Patient identification and proposed procedure were verified by the physician, the nurse and the anesthesiologist in the procedure room. Mental Status Examination: alert and oriented. Airway Examination: normal oropharyngeal airway and neck mobility. Respiratory Examination: clear to auscultation. CV Examination: normal. Prophylactic Antibiotics: The patient does not require prophylactic antibiotics. Prior Anticoagulants: The patient has taken no previous anticoagulant or antiplatelet agents. ASA Grade Assessment: II - A patient with mild systemic disease. After reviewing the risks and benefits, the patient was deemed in satisfactory condition to undergo the procedure. The anesthesia plan was to use monitored anesthesia care (MAC). Immediately prior to administration of medications, the patient was re-assessed for adequacy to receive sedatives. The heart rate, respiratory rate, oxygen saturations, blood pressure, adequacy of pulmonary ventilation, and response to care were monitored throughout the procedure. The physical status of the patient was re-assessed after the procedure. The Enteroscope was introduced through the mouth, and advanced to the proximal jejunum. The upper GI endoscopy was accomplished without difficulty. The patient tolerated the procedure well. Findings: LA Grade A (one or more mucosal breaks less than 5 mm, not extending between tops of 2 mucosal folds) esophagitis with no bleeding was found in the distal esophagus. One non-obstructing oozing cratered gastric ulcer of moderate to significant severity with pigmented material was found on the greater curvature of the gastric antrum. The lesion was 30 mm in largest dimension. There is no evidence of perforation. Biopsies were taken with a cold forceps for histology. Verification of patient identification for the specimen was done by the physician and nurse using the patient's name, date and medical record number. Estimated blood loss was minimal. No gross lesions were noted in the duodenal bulb, in the second portion of the duodenum, in the third portion of the duodenum and in the fourth portion of the duodenum. Normal mucosa was found in the jejunum. Impression: - LA Grade A esophagitis. - Non-obstructing oozing gastric ulcer with pigmented material. There is no evidence of perforation. Biopsied. - No gross lesions in the duodenal bulb, in the second portion of the duodenum, in the third portion of the duodenum and in the fourth portion of the duodenum. - Normal mucosa was found in the jejunum. Recommendation: - Patient has a contact number available for emergencies. The signs and symptoms of potential delayed complications were discussed with the patient. Return to normal activities tomorrow. Written discharge instructions were provided to the patient. - High fiber diet. - Continue present medications. - Resume Eliquis (apixaban) tomorrow and Plavix (clopidogrel) in 2 days at prior doses. Refer to primary physician for further adjustment of therapy. - Check hemogram with white blood cell count and platelets weekly. - Use Protonix (pantoprazole) 40 mg PO twice daily - to be taken in morning (1/2 hour before breakfast) and at bedtime ( atleast 3 hours after last meal) for 3 months. - Use sucralfate suspension 1 gram PO QID for 4 weeks. - Await pathology results. - Repeat upper endoscopy in 3 months to check healing. - Return to GI clinic in Health system (address [address], [address], [place], [facility]) in 4 -- 6 weeks. Please call GI clinic @ [phone] for apppointment date and time. - Return to primary care physician. Terrell Prince MD Terrell Prince MD 01/20/2020 11:40:14 AM Electronically signed by Terrell Prince MD Number of Addenda: 0 Note Initiated On: 01/20/2020 7:51 AM Estimated Blood Loss: Estimated blood loss was minimal.
--- NOTE | 2020-02-01 11:30 | ROOR ---
Patient Name: Gio Garcia Procedure Date: 01/20/2020 7:50 AM Date of : 1950 Age: 69 Room: [facility] Gender: Male Note Status: Finalized Procedure: Colonoscopy Indications: Iron deficiency anemia Providers: Terrell Prince MD Referring MD: Louis Seaman MD Requesting Provider: Medicines: Monitored Anesthesia Care Complications: No immediate complications. Procedure: Pre-Anesthesia Assessment: - Prior to the procedure, a History and Physical was performed, and patient medications and allergies were reviewed. The patient is competent. The risks and benefits of the procedure and the sedation options and risks were discussed with the patient. All questions were answered and informed consent was obtained. Patient identification and proposed procedure were verified by the physician, the nurse and the anesthesiologist in the procedure room. Mental Status Examination: alert and oriented. Airway Examination: normal oropharyngeal airway and neck mobility. Respiratory Examination: clear to auscultation. CV Examination: normal. Prophylactic Antibiotics: The patient does not require prophylactic antibiotics. Prior Anticoagulants: The patient has taken Plavix (clopidogrel), last dose was 7 days prior to procedure. ASA Grade Assessment: II - A patient with mild systemic disease. After reviewing the risks and benefits, the patient was deemed in satisfactory condition to undergo the procedure. The anesthesia plan was to use monitored anesthesia care (MAC). Immediately prior to administration of medications, the patient was re-assessed for adequacy to receive sedatives. The heart rate, respiratory rate, oxygen saturations, blood pressure, adequacy of pulmonary ventilation, and response to care were monitored throughout the procedure. The physical status of the patient was re-assessed after the procedure. The Colonoscope was introduced through the anus and advanced to the terminal ileum, with identification of the appendiceal orifice and IC valve. The colonoscopy was performed without difficulty. The patient tolerated the procedure well. The quality of the bowel preparation was good. The terminal ileum, ileocecal valve, appendiceal orifice, and rectum were photographed. Scope insertion time was 2 minutes. Scope withdrawal time was 6 minutes. The total duration of the procedure was 8 minutes. Findings: The perianal and digital rectal examinations were normal. The terminal ileum appeared normal. A 8 mm polyp was found in the recto-sigmoid colon. The polyp was sessile. The polyp was removed with a cold snare. Resection and retrieval were complete. Verification of patient identification for the specimen was done by the physician and nurse using the patient's name, date and medical record number. Estimated blood loss was minimal. To close a defect after polypectomy, one hemostatic clip was successfully placed. There was no bleeding at the end of the procedure. Non-bleeding external and internal hemorrhoids were found during retroflexion. The hemorrhoids were small. There was evidence of a prior functional end-to-end colo-colonic anastomosis in the proximal transverse colon. This was patent and was characterized by healthy appearing mucosa and visible sutures. The anastomosis was traversed. Impression: - The examined portion of the ileum was normal. - One 8 mm polyp at the recto-sigmoid colon, removed with a cold snare. Resected and retrieved. Clip was placed. - Non-bleeding external and internal hemorrhoids. - Patent functional end-to-end colo-colonic anastomosis, characterized by healthy appearing mucosa and visible sutures. Recommendation: - Patient has a contact number available for emergencies. The signs and symptoms of potential delayed complications were discussed with the patient. Return to normal activities tomorrow. Written discharge instructions were provided to the patient. - High fiber diet. - Continue present medications. - Await pathology results. - Follow the recommendations as per the other procedure note. - Resume Eliquis (apixaban) tomorrow and Plavix (clopidogrel) in 2 days at prior doses. Refer to primary physician for further adjustment of therapy. - No ibuprofen, naproxen, or other non-steroidal anti-inflammatory drugs. - Check hemogram with white blood cell count and platelets weekly. - Repeat colonoscopy in 3 years for surveillance based on pathology results and depending on clinical and functional status. - Return to GI clinic in [facility] (address [address], [address], [place], [facility]) in 4 -- 6 weeks. Please call GI clinic @ [phone] for apppointment date and time. - Return to primary care physician. Terrell Prince MD 01/20/2020 11:12:47 AM Number of Addenda: 0 Note Initiated On: 01/20/2020 7:50 AM Estimated Blood Loss: Estimated blood loss was minimal.
== END 2020-01-20 12:11 | disposition home or self-care (01) ==
LOC: M OPP 06:54
PROVIDERS: ATTEND Internal Medicine Gastroenterology
DX: K64.8 Other hemorrhoids (principal); D12.7 Benign neoplasm of rectosigmoid junction; Z98.0 Intestinal bypass and anastomosis status; D50.9 Iron deficiency anemia, unspecified; K20.9 Esophagitis, unspecified; K25.4 Chronic or unspecified gastric ulcer with hemorrhage; G47.30 Sleep apnea, unspecified; F17.210 Nicotine dependence, cigarettes, uncomplicated; Z79.899 Other long term (current) drug therapy; Z88.0 Allergy status to penicillin; Z95.0 Presence of cardiac pacemaker; Z85.038 Personal history of other malignant neoplasm of large intestine
CPT/HCPCS: 43239; 45385; 88305; J3010

== ENCOUNTER → 2020-06-11 | Outpatient (CLI) | payer MEDICARE, OTHER ==
[~2020-06-11] MED LIST changes: -LISI-538 PO; +LISI20TA33 PO; -NS 1,000 ML IV SCH
[2020-06-11 19:07] LABS: BASO # 0.1 10^3/uL (0.0-0.2); BASO % 0.9 % (0.0-1.0); EOS # 0.4 10^3/uL (0.0-0.5); EOS % 4.1 % (0.0-3.0); HEMATOCRIT 50.4 % (42.0-52.0); HEMOGLOBIN 16.4 g/dl (13.5-17.5); LYMPH # 2.7 10^3/uL (1.5-5.0); LYMPH % 25.1 % (24.0-44.0); MEAN CORPUSCULAR HGB CONC 32.5 g/dl (32.0-36.5); MEAN CORPUSCULAR VOLUME 98.4 fl (80.0-96.0); MONO # 0.9 10^3/uL (0.0-0.8); MONO % 8.8 % (0.0-5.0); NEUTROPHILS # 6.5 10^3/uL (1.5-8.5); NEUTROPHILS % 60.7 % (36.0-66.0); PLATELET COUNT, AUTOMATED 293 10^3/uL (150-450); RED BLOOD COUNT 5.12 10^6/uL (4.30-6.10); WHITE BLOOD COUNT 10.7 10^3/uL (4.0-10.0)
[2020-06-11 19:39] LABS: CREATININE FOR GFR 1.36 MG/DL (0.70-1.30); GLOMERULAR FILTRATION RATE 55.6 (>49); PERCENT SATURATION 26.6 % (19.7-50.0)
== END ==
LOC: M WUC 15:51
PROVIDERS: ATTEND Internal Medicine Gastroenterology
DX: D50.9 Iron deficiency anemia, unspecified (principal); D12.7 Benign neoplasm of rectosigmoid junction; K25.9 Gastric ulcer, unspecified as acute or chronic, without hemorrhage or perforation

== ENCOUNTER → 2020-06-20 | Outpatient (CLI) | payer MEDICARE, OTHER ==
[~2020-06-20] MED LIST changes: +LISI-538 PO; -LISI20TA33 PO
--- NOTE | 2020-06-20 10:57 | REP ---
INDICATION: UPPER ABDOMINAL PAIN, UNSPECIFIED TECHNIQUE: Real time B-mode bryant scale and color Doppler ultrasound examination using curved array transducer. FINDINGS: Liver, spleen, and pancreas are normal in contour, size, echogenicity, and overall appearance. No focal hepatic, splenic or pancreatic lesions are identified. Gallbladder is normal without gallstones, wall thickening, or pericholecystic fluid. No biliary ductal dilatation is appreciated and the common bile duct measures 2 mm diameter. The bilateral kidneys are normal in rate form shape without hydronephrosis. Right kidney measures 9.1 x 4.5 x 4.1 cm and includes 8 mm midpole cyst. Left kidney measures 10.6 x 4.8 x 5.5 cm and includes 1.6 cm upper pole cyst. Abdominal aorta is incompletely evaluated due to interposed bowel gas but visualized portions appear normal and measures 1.6 cm maximal diameter. No ascites. Doppler interrogation to the hepatic vasculature demonstrates normal appearance and flow characteristics to the portal veins, splenic vein and visualized superior mesenteric vein including normal wave characteristics, velocities and flow direction. Hepatic artery demonstrates normal wave pattern and velocity. The hepatic veins demonstrate changes related to tricuspid regurgitation and correlation is recommended. Main portal vein measures 6 mm diameter with PSV 28 cm/sec Hepatic artery PSV 41 cm/sec (RI 0.45) IMPRESSION: 1. Essentially normal examination. 2. Small benign-appearing renal cysts. 3. Doppler interrogation demonstrates hepatic waveforms suggesting tricuspid regurgitation and correlation is warranted. Remainder of the Doppler interrogation to the portal and hepatic vasculature appears normal. 4. <Electronically signed by Flaco Lomeli > 06/20/20 [id number]
== END ==
LOC: M RAD 09:03
PROVIDERS: ATTEND Internal Medicine Gastroenterology
DX: R10.10 Upper abdominal pain, unspecified (principal)

== ENCOUNTER 2020-07-06 18:13 | Observation (INO) | payer MEDICARE, OTHER ==
[~2020-07-06] VITALS: Ht 167.6 cm; Wt 57.5 kg
[~2020-07-06 18:13] MED LIST changes: -LISI-538 PO; +LISI20TA33 PO
[2020-07-06] MEDS ORDERED: LIDOCAINE 1% MDV 20ML VIAL SC ONE (18:30)
[2020-07-06] MEDS ORDERED: BOOSTRIX/ADACEL VACCINE (DIPHTH/PERTUSS/ACELL/TETANUS) 0.5ML SYR IM ONE (18:30)
[2020-07-06] MEDS ORDERED: MORPHINE 10 MG/ML 1ML VIAL (J2270) IM ONE (19:15)
[2020-07-06] MEDS ORDERED: atenoloL 50 MG TAB PO ONE (19:15)
[2020-07-06] MEDS ORDERED: amLODIPine 5 MG TAB PO ONE (19:15)
[2020-07-06 20:16] LABS: BASO # 0.1 10^3/uL (0.0-0.2); BASO % 0.9 % (0.0-1.0); EOS # 0.1 10^3/uL (0.0-0.5); HEMATOCRIT 46.2 % (42.0-52.0); HEMOGLOBIN 15.4 g/dl (13.5-17.5); LYMPH # 1.9 10^3/uL (1.5-5.0); LYMPH % 15.7 % (24.0-44.0); MEAN CORPUSCULAR HEMOGLOBIN 31.8 pg (27.0-33.0); MEAN CORPUSCULAR HGB CONC 33.3 g/dl (32.0-36.5); MEAN CORPUSCULAR VOLUME 95.3 fl (80.0-96.0); MONO # 0.7 10^3/uL (0.0-0.8); MONO % 6.1 % (2.0-8.0); NEUTROPHILS # 9.1 10^3/uL (1.5-8.5); NEUTROPHILS % 75.8 % (36.0-66.0); PLATELET COUNT, AUTOMATED 286 10^3/uL (150-450); RED BLOOD COUNT 4.85 10^6/uL (4.30-6.10)
[2020-07-06 20:29] LABS: INR 1.06
[2020-07-06 20:30] LABS: PARTIAL THROMBOPLASTIN TIME 30.9 SECONDS (24.2-38.5)
--- OUTSIDE RECORDS SUMMARY | 2020-07-06 20:33 | CCD ---
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 Role Phone Judd Brower Unavailable PROBLEMS Type Condition ICD9-CM Code OLJ72-DE Code Onset Dates Condition S tatus SNOMED Code Notes Problem Anemia, unspecified D64.9 Active 636196157 Problem Hyperlipidemia, unspecified E78.5 Active 5582 2004 Problem Encounter for immunization Z23 Active 69385 6002 Problem Iron deficiency anemia, unspecified D50.9 Acti ve 55361703 Problem Intervertebral disc disorders with myelopathy, 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 Active 53310840 Problem Other intervertebral disc degeneration, lumbosacral region M51.37 Active 48470677 Problem Unspecified atrial fibrillation I48.91 Active 44014884 Problem Screening for prostate cancer Z12.5 Active 24 8609035 Problem Spinal stenosis, lumbosacral region M48.07 Acti ve 22804020 Problem Chronic obstructive pulmonary disease, unspecified COPD ty pe J44.9 Active 64920441 Problem Presence of cardiac pacemaker Z95.0 Active 44 8069731 Problem 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 Active 897 38714 Problem Malignant neoplasm of transverse colon C18.4 A ctive 023697340 Problem Complex renal cyst N28.1 Active 5102696614127 4102 Problem Epilepsy, unspecified, not intractable, without status epilepticus G40.909 Active 36170515 Problem Iron deficiency anemia due to chronic blood loss D 50.0 Active 485928286 Problem Hypertensive heart disease without heart failure I 11.9 Active 75411268 Problem Heavy tobacco smoker >10 cigarettes per day F17.21 0 Active 844650774087891 Problem 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 Active 20566229 Problem Medicare annual wellness visit, subsequent Z00.00 Active 856939850 Problem Urinary retention R33.9 Active 093932357 Problem History of colon cancer Z85.038 Active 66535723 9 Problem PAD (peripheral artery disease) I73.9 Active 492305119 ALLERGIES Allergen (clinical drug ingredient) Drug/Non Drug Allergy do cumented on EMR Reaction Allergy Type Onset Date Status hydrochlorothiazide Hydrochlorothiazide([facility] Code:[address]-59) low sodium Drug Allergy Active aspirin Aspirin([facility] Code:[address]-04) acute GI blood loss anemia when combined with Plavix and ELiquis Drug Allergy Active ENCOUNTERS from 1950 to 2020-05-11 Encounter Location Date Provider Diagnosis [facility] [address] [address] Apr Judd Brower IMMUNIZATIONS Vaccine Route Administration Date Status Pneumococcal Adult 0.5mL (Pneumovax 23) IM Intramuscular July 232015 Administered Pneumococcal 0.5mL (Prevnar 13) IM Intramuscular Jan 15, 2018 Administered Influenza (6mo & up) Fluzone IM Intramuscular Apr 28, 2014 Ad ministered Influenza (6mo & up) Fluzone IM Intramuscular May 11, 2013 Ad ministered SOCIAL HISTORY Tobacco Use: Social History Observation Description Date Details (start date - stop date) Current Smoker Sex Assigned At : Social History Observation Description Sex Assigned At Unknown Audit Question Answer Notes Total Score: 3 Interpretation: Alcohol Education Sexual Hx: Question Answer Notes Had sex in the last 12 months (vaginal, oral, or anal)? Yes with Women only Drug and Alcohol Question Answer Notes Total Score: 0 Interpretation: No problems reported Alcohol Screening: Question Answer Notes Did you have a drink containing alcohol in the past year? Ye s Points 2 Interpretation Negative How many drinks did you have on a typica l day when you were drinking in the past year? 3 or 4 (1 point) How often did you have a drink containing alcohol in t he past year? Monthly or less (1 point) Tobacco Use: Question Answer Notes Are you a: current smoker How many cigarettes a day do you smoke? 5 or less Are you interested in quitting? Not ready to quit Counseled the patient on smoking effects, education provided 05/04/2019 REASON FOR REFERRAL No Information VITAL SIGNS No information MEDICATIONS Medication SIG (Take, Route, Frequency, Duration) Notes Start Da te End Date Status CPAP Machine Active Plavix 75 MG 1 tablet Orally Once a day for 30 Days Active Cymbalta 30 MG TAKE ONE CAPSULE BY MOUTH TWICE A DAY for 90 Active Flomax 0.4 MG 1 capsule 30 minutes after t he same meal each day Orally Once a day for 90 day(s) Active Spironolactone 25 MG 1/2 tablet Orally Daily Active Amlodipine 5mg 1 tab(s) orally daily for 90 Active Eliquis 5 MG 1 tab Orally bid for 90 Active Digoxin 250 MCG 1 tablet Orally Once a day Active Pantoprazole Sodium 40 MG 1 tablet Orally Once a day for 30 day(s) Active Acetaminophen 500 MG 2 tablets as needed Orally every 6 hours fo r pain/fever Active Lipitor 80 MG TAKE ONE TABLET BY MOUTH EVERY DAY for 90 Active MagOx 400 400 (241.3 Mg) MG 1 tablet with food Orally Once a day for 30 day(s) Feb, Active Atenolol 50 mg 1 tablet Orally twice a day for 90 day(s) Active Neurontin 800 MG 1 tablet Orally Three times a day for 90 Active Vitamin C ER 500 MG 1 capsule Orally Once a day Active Keppra 1000 mg 1 tablet Orally twice a day for 90 Active Ferrex 150 150 MG 1 capsule Orally twice daily Active PROCEDURES No Information RESULTS No Results REASON FOR VISIT appt 05/11/2020 MEDICAL (GENERAL) HISTORY Type Description Date Medical History HTN Medical History Hyperlipidemia/ high HDL Medical History COPD FEV1 = 2.5 02/25, FEV1 = 2.74 04/25 013, FVC = 4 Medical History Seizure , 12/31; 01/02 (post op) Medical History H/O ETOH Abuse Medical History Nicotine dependence Medical History Atrial fibrillation - Eliquis started VICKY Medical History PAD s/p R iliac artery stent + BL Fem endarterectomy 12/31; patch angioplasty 01/02 Medical History Echo 11/26 EF nl LA = 44mm Medical History Stress 12/31 - low risk Medical History Chronic hyonatremia Medical History L4 rt nerve root impingement MRI 02/01 Medical History Nuclear stress test - LVEF = 53% Borderline LVH with slight global hypokinesis. Faint fixed abnormality. No reversible ischemia; NST 07/10: normal perfusion, EF 61% Medical History Lumbar spinal stenosis Medical History Acute GI blood loss anemia - secondary to gastric ulcers (while on ASA/Plavix and Eliquis) Asa stopped Medical History left renal nodule consistent with Bosniak Class ii per CT 09/2017 - referred to Urology Medical History [facility] 03/18/19: enterococcal e ndocarditis of aortic valve, 6 weeks of Rocephin/ampicillin from negative culture 03/23/19 Medical History ARF 03/12, from [facility]; renal fxn returned to baseline after d/c Medical History AUR 04/12, d/c from [facility] with [facility] Medical History adenocarcinonoma colon, 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 Polanco 08/29/2008 Surgical History 2 left external iliac artery stent place ment ( Dr. Polanco) 04/16/2010 Surgical History angiogram with angioplasty of stenosis r ight leg 09/17/2010 Surgical History R Fem-Pop bypass (Dr. Polanco) 05/27/2010 Surgical History stent rt leg bypass graft (Dr Polanco) 08/24 011 Surgical History patch angioplasty of R leg b ypass graft (Profunda Femoris Endarterectiomy) 01/2012 Surgical History pacemaker (tachy-joão synd) Dr Rizo 04/05 Surgical History Left Carpel Tunnel Procedure -Berkley Potter 05/2012 Surgical History L4-5 decompression 06/07 Surgical History left CEA-- Vasc Sx [facility] 12/07 Surgical History carotid endarterectomy 06/12 Surgical History EGD (multiple shallow ulcers ), colonoscopy (cecal mass, high grade dysplasia) 04/12 Surgical History partial colectomy for adenoc arcinoma within adenomatous polyp, neg nodes/margins 04/12 Surgical History colectomy 04/19 Hospitalization History anemia,bleeding ulcers 08/2017 Hospitalization History [facility] for Blood infection, 5 days 01/24 019 Hospitalization History [facility] 04/12 Goals Section No Information Health Concerns No Information MEDICAL EQUIPMENT No Information MENTAL STATUS No Information FUNCTIONAL STATUS No Information ASSESSMENTS No Information PLAN OF TREATMENT Medication Medication Name Sig Start Date Stop Date Digoxin 250 MCG 1 tablet Orally Once a day Vitamin C ER 500 MG 1 capsule Orally Once a day Eliquis 5 MG 1 tab Orally bid for 90 Plavix 75 MG 1 tablet Orally Once a day for 30 Days Amlodipine 5mg 1 tab(s) orally daily for 90 Ferrex 150 150 MG 1 capsule Orally twice daily Cymbalta 30 MG TAKE ONE CAPSULE BY MOUTH TWICE A DAY for 90 Lipitor 80 MG TAKE ONE TABLET BY MOUTH EVERY DAY for 90 Spironolactone 25 MG 1/2 tablet Orally Daily Atenolol 50 mg 1 tablet Orally twice a day for 90 day(s) Keppra 1000 mg 1 tablet Orally twice a day for 90 Insurance Providers Payer Name Payer Address Payer Phone Insured Name Patient Relati onship to Insured Coverage Start Date Coverage End Date MEDICARE Part A and B [address] [facility] [id number] [facility] [place] [address] [address] [facility] [id number] [place]
--- OUTSIDE RECORDS SUMMARY | 2020-07-06 20:34 | CCD ---
Author Author [facility] Organization [facility] Address Unknown Phone Unavailable Care Team Providers Care Tactical Air Control Party Name Role Phone MILLSPAUGH, WAYNE METALLURGICAL LAB TECHNICIAN Unavailable Unavailable MILLSPAUGH, WAYNE METALLURGICAL LAB TECHNICIAN Unavailable Unavailable MILLSPAUGH, WAYNE METALLURGICAL LAB TECHNICIAN Unavailable Unavailable MILLSPAUGH, WAYNE METALLURGICAL LAB TECHNICIAN Unavailable Unavailable MILLSPAUGH, WAYNE METALLURGICAL LAB TECHNICIAN Unavailable Unavailable MILLSPAUGH, WAYNE METALLURGICAL LAB TECHNICIAN Unavailable Unavailable MILLSPAUGH, WAYNE METALLURGICAL LAB TECHNICIAN Unavailable Unavailable MILLSPAUGH, WAYNE METALLURGICAL LAB TECHNICIAN Unavailable Unavailable MILLSPAUGH, WAYNE METALLURGICAL LAB TECHNICIAN Unavailable Unavailable MILLSPAUGH, WAYNE METALLURGICAL LAB TECHNICIAN Unavailable Unavailable MILLSPAUGH, WAYNE METALLURGICAL LAB TECHNICIAN Unavailable Unavailable MILLSPAUGH, WAYNE METALLURGICAL LAB TECHNICIAN Unavailable Unavailable MILLSPAUGH, WAYNE METALLURGICAL LAB TECHNICIAN Unavailable Unavailable MILLSPAUGH, WAYNE METALLURGICAL LAB TECHNICIAN Unavailable Unavailable MILLSPAUGH, WAYNE METALLURGICAL LAB TECHNICIAN Unavailable Unavailable MILLSPAUGH, WAYNE METALLURGICAL LAB TECHNICIAN Unavailable Unavailable MILLSPAUGH, WAYNE METALLURGICAL LAB TECHNICIAN Unavailable Unavailable MILLSPAUGH, WAYNE METALLURGICAL LAB TECHNICIAN Unavailable Unavailable MILLSPAUGH, WAYNE METALLURGICAL LAB TECHNICIAN Unavailable Unavailable Soco Muniz PA Unavailable Unavailable Soco Muniz PA Unavailable Unavailable Soco Muniz PA Unavailable Unavailable Soco Muniz PA Unavailable Unavailable Soco Muniz PA Unavailable Unavailable Soco Muniz PA Unavailable Unavailable Soco Muniz PA Unavailable Unavailable Flavio, L Oumou PA Unavailable Unavailable Flavio, L Oumou PA Unavailable Unavailable Flavio, L Oumou PA Unavailable Unavailable Flavio, L Oumou PA Unavailable Unavailable Flavio, L Oumou PA Unavailable Unavailable Flavio, L Oumou PA Unavailable Unavailable Flavio, L Oumou PA Unavailable Unavailable Flavio, L Oumou PA Unavailable Unavailable Flavio, L Oumou PA Unavailable Unavailable Flavio, L Oumou PA Unavailable Unavailable Flavio, L Oumou PA Unavailable Unavailable Flavio, L Oumou PA Unavailable Unavailable Flavio, L Oumou PA Unavailable Unavailable Flaivo, L Oumou PA Unavailable Unavailable Flavio, L Oumou PA Unavailable Unavailable Flavio, L Oumou PA Unavailable Unavailable CALEB, SAM JAVIER BREEDER HEN SERVICE TECHNICIAN-C Unavailable Unavailable CALEB, SAM JAVIER BREEDER HEN SERVICE TECHNICIAN-C Unavailable Unavailable CALEB, SAM JAVIER BREEDER HEN SERVICE TECHNICIAN-C Unavailable Unavailable CALEB, SAM JAVIER BREEDER HEN SERVICE TECHNICIAN-C Unavailable Unavailable CALEB, SAM JAVIER BREEDER HEN SERVICE TECHNICIAN-C Unavailable Unavailable CALEB, SAM JAVIER BREEDER HEN SERVICE TECHNICIAN-C Unavailable Unavailable CALEB, SAM JAVIER BREEDER HEN SERVICE TECHNICIAN-C Unavailable Unavailable CALEB, SAM JAVIER BREEDER HEN SERVICE TECHNICIAN-C Unavailable Unavailable CALEB, SAM JAVIER BREEDER HEN SERVICE TECHNICIAN-C Unavailable Unavailable CALEB, SAM JAVIER BREEDER HEN SERVICE TECHNICIAN-C Unavailable Unavailable CALEB, SAM JAVIER BREEDER HEN SERVICE TECHNICIAN-C Unavailable Unavailable CALEB, SAM JAVIER BREEDER HEN SERVICE TECHNICIAN-C Unavailable Unavailable CALEB, SAM JAVIER BREEDER HEN SERVICE TECHNICIAN-C Unavailable Unavailable CALEB, SAM JAVIER BREEDER HEN SERVICE TECHNICIAN-C Unavailable Unavailable CALEB, SAM JAVIER BREEDER HEN SERVICE TECHNICIAN-C Unavailable Unavailable CALEB, SAM JAVIER BREEDER HEN SERVICE TECHNICIAN-C Unavailable Unavailable KEKE, MARY ELLEN PA Unavailable Unavailable KEKE, MARY ELLEN PA Unavailable Unavailable KEKE, MARY ELLEN PA Unavailable Unavailable KEKE, MARY ELLEN PA Unavailable Unavailable KEKE, MARY ELLEN PA Unavailable Unavailable KEKE, MARY ELLEN PA Unavailable Unavailable KEKE, MARY ELLEN PA Unavailable Unavailable KEKE, MARY ELLEN PA Unavailable Unavailable KEKE, MARY ELLEN PA Unavailable Unavailable KEKE, MARY ELLEN PA Unavailable Unavailable KEKE, MARY ELLEN PA Unavailable Unavailable KEKE, MARY ELLEN PA Unavailable Unavailable KEKE, MARY ELLEN PA Unavailable Unavailable KEKE, MARY ELLEN PA Unavailable Unavailable KEKE, MARY ELLEN PA Unavailable Unavailable KEKE, MARY ELLEN PA Unavailable Unavailable KEKE, MARY ELLEN PA Unavailable Unavailable KEKE, MARY ELLEN PA Unavailable Unavailable KEEK, MARY ELLEN PA Unavailable Unavailable KEKE, MARY ELLEN PA Unavailable Unavailable KEKE, MARY ELLEN PA Unavailable Unavailable KEKE, MARY ELLEN PA Unavailable Unavailable KEKE, MARY ELLEN PA Unavailable Unavailable KEKE, MARY ELLEN PA Unavailable Unavailable KEKE, MARY ELLEN PA Unavailable Unavailable KEKE, MARY ELLEN PA Unavailable Unavailable KEKE, MARY ELLEN PA Unavailable Unavailable KEKE, MARY ELLEN PA Unavailable Unavailable KEKE, MARY ELLEN PA Unavailable Unavailable KEKE, MARY ELLEN PA Unavailable Unavailable KEKE, MARY ELLEN PA Unavailable Unavailable KEKE, MARY ELLEN PA Unavailable Unavailable KEKE, MARY ELLEN PA Unavailable Unavailable KEKE, MARY ELLEN PA Unavailable Unavailable KEKE, MARY ELLEN PA Unavailable Unavailable KEKE, MARY ELLEN PA Unavailable Unavailable KEKE, MARY ELLEN PA Unavailable Unavailable KEKE, MARY ELLEN PA Unavailable Unavailable Dwight SMITH MD Unavailable Unavailable Dwight SMITH MD Unavailable Unavailable Dwight SMITH MD Unavailable Unavailable Dwight SMITH MD Unavailable Unavailable Dwight SMITH MD Unavailable Unavailable Dwight SMITH MD Unavailable Unavailable Dwight SMITH MD Unavailable Unavailable Dwight SMITH MD Unavailable Unavailable Dwight SMITH MD Unavailable Unavailable Dwight SMITH MD Unavailable Unavailable Dwight SMITH MD Unavailable Unavailable Dwight SMITH MD Unavailable Unavailable Dwight SMITH MD Unavailable Unavailable Dwight SMITH MD Unavailable Unavailable Dwight SMITH MD Unavailable Unavailable Dwight SMITH MD Unavailable Unavailable Dwight SMITH MD Unavailable Unavailable Dwight SMITH MD Unavailable Unavailable Dwight SMITH MD Unavailable Unavailable Dwight SMITH MD Unavailable Unavailable Dwight SMITH MD Unavailable Unavailable Dwight SMITH MD Unavailable Unavailable Dwight SMITH MD Unavailable Unavailable Dwight SMITH MD Unavailable Unavailable Dwight SMITH MD Unavailable Unavailable Dwight SMITH MD Unavailable Unavailable Dwight SMITH MD Unavailable Unavailable Dwight SMITH MD Unavailable Unavailable Dwight SMITH MD Unavailable Unavailable Dwight SMITH MD Unavailable Unavailable Dwight SMITH MD Unavailable Unavailable Dwight SMITH MD Unavailable Unavailable Dwight SMITH MD Unavailable Unavailable ANNE Usama. MARY DO Unavailable [phone] ANNE Usama. MARY DO Unavailable [phone] ANNE Usama. MARY DO Unavailable [phone] ANNE A. MARY DO Unavailable [phone] ANNE A. MARY DO Unavailable [phone] ANNE A. MARY DO Unavailable [phone] ANNE A. MARY DO Unavailable [phone] ANNE A. MARY DO Unavailable [phone] ANNE A. MARY DO Unavailable [phone] ANNE A. MARY DO Unavailable [phone] ANNE A. MARY DO Unavailable [phone] ANNE A. MARY DO Unavailable [phone] ANNE Usama. MARY DO Unavailable [phone] ANNE Usama. MARY DO Unavailable [phone] ANNE Usama. MARY DO Unavailable [phone] ANNE Usama. MARY DO Unavailable [phone] ANNE A. MARY DO Unavailable [phone] ANNE A. MARY DO Unavailable [phone] ANNE Usama. MARY DO Unavailable [phone] ANNEUsama. MARY DO Unavailable [phone] ANNEUsama. MARY DO Unavailable [phone] Re-disclosure Warning The records that you are about to access may contain information from federally-assisted alcohol or drug abuse programs. If such information is present, then the following federally mandated warning applies: This information has been disclosed to you from records protected by federal confidentiality rules (42 CFR part 2). The federal rules prohibit you from making any further disclosure of this information unless further disclosure is expressly permitted by the written consent of the person to whom it pertains or as otherwise permitted by 42 CFR part 2. A general authorization for the release of medical or other information is NOT sufficient for this purpose. The Federal rules restrict any use of the information to criminally investigate or prosecute any alcohol or drug abuse patient.The records that you are about to access may contain highly sensitive health information, the redisclosure of which is protected by Article 27-F of the [facility] Public Health law. If you continue you may have access to information: Regarding HIV / AIDS; Provided by facilities licensed or operated by the [facility] Office of Mental Health; or Provided by the [facility] Office for People With Developmental Disabilities. If such information is present, then the following [facility] mandated warning applies: This information has been disclosed to you from confidential records which are protected by state law. State law prohibits you from making any further disclosure of this information without the specific written consent of the person to whom it pertains, or as otherwise permitted by law. Any unauthorized further disclosure in violation of state law may result in a fine or shelter sentence or both. A general authorization for the release of medical or other information is NOT sufficient authorization for further disc losure. Allergies and Adverse Reactions Type Description Substance Reaction Status Data Source(s ) Allergy to substance No Known Allergies No known allergies (situation ) KAN (Yakov Bahena MD [facility]) aspirin Aspirin Aspirin acute GI blood l oss anemia when combined with Plavix and ELiquis Active eCW1 ([facility]) Drug allergy Hydrochlorothiazide Hydrochlorothiazide low sodium Acti ve eCW1 (Formerly [facility]) Family History Family Member Name Family Member Gender Family Member Status Date o f Status Description Data Source(s) Unknown Unknown Problem MEDENT ([facility], [facility]) father Unknown Female Problem MEDENT ([facility]) Unknown Female Problem MEDENT ([facility]) Encounters Encounter Providers Location Date Indications Data Source(s ) [facility] [place] [address] [address] 05/11/2020 12:00:00 AM EST eCW1 ([facility]) [place] [address] [address] 05/10/2020 12:00:00 AM EST eCW1 ([facility]) Outpatient<td ID="encounterTypeDescripti onID0">1 Year Follow-Up</td><td>Mary Moncada DO</td><td>Yakov Church MD [facility]</td><td>02/15/2020</td><td>8:53AM</td><td>10:09AM</td><td><content ID="encounterDiagnosisID0-0">Dry Eye Syndrome Both Eyes</content>, <content ID="encounterDiagnosisID0-1">Vitreous Disorders Degeneration</content>, <content ID="encounterDiagnosisID0-2">Cataract Senile Cortical</content>, <content ID="encounterDiagnosisID0-3">Pseudophakia</content></td> Attender: MARY Stroud MD [facility] 02/15/2020 08:53:00 AM EDT - 02/15/2020 10:09:00 AM EDT PseudophakiaCataract Senile CorticalVitr eous Disorders DegenerationDry Eye Syndrome Both Eyes KAN (Yakov Bahena MD [facility]) Pseudophakia Cataract Senile Cortical Vitreous Disorders Degeneration Dry Eye Syndrome Both Eyes [place] [address] [address] 02/14/2020 12:00:00 AM EDT eCW1 ([facility]) [facility] [address] [address] 01/19/2020 12:00:00 AM EDT eCW1 ([facility]) Outpatient Attender: Oumou JERNIGAN Main Office 01/09/2020 11:55:0 0 AM EDT MEDENT ([facility]) Outpatient Attender: MARY ELLEN faulkner 12/14/2019 04:05:00 PM EDT [facility] Outpatient Attender: KRISTEN Gooden/Jagdish/Ang el/Reindl 12/12/2019 02:50:00 PM EDT MEDENT ([facility]) Outpatient Attender: MARY ELLEN faulkner 11/30/2019 08:40:00 AM EDT MEDENT ([facility] [address] [address] 09/22/2019 12:00:00 AM EDT eCW1 ([facility]) [facility] [address] [address] 09/20/2019 12:00:00 AM EDT eCW1 ([facility]) Outpatient Attender: KRISTEN Gooden/Jagdish/Ang el/Reindl 08/10/2019 10:30:00 AM EDT MEDENT ([facility]) Outpatient Referrer: WAYNE FERRELL NP 06/17/2019 02:30: 00 PM EST [facility] Outpatient Attender: Oumou JERNIGAN Main Office 06/16/2019 01:00:0 0 PM EST MEDENT ([facility]) [facility] [address] [address] 05/26/2019 12:00:00 AM EST eCW1 ([facility]) Outpatient Attender: JAVIER Gooden/Jagdish/Kan/Chad [place]ledo 05/23/2019 08:45:00 AM EST MEDENT ([facility]) Outpatient Attender: KRISTEN Gooden/Jagdish/Ang el/Reindl 05/12/2019 01:10:00 PM EST MEDENT ([facility] [place] [address] [address] 05/11/2019 12:00:00 AM EST eCW1 ([facility]) Medications Medication Brand Name Start Date Product Form Dose Route Admi nistrative Instructions Pharmacy Instructions Status Indications Reaction Description Data Source(s) 5-325 mg 06/12/2020 12:00:00 AM EST tablet 21 TAKE ONE TABLET BY MOUTH THREE TIMES A DAY HOLD OFF IF HAVING MILD PAIN MAXIMUM DAILY DOSE = THREE TABLETS TAKE ONE TABLET BY MOUTH THREE TIMES A DAY HOLD OFF IF HAVING MILD PAIN MAXIMUM DAILY DOSE = THREE TABLETS SOLD: 06/12/2020 [facility] pantoprazole 40 MG Delayed Release Oral Tablet Pantoprazole Sodium 01/21/2020 12:00:00 AM EDT active M EDENT ([facility], ) Sucralfate 100 MG/ML Oral Suspension Sucralfate 01/21/2020 12:00:00 A M EDT ORAL completed MEDENT ([facility], ) pantoprazole 40 MG Delayed Release Oral Tablet PANTOPRAZOLE SODIUM 01/21/2020 12:00:00 AM EDT tablet,delayed release (DR/EC) 60 T GONZALO 1 TABLET EVERY MORNING 1/2 HOUR PRIOR TO BREAKFAST AND 1 TABLET PRIOR TO BEDTIME (TOTAL COURSE 3 MONTHS ) TAKE 1 TABLET EVERY MORNING 1/2 HOUR MEDARDO OR TO BREAKFAST AND 1 TABLET PRIOR TO BEDTIME (TOTAL COURSE 3 MONTHS ) SOLD: 02/26/2020 [facility] pantoprazole 40 MG Delayed Release Oral Tablet PANTOPRAZOLE SODIUM 01/21/2020 12:00:00 AM EDT tablet,delayed release (DR/EC) 60 T GONZALO 1 TABLET EVERY MORNING 1/2 HOUR PRIOR TO BREAKFAST AND 1 TABLET PRIOR TO BEDTIME (TOTAL COURSE 3 MONTHS ) TAKE 1 TABLET EVERY MORNING 1/2 HOUR MEDARDO OR TO BREAKFAST AND 1 TABLET PRIOR TO BEDTIME (TOTAL COURSE 3 MONTHS ) SOLD: 01/21/2020 [facility] 100 mg/mL 01/21/2020 12:00:00 AM EDT suspension 400 TAKE 10 MLS BY MOUTH AFTER MEALS THREE TIMES A DAY TAKE 10 MLS BY MOUTH AFTER MEALS THREE T IMES A DAY SOLD: 01/21/2020 [facility] clopidogrel 75 MG Oral Tablet [Plavix] Plavix 01/09/2020 12:00:00 AM EDT ORAL active MEDENT ([facility]) Multi Vitamin 01/08/2020 12:00:00 AM EDT ORAL acti ve MEDENT ([facility]) Ascorbic Acid 500 MG Extended Release Oral Capsule Vitamin C ER 01/08/2020 12:00:00 AM EDT ORAL active M EDENT ([facility]) 5 mg 01/05/2020 12:00:00 AM EDT tablet,delayed release (DR/EC) 4 4 BY MOUTH TOGETHER BOWEL PREPARATION INSTRUCTIONS 4 BY MOUTH TOGETHER BOWEL PREPARATION INSTRUCTIONS SOLD: 01/08/2020 [facility] POLYETHYLENE GLYCOL 3350 105 MG/ML / Pot assium Chloride 0.74604 MEQ/ML / Sodium Bicarbonate 0.017 MEQ/ML / Sodium Chloride 0.0479 MEQ/ML Oral Solution [GaviLyte-N] Gavilyte-N With Flavor Pack 01/05/2020 12:00:00 AM EDT completed MEDENT ([facility], ) Bisacodyl 5 MG Delayed Release Oral Tablet [Dulcolax] Dulcol ax 01/05/2020 12:00:00 AM EDT completed MEDENT ([facility], ) Clenpiq Clenpiq 01/05/2020 12:00:00 AM EDT complet ed MEDENT ([facility], ) 10 mg-3.5 gram -12 gram/160 mL 01/05/2020 12:00:00 AM EDT so lution 320 DIRECTED START DAY BEFORE PROCEDURE DIRECTED START DAY BEFORE PROCEDURE SOLD: 01/08/2020 [facility] 75 mg 01/04/2020 12:00:00 AM EDT tablet 30 TAKE ONE TABLET BY MOUTH EVERY DAY TAKE ONE TABLET BY MOUTH EVERY DAY SOLD: 02/14/2020 [facility] 75 mg 01/04/2020 12:00:00 AM EDT tablet 30 TAKE ONE TABLET BY MOUTH EVERY DAY TAKE ONE TABLET BY MOUTH EVERY DAY SOLD: 01/04/2020 [facility] 875-125 mg 12/14/2019 12:00:00 AM EDT tablet 20 TAKE 1 TABLET BY MOUTH TWICE A DAY FOR 10 DAYS TAKE 1 TABLET BY MOUTH TWICE A DAY FOR 10 DAYS SOLD: 12/14/2019 [facility] Amoxicillin 875 MG / Clavulanate 125 MG Oral Tablet Am oxicillin/Clavulanate Potassium 12/14/2019 12:00:00 AM EDT ORAL active [facility] ([facility] 50 mg 11/20/2019 12:00:00 AM EDT tablet 60 TAKE ONE TABLET BY MOUTH TWICE A DAY TAKE ONE TABLET BY MOUTH TWICE A DAY SOLD: 11/20/2019 [facility] ferrous sulfate 75 MG/ML Oral Solution Ferrous Sulfate 0 06/15/2019 12:00:00 AM EST active MED[facility] ([facility]) Digoxin 0.25 MG Oral Tablet Digoxin 06/15/2019 12:00:00 AM EST ORAL active MEDENT ([facility]) pantoprazole 20 MG Delayed Release Oral Tablet Pantoprazole Sodium 06/15/2019 12:00:00 AM EST ORAL active M EDENT ([facility]) pantoprazole 20 MG Delayed Release Oral Tablet Pantoprazole Sodium 06/03/2019 12:00:00 AM EST ORAL active M EDENT ([facility]) Neomycin Sulfate 500 MG Oral Tablet Neomycin Sulfate 04/12/2019 12:00:00 AM EST ORAL completed MEDENT ([facility]) Metronidazole 500 MG Oral Tablet [Flagyl] Flagyl 04/12/2019 12:00 :00 AM EST ORAL completed MEDENT ([facility]) Ceftriaxone 100 MG/ML Injectable Solution Ceftriaxone Sodium 04/06/2019 12:00:00 AM EST completed MEDENT ([facility]) Ampicillin Sodium Ampicillin Sodium 04/06/2019 12:00:00 AM EST completed [facility]ENT ([facility]) Digoxin 0.125 MG Oral Tablet Digoxin 04/06/2019 12:00:00 AM EST ORAL completed MEDENT ([facility]) Polysaccharide iron complex 150 MG Oral Capsule [Ferrex-150] Ferrex 150 04/06/2019 12:00:00 AM EST ORAL completed MEDENT ([facility]) pantoprazole 40 MG Delayed Release Oral Tablet Pantoprazole Sodium 04/06/2019 12:00:00 AM EST ORAL completed MEDENT ([facility]) besifloxacin 6 MG/ML Ophthalmic Suspensi on [Besivance] Besivance 0.6% Ophthalmic Suspension Besivance 0.6% Ophthalmic Suspension 12/07/2018 12:00:00 AM EDT aborted besifloxacin 6 MG/ML Ophthalmic Suspension [Besivance] KAN (Yakov Bahena MD [facility]) BromSite 0.075% Ophthalmic Solution BromSite 0.075% Ophthalm ic Solution 12/07/2018 12:00:00 AM EDT aborted bromfenac 0.75 MG/ML Ophthalmic Solution [Bromsite] KAN (Yakov Bahena MD [facility]) prednisolone acetate 10 MG/ML Ophthalmic Suspension [Pred Forte] Pred Forte 1% Ophthalmic Suspension Pred Forte 1% Ophthalmic Suspension 12/07/2018 12:00:0 0 AM EDT aborted predniso lone acetate 10 MG/ML Ophthalmic Suspension [Pred Forte] KAN (Yakov Bahena MD [facility]) Insurance Providers Payer name Policy type / Coverage type Policy ID Covered green party ID Covered green party's relationship to funes Policy Funes Plan Information MEDICARE [id number] SP [id number] R [facility] [id number] [place] [id number] R [facility] [id number] [place] [id number] [employer] [place] Other 0 Self 0 Medicare Part B [facility] Other 0 Se lf 0 UMR [facility] [id number] [place] [id number] MEDICARE [id number] SP [id number] T25 R O [id number] S [id number] MEDICARE C [id number] S [id number] T25 R [facility] [id number] [place] [id number] [employer] MEDICARE DIVISION [id number] S [id number] [place]IC[place] [id number] S [id number] R [id number] SPO [id number] [employer] MEDICARE DIVISION [id number] S [id number] [place] [id number] S [id number] ANSI-Medicare Part B [id number] ANSI-Commercial [id number] ANSI-Commercial [id number] [employer] Ppo Medigap Part B [id number] Family Dependent [id number] Umr Medigap Part B [id number] Family Dependent [id number] Medicare (Part B) Medicare Primary [id number] Self [id number] Medicare (Part B) Medicare Primary [id number] Self [id number] [employer] Ppo Medigap Part B [id number] Family Dependent [id number] Umr Medigap Part B [id number] Family Dependent [id number] Medicare (Part B) Medicare Primary [id number] Self [id number] Medicare (Part B) Medicare Primary [id number] Self [id number] ANSI-Commercial [id number] ANSI-Commercial [id number] ANSI-Medicare Part B [id number] ANSI-Commercial [id number] ANSI-Medicare Part B [id number] ANSI-Commercial [id number] ANSI-Commercial [id number] ANSI-Medicare Part B [id number] ANSI-Commercial [id number] ANSI-Medicare Part B [id number] ANSI-Commercial [id number] ANSI-Commercial [id number] MEDICARE [id number] SP [id number] A MEDICARE [id number] Shelia [id number] T25 [facility] [id number] Spo [id number] MEDICARE [id number] Shelia [id number] [facility] [id number] Family Dependent [id number] Umr Commercial [id number] Family Dependent [id number] Medicare Part B Medicare Primary [id number] Self [id number] ANSI-Medicare Part B [id number] ANSI-Commercial [id number] ANSI-Commercial [id number] MEDICARE PI PI [employer] PI PI MEDICARE [id number] SP [id number] A ANSI-Medicare Part B [id number] ANSI-Commercial [id number] ANSI-Commercial [id number] MEDICARE [id number] A [employer] UNAVAILABLE UNAVAILA BLE [employer] Ppo Medigap Part B [id number] Family Dependent [id number] Umr Medigap Part B [id number] Family Dependent [id number] Medicare (Part B) Medicare Primary [id number] Self [id number] Medicare (Part B) Medicare Primary [id number] Self [id number] ANSI-Medicare Part B [id number] ANSI-Commercial [id number] ANSI-Commercial [id number] UMR O [id number] S [id number] MEDICARE C [id number] S [id number] A POMCO [id number] HU2 [id number] POMCO PPO O [id number] S [id number] POMCO [id number] HU2 [id number] POMCO [id number] Spo [id number] MEDICARE [id number] Shelia [id number] A [place] PHCS Ppo Medigap Part B [id number] Family Dependent [id number] Medicare (Part B) Medicare Primary [id number] Self [id number] [place] Medigap Part B [id number] Family Dependent [id number] Medicare [place] Gov't Servi Medicare Primary [id number] Self [id number] [place] Medigap Part B [id number] Family Dependent [id number] Medicare [place] Gov't Servi Medicare Primary [id number] Self [id number] [place] Commercial Self POMCO [id number] WI2 [id number] [place] Ppo Moise/Valdo PHCS Commercial Family Depend ent MEDICARE [id number] SP [id number] A Problems, Conditions, and Diagnoses Code Display Name Description Problem Type Effective Dates Data Source(s) V43.1 Pseudophakia Pseudophakia Problem 02/15/2020 12:00:00 A M EDT KAN (Yakov Bahena MD [facility]) 366.15 Cataract Senile Cortical Cataract Senile Cortical Prob rachel 02/15/2020 12:00:00 AM EDT KAN (Yakov Bahena MD [facility]) D50.0 [id number] Iron deficiency anemia due to chronic blo od loss Problem 05/26/2019 12:00:00 AM EST eCW1 ([facility]ly [facility]) D50.0 [id number] Iron deficiency anemia due to chronic blo od loss Problem 05/26/2019 12:00:00 AM EST eCW1 ([facility]) 366.18 Cataract Senile Hypermature Cataract Senile Hypermatur e Problem 11/01/2018 12:00:00 AM EDT - 02/15/2020 12:00:00 AM EDT KAN (Yakov Bahena MD [facility]) Surgeries/Procedures Procedure Description Date Indications Data Source(s) Extracapsular extraction of lens (procedure) History o f extracapsular cataract extraction PCIOL OS with use of Femtosecond laser 12/13/[address] Moncada 02/15/2020 12:00:00 AM EDT KAN (Yakov barnes MD [facility]) Surgical / procedural history L carotid endarterectomy 2015, R carotid endarterectomy 2017, Stents iliac 2009 2009, Pace Maker 2011, R+L femoral artery bypass 2011, Blood transfusion, Colonoscopy & Endoscopy 12/2019 Surgical / procedural history L carotid endarterectomy 2016, R carotid endarterectomy 2018, Stents iliac 2009 2009, Pace Maker 2011, R+L femoral artery bypass 2011, Blood transfusion, Colonoscopy & Endoscopy 12/201902/15/2020 12:00:00 AM EDT KAN (Yakov Bahena MD [facility]) Intermediate Eye Exam Established Patient Intermediate Eye Exam Established Patient 02/15/2020 12:00:00 AM EDT KAN (Eliot Bahena MD [facility]) Endoscopy Upper GI Biopsy 01/20/2020 12:00:00 AM EDT MEDENT ([facility], ) Colonoscopy W/ Poly 01/20/2020 12:00:00 AM EDT [facility] ([facility]) MYOCARDIAL SPECT MULTIPLE STUDIES 01/10/2020 12:00:00 AM EDT MED[facility] ([facility]) CV STRS TST XERS&/OR RX CONT ECG PHYS SI&R 01/10/2020 12:00:00 AM EDT [facility] ([facility]) ECG ROUTINE ECG W/LEAST 12 LDS W/I&R 01/09/2020 12:00: 00 AM EDT [facility] ([facility]) RMVL IMPACTED CERUMEN SPX 1/BOTH EARS 11/30/2019 12:00 :00 AM EDT [facility] ([facility]) INTERROGATION EVAL IN PERSON 1/DUAL/SKEIN [employer] LEAD PM 2019 12:00:00 AM EDT MED[facility] ([facility]) Office Visit, Est Pt., Level 4 PC 05/26/2019 12:00:00 AM EST eCW1 ([facility]ly [facility]) Office Visit, Est Pt., Level 2 FC 05/26/2019 12:00:00 AM EST eCW1 ([facility]) Office Visit, Est Pt., Level 3 PC 05/11/2019 12:00:00 AM EST eCW1 ([facility]) US URINE CAPACITY MEASURE 05/11/2019 12:00:00 AM EST eCW1 ([facility]) Results ID Date Data Source [id number] 01/20/2020 10:56:00 AM EDT [facility] ([facility], ) Name Value Range Interpretation Code Description Data [facility] rce(s) Supporting Document(s) Surgical pathology study Laboratory test result [facility] ([facility]) FINAL DIAGNOSIS A-Gastric ulcer,biopsy: Gastric mucosa with ulceration, fibrinous debris, mild inflammation, reactive and reparative changes. Negative for malignancy. No H.pylori is identified. B--Rectosigmoid polyp, polypectomy: Tubular adenoma. 01/23/2020 - 1058 CLINICAL DIAGNOSIS Iron deficiency anemia 01/20/2020 - 1657 GROSS DIAGNOSIS A - Received in formalin labeled "biopsy gastric ulcer, R/O malignancy" consists of a fragment of tissue, 0.3 x 0.2 x0.1 cm in aggregate. All in one. B - Received in formalin labeled "rectosigmoid polyp" consists of a fragment of tissue, 0.2 x 0.2 x 0.1 cm. All in one. -OA 01/20/2020 - 1657 Signed RUSTY DAVIS MD 01/23/20201058 ID Date Data Source [id number] 12/16/2019 02:08:00 PM EDT [facility] ([facility]) Name Value Range Interpretation Code Description Data Lisa rce(s) Supporting Document(s) Creatinine For GFR 1.22 mg/dL 0.70-1.30 Normal (applies to non -numeric results) [facility] ([facility], ) Glomerular Filtration Rate Laboratory test result Normal (applies to non- numeric results) [facility] ([facility]) <content>Units are mL/min/1.73 m2</content>
<content></content>
<content>Chronic Kidney Disease Staging per NKF:</content>
<content></content>
<content>Stage I & II GFR >=60 Normal to Mildly Decreased</content>
<content>Stage III GFR 30-59 Moderately Decreased</content>
<content>Stage IV GFR 15-29 Severely Decreased</content>
<content>Stage V GFR <15 Very Little GFR Left</content>
<content>ESRD GFR <15 on [employer]INE[employer]</content>
<content></content> ID Date Data Source [id number] 12/16/2019 02:08:00 PM EDT [facility] ([facility]) Name Value Range Interpretation Code Description Data Lisa rce(s) Supporting Document(s) Urea nitrogen [Mass/volume] in Serum or Plasma 7 mg/dL 7 -18 Normal (applies to non-numeric results) [facility] ([facility]) ID Date Data Source [id number] 12/16/2019 02:08:00 PM EDT [facility] ([facility]) Name Value Range Interpretation Code Description Data Lisa rce(s) Supporting Document(s) Vitamin B12 Level 606 pg/mL Normal (applies to non-numeri c results) [facility] ([facility]) VITAMIN B12 NORMAL RANGE NORMAL 247 - 911 PG/ML INDETERMINATE 211 - 246 PG/ML DEFICIENT LESS THAN 211 PG/ML Folate 19.9 ng/mL Normal (applies to non-numeric resul ts) [facility] ([facility]) FOLATE NORMAL RANGE NORMAL GREATER THAN 5.4 NG/ML INDETERMINATE 3.4-5.4 NG/ML DEFICIENT LESS THAN 3.4 NG/ML ID Date Data Source [id number] 12/16/2019 02:08:00 PM EDT [facility] ([facility]) Name Value Range Interpretation Code Description Data Lisa rce(s) Supporting Document(s) Iron (Fe) 291 ug/dL 65-175 Above high normal [facility] ([facility]) Total Iron Binding Capacity 410 ug/dL 250-450 Norm al (applies to non-numeric results) [facility] ([facility]) Percent Saturation 71.0 % 19.7-50.0 Above high normal [facility] ([facility]) ID Date Data Source [id number] 11/11/2019 09:00:00 AM EDT [facility]) Name Value Range Interpretation Code Description Data Lisa rce(s) Supporting Document(s) Hemoglobin.gastrointestinal [Presence] in Stool Laboratory test result Normal (applies to non-numeric results) [facility] ([facility]) OCCULT BLOOD 1 NEGATIVE ID Date Data Source [id number] 06/02/2019 08:36:00 AM EST [facility] ([facility]) Name Value Range Interpretation Code Description Data Lisa rce(s) Supporting Document(s) White Blood Count 7.6 4.0-10.0 [facility] ([facility]) Red Blood Count 4.04 4.30-6.10 [facility] ([facility]) Platelets 253 150-450 [facility] Hematocrit 36.1 [facility] ([facility]) Hemoglobin 11.2 [facility] ([facility]) Procedure Social History Code Duration Value Status Description Data Source(s ) Smoking 02/15/2020 10:22:14 AM EDT Smokes tobacco daily (findi wilma) completed Smokes tobacco daily (finding) KAN (Yakov Bahena MD [facility]) Smoking 01/09/2020 12:00:00 AM EDT Patient is a former smoker completed Patient is a former smoker [facility] ([facility]) Smoking 05/26/2019 12:00:00 AM EST Current Smoker completed Curre nt Smoker eCW1 ([facility]ly [facility]) Smoking 05/26/2019 12:00:00 AM EST Current Smoker completed Curre nt Smoker eCW1 ([facility]) Vital Signs ID Date Data Source UNK Name Value Range Interpretation Code Description Data Source(s) Body weight 55.793 kg 55.793 kg [facility] ([facility]) [place] body weight 142 [lb_av] 142 [lb_av] [facility] Body mass index (BMI) [Ratio] 19.9 kg/m2 19.9 k g/m2 [facility] ([facility]) Body weight 123.00 [lb_av] 123.00 [lb_av] [facility] Body height 66 [in_i] 66 [in_i] [facility] ([facility]) 5'6" Diastolic blood pressure 88 mm[Hg] 88 mm[Hg] [facility] ([facility]) Systolic blood pressure 162 mm[Hg] 162 mm[Hg] [facility] ([facility]) Body mass index (BMI) [Ratio] 19.2 kg/m2 19.2 k g/m2 [facility] ([facility]) Body height 66 [in_i] 66 [in_i] [facility] 5'6" Body weight 119.00 [lb_av] 119.00 [lb_av] MEDEN T ([facility]) Body mass index (BMI) [Ratio] 21.3 kg/m2 21.3 k g/m2 [facility] ([facility], [facility]) Body height 65 [in_i] 65 [in_i] MED[facility] ([facility], [facility]) 5'5" Body weight 128.00 [lb_av] 128.00 [lb_av] MEDEN T ([facility], [facility]) Body temperature 98.0 [degF] 98.0 [degF] [facility] ([facility]) Oxygen saturation in Arterial blood by Pulse oximetry 98 % 98 % [facility] ([facility], [facility]) Heart rate 72 /min 72 /min [facility] ([facility] [place], [facility]) Diastolic blood pressure 75 mm[Hg] 75 mm[Hg] [facility] ([facility], [facility]) Systolic blood pressure 211 mm[Hg] 211 mm[Hg] [facility] ([facility], [facility]) Body weight 54.886 kg 54.886 kg [facility] ([facility]) [place] body weight 142 [lb_av] 142 [lb_av] [facility] Body mass index (BMI) [Ratio] 19.5 kg/m2 19.5 k g/m2 [facility] ([facility]) Body weight 121.00 [lb_av] 121.00 [lb_av] [facility] Body height 66 [in_i] 66 [in_i] [facility] ([facility]) 5'6" Diastolic blood pressure 72 mm[Hg] 72 mm[Hg] [facility] ([facility]) Systolic blood pressure 158 mm[Hg] 158 mm[Hg] [facility] Body mass index (BMI) [Ratio] 21.3 kg/m2 21.3 k g/m2 [facility] ([facility]) Body height 65 [in_i] 65 [in_i] [facility] ([facility]) 5'5" Body weight 128.00 [lb_av] 128.00 [lb_av] MEDEN T ([facility]) Body temperature 97.7 [degF] 97.7 [degF] [facility] ([facility]) Oxygen saturation in Arterial blood by Pulse oximetry 98 % 98 % [facility] ([facility]) Heart rate 65 /min 65 /min [facility] ([facility]) Diastolic blood pressure 70 mm[Hg] 70 mm[Hg] [facility] ([facility]) Systolic blood pressure 138 mm[Hg] 138 mm[Hg] [facility] ([facility]) Body weight 59.422 kg 59.422 kg [facility] ([facility]) Body mass index (BMI) [Ratio] 21.1 kg/m2 21.1 k g/m2 [facility] ([facility]) Body weight 131.00 [lb_av] 131.00 [lb_av] [facility] Body height 66 [in_i] 66 [in_i] [facility] ([facility]) 5'6" Diastolic blood pressure 72 mm[Hg] 72 mm[Hg] [facility] ([facility]) Systolic blood pressure 182 mm[Hg] 182 mm[Hg] [facility] ([facility]) Diastolic blood pressure--sitting 62 mm[Hg] 62 mm[Hg] [facility] adult cuff, Ra Systolic blood pressure--sitting 140 mm[Hg] 140 mm[Hg] [facility] ([facility]) adult cuff, Ra Heart rate 80 /min 80 /min [facility] ([facility]) Body mass index (BMI) [Ratio] 20.8 kg/m2 20.8 k g/m2 [facility] ([facility]) Body height 66 [in_i] 66 [in_i] [facility] ([facility]) 5'6" Body weight 129.00 [lb_av] 129.00 [lb_av] MEDEN T ([facility]) Diastolic blood pressure 78 mm[Hg] 78 mm[Hg] eCW1 ([facility]) Systolic blood pressure 138 mm[Hg] 138 mm[Hg] e CW1 ([facility]) Body temperature 98.3 [degF] 98.3 [degF] eCW1 ( [facility]) Respiratory rate 18 /min 18 /min eCW1 ([facility]) Heart rate 87 /min 87 /min eCW1 ([facility]) Body mass index (BMI) [Ratio] 21.14 kg/m2 21.14 kg/m2 eCW1 ([facility]) Body height 66 [in_us] 66 [in_us] eCW1 ([facility]) Body weight Measured 131 [lb_av] 131 [lb_av] eC W1 ([facility]) Body weight 58.061 kg 58.061 kg [facility] ([facility], ) Body mass index (BMI) [Ratio] 20.7 kg/m2 20.7 k g/m2 [facility] ([facility], ) Body weight 128.00 [lb_av] 128.00 [lb_av] MEDEN T ([facility], ) Body height 66 [in_i] 66 [in_i] [facility] ([facility], ) 5'6" Oxygen saturation in Arterial blood by Pulse oximetry 98 % 98 % [facility] ([facility], ) Heart rate 81 /min 81 /min MED[facility] ([facility], ) Diastolic blood pressure 76 mm[Hg] 76 mm[Hg] [facility] ([facility], ) Systolic blood pressure 132 mm[Hg] 132 mm[Hg] M EDENT ([facility], ) Body weight 57.607 kg 57.607 kg [facility] ([facility], ) Body mass index (BMI) [Ratio] 20.5 kg/m2 20.5 k g/m2 [facility] ([facility]) Body weight 127.00 [lb_av] 127.00 [lb_av] MEDEN T ([facility]) Body height 66 [in_i] 66 [in_i] [facility] ([facility]) 5'6" Diastolic blood pressure 72 mm[Hg] 72 mm[Hg] [facility] ([facility]) Systolic blood pressure 148 mm[Hg] 148 mm[Hg] M EDENT ([facility]) Diastolic blood pressure 74 mm[Hg] 74 mm[Hg] eCW1 ([facility]) Systolic blood pressure 147 mm[Hg] 147 mm[Hg] e CW1 ([facility]) Body temperature 98.4 [degF] 98.4 [degF] eCW1 ( [facility]) Respiratory rate 18 /min 18 /min eCW1 ([facility]) Heart rate 123 /min 123 /min eCW1 ([facility]) Body mass index (BMI) [Ratio] 20.33 kg/m2 20.33 kg/m2 eCW1 ([facility]) Body height 66 [in_us] 66 [in_us] eCW1 ([facility]) Body weight Measured 126 [lb_av] 126 [lb_av] eC W1 ([facility]) Patient Treatment Plan of Care Planned Activity Planned Date Details Description Data Source (s) besifloxacin 6 MG/ML Ophthalmic Suspension [Besivance] 12/07/2018 12:00:00 AM EDT KAN (Yakov Bahena MD [facility]) BromSite 0.075% Ophthalmic Solution 12/07/2018 12:00:00 AM EDT KAN (Yakov Bahena MD [facility]) prednisolone acetate 10 MG/ML Ophthalmic Suspension [P red Forte] 12/07/2018 12:00:00 AM EDT KAN (Yakov Bahena MD [facility])
--- NOTE | 2020-07-06 20:48 | REPVR ---
PROCEDURE INFORMATION: Exam: XR Chest, 1 View Exam date and time: 07/06/2020 8:13 PM Age: 69 years old Clinical indication: Chest pain; Additional info: HTN TECHNIQUE: Imaging protocol: XR of the chest Views: 1 view. COMPARISON: CT Chest, 1 view 03/18/2019 2:08 AM FINDINGS: Tubes, catheters and devices: Pacemaker in expected location. Lungs: Unremarkable. No consolidation. Pleural spaces: Unremarkable. No pleural effusion. No pneumothorax. Heart/Mediastinum: Unremarkable. No cardiomegaly. Bones/joints: Unremarkable. IMPRESSION: No acute findings. Electronically signed by: Osiel Ugarte On 07/06/2020 20:48:29 PM
[2020-07-06 20:51] LABS: BLOOD UREA NITROGEN 10 MG/DL (7-18); CALCIUM LEVEL 8.6 MG/DL (8.8-10.2); CARBON DIOXIDE LEVEL 26 MEQ/L (21-32); CHLORIDE LEVEL 102 MEQ/L (98-107); CK-MB VALUE MASS 2.6 NG/ML (<3.6); CPK CREATINE PHOSPHOKINASE 132 U/L (39-308); CREATININE FOR GFR 1.21 MG/DL (0.70-1.30); GLOMERULAR FILTRATION RATE > 60.0 (>49); GLUCOSE, FASTING 94 MG/DL (70-100); MB/CK RELATIVE INDEX 1.97 (< OR =4); POTASSIUM SERUM 3.8 MEQ/L (3.5-5.1); SODIUM LEVEL 140 MEQ/L (136-145); TROPONIN I < 0.02 NG/ML (< 0.10)
[2020-07-06] MEDS ORDERED: ATORVASTATIN 20 MG TAB PO SCH (21:00)
[2020-07-06] MEDS ORDERED: hydrALAZINE 20MG/ML 1ML VIAL (J0360 PER 20MG) IV STA ×2 (21:02→22:26)
--- NOTE | 2020-07-06 21:32 | ECGEPIP ---
[facility] - ED Test Date: 2020-07-06 Pat Name: TON MATTSON Department: Room: - Gender: Male Security Team Lead: MYRON : 1950 Requested By: KAYLA Horta Order Number: [id number] Reading MD: Ameena Martinez Measurements Intervals [place] Rate: 57 P: MO: 0 QRS: -14 QRSD: 114 T: -84 QT: 418 QTc: 407 Interpretive Statements ATRIAL FIBRILLATION WITH SLOW VENTRICULAR RESPONSE MODERATE INTRAVENTRICULAR CONDUCTION DELAY MODERATE VOLTAGE CRITERIA FOR LVH, CONSIDER NORMAL VARIANT ST DEVIATION AND MODERATE T-WAVE ABNORMALITY, CONSIDER INFERIOR ISCHEMIA CLINCIAL CORRELATION COMPARED 04/05/19 Electronically Signed on 07-06-2020 21:32:30 EST by Aemena Martinez
[2020-07-06] MEDS ORDERED: AMLO1TAB24 PO (21:42)
[2020-07-06 22:36] LABS: RSV AMPLIFICATION NEGATIVE (NEGATIVE)
[2020-07-06] MEDS ORDERED: ONDANSETRON 4 MG TAB PO PRN (23:15)
[2020-07-06] MEDS ORDERED: ACETAMINOPHEN TAB 650MG DOSE (2X325MG) PO PRN (23:15)
--- NOTE | 2020-07-06 23:43 | HPEPDOC ---
General Date of Admission Jul 06, 2020 at 18:14 Date of Service: Jul 06, 2020 Chief Complaint The patient is a 69-year-old male admitted with a reason for visit of Hypertensive Urgency,Laceration Of Lower Extremity. Source: Patient, Old records Exam Limitations: Other (Patient denies/cannot recall majority of his past medical history/passt surgical history) Timing/Duration: This afternoon Severity: Mild, Moderate Associated Symptoms: Cough, Mechanical fall History of Present Illness Patient is a 69 yo male with PMH of a. fib and HTN presented to [facility] after reported mechanical fall this afternoon after he slipped on ice while carrying wood, and patient was found to have elevated blood pressure in the ER. He reported the fall happened while he was carrying wood outdoor and he slipped on ice, reported falling sideways on his left side. He reported that he hit his left side frontal region of the head and had a right sided anterior tibial region laceration, reported to be about 3cm long vertical lesion which was bleeding prior suturing. He denies any pain in his body besides pain in right anterior tibial region where the laceration was at and chronic abdominal pain which is no change from usual. Patient appears anxious and cannot give too much details about his chronic abdominal pain; reported that he had seen a provider outpatient and had work-ups done without significant findings. Reported chronic bilateral abdominal pain which is intermittent, no change from usual; regular bowel movement without diarrhea/constipation/blood in stool. Reported chronic bilateral loss of sensation in bilateral lower extremity from knee down which is no change from usual, denies tingling; reported localized numbness in right anterior tibial region where the laceration was at. Patient reported that he can move his bilateral upper and lower extremities. He reported that he was able to stand up on his own after about 5 min. denies any loss of consciousness; fall was unwitnessed. He reported that he did not miss any medications and there was no recent medication changes. He reported he did not have dizziness prior to the fall but have some dizziness after the fall. He denies headache, any change of vision/blurry vision/dipopia, chest pain, palpitation, or dyspnea. Home Medications Scheduled Amlodipine Besylate (Amlodipine Besylate) 5 Mg Tablet, 5 MG PO DAILY, (Reported) Apixaban (Eliquis) 5 Mg Tablet, 5 MG PO BID, (Reported) Atenolol (Atenolol) 50 Mg Tab, 50 MG PO BID, (Reported) Atorvastatin Calcium (Lipitor) 80 Mg Tab, 80 MG PO QHS, (Reported) Clopidogrel Bisulfate (Plavix) 75 Mg Tablet, 75 MG PO DAILY, (Reported) Digoxin (Digoxin) 250 Mcg Tablet, 250 MCG PO DAILY, (Reported) Duloxetine Hcl (Cymbalta) 30 Mg Capsule.dr, 30 MG PO BID, (Reported) Gabapentin (Neurontin) 800 Mg Tab, 800 MG PO TID, (Reported) Levetiracetam (Keppra) 1,000 Mg Tab, 1,000 MG PO BID, (Reported) Magnesium Oxide (Magnesium Oxide) 400 Mg Tablet, 400 MG PO DAILY, (Reported) Multivitamins (Thera M Plus Tablet) 1 Each Tablet, 1 TAB PO DAILY, (Reported) Scheduled PRN Acetaminophen (Tylenol Extra Strength) 500 Mg Tablet, 1,000 MG PO Q8H PRN for PAIN, (Reported) Allergies Coded Allergies: hydrochlorothiazide (Unverified Allergy, Unknown, Unknown, 07/06/20) Past Medical History Medical History Hypertension Hyperlipidemia COPD Seizure History of ETOH abuse Nicotine dependence Atrial fibrillation PAD s/p right iliac artery stent Chronic hyponatremia L4 nerve root impingement LVEF = 53% , Borderline LVH with slight global hypokinesis; faint fixed abnormality. 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, renal function noted to returned to baseline AUR Adenocarcinoma colon, resected Iron deficiency anemia Patient is pleasant however cannot recall majority of his medical or surgical histories thus majority of the information were obtained from old records Surgical History Right and left common iliac artery stent femoral endarterectomy/bypass graft angioplasty of right leg Upper endoscopy 2 left external iliac artery stent Stent right leg bypass graft Patch angioplasy of right leg bypass graft Pacemaker Left Carpel tunnel procedure L4-5 decompression Carotid endarterectomy Colonoscopy Partial colectomy Patient is pleasant however cannot recall majority of his medical or surgical histories thus majority of the information were obtained from old records Family History Father had renal cell carcinoma Social History * Smoker: current smoker Alcohol: other (1 beer daily) A-FIB/CHADSVASC A-FIB History Current/History of A-Fib/PAF?: Yes Current PO Anticoag Therapy: Yes Age/Risk Factor Scoring CHADSVASC: CHADSVASC Response (Comments) Value Age Risk Factor Age 65-74 years old 1 Gender Risk Factor Male 0 Hx of CHF No 0 Hx of HTN Yes 1 Hx of Stroke/TIA/or VTE No 0 Hx of Diabetes No 0 Hx of Vascular Disease Yes 1 Total 3 Treatment Treatment ordered: Apixaban Review of Systems Constitutional: Denies: Chills, Fever Eyes: Denies: Vision change ENT: Denies: Head Aches Skin: Reports: Lesions Pulmonary: Reports: Other Symptoms (Denies chest pressure or chest tightness); Denies: Dyspnea Cardiovascular: Denies: Chest Pain, Palpitations Gastrointestinal: Reports: Abdominal Pain (Chronic, unchanged from usual); Denies: Nausea, Vomiting, Diarrhea, Constipation, Hematochezia Genitourinary: Denies: Dysuria, Frequency, Hematuria Musculoskeletal: Reports: Leg Pain (in right anterior tibial region) Neurological: Reports: Numbness (in right anterior tibial region); Denies: Incoordination, Change in speech Psych: Reports: Mood Normal; Denies: Anxiety, Depression Physical Examination General Exam: Positive: Alert, No Acute Distress Eye Exam: Negative: Sclera icteric ENT Exam: Positive: Mucous membr. moist/pink Heart Exam: Positive: Bradycardic (Mild), Other (irregularly irregular rhythm) Telemetry: Positive: Atrial fibrillation Abdomen Exam: Positive: BS Hypoactive Extremity Exam: Positive: Swelling (in right lower extremity), Other (Right anterior tibial region convered wtih dressing. Decreased dorsalis pedis pulse bilaterally) Skin Exam: Positive: Other skin issue (mildly decreased temperature in bilateral lower extremity); Negative: Nl turgor and temperature Neuro Exam: Positive: Normal Speech (able to carry conversation but anxious), Strength at 5/5 X4 ext, Normal Tone, Cranial Nerves 3-12 NL; Negative: Sensation Intact (decreased sensation in b/l LE) Psych Exam: Positive: Anxiety Vital Signs Vital Signs Date Time Temp Pulse Resp B/P (MAP) Pulse Ox O2 Delivery O2 Flow Rate FiO2 07/06/20 23:27 60 18 96 Room Air 07/06/20 23:15 207/93 (131) 07/06/20 18:28 95.6 Laboratory Data Labs 24H Laboratory Tests 2 07/06/20 20:01: Immature Granulocyte % (Auto) 0.5, Neutrophils (%) (Auto) 75.8H, Lymphocytes (%) (Auto) 15.7L, Monocytes (%) (Auto) 6.1H, Eosinophils (%) (Auto) 1.0, Basophils (%) (Auto) 0.9, Neutrophils # (Auto) 9.1H, Lymphocytes # (Auto) 1.9, Monocytes # (Auto) 0.7, Eosinophils # (Auto) 0.1, Basophils # (Auto) 0.1, Nucleated Red Blood Cells % (auto) 0.0, Prothrombin Time 14.0, Prothromb Time International Ratio 1.06, Activated Partial Thromboplast Time 30.9, Anion Gap 12, Glomerular Filtration Rate > 60.0, Calcium Level 8.6L, Total Creatine Kinase 132, Creatine Kinase MB 2.6, Creatine Kinase MB Relative Index 1.97, Troponin I < 0.02 07/06/20 21:39: Coronavirus (COVID-19)(PCR) NEGATIVE, Influenza Type A (RT-PCR) NEGATIVE, Influenza Type B (RT-PCR) NEGATIVE, Respiratory Syncytial Virus (PCR) NEGATIVE CBC/BMP Laboratory Tests 07/06/20 20:01 Assessment/Plan 1. Head Trauma secondary to mechanical fall -Head CT showed no acute hemorrhage, neuro checks Q4H -fall precaution, PT, zofran PRN 2. Right anterior tibial laceration s/p suturing -wound care, fall precaution -s/p tetanus vaccination from ER -Follow up with CBC. Tylenol/Zofran PRN 3. Hypertensive urgency -s/p hydralazine IVX2, amlodipine, and atenolol -Continue vital signs; continue home med amlodipine PO. Hold hme med Atenolol due to bradycardia -hydralazine IV as needed if blood pressure continues to be elevated>180/110 4. A. fib with slowed ventricular response -patient's HR with borderline bradycardia, tele monitor -Continue home med Digoxin and eliquis. Hold home med Atenolol for now 5. History of seizure -Continue home med Keppra -Seizure precaution 6. Peripheral artery disease -Continue home med Plavix, Lipitor DVT prophylaxis: Continue home med eliquis Plan / VTE VTE Prophylaxis Ordered?: Yes GME ATTESTATION GME ATTESTATION My faculty preceptor for this patient encounter was physically present during the encounter and was fully available. All aspects of the patient interview, examination, medical decision making process, and medical care plan development were reviewed and approved by the faculty preceptor. The faculty preceptor is aware and concurs with the plan as stated in the body of this note and will a ttest to such by his/her cosignature. ATTENDING NOTE I, Esvin Dorantes DO, performed a history and physical examination of the patient and discussed his management with the resident, Neema George DO. I reviewed the resident's note and agree with the documented findings and plan of care. 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 There was new 1cm depression in infe rior leads, previous troponin was negative. Spoke with Cardiology, Dr. Moreno. Since troponin was negative and patient already on Eliquis, monitor for the time being. Ordered for repeat troponin later in the day NEEMA GEORGE DO Jul 06, 2020 23:43 ESVIN DORANTES DO Jul 07, 2020 09:05
--- OUTSIDE RECORDS SUMMARY | 2020-07-06 23:47 | CCD ---
Author Author [facility] Organization [facility] Address Unknown Phone Unavailable Care Team Providers Care Facilities Project Manager Name Role Phone MILLSPAUGH, [employer] MGR Unavailable Unavailable M[employer], [employer] M[employer] Unavailable Unavailable MILL[employer]AU[employer], [employer] M[employer] Unavailable Unavailable MILLSPAUGH, [employer] MGR Unavailable Unavailable MILLSP[employer], [employer] MGR Unavailable Unavailable M[employer], [employer] M[employer] Unavailable Unavailable MILLSPAUGH, [employer] MGR Unavailable Unavailable MILLSPAUGH, [employer] MGR Unavailable Unavailable MILLSPAUGH, [employer] MGR Unavailable Unavailable MILLSPAUGH, [employer] MGR Unavailable Unavailable MILLSPAU[employer], [employer] M[employer] Unavailable Unavailable MILLSPAUGH, [employer] M[employer] Unavailable Unavailable MILLSPAU[employer], [employer] Unavailable Unavailable MILLSPAUGH, [employer] M[employer] Unavailable Unavailable MILLSPAUGH, [employer] MGR Unavailable Unavailable M[employer]SP[employer], [employer] Unavailable Unavailable M[employer] Unavailable Unavailable M[employer] Unavailable Unavailable M[employer] Unavailable Unavailable Soco Muniz PA Unavailable Unavailable [...] Oumou PA Unavailable Unavailable CALEB, SAM JAVIER SOFTWARE DEVELOPMENT TEST ENGINEER-C Unavailable Unavailable CALEB, SAM JAVIER SOFTWARE DEVELOPMENT TEST ENGINEER-C Unavailable Unavailable CALEB, SAM JAVIER SOFTWARE DEVELOPMENT TEST ENGINEER-C Unavailable Unavailable CALEB, SAM JAVIER SOFTWARE DEVELOPMENT TEST ENGINEER-C Unavailable Unavailable CALEB, SAM JAVIER SOFTWARE DEVELOPMENT TEST ENGINEER-C Unavailable Unavailable CALEB, SAM JAVIER SOFTWARE DEVELOPMENT TEST ENGINEER-C Unavailable Unavailable CALEB, SAM JAVIER SOFTWARE DEVELOPMENT TEST ENGINEER-C Unavailable Unavailable CALEB, SAM JAVIER SOFTWARE DEVELOPMENT TEST ENGINEER-C Unavailable Unavailable CALEB, SAM JAVIER SOFTWARE DEVELOPMENT TEST ENGINEER-C Unavailable Unavailable CALEB, SAM JAVIER SOFTWARE DEVELOPMENT TEST ENGINEER-C Unavailable Unavailable CALEB, SAM JAVIER SOFTWARE DEVELOPMENT TEST ENGINEER-C Unavailable Unavailable CALEB, SAM JAVIER SOFTWARE DEVELOPMENT TEST ENGINEER-C Unavailable Unavailable CALEB, SAM JAVIER SOFTWARE DEVELOPMENT TEST ENGINEER-C Unavailable Unavailable CALEB, SAM JAVIER SOFTWARE DEVELOPMENT TEST ENGINEER-C Unavailable Unavailable CALEB, SAM JAVIER SOFTWARE DEVELOPMENT TEST ENGINEER-C Unavailable Unavailable CALEB, SAM JAVIER SOFTWARE DEVELOPMENT TEST ENGINEER-C Unavailable Unavailable KEKE, MARY ELLEN PA Unavailable [...] is protected by Article 27-F of the [facility] Public Health law. If you continue you may have access to information: Regarding HIV / AIDS; Provided by facilities licensed or operated by the [facility] Office of Mental Health; or Provided by the [facility] Office for People With Developmental Disabilities. If such information is present, then the following [facility] mandated warning applies: This information has been [...] law may result in a fine or fpc sentence or both. A general authorization for the release of medical or other information is NOT sufficient authorization for further disc losure. Allergies and Adverse Reactions Type Description Substance Reaction Status Data Source(s ) Allergy to substance No Known Allergies No known allergies (situation ) KAN (Yakov Bahena MD [facility]) aspirin Aspirin Aspirin acute GI blood l oss anemia when combined with Plavix and ELiquis Active eCW1 ([facility]) Drug allergy Hydrochlorothiazide Hydrochlorothiazide low sodium Acti ve eCW1 ([facility]) Family History Family Member Name Family Member Gender Family Member Status Date o f Status Description Data Source(s) Unknown Unknown Problem MEDENT ([facility]) father Unknown Female Problem MEDENT ([facility]) Unknown Female Problem MEDENT ([facility]) Encounters Encounter Providers Location Date Indications Data Source(s ) [facility] [address] [facility] [address] 05/11/2020 12:00:00 AM EST eCW1 ([facility]) Unknown [address] [facility] [address] 05/10/2020 12:00:00 AM EST eCW1 ([facility]) Outpatient<td ID="encounterTypeDescripti onID0">1 Year Follow-Up</td><td>Mary Moncada DO</td><td>Yakov Church MD [facility]</td><td>02/15/2020</td><td>8:53AM</td><td>10:09AM</td><td><content ID="encounterDiagnosisID0-0">Dry Eye Syndrome Both Eyes</content>, <content ID="encounterDiagnosisID0-1">Vitreous Disorders Degeneration</content>, <content ID="encounterDiagnosisID0-2">Cataract Senile Cortical</content>, <content ID="encounterDiagnosisID0-3">Pseudophakia</content></td> Attender: MARY Stroud MD [facility] 02/15/2020 08:53:00 AM EDT - 02/15/2020 10:09:00 AM EDT PseudophakiaCataract Senile CorticalVitr eous Disorders DegenerationDry Eye Syndrome Both Eyes KAN (Yakov Bahena MD [facility]) Pseudophakia Cataract Senile Cortical Vitreous Disorders Degeneration Dry Eye Syndrome Both Eyes Unknown [address] [facility] [address] 02/14/2020 12:00:00 AM EDT eCW1 ([facility]) [facility] [address] [facility] [address] 01/19/2020 12:00:00 AM EDT eCW1 ([facility]) Outpatient Attender: Oumou JERNIGAN Main Office 01/09/2020 11:55:0 0 AM EDT MEDENT ([facility]) Outpatient Attender: MARY ELLEN faulkner 12/14/2019 04:05:00 PM EDT [facility] Attender: KRISTEN Gooden/Jagdish/Ang el/Reindl 12/12/2019 02:50:00 PM EDT MEDENT ([facility]) Outpatient Attender: MARY ELLEN faulkner 11/30/2019 08:40:00 AM EDT MEDENT ([facility] [address] [facility] [address] 09/22/2019 12:00:00 AM EDT eCW1 ([facility]) [facility] [address] [facility] [address] 09/20/2019 12:00:00 AM EDT eCW1 ([facility]) Outpatient Attender: KRISTEN Gooden/Jagdish/Ang el/Reindl 08/10/2019 10:30:00 AM EDT MEDENT ([facility]) Outpatient Referrer: WAYNE FERRELL NP 06/17/2019 02:30: 00 PM EST [facility] Outpatient Attender: Oumou JERNIGAN Main Office 06/16/2019 01:00:0 0 PM EST MEDENT ([facility]) [facility] [address] [facility] [address] 05/26/2019 12:00:00 AM EST eCW1 ([facility]) Outpatient Attender: JAVIER Gooden/Jagdish/Kan/Chad toledo 05/23/2019 08:45:00 AM EST MEDENT ([facility]) Outpatient Attender: KRISTEN Gooden/Jagdish/Ang el/Reindl 05/12/2019 01:10:00 PM EST MEDENT ([facility]) [facility] [address] [facility] [address] 05/11/2019 12:00:00 AM EST eCW1 ([facility]) Medications Medication Brand Name Start Date Product [...] 01/21/2020 12:00:00 AM EDT active M EDENT ([facility], ) Sucralfate 100 MG/ML Oral Suspension Sucralfate 01/21/2020 12:00:00 A M EDT ORAL completed MEDENT ([facility], ) pantoprazole 40 MG Delayed Release [...] ORAL active MEDENT ([facility]) Multi Vitamin 01/08/2020 12:00:00 AM EDT ORAL acti ve MEDENT ([facility]) Ascorbic Acid 500 MG Extended Release Oral Capsule Vitamin C ER 01/08/2020 12:00:00 AM EDT ORAL active M EDENT ([facility]) 5 mg 01/05/2020 12:00:00 AM EDT tablet,delayed release (DR/EC) 4 4 BY MOUTH TOGETHER BOWEL PREPARATION INSTRUCTIONS 4 BY MOUTH TOGETHER BOWEL PREPARATION INSTRUCTIONS SOLD: 01/08/2020 [facility] POLYETHYLENE GLYCOL 3350 105 MG/ML / Pot assium Chloride 0.09188 MEQ/ML / Sodium Bicarbonate 0.017 MEQ/ML / Sodium Chloride 0.0479 MEQ/ML Oral Solution [GaviLyte-N] Gavilyte-N With Flavor Pack 01/05/2020 12:00:00 AM EDT completed MEDENT ([facility], ) Bisacodyl 5 MG Delayed Release Oral Tablet [Dulcolax] Dulcol ax 01/05/2020 12:00:00 AM EDT completed MEDENT ([facility], ) Clenpiq Clenpiq 01/05/2020 12:00:00 AM EDT complet ed MEDENT ([facility], ) 10 mg-3.5 gram -12 gram/160 [...] 12/14/2019 12:00:00 AM EDT ORAL active MEDENT ([facility] 50 mg 11/20/2019 12:00:00 AM EDT tablet 60 TAKE ONE TABLET BY MOUTH TWICE A DAY TAKE ONE TABLET BY MOUTH TWICE A DAY SOLD: 11/20/2019 [facility] ferrous sulfate 75 MG/ML Oral Solution Ferrous Sulfate 0 06/15/2019 12:00:00 AM EST active MEDENT ([facility]) Digoxin 0.25 MG Oral Tablet Digoxin 06/15/2019 12:00:00 AM EST ORAL active MEDENT ([facility]) pantoprazole 20 MG Delayed Release Oral Tablet Pantoprazole Sodium 06/15/2019 12:00:00 AM EST ORAL active M EDENT ([facility]) pantoprazole 20 MG Delayed Release Oral Tablet Pantoprazole Sodium 06/03/2019 12:00:00 AM EST ORAL active M EDENT ([facility]) Neomycin Sulfate 500 MG Oral Tablet Neomycin Sulfate 04/12/2019 12:00:00 AM EST ORAL completed MEDENT ([facility]) Metronidazole 500 MG Oral Tablet [Flagyl] Flagyl 04/12/2019 12:00 :00 AM EST ORAL completed MEDENT ([facility]) Ceftriaxone 100 MG/ML Injectable Solution Ceftriaxone Sodium 04/06/2019 12:00:00 AM EST completed MEDENT ([facility]) Ampicillin Sodium Ampicillin Sodium 04/06/2019 12:00:00 AM EST completed MEDENT ([facility]) Digoxin 0.125 MG Oral Tablet Digoxin 04/06/2019 12:00:00 AM EST ORAL completed MEDENT ([facility]) Polysaccharide iron complex 150 MG Oral Capsule [Ferrex-150] Ferrex 150 04/06/2019 12:00:00 AM EST ORAL completed MEDENT ([facility]) pantoprazole 40 MG Delayed Release Oral Tablet Pantoprazole Sodium 04/06/2019 12:00:00 AM EST ORAL completed MEDENT ([facility]) besifloxacin 6 MG/ML Ophthalmic Suspensi on [Besivance] Besivance 0.6% Ophthalmic Suspension Besivance 0.6% Ophthalmic Suspension 12/07/2018 12:00:00 AM EDT aborted besifloxacin 6 MG/ML Ophthalmic Suspension [Besivance] KAN (Yakov Bahena MD [facility]) BromSite 0.075% Ophthalmic Solution BromSite 0.075% Ophthalm ic Solution 12/07/2018 12:00:00 AM EDT aborted bromfenac 0.75 MG/ML Ophthalmic Solution [Bromsite] KAN (Yakov Bahena MD [facility]) prednisolone acetate 10 MG/ML Ophthalmic Suspension [Pred Forte] Pred Forte 1% Ophthalmic Suspension Pred Forte 1% Ophthalmic Suspension 12/07/2018 12:00:0 0 AM EDT aborted predniso lone acetate 10 MG/ML Ophthalmic Suspension [Pred Forte] KAN (Yakov Bahena MD [facility]) Insurance Providers Payer name Policy type / Coverage type Policy ID Covered constitution party ID Covered constitution party's relationship to funes Policy Funes Plan Information MEDICARE [id number] SP [id number] R [facility] [id number] [place] [id number] R [facility] [id number] WI2 [id number] Employers [employer] [place] Other 0 Self 0 Medicare Part B [facility] Other 0 Se lf 0 UMR [facility] [id number] [place]2 [id number] MEDICARE [id number] SP [id number] R O [id number] S [id number] MEDICARE C [id number] S [id number] R [facility] [id number] [place] [id number] UPSTATE MEDICARE DIVISION [id number] S [id number] MEDICARE [place] [id number] S [id number] R [id number] SPO [id number] [employer] MEDICARE DIVISION [id number] S [id number] [place]IC[place] [id number] S [id number] ANSI-Medicare Part B [id number] ANSI-Commercial [id number] ANSI-Commercial [id number] [employer] Ppo Medigap Part B [id number] Family Dependent [id number] Umr Medigap Part B [id number] Family Dependent [id number] Medicare (Part B) Medicare Primary [id number] Self [id number] Medicare (Part B) Medicare Primary [id number] Self [id number] [employer] Ppo Medigap Part B [id number] Family Dependent [id number] Umr Medigap Part B [id number] Family Dependent [id number] Medicare (Part B) Medicare Primary [id number] Self [id number] Medicare (Part B) Medicare Primary [id number] Self [id number] ANSI-Commercial [id number] ANSI-Commercial [id number] ANSI-Medicare Part B [id number] ANSI-Commercial [id number] ANSI-Medicare Part B [id number] ANSI-Commercial [id number] ANSI-Commercial [id number] ANSI-Medicare Part B [id number] ANSI-Commercial [id number] ANSI-Medicare Part B [id number] ANSI-Commercial [id number] ANSI-Commercial [id number] MEDICARE [id number] SP [id number] A MEDICARE [id number] Shelia [id number] T25 [employer] [id number] Spo [id number] MEDICARE [id number] Shelia [id number] [facility] [id number] Family Dependent [id number] Umr Commercial [id number] Family Dependent [id number] Medicare Part B Medicare Primary [id number] Self [id number] ANSI-Medicare Part B [id number] ANSI-Commercial [id number] ANSI-Commercial [id number] MEDICARE PI PI [employer] PI PI MEDICARE [id number] SP [id number] A ANSI-Medicare Part B [id number] ANSI-Commercial [id number] ANSI-Commercial [id number] MEDICARE [id number] A [employer] UNAVAILABLE UNAVAILA BLE [employer] Ppo Medigap Part B [id number] Family Dependent [id number] Umr Medigap Part B [id number] Family Dependent [id number] Medicare (Part B) Medicare Primary [id number] Self [id number] Medicare (Part B) Medicare Primary [id number] Self [id number] ANSI-Medicare Part B [id number] ANSI-Commercial [id number] ANSI-Commercial [id number] UMR O [id number] S [id number] MEDICARE C [id number] S [id number] A [employer] [id number] HU2 [id number] [employer] PPO O [id number] S [id number] [employer] [id number] HU2 [id number] [employer] [id number] Spo [id number] MEDICARE [id number] Shelia [id number] A [employer] Ppo Medigap Part B [id number] Family Dependent [id number] Medicare (Part B) Medicare Primary [id number] Self [id number] [place] Medigap Part B [id number] Family Dependent [id number] Medicare Natl Gov't Servi Medicare Primary [id number] Self [id number] [employer] Medigap Part B [id number] Family Dependent [id number] Medicare Natl Gov't Servi Medicare Primary [id number] Self [id number] [employer] Commercial Self [employer] [id number] WI2 [id number] [employer] Ppo Moise[employer] [employer]CS Commercial Family Depend ent MEDICARE [id number] SP [id number] A Problems, Conditions, and Diagnoses Code Display Name Description Problem Type Effective Dates Data Source(s) V43.1 Pseudophakia Pseudophakia Problem 02/15/2020 12:00:00 A M EDT KAN (Yakov Bahena MD [facility]) 366.15 Cataract Senile Cortical Cataract Senile Cortical Prob rachel 02/15/2020 12:00:00 AM EDT KAN (Yakov Bahena MD [facility]) D50.0 [id number] Iron deficiency anemia due to chronic blo od loss Problem 05/26/2019 12:00:00 AM EST eCW1 ([facility]) D50.0 [id number] Iron deficiency anemia due to chronic blo od loss Problem 05/26/2019 12:00:00 AM EST eCW1 ([facility]) 366.18 Cataract Senile Hypermature Cataract Senile Hypermatur e Problem 11/01/2018 12:00:00 AM EDT - 02/15/2020 12:00:00 AM EDT KAN (Yakov Bahena MD [facility]) Surgeries/Procedures Procedure Description Date Indications Data Source(s) Extracapsular extraction of lens (procedure) History o f extracapsular cataract extraction PCIOL OS with use of Femtosecond laser 12/13/[address] Moncada 02/15/2020 12:00:00 AM EDT KAN (Yakov barnes MD [facility]) Surgical / procedural history L carotid endarterectomy [...] 12:00:00 AM EDT KAN (Yakov Bahena MD [facility]) Intermediate Eye Exam Established Patient Intermediate Eye Exam Established Patient 02/15/2020 12:00:00 AM EDT KAN (Eliot Bahena MD [facility]) Endoscopy Upper GI Biopsy 01/20/2020 12:00:00 AM EDT MEDENT ([facility], ) Colonoscopy W/ Poly 01/20/2020 12:00:00 AM EDT MEDENT ([facility]) MYOCARDIAL SPECT MULTIPLE STUDIES 01/10/2020 12:00:00 AM EDT MEDENT ([facility]) CV STRS TST XERS&/OR RX CONT ECG PHYS SI&R 01/10/2020 12:00:00 AM EDT MEDENT ([facility]) ECG ROUTINE ECG W/LEAST 12 LDS W/I&R 01/09/2020 12:00: 00 AM EDT MEDENT ([facility]) RMVL IMPACTED CERUMEN SPX 1/BOTH EARS 11/30/2019 12:00 :00 AM EDT MEDENT ([facility]) 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 PM 2019 12:00:00 AM EDT MEDENT ([facility]) Office Visit, Est Pt., Level 4 PC 05/26/2019 12:00:00 AM EST eCW1 ([facility]) Office Visit, Est Pt., Level 2 FC 05/26/2019 12:00:00 AM EST eCW1 ([facility]) Office Visit, Est Pt., Level 3 PC 05/11/2019 12:00:00 AM EST eCW1 ([facility]) US URINE CAPACITY MEASURE 05/11/2019 12:00:00 AM EST eCW1 ([facility]) Results ID Date Data Source [id number] 01/20/2020 10:56:00 AM EDT MEDENT ([facility], ) Name Value Range Interpretation Code Description Data [facility] rce(s) Supporting Document(s) Surgical pathology study Laboratory test result [facility] ([facility]) FINAL DIAGNOSIS A-Gastric ulcer,biopsy: Gastric mucosa [...] DAVIS MD 01/23/20201058 ID Date Data Source [id number] 12/16/2019 02:08:00 PM EDT [facility] ([facility]) Name Value Range Interpretation Code Description Data Lisa rce(s) Supporting Document(s) Creatinine For GFR 1.22 mg/dL 0.70-1.30 Normal (applies to non -numeric results) [facility], ) Glomerular Filtration Rate Laboratory test result Normal (applies to non- numeric results) [facility] ([facility]) <content>Units are mL/min/1.73 m2</content>
<content></content>
<content>Chronic Kidney Disease Staging per NKF:</content>
<content></content>
<content>Stage I & II GFR >=60 Normal to Mildly Decreased</content>
<content>Stage III GFR 30-59 Moderately Decreased</content>
<content>Stage IV GFR 15-29 Severely Decreased</content>
<content>Stage V GFR <15 Very Little GFR Left</content>
<content>ESRD GFR <15 on OCEAN FORWARDER</content>
<content></content> ID Date Data Source [id number] 12/16/2019 02:08:00 PM EDT [facility] ([facility]) Name Value Range Interpretation Code Description Data Lisa rce(s) Supporting Document(s) Urea nitrogen [Mass/volume] in Serum or Plasma 7 mg/dL 7 -18 Normal (applies to non-numeric results) [facility] ([facility]) ID Date Data Source [id number] 12/16/2019 02:08:00 PM EDT [facility] ([facility]) Name Value Range Interpretation Code Description Data Lisa rce(s) Supporting Document(s) Vitamin B12 Level 606 pg/mL Normal (applies to non-numeri c results) [facility] ([facility]) VITAMIN B12 NORMAL RANGE NORMAL 247 - 911 PG/ML INDETERMINATE 211 - 246 PG/ML DEFICIENT LESS THAN 211 PG/ML Folate 19.9 ng/mL Normal (applies to non-numeric resul ts) [facility] ([facility]) FOLATE NORMAL RANGE NORMAL GREATER THAN 5.4 NG/ML INDETERMINATE 3.4-5.4 NG/ML DEFICIENT LESS THAN 3.4 NG/ML ID Date Data Source [id number] 12/16/2019 02:08:00 PM EDT [facility] ([facility]) Name Value Range Interpretation Code Description Data Lisa rce(s) Supporting Document(s) Iron (Fe) 291 ug/dL 65-175 Above high normal [facility] ([facility]) Total Iron Binding Capacity 410 ug/dL 250-450 Norm al (applies to non-numeric results) [facility] ([facility]) Percent Saturation 71.0 % 19.7-50.0 Above high normal [facility] ([facility]) ID Date Data Source [id number] 11/11/2019 09:00:00 AM EDT [facility]) Name Value Range Interpretation Code Description Data Lisa rce(s) Supporting Document(s) Hemoglobin.gastrointestinal [Presence] in Stool Laboratory test result Normal (applies to non-numeric results) [facility] ([facility]) OCCULT BLOOD 1 NEGATIVE ID Date Data Source [id number] 06/02/2019 08:36:00 AM EST MEDENT ([facility]) Name Value Range Interpretation Code Description Data Lisa rce(s) Supporting Document(s) White Blood Count 7.6 4.0-10.0 MEDENT ([facility]) Red Blood Count 4.04 4.30-6.10 MED[facility] ([facility]) Platelets 253 150-450 [facility] Hematocrit 36.1 MEDENT ([facility]) Hemoglobin 11.2 MEDENT ([facility]) Procedure Social History Code Duration Value Status Description Data Source(s ) Smoking 02/15/2020 10:22:14 AM EDT Smokes tobacco daily (findi wilma) completed Smokes tobacco daily (finding) KAN (Yakov Bahena MD [facility]) Smoking 01/09/2020 12:00:00 AM EDT Patient is a former smoker completed Patient is a former smoker [facility] Smoking 05/26/2019 12:00:00 AM EST Current Smoker completed Curre nt Smoker eCW1 ([facility]) Smoking 05/26/2019 12:00:00 AM EST Current Smoker completed Curre nt Smoker eCW1 ([facility]) Vital Signs ID Date Data Source UNK Name Value Range Interpretation Code Description Data Source(s) Body weight 55.793 kg 55.793 kg [facility] [facility]) [place] body weight 142 [lb_av] 142 [lb_av] [facility] Body mass index (BMI) [Ratio] 19.9 kg/m2 19.9 k g/m2 [facility] ([facility]) Body weight 123.00 [lb_av] 123.00 [lb_av] [facility] Body height 66 [in_i] 66 [in_i] [facility] ([facility]) 5'6" Diastolic blood pressure 88 mm[Hg] 88 mm[Hg] [facility] ([facility]) Systolic blood pressure 162 mm[Hg] 162 mm[Hg] M [facility] ([facility]) Body mass index (BMI) [Ratio] 19.2 kg/m2 19.2 k g/m2 [facility] ([facility]) Body height 66 [in_i] 66 [in_i] [facility] ([facility] 5'6" Body weight 119.00 [lb_av] 119.00 [lb_av] [facility] T ([facility]) Body mass index (BMI) [Ratio] 21.3 kg/m2 21.3 k g/m2 [facility] ([facility], [facility]) Body height 65 [in_i] 65 [in_i] [facility] ([facility], [facility]) 5'5" Body weight 128.00 [lb_av] 128.00 [lb_av] [facility] T ([facility], [facility]) Body temperature 98.0 [degF] 98.0 [degF] [facility] ([facility]) Oxygen saturation in Arterial blood by Pulse oximetry 98 % 98 % [facility] ([facility], [facility]) Heart rate 72 /min 72 /min [facility] ([facility], [facility]) Diastolic blood pressure 75 mm[Hg] 75 mm[Hg] [facility] ([facility], [facility]) Systolic blood pressure 211 mm[Hg] 211 mm[Hg] [facility] ([facility], [facility]) Body weight 54.886 kg 54.886 kg [facility] ([facility]) [place] body weight 142 [lb_av] 142 [lb_av] [facility] Body mass index (BMI) [Ratio] 19.5 kg/m2 19.5 k g/m2 [facility] ([facility]) Body weight 121.00 [lb_av] 121.00 [lb_av] [facility] Body height 66 [in_i] 66 [in_i] [facility] ([facility]) 5'6" Diastolic blood pressure 72 mm[Hg] 72 mm[Hg] [facility] ([facility]) Systolic blood pressure 158 mm[Hg] 158 mm[Hg] [facility] Body mass index (BMI) [Ratio] 21.3 kg/m2 21.3 k g/m2 [facility] ([facility]) Body height 65 [in_i] 65 [in_i] [facility] ([facility]) 5'5" Body weight 128.00 [lb_av] 128.00 [lb_av] [facility] T ([facility]) Body temperature 97.7 [degF] 97.7 [degF] [facility] ([facility]) Oxygen saturation in Arterial blood by Pulse oximetry 98 % 98 % [facility] ([facility]) Heart rate 65 /min 65 /min [facility] ([facility]) Diastolic blood pressure 70 mm[Hg] 70 mm[Hg] [facility] ([facility]) Systolic blood pressure 138 mm[Hg] 138 mm[Hg] [facility] ([facility]) Body weight 59.422 kg 59.422 kg [facility] ([facility]) Body mass index (BMI) [Ratio] 21.1 kg/m2 21.1 k g/m2 [facility] ([facility]) Body weight 131.00 [lb_av] 131.00 [lb_av] [facility] Body height 66 [in_i] 66 [in_i] [facility] ([facility]) 5'6" Diastolic blood pressure 72 mm[Hg] 72 mm[Hg] [facility] ([facility]) Systolic blood pressure 182 mm[Hg] 182 mm[Hg] [facility] ([facility]) Diastolic blood pressure--sitting 62 mm[Hg] 62 mm[Hg] [facility] adult cuff, Ra Systolic blood pressure--sitting 140 mm[Hg] 140 mm[Hg] [facility]) adult cuff, Ra Heart rate 80 /min 80 /min [facility]) Body mass index (BMI) [Ratio] 20.8 kg/m2 20.8 k g/m2 [facility]) Body height 66 [in_i] 66 [in_i] [facility] ([facility]) 5'6" Body weight 129.00 [lb_av] 129.00 [lb_av] [facility] T ([facility]) Diastolic blood pressure 78 mm[Hg] 78 mm[Hg] eCW1 ([facility]) Systolic blood pressure 138 mm[Hg] 138 mm[Hg] e CW1 ([facility]) Body temperature 98.3 [degF] 98.3 [degF] eCW1 ( [facility]) Respiratory rate 18 /min 18 /min eCW1 ([facility]) Heart rate 87 /min 87 /min eCW1 ([facility]) Body mass index (BMI) [Ratio] 21.14 kg/m2 21.14 kg/m2 eCW1 ([facility]) Body height 66 [in_us] 66 [in_us] eCW1 ([facility]) Body weight Measured 131 [lb_av] 131 [lb_av] eC W1 ([facility]) Body weight 58.061 kg 58.061 kg [facility] ([facility], ) Body mass index (BMI) [Ratio] 20.7 kg/m2 20.7 k g/m2 [facility], ) Body weight 128.00 [lb_av] 128.00 [lb_av] MED[facility] T ([facility], ) Body height 66 [in_i] 66 [in_i] [facility] ([facility], ) 5'6" Oxygen saturation in Arterial blood by Pulse oximetry 98 % 98 % [facility], ) Heart rate 81 /min 81 /min [facility] ([facility], ) Diastolic blood pressure 76 mm[Hg] 76 mm[Hg] [facility] ([facility], ) Systolic blood pressure 132 mm[Hg] 132 mm[Hg] M [facility] ([facility], ) Body weight 57.607 kg 57.607 kg [facility], ) Body mass index (BMI) [Ratio] 20.5 kg/m2 20.5 k g/m2 [facility] ([facility]) Body weight 127.00 [lb_av] 127.00 [lb_av] MED[facility] T ([facility]) Body height 66 [in_i] 66 [in_i] [facility] ([facility]) 5'6" Diastolic blood pressure 72 mm[Hg] 72 mm[Hg] [facility] ([facility]) Systolic blood pressure 148 mm[Hg] 148 mm[Hg] M [facility] ([facility]) Diastolic blood pressure 74 mm[Hg] 74 mm[Hg] eCW1 ([facility]) Systolic blood pressure 147 mm[Hg] 147 mm[Hg] e CW1 ([facility]) Body temperature 98.4 [degF] 98.4 [degF] eCW1 ( [facility]) Respiratory rate 18 /min 18 /min eCW1 ([facility]) Heart rate 123 /min 123 /min eCW1 ([facility]) Body mass index (BMI) [Ratio] 20.33 kg/m2 20.33 kg/m2 eCW1 ([facility]) Body height 66 [in_us] 66 [in_us] eCW1 ([facility]) Body weight Measured 126 [lb_av] 126 [lb_av] eC W1 ([facility]) Patient Treatment Plan of Care Planned Activity Planned Date Details Description Data Source (s) besifloxacin 6 MG/ML Ophthalmic Suspension [Besivance] 12/07/2018 12:00:00 AM EDT KAN (Yakov Bahena MD [facility]) BromSite 0.075% Ophthalmic Solution 12/07/2018 12:00:00 AM EDT KAN (Yakov Bahena MD [facility]) prednisolone acetate 10 MG/ML Ophthalmic Suspension [P red Forte] 12/07/2018 12:00:00 AM EDT KAN (Yakov Bahena MD [facility])
[2020-07-07 00:19] VITALS: BP 192/80
[2020-07-07] MEDS ORDERED: VITMTA PO (00:31)
--- NOTE | 2020-07-07 00:34 | REPVR ---
PROCEDURE INFORMATION: Exam: CT Head Without Contrast Exam date and time: 07/06/2020 11:52 PM Age: 69 years old Clinical indication: Injury or trauma; Fall; Concussion/head injury; Additional info: Head trauma after fall TECHNIQUE: Imaging protocol: Computed tomography of the head without contrast. Radiation optimization: All CT scans at this facility use at least one of these dose optimization techniques: automated exposure control; mA and/or kV adjustment per patient size (includes targeted exams where dose is matched to clinical indication); or iterative reconstruction. COMPARISON: No relevant prior studies available. FINDINGS: Brain: Normal. No hemorrhage. Unremarkable white matter. No mass effect. Cerebral ventricles: No ventriculomegaly. Bones/joints: Unremarkable. No acute fracture. Paranasal sinuses: Visualized sinuses are unremarkable. No fluid levels. Mastoid air cells: Visualized mastoid air cells are well aerated. Soft tissues: Unremarkable. IMPRESSION: No acute intracranial abnormality. Electronically signed by: Osiel Ugarte On 07/07/2020 00:34:09 AM
[2020-07-07] MEDS ORDERED: ALPRAZolam 0.25 MG TAB PO STA ×2 (00:35→00:37)
[2020-07-07 01:00] VITALS: BP 172/70
[2020-07-07 01:18] LABS: CK-MB VALUE MASS 2.5 NG/ML (<3.6); CPK CREATINE PHOSPHOKINASE 85 U/L (39-308); MB/CK RELATIVE INDEX 2.94 (< OR =4); TROPONIN I < 0.02 NG/ML (< 0.10)
[2020-07-07] MEDS: APIXABAN 5 MG TAB (ELIQUIS) PO SCH ×2 (01:27→08:27)
[2020-07-07] MEDS: GABAPENTIN 400MG CAP PO SCH ×2 (01:27→08:26)
[2020-07-07] MEDS: DULoxetine 30 MG CAP (CYMBALTA) PO SCH ×2 (01:27→08:27)
[2020-07-07] MEDS: levETIRAcetam 250MG TABLET (KEPPRA) PO SCH ×2 (01:28→08:26)
[2020-07-07 04:00] VITALS: BP 177/79
[2020-07-07 05:23] LABS: HEMATOCRIT 43.8 % (42.0-52.0); HEMOGLOBIN 14.8 g/dl (13.5-17.5); MEAN CORPUSCULAR HGB CONC 33.8 g/dl (32.0-36.5); MEAN CORPUSCULAR VOLUME 94.6 fl (80.0-96.0); PLATELET COUNT, AUTOMATED 264 10^3/uL (150-450); RED BLOOD COUNT 4.63 10^6/uL (4.30-6.10); WHITE BLOOD COUNT 12.7 10^3/uL (4.0-10.0)
[2020-07-07 05:47] LABS: BLOOD UREA NITROGEN 12 MG/DL (7-18); CARBON DIOXIDE LEVEL 29 MEQ/L (21-32); CHLORIDE LEVEL 105 MEQ/L (98-107); CK-MB VALUE MASS 3.3 NG/ML (<3.6); CPK CREATINE PHOSPHOKINASE 84 U/L (39-308); CREATININE FOR GFR 1.24 MG/DL (0.70-1.30); GLOMERULAR FILTRATION RATE > 60.0 (>49); GLUCOSE, FASTING 67 MG/DL (70-100); MB/CK RELATIVE INDEX 3.93 (< OR =4); POTASSIUM SERUM 3.4 MEQ/L (3.5-5.1); SODIUM LEVEL 143 MEQ/L (136-145); TROPONIN I < 0.02 NG/ML (< 0.10)
[2020-07-07 08:00] VITALS: BP 172/68
[2020-07-07 08:26] VITALS: BP 177/79
[2020-07-07] MEDS ORDERED: atenoloL 50 MG TAB PO SCH (09:00)
[2020-07-07] MEDS ORDERED: MAGNESIUM OXIDE 400MG TAB (MAG-OX) PO SCH (09:00)
[2020-07-07] MEDS ORDERED: MULTIVITAMINS/MINERALS THERAP 1 TAB PO SCH (09:00)
[2020-07-07] MEDS ORDERED: DIGOXIN 0.25 MG TAB PO SCH (09:00)
[2020-07-07] MEDS ORDERED: amLODIPine 5 MG TAB PO SCH (09:00)
[2020-07-07] MEDS ORDERED: CLOPIDOGREL 75 MG TAB PO SCH (09:00)
[2020-07-07] MEDS ORDERED: FLUBLOK(EGG FREE)(QUAD)INFLUENZA VACC 0.5ML SYRINGE 18YRS & OLDER IM ONE (09:00)
[2020-07-07] MEDS ORDERED: LISI20TA33 PO (09:04)
[2020-07-07] MEDS ORDERED: AMLO1TAB25 PO (09:04)
--- NOTE | 2020-07-07 10:23 | DS.PDOC ---
Discharge Summary General Date of Admission Jul 06, 2020 at 18:14 Date of Discharge 07/07/20 Discharge Summary PROCEDURES PERFORMED DURING STAY: [None]. ADMITTING DIAGNOSES: Head Trauma secondary to mechanical fall Right anterior tibial laceration s/p suturing Hypertensive urgency A. fib with slowed ventricular response History of seizure Peripheral artery disease DISCHARGE DIAGNOSES: Head Trauma secondary to mechanical fall Right anterior tibial laceration s/p suturing Hypertensive urgency A. fib with slowed ventricular response History of seizure Peripheral artery disease COMPLICATIONS/CHIEF COMPLAINT: Hypertensive Urgency,Laceration Of Lower Ex tremity. HISTORY OF PRESENT ILLNESS: Patient is a 69 yo male with PMH of a. fib and HTN presented to [facility] after reported mechanical fall this afternoon after he slipped on ice while carrying wood, and patient was found to have elevated blood pressure in the ER. He reported the fall happened while he was carrying wood outdoor and he slipped on ice, reported falling sideways on his left side. He reported that he hit his left side frontal region of the head and had a right sided anterior tibial region laceration, reported to be about 3cm long vertical lesion which was bleeding prior suturing. He denies any pain in his body besides pain in right anterior tibial region where the laceration was at and chronic abdominal pain which is no change from usual. Patient appears anxious and cannot give too much details about his chronic abdominal pain; reported that he had seen a provider outpatient and had work-ups done without significant findings. Reported chronic bilateral abdominal pain which is intermittent, no change from usual; regular bowel movement without diarrhea/constipation/blood in stool. Reported chronic bilateral loss of sensation in bilateral lower extremity from knee down which is no change from usual, denies tingling; reported localized numbness in right anterior tibial region where the laceration was at. Patient reported that he can move his bilateral upper and lower extremities. He reported that he was able to stand up on his own after about 5 min. denies any loss of consciousness; fall was unwitnessed. He reported that he did not miss any medications and there was no recent medication changes. He reported he did not have dizziness prior to the fall but have some dizziness after the fall. He denies headache, any change of vision/blurry vision/dipopia, chest pain, palpitation, or dyspnea. HOSPITAL COURSE: During hospital stay following issues addressed 1. Head Trauma secondary to mechanical fall -Head CT showed no acute hemorrhage, neuro checks Q4H 2. Right anterior tibial laceration s/p suturing -wound care, fall precaution -s/p tetanus vaccination from ER 3. Hypertensive urgency -s/p hydralazine IVX2, amlodipine, and atenolol Resolved 4. A. fib with slowed ventricular response -patient's HR with borderline bradycardia, tele monitor -Continue home med Digoxin and eliquis. Hold home med Atenolol for now 5. History of seizure -Continue home med Keppra -Seizure precaution 6. Peripheral artery disease -Continue home med Plavix, Lipitor DISCHARGE MEDICATIONS: Please see below. ALLERGIES: Please see below. PHYSICAL EXAMINATION ON DISCHARGE: VITAL SIGNS: Please see below. General Exam: Positive: Alert, No Acute Distress Eye Exam: Negative: Sclera icteric ENT Exam: Positive: Mucous membr. moist/pink Heart Exam: Positive: Bradycardic (Mild), Other (irregularly irregular rhythm) Telemetry: Positive: Atrial fibrillation Abdomen Exam: Positive: BS Hypoactive Extremity Exam: Positive: Swelling (in right lower extremity), Other (Right anterior tibial region convered wtih dressing. Decreased dorsalis pedis pulse bilaterally) Skin Exam: Positive: Other skin issue (mildly decreased temperature in bilateral lower extremity); Negative: Nl turgor and temperature Neuro Exam: Positive: Normal Speech (able to carry conversation but anxious), Strength at 5/5 X4 ext, Normal Tone, Cranial Nerves 3-12 NL; Negative: Sensation Intact (decreased sensation in b/l LE) Psych Exam: Positive: Anxiety LABORATORY DATA: Please see below. IMAGING: PROCEDURE INFORMATION: Exam: CT Head Without Contrast Exam date and time: 07/06/2020 11:52 PM Age: 69 years old Clinical indication: Injury or trauma; Fall; Concussion/head injury; Additional info: Head trauma after fall TECHNIQUE: Imaging protocol: Computed tomography of the head without contrast. Radiation optimization: All CT scans at this facility use at least one of these dose optimization techniques: automated exposure control; mA and/or kV adjustment per patient size (includes targeted exams where dose is matched to clinical indication); or iterative reconstruction. COMPARISON: No relevant prior studies available. FINDINGS: Brain: Normal. No hemorrhage. Unremarkable white matter. No mass effect. Cerebral ventricles: No ventriculomegaly. Bones/joints: Unremarkable. No acute fracture. Paranasal sinuses: Visualized sinuses are unremarkable. No fluid levels. Mastoid air cells: Visualized mastoid air cells are well aerated. Soft tissues: Unremarkable. IMPRESSION: No acute intracranial abnormality. PROGNOSIS: ACTIVITY: [As tolerated]. DIET: Cardiac DISPOSITION: Home ITEMS TO FOLLOWUP ON ON OUTPATIENT: Follow-up with PCP in 3-5 days. DISCHARGE CONDITION: [Stable]. TIME SPENT ON DISCHARGE: Greater than 25minutes. Vital Signs/I&Os Vital Signs Date Time Temp Pulse Resp B/P (MAP) Pulse Ox O2 Delivery O2 Flow Rate FiO2 07/07/20 08:27 73 07/07/20 08:26 177/79 07/07/20 08:00 98.7 18 96 Room Air I&O- Last 24 Hours up to 6 AM 07/07/20 06:00 Intake Total 0 ml Output Total 150 ml Balance -150 ml Laboratory Data Labs 24H Laboratory Tests 2 07/06/20 20:01: Immature Granulocyte % (Auto) 0.5, Neutrophils (%) (Auto) 75.8H, Lymphocytes (%) (Auto) 15.7L, Monocytes (%) (Auto) 6.1H, Eosinophils (%) (Auto) 1.0, Basophils (%) (Auto) 0.9, Neutrophils # (Auto) 9.1H, Lymphocytes # (Auto) 1.9, Monocytes # (Auto) 0.7, Eosinophils # (Auto) 0.1, Basophils # (Auto) 0.1, Nucleated Red Blood Cells % (auto) 0.0, Prothrombin Time 14.0, Prothromb Time International Ratio 1.06, Activated Partial Thromboplast Time 30.9, Anion Gap 12, Glomerular Filtration Rate > 60.0, Calcium Level 8.6L, Total Creatine Kinase 132, Creatine Kinase MB 2.6, Creatine Kinase MB Relative Index 1.97, Troponin I < 0.02 07/06/20 21:39: Coronavirus (COVID-19)(PCR) NEGATIVE, Influenza Type A (RT-PCR) NEGATIVE, Influenza Type B (RT-PCR) NEGATIVE, Respiratory Syncytial Virus (PCR) NEGATIVE 07/07/20 00:42: Total Creatine Kinase 85, Creatine Kinase MB 2.5, Creatine Kinase MB Relative Index 2.94, Troponin I < 0.02 07/07/20 04:51: Nucleated Red Blood Cells % (auto) 0.0, Anion Gap 9, Glomerular Filtration Rate > 60.0, Calcium Level 9.0, Total Creatine Kinase 84, Creatine Kinase MB 3.3, Creatine Kinase MB Relative Index 3.93, Troponin I < 0.02 CBC/BMP Laboratory Tests 07/06/20 20:01 07/07/20 04:51 Discharge Medications Scheduled Amlodipine Besylate (Amlodipine Besylate) 10 Mg Tablet, 10 MG PO DAILY Apixaban (Eliquis) 5 Mg Tablet, 5 MG PO BID, (Reported) Atenolol (Atenolol) 50 Mg Tab, 50 MG PO BID, (Reported) Atorvastatin Calcium (Lipitor) 80 Mg Tab, 80 MG PO QHS, (Reported) Clopidogrel Bisulfate (Plavix) 75 Mg Tablet, 75 MG PO DAILY, (Reported) Digoxin (Digoxin) 250 Mcg Tablet, 250 MCG PO DAILY, (Reported) Duloxetine Hcl (Cymbalta) 30 Mg Capsule.dr, 30 MG PO BID, (Reported) Gabapentin (Neurontin) 800 Mg Tab, 800 MG PO TID, (Reported) Levetiracetam (Keppra) 1,000 Mg Tab, 1,000 MG PO BID, (Reported) Lisinopril (Lisinopril) 20 Mg Tablet, 20 MG PO DAILY Magnesium Oxide (Magnesium Oxide) 400 Mg Tablet, 400 MG PO DAILY, (Reported) Multivitamins (Thera M Plus Tablet) 1 Each Tablet, 1 TAB PO DAILY, (Reported) Scheduled PRN Acetaminophen (Tylenol Extra Strength) 500 Mg Tablet, 1,000 MG PO Q8H PRN for PAIN, (Reported) Allergies Coded Allergies: hydrochlorothiazide (Unverified Allergy, Unknown, Unknown, 07/06/20) ZAID ACKERMAN DO Jul 07, 2020 10:23
--- NOTE | 2020-07-07 11:07 | ECGEPIP ---
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1950 Requested By: NEEMA GEORGE Order Number: [id number] Reading MD: Yakov Horton Measurements Intervals [place] Rate: 61 P: [place]: 0 QRS: -16 QRSD: 103 T: -81 QT: 457 QTc: 460 Interpretive Statements ATRIAL FIBRILLATION WITH ABERRANT CONDUCTION OR VENTRICULAR PREMATURE COMPLEXES VOLTAGE CRITERIA FOR LVH ST DEVIATION AND MODERATE T-WAVE ABNORMALITY, CONSIDER LATERAL ISCHEMIA ST DEVIATION AND MODERATE T-WAVE ABNORMALITY, CONSIDER INFERIOR ISCHEMIA Increased artifact and ectopy when compared to tracing done 07-06-20, but likely s similar Electronically Signed on 07-07-2020 11:07:08 EST by Yakov Horton
--- NOTE | 2020-07-07 11:12 | ECGEPIP ---
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
[2020-07-07] MEDS ORDERED: ATEN25TA PO (11:53)
== END 2020-07-07 12:34 | disposition home or self-care (01) ==
LOC: EDBD 18:13 → M ED 18:13 → M ED INP 18:14 → M PCU 07-07 00:19
PROVIDERS: ADMIT Internal Medicine; ATTEND Internal Medicine
DX: S09.90XA Unspecified injury of head, initial encounter (principal); S81.811A Laceration without foreign body, right lower leg, initial encounter; I16.0 Hypertensive urgency; W00.0XXA Fall on same level due to ice and snow, initial encounter; Y93.89 Activity, other specified; Y99.9 Unspecified external cause status; Y92.007 Garden or yard of unspecified non-institutional (private) residence as the place of occurrence of the external cause; I48.91 Unspecified atrial fibrillation; I73.9 Peripheral vascular disease, unspecified; I10 Essential (primary) hypertension; Z79.899 Other long term (current) drug therapy; Z79.01 Long term (current) use of anticoagulants; Z88.8 Allergy status to other drugs, medicaments and biological substances; E78.49 Other hyperlipidemia; Z91.81 History of falling
CPT/HCPCS: 12004; 36415; 70450; 71045; 80048; 82550; 82553; 84484; 85025; 85027; 85610; 85730; 87631; 90471; 90715; 93005; 93041; 94760; 96374; 96376; 99285; G0378; J0360; J2270

== ENCOUNTER → 2020-07-18 | Outpatient (CLI) | payer MEDICARE, OTHER ==
[~2020-07-18] MED LIST changes: +AMLO1TAB25 PO; +ATEN25TA PO; +VITMTA PO
[2020-07-18 16:33] LABS: BASO # 0.1 10^3/uL (0.0-0.2); BASO % 1.1 % (0.0-1.0); EOS # 0.3 10^3/uL (0.0-0.5); EOS % 3.4 % (0.0-3.0); HEMATOCRIT 39.8 % (42.0-52.0); LYMPH # 2.1 10^3/uL (1.5-5.0); LYMPH % 23.5 % (24.0-44.0); MEAN CORPUSCULAR HGB CONC 32.7 g/dl (32.0-36.5); MONO # 0.9 10^3/uL (0.0-0.8); MONO % 10.4 % (2.0-8.0); NEUTROPHILS # 5.4 10^3/uL (1.5-8.5); NEUTROPHILS % 61.2 % (36.0-66.0); PLATELET COUNT, AUTOMATED 279 10^3/uL (150-450); RED BLOOD COUNT 4.06 10^6/uL (4.30-6.10); WHITE BLOOD COUNT 8.9 10^3/uL (4.0-10.0)
[2020-07-18 16:55] LABS: ALBUMIN 2.4 GM/DL (3.2-5.2); BILIRUBIN,TOTAL 0.4 MG/DL (0.2-1.0); CREATININE FOR GFR 1.33 MG/DL (0.70-1.30); GLOMERULAR FILTRATION RATE 57.1 (>49); PERCENT SATURATION 16.8 % (19.7-50.0); POTASSIUM SERUM 4.3 MEQ/L (3.5-5.1); TOTAL PROTEIN 5.3 GM/DL (6.4-8.2)
== END ==
LOC: M WUC 13:20
PROVIDERS: ATTEND Specialist
DX: D50.9 Iron deficiency anemia, unspecified (principal)

== ENCOUNTER → 2020-08-21 | Outpatient (CLI) | payer MEDICARE, OTHER ==
[2020-08-21 17:12] LABS: CALCIUM LEVEL 8.5 MG/DL (8.8-10.2); CHOLESTEROL RISK RATIO 3.255 (<5); CREATININE FOR GFR 1.31 MG/DL (0.70-1.30); DIGOXIN LEVEL 1.8 NG/ML (0.5-2.0); GLOMERULAR FILTRATION RATE 58.1 (>49); POTASSIUM SERUM 4.5 MEQ/L (3.5-5.1)
== END ==
LOC: M WUC 13:04
PROVIDERS: ATTEND Physician Assistant
DX: Z12.5 Encounter for screening for malignant neoplasm of prostate (principal); I11.9 Hypertensive heart disease without heart failure; I73.9 Peripheral vascular disease, unspecified; I48.20 Chronic atrial fibrillation, unspecified; E78.5 Hyperlipidemia, unspecified
CPT/HCPCS: 36415; 80048; 80061; 80162; G0103

== ENCOUNTER → 2020-10-05 | Outpatient (REF) | payer MEDICARE, OTHER ==
[2020-10-05 16:21] LABS: CREATININE FOR GFR 1.29 MG/DL (0.70-1.30)
== END ==
LOC: M LABWUC 15:52
PROVIDERS: ATTEND Surgery Vascular Surgery
DX: I65.23 Occlusion and stenosis of bilateral carotid arteries (principal)

== ENCOUNTER → 2020-10-19 | Outpatient (CLI) | payer MEDICARE, OTHER ==
[~2020-10-19] MED LIST changes: +ISOVUE-370 76% 100ML VIAL As Ordered ONE
--- NOTE | 2020-10-19 12:38 | REPVR ---
PROCEDURE INFORMATION: Exam: CTA Angiogram of the Abdominal Aorta and Bilateral Lower Extremities (Run-off) With IV Contrast Exam date and time: 10/19/2020 10:46 AM Age: 70 years old Clinical indication: Pain; Other: Athscl; Additional info: Athscl nonaut bio bypass of shital [facility] TECHNIQUE: Imaging protocol: CT angiogram of the abdominal aorta, pelvis and bilateral lower extremities with IV iodinated contrast. 3D rendering (Not supervised by radiologist): MIP and/or 3D reconstructed images were created by the technologist. Radiation optimization: All CT scans at this facility use at least one of these dose optimization techniques: automated exposure control; mA and/or kV adjustment per patient size (includes targeted exams where dose is matched to clinical indication); or iterative reconstruction. Contrast material: ISOVUE 370; Contrast volume: 100 ml; Contrast route: INTRAVENOUS (IV); COMPARISON: CT ABD PELVIS WITH CONTRAST 03/26/2019 8:29 AM FINDINGS: Aorta: No aortic aneurysm. No aortic dissection. 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 There is reconstitution of the hepatic and splenic branches which may be by collateral from the proximal superior mesenteric as seen on coronal image 33. There is heavy calcification of the superior mesenteric artery with likely significant hemodynamic compromise. A study dedicated to the upper abdomen would provide more accurate results, however. The inferior mesenteric artery is patent but does appear stenotic approximately on coronal image 36 and axial image 50. Renal arteries: There is high-grade stenosis of the right renal artery with loss of volume in the right kidney which measures 7.5 cm compared to 10.8 cm on the left. There is moderate proximal calcification of the left renal artery without high-grade stenosis detected. Right iliac arteries: There is moderate calcification of the right iliofemoral system with patent stents observed in both the right common iliac and right external iliac and common femoral artery. There appears to be localize stenosis at the distal aspect of the right common femoral stent on axial images 95 through 99 and coronal image 36. There has been previous surgery at the right groin with patent deep femoral artery. Right femoral/popliteal arteries: The right superficial femoral artery is occluded throughout its length. There is reconstitution of the right popliteal artery where surgical clips are seen at the level of the superior geniculate on coronal image 58 and axial image 212. There are areas of narrowing up to about 60% in the proximal right popliteal artery as seen on images 221 with residual diameter of about 1.7 mm. Right infrapopliteal arteries: There is calcification at the origin of the right anterior tibial artery which appears to be patent to the ankle but is difficult to follow because of the extensive calcification. There is heavy calcification of the proximal right tibial peroneal trunk with residual diameter as small as 1.3 mm on axial image 271. The right posterior tibial and peroneal arteries are patent to the ankle without heavy calcification. Left iliac arteries: There is high-grade stenosis of the proximal left common iliac artery 2 cm beyond the origin on coronal image 42 and axial image 66 proximal to a stent where the residual diameter is about 4 mm compared to a proximal diameter of 9 mm. There is heavy calcification at the common iliac bifurcation and there appears to be occlusion of the external iliac and common femoral artery to the level of the inflow from the collaterals at the groin, predominantly the superficial epigastric. Left femoral/popliteal arteries: There is significant arterial sclerotic disease of the proximal left popliteal artery most severe on image 224 when residual lumen cannot be accurately measured 7 cm above the knee. A 2nd focus of severe narrowing is seen on axial image 241 where the lumen cannot be accurately measured 1.5 cm proximal to the knee. There is heavy calcification of the terminal left popliteal artery. Left infrapopliteal arteries: There is heavy calcification at the origin of the left anterior tibial artery and the tibial peroneal trunk as seen on coronal images 59 through 62 with multifocal stenoses observed. More distally, there is three-vessel runoff to the left ankle. Bypass grafts: There has been previous surgery at the left groin with creation of a superficial graft following the medial thigh to the proximal left popliteal artery. The sun'aq left superficial femoral artery is occluded and there is high-grade stenosis at the origin of the deep femoral artery on axial image 119. Lungs: The visualized portions of the lung bases are normal. Mediastinum: A small hiatal hernia is present. Liver: There are no focal liver lesions present, no mass is identified. Gallbladder and bile ducts: The gallbladder is normal. Pancreas: The pancreas is normal. Spleen: The spleen demonstrates punctate calcifications, consistent with remote granulomatous organism exposure. The spleen is otherwise normal. Adrenals: The adrenal glands are normal. Kidneys and ureters: Small right kidney probably reflecting chronic ischemia. Stomach and bowel: Unremarkable. No obstruction. No mucosal thickening. Appendix: No evidence of appendicitis. Bladder: Unremarkable. No mass. Reproductive: Unremarkable as visualized. Intraperitoneal space: Unremarkable Lymph nodes: No lymphadenopathy. Bones/joints: There has been pedicle screw fixation at L4-L5. Soft tissues: Unremarkable. IMPRESSION: 1. 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 There is reconstitution of the hepatic and splenic branches which may be by collateral from the proximal superior mesenteric as seen on coronal image 33. 2. There is heavy calcification of the superior mesenteric artery with likely significant hemodynamic compromise. A study dedicated to the upper abdomen would provide more accurate results, however. 3. There is high-grade stenosis of the right renal artery with loss of volume in the right kidney which measures 7.5 cm compared to 10.8 cm on the left. 4. The inferior mesenteric artery is patent but does appear stenotic approximately on coronal image 36 and axial image 50. 5. There is moderate calcification of the right iliofemoral system with patent stents observed in both the right common iliac and right external iliac and common femoral artery. There appears to be localize stenosis at the distal aspect of the right common femoral stent on axial images 95 through 99 and coronal image 36. There has been previous surgery at the right groin with patent deep femoral artery. 6. The right superficial femoral artery is occluded throughout its length. 7. There is reconstitution of the right popliteal artery where surgical clips are seen at the level of the superior geniculate on coronal image 58 and axial image 212. There are areas of narrowing up to about 60% in the proximal right popliteal artery as seen on images 221 with residual diameter of about 1.7 mm. 8. There is calcification at the origin of the right anterior tibial artery which appears to be patent to the ankle but is difficult to follow because of the extensive calcification. There is heavy calcification of the proximal right tibial peroneal trunk with residual diameter as small as 1.3 mm on axial image 271. The right posterior tibial and peroneal arteries are patent to the ankle without heavy calcification. 9. There is high-grade stenosis of the proximal left common iliac artery 2 cm beyond the origin on coronal image 42 and axial image 66 proximal to a stent where the residual diameter is about 4 mm compared to a proximal diameter of 9 mm. There is heavy calcification at the common iliac bifurcation and there appears to be occlusion of the external iliac and common femoral artery to the level of the inflow from the collaterals at the groin, predominantly the superficial epigastric. 10. There has been previous surgery at the left groin with creation of a superficial graft following the medial thigh to the proximal left popliteal artery. The sun'aq left superficial femoral artery is occluded and there is high-grade stenosis at the origin of the deep femoral artery on axial image 119. 11. There is significant arterial sclerotic disease of the proximal left popliteal artery most severe on image 224 when residual lumen cannot be accurately measured 7 cm above the knee. A 2nd focus of severe narrowing is seen on axial image 241 where the lumen cannot be accurately measured 1.5 cm proximal to the knee. There is heavy calcification of the terminal left popliteal artery. 12. There is heavy calcification at the origin of the left anterior tibial artery and the tibial peroneal trunk as seen on coronal images 59 through 62 with multifocal stenoses observed. More distally, there is three-vessel runoff to the left ankle. Electronically signed by: Abdirizak Karimi On 10/19/2020 12:38:37 PM
== END ==
LOC: M RAD 10:16
PROVIDERS: ATTEND Surgery Vascular Surgery
DX: I70.512 Atherosclerosis of nonautologous biological bypass graft(s) of the extremities with intermittent claudication, left leg (principal)
CPT/HCPCS: 75635; Q9967

== ENCOUNTER → 2020-11-09 | Outpatient (CLI) | payer MEDICARE, OTHER ==
[~2020-11-09] MED LIST changes: -ISOVUE-370 76% 100ML VIAL As Ordered ONE
[2020-11-09 12:35] LABS: BASO # 0.1 10^3/uL (0.0-0.2); BASO % 0.9 % (0.0-1.0); EOS # 0.3 10^3/uL (0.0-0.5); EOS % 3.2 % (0.0-3.0); HEMATOCRIT 30.4 % (42.0-52.0); HEMOGLOBIN 9.5 g/dl (13.5-17.5); LYMPH # 1.7 10^3/uL (1.5-5.0); LYMPH % 19.3 % (24.0-44.0); MEAN CORPUSCULAR HGB CONC 31.3 g/dl (32.0-36.5); MEAN CORPUSCULAR VOLUME 99.3 fl (80.0-96.0); MONO # 0.9 10^3/uL (0.0-0.8); MONO % 10.2 % (2.0-8.0); NEUTROPHILS # 5.8 10^3/uL (1.5-8.5); NEUTROPHILS % 66.1 % (36.0-66.0); PLATELET COUNT, AUTOMATED 336 10^3/uL (150-450); RED BLOOD COUNT 3.06 10^6/uL (4.30-6.10); WHITE BLOOD COUNT 8.7 10^3/uL (4.0-10.0)
[2020-11-09 13:04] LABS: ALBUMIN 3.4 GM/DL (3.2-5.2); BILIRUBIN,TOTAL 0.3 MG/DL (0.2-1.0); CALCIUM LEVEL 8.9 MG/DL (8.8-10.2); CREATININE FOR GFR 1.38 MG/DL (0.70-1.30); GLOMERULAR FILTRATION RATE 54.5 (>49); PERCENT SATURATION 5.7 % (19.7-50.0); POTASSIUM SERUM 4.4 MEQ/L (3.5-5.1); TOTAL PROTEIN 6.4 GM/DL (6.4-8.2)
== END ==
LOC: M WUC 08:59
PROVIDERS: ATTEND Specialist
DX: D50.9 Iron deficiency anemia, unspecified (principal)

== ENCOUNTER 2020-12-06 10:20 | Inpatient (IN) | payer MEDICARE, OTHER ==
[2020-12-06] VITALS (12 sets, daily range): BP systolic 142–191; BP diastolic 60–76
[~2020-12-06] VITALS: Ht 167.6 cm; Wt 57.0 kg
[~2020-12-06 10:20] MED LIST changes: +BAYE325T12 PO
[2020-12-06] MEDS ORDERED: SPIR-10 PO (10:44)
[2020-12-06 11:30] LABS: BASO # 0.1 10^3/uL (0.0-0.2); BASO % 0.5 % (0.0-1.0); EOS % 0.2 % (0.0-3.0); LYMPH # 1.1 10^3/uL (1.5-5.0); LYMPH % 7.6 % (24.0-44.0); MEAN CORPUSCULAR HEMOGLOBIN 30.4 pg (27.0-33.0); MEAN CORPUSCULAR HGB CONC 32.6 g/dl (32.0-36.5); MEAN CORPUSCULAR VOLUME 93.2 fl (80.0-96.0); MONO % 6.9 % (2.0-8.0); NEUTROPHILS # 12.3 10^3/uL (1.5-8.5); NEUTROPHILS % 83.9 % (36.0-66.0); PLATELET COUNT, AUTOMATED 380 10^3/uL (150-450); RED BLOOD COUNT 1.91 10^6/uL (4.30-6.10); WHITE BLOOD COUNT 14.6 10^3/uL (4.0-10.0)
[2020-12-06 11:32] LABS: HEMATOCRIT 17.8 % (42.0-52.0); HEMOGLOBIN 5.8 g/dl (13.5-17.5)
[2020-12-06 11:42] LABS: ALBUMIN 2.7 GM/DL (3.2-5.2); ALT/SGPT 18 U/L (12-78); BILIRUBIN,DIRECT 0.1 MG/DL (0.0-0.2); BILIRUBIN,TOTAL 0.4 MG/DL (0.2-1.0); BLOOD UREA NITROGEN 29 MG/DL (7-18); CALCIUM LEVEL 9.1 MG/DL (8.8-10.2); CARBON DIOXIDE LEVEL 25 MEQ/L (21-32); CHLORIDE LEVEL 103 MEQ/L (98-107); CREATININE FOR GFR 1.54 MG/DL (0.70-1.30); GLOMERULAR FILTRATION RATE 48.1 (>49); GLUCOSE, FASTING 115 MG/DL (70-100); POTASSIUM SERUM 4.3 MEQ/L (3.5-5.1); SODIUM LEVEL 137 MEQ/L (136-145); TOTAL PROTEIN 5.8 GM/DL (6.4-8.2)
[2020-12-06] MEDS ORDERED: PANTOPRAZOLE 40MG VIAL (C9113 PER 1) IV ONE (12:20)
--- NOTE | 2020-12-06 12:34 | REP ---
INDICATION: UGI bleed. COMPARISON: Comparison study July 06, 2020.. TECHNIQUE: Sitting portable AP radiograph, two views. FINDINGS: A unipolar pacemaker is seen in the right heart view of the left side. Mild cardiomegaly is observed. These findings are unchanged. EKG electrodes are seen. The lungs are well inflated and clear. The pleural angles are sharp. Surgical clips are noted at the thoracic inlet and there is evidence of a left carotid artery stent. IMPRESSION: Pacemaker in place. Cardiomegaly. Otherwise no acute disease. <Electronically signed by Spike Wilde > 12/06/20 [id number]
[2020-12-06] MEDS ORDERED: ATEN25TA PO (12:47)
[2020-12-06] MEDS ORDERED: AMLO1TAB25 PO (12:47)
[2020-12-06] MEDS ORDERED: PANT-23 PO (12:47)
[2020-12-06] MEDS ORDERED: LISI20TA33 PO (12:47)
[2020-12-06 12:48] LABS: INR 1.5; PROTHROMBIN TIME 18.4 SECONDS (12.5-14.3)
[2020-12-06 12:56] LABS: CK-MB VALUE MASS 1.7 NG/ML (<3.6); CPK CREATINE PHOSPHOKINASE 34 U/L (39-308); TROPONIN I < 0.02 NG/ML (< 0.10)
[2020-12-06] MEDS: PANTOPRAZOLE SODIUM 40 MG in D5W 50 ML IV SCH ×3 (12:57→21:33)
[2020-12-06] MEDS ORDERED: MOM 30ML SUSPENSION UDC PO PRN (13:20)
[2020-12-06] MEDS ORDERED: ACETAMINOPHEN TAB 650MG DOSE (2X325MG) PO PRN (13:20)
[2020-12-06 13:27] LABS: RSV AMPLIFICATION NEGATIVE (NEGATIVE)
--- NOTE | 2020-12-06 13:44 | HPEPDOC ---
General Date of Admission Date of Service: Dec 06, 2020 Attending Physician: MILES AVILA MD Chief Complaint The patient is a 70-year-old male admitted with a reason for visit of Weakness. 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 Patient did receive 2 units of PRBC while he was at [facility] for his anemia. Patient denies any chest pain shortness of breath nausea vomiting, patient was scheduled for iron infusion today but was referred to ED secondary to low hemoglobin. Home Medications Scheduled Amlodipine Besylate (Amlodipine Besylate) 10 Mg Tablet, 10 MG PO DAILY, (Reported) Apixaban (Eliquis) 5 Mg Tablet, 5 MG PO BID, (Reported) Aspirin (Aspirin) 325 Mg Tablet, 325 MG PO DAILY, (Reported) Atenolol (Atenolol) 25 Mg Tablet, 25 MG PO BID, (Reported) Atorvastatin Calcium (Lipitor) 80 Mg Tab, 80 MG PO QHS, (Reported) Clopidogrel Bisulfate (Plavix) 75 Mg Tablet, 75 MG PO DAILY, (Reported) Digoxin (Digoxin) 250 Mcg Tablet, 250 MCG PO DAILY, (Reported) Duloxetine Hcl (Cymbalta) 30 Mg Capsule.dr, 30 MG PO BID, (Reported) Gabapentin (Neurontin) 800 Mg Tab, 800 MG PO TID, (Reported) Levetiracetam (Keppra) 1,000 Mg Tab, 1,000 MG PO BID, (Reported) Lisinopril (Lisinopril) 20 Mg Tablet, 20 MG PO DAILY, (Reported) Multivitamins (Thera M Plus Tablet) 1 Each Tablet, 1 TAB PO DAILY, (Reported) Pantoprazole Sodium (Pantoprazole Sodium) 40 Mg Tablet.dr, 40 MG PO DAILY, (Repo rted) Spironolactone (Spironolactone) 25 Mg Tablet, 25 MG PO DAILY, (Reported) Scheduled PRN Acetaminophen (Tylenol Extra Strength) 500 Mg Tablet, 1,000 MG PO Q8H PRN for PAIN LEVEL 1-5, (Reported) Allergies Coded Allergies: hydrochlorothiazide (Unverified Allergy, Unknown, Unknown, 07/06/20) Past Medical History Medical History Iron deficiency anemia, colon cancer, s/p left carotid endarterectomy, hypertension, history of active smoking, spinal stenosis Surgical History Partial colon resection, left carotid endarterectomy, history of right carotid endarterectomy history of angioplasty history of bilateral carpal tunnel repair history of right femoral endarterectomy, bilateral iliac endarterectomy Social History * Smoker: current smoker, greater than 1 pack/day Alcohol: Denies Drugs: denies A-FIB/CHADSVASC A-FIB History Current/History of A-Fib/PAF?: Yes Current PO Anticoag Therapy: Yes Review of Systems Constitutional: Reports: Other (Dizziness) Eyes: Denies: Pain, Vision change, Conjunctivae inflammation, Eyelid inflammation, Redness, Other ENT: Denies: Head Aches, Ear Pain, Dysphagia, Sinus Congestion, Post Nasal Drip, Sore Throat, Epistaxis, Other Symptoms Pulmonary: Denies: Dyspnea, Cough, Pleuritic Chest Pain, Other Symptoms Cardiovascular: Denies: Chest Pain, Palpitations, Orthopnea, Paroxysmal Noc. Dyspnea, Edema, Lt Headedness, Other Symptoms Gastrointestinal: Denies: Nausea, Vomiting, Abdominal Pain, Diarrhea, Constipation, Melena, Hematochezia, Other Symptoms Genitourinary: Denies: Dysuria, Frequency, Incontinence, Hematuria, Retention, Other Symptoms Hematologic: Denies: Bruising, Bleeding Excessively, Petecchia, Purpura, Enlarged Lymph Nodes, Other Hematologic Endocrine: Denies: Polydipsia, Polyphagia, Polyuria, Heat Intolerance, Cold Intolerance, Other Endocrine Sx Musculoskeletal: Denies: Neck Pain, Back Pain, Shoulder Pain, Arm Pain, Hand Pain, Leg Pain, Foot Pain, Joint Pain, Muscle Pain, Spasms, Other Symptoms Neurological: Denies: Weakness, Numbness, Incoordination, Change in speech, Confusion, Seizures, Other Symptoms Psych: Denies: Mood Normal, Anxiety, Depression, Memory Issues, Thoughts of Self Harm, Anger, Thoughts of Harming Other, Other Psych Physical Examination General Exam: Positive: Alert Eye Exam: Positive: PERRLA, Conjunctiva & lids normal ENT Exam: Positive: Atraumatic, Mucous membr. moist/pink Neck Exam: Positive: Supple Chest Exam: Positive: Clear to auscultation, Normal air movement Heart Exam: Positive: Rate Normal, Normal S1, Normal S2 Abdomen Exam: Positive: Normal bowel sounds, Soft Extremity Exam: Positive: Other (No clubbing sinus edema) Skin Exam: Positive: Nl turgor and temperature Neuro Exam: Positive: Other (No focal motor or sensory deficit) Psych Exam: Positive: Mental status NL, Mood NL, Oriented x 3 Vital Signs Vital Signs Date Time Temp Pulse Resp B/P (MAP) Pulse Ox O2 Delivery O2 Flow Rate FiO2 12/06/20 13:25 98.1 63 16 169/73 100 Room Air Laboratory Data Labs 24H Laboratory Tests 2 12/06/20 11:05: Immature Granulocyte % (Auto) 0.9, Neutrophils (%) (Auto) 83.9H, Lymphocytes (%) (Auto) 7.6L, Monocytes (%) (Auto) 6.9, Eosinophils (%) (Auto) 0.2, Basophils (%) (Auto) 0.5, Neutrophils # (Auto) 12.3H, Lymphocytes # (Auto) 1.1L, Monocytes # (Auto) 1.0H, Eosinophils # (Auto) 0.0, Basophils # (Auto) 0.1, Nucleated Red Blood Cells % (auto) 0.0, Prothrombin Time 18.4H, Prothromb Time International Ratio 1.50, Anion Gap 9, Glomerular Filtration Rate 48.1L, Calcium Level 9.1, Total Bilirubin 0.4, Direct Bilirubin 0.1, Aspartate Amino Transf (AST/SGOT) 11, Alanine Aminotransferase (ALT/SGPT) 18, Alkaline Phosphatase 56, Total Creatine Kinase 34L, Creatine Kinase MB 1.7, Creatine Kinase MB Relative Index 5.00H, Troponin I < 0.02, Total Protein 5.8L, Albumin 2.7L, Albumin/Globulin Ratio 0.9, Digoxin Level 1.8 12/06/20 12:38: Coronavirus (COVID-19)(PCR) NEGATIVE, Influenza Type A (RT-PCR) NEGATIVE, Influenza Type B (RT-PCR) NEGATIVE, Respiratory Syncytial Virus (PCR) NEGATIVE CBC/BMP Laboratory Tests 12/06/20 11:05 Problems (1) GI bleed Status: Acute (2) Acute blood loss anemia Status: Acute Plan / VTE VTE Prophylaxis Ordered?: Yes Plan Plan This is 70 years old male with past medical history 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 Patient did receive 2 units of PRBC while he was at [facility] for his anemia. Patient denies any chest pain shortness of breath nausea vomiting, patient was scheduled for iron infusion today but was referred to ED secondary to low hemoglobin. Patient's vitals on admission heart rate 58, respirate of 16, blood pressure 198/77, pulse ox 100% on room air WBC 14.6, hemoglobin 5.8, platelets 380, CMP within normal limit, digoxin 1.8 EKG shows PPM rhythm [facility] Patient has been scheduled to receive transfusion of 2 units of PRBC from ED Protonix drip was started from ED I will also start octreotide drip as well to stop bleed Dr. Mark was called from ED and consult will be put in and will see patient tomorrow morning H&H every 8 hours and transfuse as needed Continue home antihypertensive meds but hold aspirin Plavix and apixaban Will restart anticoagulation as soon as patient is cleared from GI as patient had a recently left carotid endarterectomy done. DVT prophylaxis with antiembolic stockings Diet: Clear liquid diet with meds Activity as tolerated MILES AIVLA MD Dec 06, 2020 13:44
[2020-12-06] MEDS: DIGOXIN 0.25 MG TAB PO SCH (14:52)
[2020-12-06] MEDS ORDERED: OCTREOTIDE ACETATE 1,200 MCG in NS 238.8 ML IV SCH (16:00)
[2020-12-06] MEDS: GABAPENTIN 400MG CAP PO SCH ×2 (16:46→22:05)
--- NOTE | 2020-12-06 16:52 | ECGEPIP ---
[facility] - ED Test Date: 2020-12-06 Pat Name: TON MATTSON Department: Room: - Gender: Male Sr. Media Manager: mayito : 1950 Requested By: Robbin Burgess Order Number: [id number] Reading MD: Yakov Horton Measurements Intervals [place] Rate: 58 P: MA: QRS: 27 QRSD: 90 T: 193 QT: 402 QTc: 394 Interpretive Statements Atrial fibrillation with slow ventricular response Minimal voltage criteria for LVH, may be normal variant ST & T wave abnormality, consider lateral ischemia Similar to tracing done 07-07-20 with rate slightly less than tracing done 07-07-20 Electronically Signed on 12-06-2020 16:52:01 EDT by Yakov Horton
[2020-12-06] MEDS ORDERED: FUROSEMIDE 20MG/2ML VIAL (J1940) IV ONE (17:20)
[2020-12-06 19:13] LABS: HEMATOCRIT 28.5 % (42.0-52.0); MEAN CORPUSCULAR HEMOGLOBIN 30.5 pg (27.0-33.0); MEAN CORPUSCULAR HGB CONC 33.3 g/dl (32.0-36.5); MEAN CORPUSCULAR VOLUME 91.6 fl (80.0-96.0); PLATELET COUNT, AUTOMATED 369 10^3/uL (150-450); RED BLOOD COUNT 3.11 10^6/uL (4.30-6.10); WHITE BLOOD COUNT 14.7 10^3/uL (4.0-10.0)
[2020-12-06 19:14] LABS: HEMOGLOBIN 9.5 g/dl (13.5-17.5)
[2020-12-06] MEDS ORDERED: PANTOPRAZOLE 40MG VIAL (C9113 PER 1) IV SCH (20:00)
[2020-12-06 21:31] LABS: HEMATOCRIT 27.7 % (42.0-52.0); HEMOGLOBIN 9.3 g/dl (13.5-17.5); MEAN CORPUSCULAR HGB CONC 33.6 g/dl (32.0-36.5); MEAN CORPUSCULAR VOLUME 92.3 fl (80.0-96.0); PLATELET COUNT, AUTOMATED 345 10^3/uL (150-450); WHITE BLOOD COUNT 13.7 10^3/uL (4.0-10.0)
[2020-12-06] MEDS: levETIRAcetam 250MG TABLET (KEPPRA) PO SCH (22:05)
[2020-12-06] MEDS: DULoxetine 30 MG CAP (CYMBALTA) PO SCH (22:05)
[2020-12-06] MEDS: atenoloL 25 MG TAB PO SCH (22:06)
[2020-12-07] MEDS: PANTOPRAZOLE SODIUM 40 MG in D5W 50 ML IV SCH ×2 (01:38→06:05)
[2020-12-07 02:00] VITALS: BP 136/66
[2020-12-07 05:34] LABS: HEMATOCRIT 27.2 % (42.0-52.0); HEMOGLOBIN 8.9 g/dl (13.5-17.5); MEAN CORPUSCULAR HEMOGLOBIN 30.1 pg (27.0-33.0); MEAN CORPUSCULAR HGB CONC 32.7 g/dl (32.0-36.5); MEAN CORPUSCULAR VOLUME 91.9 fl (80.0-96.0); PLATELET COUNT, AUTOMATED 333 10^3/uL (150-450); RED BLOOD COUNT 2.96 10^6/uL (4.30-6.10); WHITE BLOOD COUNT 11.1 10^3/uL (4.0-10.0)
[2020-12-07 06:00] VITALS: BP 142/65
[2020-12-07 06:00] LABS: ALBUMIN 2.9 GM/DL (3.2-5.2); BILIRUBIN,TOTAL 0.7 MG/DL (0.2-1.0); CALCIUM LEVEL 8.6 MG/DL (8.8-10.2); CREATININE FOR GFR 1.6 MG/DL (0.70-1.30); MAGNESIUM LEVEL 1.6 MG/DL (1.8-2.4); POTASSIUM SERUM 4.2 MEQ/L (3.5-5.1); TOTAL PROTEIN 5.5 GM/DL (6.4-8.2)
[2020-12-07] MEDS ORDERED: MAG SULF 1GM/100ML (MAG RUN) 1 GM in IV 1 EA IV ONE (08:00)
[2020-12-07] MEDS: DIGOXIN 0.25 MG TAB PO SCH (09:00)
[2020-12-07] MEDS: atenoloL 25 MG TAB PO SCH (09:00)
[2020-12-07] MEDS: levETIRAcetam 250MG TABLET (KEPPRA) PO SCH ×2 (09:47→20:30)
[2020-12-07] MEDS: DULoxetine 30 MG CAP (CYMBALTA) PO SCH ×2 (09:47→20:30)
[2020-12-07] MEDS: GABAPENTIN 400MG CAP PO SCH ×3 (09:47→20:30)
[2020-12-07 10:00] VITALS: BP 144/58
--- NOTE | 2020-12-07 10:37 | IPNPDOC ---
Subjective Date Seen The patient was seen on 12/07/20. Subjective Chief Complaint/HPI Patient is comfortable no distress offers no new complaints General: Denies: ROS Unobtainable, Chills, Night Sweats, Fatigue, Malaise, Normal Appetite, Other Symptoms Constitutional: Denies: Chills, Fever, Malaise, Night Sweats, Weakness, Fatigue, Weight Loss, Lethargy, Other Pulmonary: Denies: Dyspnea, Cough, Pleuritic Chest Pain, Other Symptoms Cardiovascular: Denies: Chest Pain, Palpitations, Orthopnea, Paroxysmal Noc. Dyspnea, Edema, Lt Headedness, Other Symptoms Gastrointestinal: Denies: Nausea, Vomiting, Abdominal Pain, Diarrhea, Constipation, Melena, Hematochezia, Other Symptoms Musculoskeletal: Denies: Neck Pain, Back Pain, Shoulder Pain, Arm Pain, Hand Pain, Leg Pain, Foot Pain, Joint Pain, Muscle Pain, Spasms, Other Symptoms Neurological: Denies: Weakness, Numbness, Incoordination, Change in speech, Confusion, Seizures, Other Symptoms Objective Physical Examination General Exam: Positive: Alert Chest Exam: Positive: Clear to auscultation, Normal air movement Heart Exam: Positive: Rate Normal, Normal S1, Normal S2 Abdomen Exam: Positive: Normal bowel sounds, Soft Extremity Exam: Positive: Other (No clubbing sinus edema) Skin Exam: Positive: Nl turgor and temperature Neuro Exam: Positive: Other (No focal motor or sensory deficit) Assessment /Plan Problems (1) GI bleed Status: Acute (2) Acute blood loss anemia Status: Acute Plan/VTE VTE Prophylaxis Ordered?: Yes Plan This is 70 years old male with past medical history 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 Patient did receive 2 units of PRBC while he was at [place] for his anemia. Patient denies any chest pain shortness of breath nausea vomiting, patient was scheduled for iron infusion today but was referred to ED secondary to low hemoglobin. Patient's vitals on admission heart rate 58, respirate of 16, blood pressure 198/77, pulse ox 100% on room air WBC 14.6, hemoglobin 5.8, platelets 380, CMP within normal limit, digoxin 1.8 EKG shows PPM rhythm Patient was admitted to [facility] floor with telemetry Patient received 2 units of PRBC with subsequent improvement in his hemoglobin to 8.[address] 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 We will DC Protonix and octreotide drip and monitor H&H and treat conservatively Unfortunately we do not have vascular surgery available at this time so will he will have to follow-up as an outpatient with vascular surgery once he is discharged from this hospital Monitor H&H and transfuse as needed He was found to be bradycardic in 40s to 50s hence I will hold digoxin for day or 2 and cut down his atenolol to 12.5 mg p.o. twice daily His blood pressure is under well control and will continue all his home meds including atenolol and Norvasc As patient recently had a left carotid artery stent placed in will restart him on Plavix, all the risks of restarting Plavix in this situation were explained to him but also importance of continuing Plavix to avoid clotting of the new stent was explained to him and he understands very well. Once his H&H is stable and will restart all his anticoagulants including aspirin and Eliquis as patient is high risk of clotting due to his vasculopathy Repeat labs in a.m. VS, I&O, 24H, Fishbone Vital Signs/I&O Vital Signs Date Time Temp Pulse Resp B/P (MAP) Pulse Ox O2 Delivery O2 Flow Rate FiO2 12/07/20 09:00 55 12/07/20 09:00 122/60 12/07/20 06:00 98.7 16 96 Room Air I&O- Last 24 Hours up to 6 AM 12/07/20 06:00 Intake Total 2173 ml Output Total 1500 ml Balance 673 ml Laboratory Data 24H LABS Laboratory Tests 2 12/06/20 11:05: Immature Granulocyte % (Auto) 0.9, Neutrophils (%) (Auto) 83.9H, Lymphocytes (%) (Auto) 7.6L, Monocytes (%) (Auto) 6.9, Eosinophils (%) (Auto) 0.2, Basophils (%) (Auto) 0.5, Neutrophils # (Auto) 12.3H, Lymphocytes # (Auto) 1.1L, Monocytes # (Auto) 1.0H, Eosinophils # (Auto) 0.0, Basophils # (Auto) 0.1, Nucleated Red Blood Cells % (auto) 0.0, Prothrombin Time 18.4H, Prothromb Time International Ratio 1.50, Anion Gap 9, Glomerular Filtration Rate 48.1L, Calcium Level 9.1, Total Bilirubin 0.4, Direct Bilirubin 0.1, Aspartate Amino Transf (AST/SGOT) 11, Alanine Aminotransferase (ALT/SGPT) 18, Alkaline Phosphatase 56, Total Creatine Kinase 34L, Creatine Kinase MB 1.7, Creatine Kinase MB Relative Index 5.00H, Troponin I < 0.02, Total Protein 5.8L, Albumin 2.7L, Albumin/Globulin Ratio 0.9, Digoxin Level 1.8 12/06/20 12:38: Coronavirus (COVID-19)(PCR) NEGATIVE, Influenza Type A (RT-PCR) NEGATIVE, Influenza Type B (RT-PCR) NEGATIVE, Respiratory Syncytial Virus (PCR) NEGATIVE 12/06/20 18:49: Nucleated Red Blood Cells % (auto) 0.0 12/06/20 21:20: Nucleated Red Blood Cells % (auto) 0.0 12/07/20 05:15: Nucleated Red Blood Cells % (auto) 0.0, Anion Gap 4L, Glomerular Filtration Rate 46.0L, Calcium Level 8.6L, Magnesium Level 1.6L, Total Bilirubin 0.7#, Aspartate Amino Transf (AST/SGOT) 21, Alanine Aminotransferase (ALT/SGPT) 20, Alkaline Phosphatase 58, Total Protein 5.5L, Albumin 2.9L, Albumin/Globulin Ratio 1.1 12/07/20 10:16: Lab Scanned Report Transfusion Record CBC/BMP Laboratory Tests 12/06/20 11:05 12/06/20 18:49 12/06/20 21:20 12/07/20 05:15 MILES AVILA MD Dec 07, 2020 10:37
[2020-12-07] MEDS: CLOPIDOGREL 75 MG TAB PO SCH (11:15)
[2020-12-07] MEDS: SUCRALFATE SUSP 1GM/10ML UD PO SCH ×3 (11:15→20:29)
[2020-12-07] MEDS: PANTOPRAZOLE 40MG TAB (PROTONIX) PO SCH ×2 (11:15→20:30)
[2020-12-07 13:41] LABS: HEMOGLOBIN 8.9 g/dl (13.5-17.5); MEAN CORPUSCULAR HEMOGLOBIN 30.6 pg (27.0-33.0); MEAN CORPUSCULAR VOLUME 92.8 fl (80.0-96.0); PLATELET COUNT, AUTOMATED 344 10^3/uL (150-450); RED BLOOD COUNT 2.91 10^6/uL (4.30-6.10); WHITE BLOOD COUNT 10.2 10^3/uL (4.0-10.0)
[2020-12-07 14:00] VITALS: BP 161/67
[2020-12-07] MEDS: ATENOLOL 12.5MG PER 1/2 TABLET PO SCH (20:30)
[2020-12-07 22:00] VITALS: BP 141/60
[2020-12-08 02:00] VITALS: BP 127/58
[2020-12-08 06:00] VITALS: BP 126/66
[2020-12-08 06:26] LABS: BASO # 0.1 10^3/uL (0.0-0.2); BASO % 0.9 % (0.0-1.0); EOS # 0.2 10^3/uL (0.0-0.5); EOS % 2.1 % (0.0-3.0); HEMATOCRIT 27.5 % (42.0-52.0); HEMOGLOBIN 8.8 g/dl (13.5-17.5); LYMPH # 1.4 10^3/uL (1.5-5.0); MEAN CORPUSCULAR HEMOGLOBIN 29.7 pg (27.0-33.0); MEAN CORPUSCULAR VOLUME 92.9 fl (80.0-96.0); MONO % 9.9 % (2.0-8.0); NEUTROPHILS % 72.5 % (36.0-66.0); PLATELET COUNT, AUTOMATED 374 10^3/uL (150-450); RED BLOOD COUNT 2.96 10^6/uL (4.30-6.10); WHITE BLOOD COUNT 9.6 10^3/uL (4.0-10.0)
[2020-12-08 07:09] LABS: ALBUMIN 2.7 GM/DL (3.2-5.2); BILIRUBIN,TOTAL 0.6 MG/DL (0.2-1.0); CALCIUM LEVEL 8.6 MG/DL (8.8-10.2); CREATININE FOR GFR 1.36 MG/DL (0.70-1.30); DIGOXIN LEVEL 1.5 NG/ML (0.5-2.0); GLOMERULAR FILTRATION RATE 55.5 (>49); MAGNESIUM LEVEL 1.9 MG/DL (1.8-2.4); POTASSIUM SERUM 4.2 MEQ/L (3.5-5.1); TOTAL PROTEIN 5.3 GM/DL (6.4-8.2)
[2020-12-08] MEDS: PANTOPRAZOLE 40MG TAB (PROTONIX) PO SCH ×2 (09:31→20:23)
[2020-12-08] MEDS: SUCRALFATE SUSP 1GM/10ML UD PO SCH ×4 (09:31→20:22)
[2020-12-08] MEDS: levETIRAcetam 250MG TABLET (KEPPRA) PO SCH ×2 (09:31→20:23)
[2020-12-08] MEDS: GABAPENTIN 400MG CAP PO SCH ×3 (09:32→20:22)
[2020-12-08] MEDS: ATENOLOL 12.5MG PER 1/2 TABLET PO SCH ×2 (09:32→20:23)
[2020-12-08] MEDS: DULoxetine 30 MG CAP (CYMBALTA) PO SCH ×2 (09:32→20:23)
[2020-12-08 10:00] VITALS: BP 148/67
--- NOTE | 2020-12-08 11:04 | IPNPDOC ---
Subjective Date Seen The patient was seen on 12/08/20. Subjective Chief Complaint/HPI Patient is comfortable in no distress offers no new complaints scheduled for EGD today General: Denies: ROS Unobtainable, Chills, Night Sweats, Fatigue, Malaise, Normal Appetite, Other Symptoms Constitutional: Denies: Chills, Fever, Malaise, Night Sweats, Weakness, Fatigue, Weight Loss, Lethargy, Other Pulmonary: Denies: Dyspnea, Cough, Pleuritic Chest Pain, Other Symptoms Cardiovascular: Denies: Chest Pain, Palpitations, Orthopnea, Paroxysmal Noc. Dyspnea, Edema, Lt Headedness, Other Symptoms Gastrointestinal: Denies: Nausea, Vomiting, Abdominal Pain, Diarrhea, Constipation, Melena, Hematochezia, Other Symptoms Musculoskeletal: Denies: Neck Pain, Back Pain, Shoulder Pain, Arm Pain, Hand Pain, Leg Pain, Foot Pain, Joint Pain, Muscle Pain, Spasms, Other Symptoms Neurological: Denies: Weakness, Numbness, Incoordination, Change in speech, Confusion, Seizures, Other Symptoms Objective Physical Examination General Exam: Positive: Alert Chest Exam: Positive: Clear to auscultation, Normal air movement Heart Exam: Positive: Rate Normal, Normal S1, Normal S2 Abdomen Exam: Positive: Normal bowel sounds, Soft Extremity Exam: Positive: Other (No clubbing sinus edema) Skin Exam: Positive: Nl turgor and temperature Neuro Exam: Positive: Other (No focal motor or sensory deficit) Assessment /Plan Problems (1) GI bleed Status: Acute (2) Acute blood loss anemia Status: Acute Plan/VTE VTE Prophylaxis Ordered?: Yes Plan This is 70 years old male with past medical history 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 Patient did receive 2 units of PRBC while he was at [place] for his anemia. Patient denies any chest pain shortness of breath nausea vomiting, patient was scheduled for iron infusion today but was referred to ED secondary to low hemoglobin. Patient's vitals on admission heart rate 58, respirate of 16, blood pressure 198/77, pulse ox 100% on room air WBC 14.6, hemoglobin 5.8, platelets 380, CMP within normal limit, digoxin 1.8 EKG shows PPM rhythm Patient was admitted to [facility] floor with telemetry Patient received 2 units of PRBC yesterday and hemoglobin is still stable today is 8.8 Patient is apparently scheduled for EGD today by GI and will await further input from GI once the EGD is complete Protonix and octreotide drips were DC'd as patient is clinically stable Unfortunately we do not have vascular surgery available at this time so will he will have to follow-up as an outpatient with vascular surgery once he is discharged from this hospital Continue monitoring H&H and transfuse as needed He was found to be bradycardic in 40s to 50s hence I will hold digoxin for day or 2 and cut down his atenolol to 12.5 mg p.o. twice daily His blood pressure is under well control and will continue all his home meds including atenolol and Norvasc As patient recently had a left carotid artery stent placed in will restart him on Plavix, all the risks of restarting Plavix in this situation were explained to him but also importance of continuing Plavix to avoid clotting of the new stent was explained to him and he understands very well. Once his H&H is stable and will restart all his anticoagulants including aspirin and Eliquis as patient is high risk of clotting due to his vasculopathy VS, I&O, 24H, Fishbone Vital Signs/I&O Vital Signs Date Time Temp Pulse Resp B/P (MAP) Pulse Ox O2 Delivery O2 Flow Rate FiO2 12/08/20 10:00 97.6 52 17 148/67 (94) 95 Room Air I&O- Last 24 Hours up to 6 AM 12/08/20 06:00 Intake Total 1530 ml Balance 1530 ml Laboratory Data 24H LABS Laboratory Tests 2 12/07/20 13:13: Nucleated Red Blood Cells % (auto) 0.0 12/08/20 05:37: Nucleated Red Blood Cells % (auto) 0.0, Immature Granulocyte % (Auto) 0.6, Neutrophils (%) (Auto) 72.5H, Lymphocytes (%) (Auto) 14.0L, Monocytes (%) (Auto) 9.9H, Eosinophils (%) (Auto) 2.1, Basophils (%) (Auto) 0.9, Neutrophils # (Auto) 7.0, Lymphocytes # (Auto) 1.4L, Monocytes # (Auto) 1.0H, Eosinophils # (Auto) 0.2, Basophils # (Auto) 0.1, Anion Gap 6L, Glomerular Filtration Rate 55.5, Calcium Level 8.6L, Magnesium Level 1.9, Total Bilirubin 0.6, Aspartate Amino Transf (AST/SGOT) 17, Alanine Aminotransferase (ALT/SGPT) 20, Alkaline Phosphatase 59, Total Protein 5.3L, Albumin 2.7L, Albumin/Globulin Ratio 1.0, Digoxin Level 1.5 CBC/BMP Laboratory Tests 12/07/20 13:13 12/08/20 05:37 MILES AVILA MD Dec 08, 2020 11:04
[2020-12-08 14:00] VITALS: BP 150/66
[2020-12-08 18:00] VITALS: BP 164/62
[2020-12-08] MEDS: CLOPIDOGREL 75 MG TAB PO SCH (18:10)
[2020-12-08 22:00] VITALS: BP 148/70
[2020-12-09 02:00] VITALS: BP 151/67
[2020-12-09 06:00] VITALS: BP 142/60
[2020-12-09 06:27] LABS: BASO # 0.1 10^3/uL (0.0-0.2); BASO % 0.9 % (0.0-1.0); EOS # 0.2 10^3/uL (0.0-0.5); EOS % 2.4 % (0.0-3.0); HEMATOCRIT 25.1 % (42.0-52.0); HEMOGLOBIN 8.2 g/dl (13.5-17.5); LYMPH # 1.4 10^3/uL (1.5-5.0); LYMPH % 14.7 % (24.0-44.0); MEAN CORPUSCULAR HEMOGLOBIN 30.3 pg (27.0-33.0); MEAN CORPUSCULAR HGB CONC 32.7 g/dl (32.0-36.5); MEAN CORPUSCULAR VOLUME 92.6 fl (80.0-96.0); MONO % 10.3 % (2.0-8.0); NEUTROPHILS # 6.9 10^3/uL (1.5-8.5); NEUTROPHILS % 71.3 % (36.0-66.0); PLATELET COUNT, AUTOMATED 348 10^3/uL (150-450); RED BLOOD COUNT 2.71 10^6/uL (4.30-6.10); WHITE BLOOD COUNT 9.6 10^3/uL (4.0-10.0)
[2020-12-09 06:47] LABS: ALBUMIN 2.6 GM/DL (3.2-5.2); ALT/SGPT 19 U/L (12-78); BILIRUBIN,TOTAL 0.4 MG/DL (0.2-1.0); BLOOD UREA NITROGEN 20 MG/DL (7-18); CALCIUM LEVEL 8.2 MG/DL (8.8-10.2); CARBON DIOXIDE LEVEL 26 MEQ/L (21-32); CHLORIDE LEVEL 109 MEQ/L (98-107); CREATININE FOR GFR 1.21 MG/DL (0.70-1.30); GLOMERULAR FILTRATION RATE > 60.0 (>49); GLUCOSE, FASTING 93 MG/DL (70-100); POTASSIUM SERUM 4.1 MEQ/L (3.5-5.1); SODIUM LEVEL 142 MEQ/L (136-145); TOTAL PROTEIN 5.1 GM/DL (6.4-8.2)
[2020-12-09] MEDS ORDERED: propofoL 200 MG/20 ML VIAL As Ordered ONE (07:12)
[2020-12-09] MEDS ORDERED: LIDOCAINE 2% 100MG/5ML SDV (FOR ANES.) As Ordered ONE (07:12)
[2020-12-09] MEDS ORDERED: fentaNYL 100 MCG/2 ML INJECTION (J3010) As Ordered ONE (07:12)
[2020-12-09] MEDS: levETIRAcetam 250MG TABLET (KEPPRA) PO SCH (09:03)
[2020-12-09] MEDS: SUCRALFATE SUSP 1GM/10ML UD PO SCH ×2 (09:03→12:29)
[2020-12-09 09:04] VITALS: BP 142/60
[2020-12-09] MEDS: PANTOPRAZOLE 40MG TAB (PROTONIX) PO SCH (09:04)
[2020-12-09] MEDS: DULoxetine 30 MG CAP (CYMBALTA) PO SCH (09:04)
[2020-12-09] MEDS: GABAPENTIN 400MG CAP PO SCH (09:04)
[2020-12-09] MEDS: CLOPIDOGREL 75 MG TAB PO SCH (09:04)
[2020-12-09] MEDS: ATENOLOL 12.5MG PER 1/2 TABLET PO SCH (09:04)
[2020-12-09 10:00] VITALS: BP 126/68
[2020-12-09 12:16] LABS: HEMATOCRIT 28.4 % (42.0-52.0); HEMOGLOBIN 9.1 g/dl (13.5-17.5)
[2020-12-09] MEDS ORDERED: ATEN25TA PO (14:11)
[2020-12-09] MEDS ORDERED: SUCR1ORA PO (14:11)
[2020-12-09] MEDS ORDERED: PANT40TA29 PO (14:11)
--- NOTE | 2020-12-09 14:20 | DS.PDOC ---
Discharge Summary General Date of Admission Dec 06, 2020 at 13:16 Date of Discharge 12/09/2020 Attending Physician: LESLIE CHENG MD [facility] Discharge Summary PROCEDURES PERFORMED DURING STAY: [None]. ADMITTING DIAGNOSES: 1. GI Bleed 2. Colonic AVMs 3. Adenocarcinoma of colon s/p colon resection 4. Iron deficiency anemia DISCHARGE DIAGNOSES: 1. Lower GI Bleed s/p 2U PRBC transfusion 2. Acute blood loss anemia in setting of chronic iron deficiency anemia COMPLICATIONS/CHIEF COMPLAINT: Gi Bleed. 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 Patient did receive 2 units of PRBC while he was at [place] for his anemia. Patient denies any chest pain shortness of breath nausea vomiting, patient was scheduled for iron infusion today but was referred to ED secondary to low hemoglobin. HOSPITAL COURSE: Mr. Garcia received 2U PRBCs and was initially scheduled for EGD in hospital but was not NPO at the time GI was to see him. He was therefore monitored for an additional night with stable/improved H&H above transfusion threshold and it was determined that he will follow up with GI and received EGD as outpatient. At time of discharge Mr. Garcia felt markedly improved. He was given the opportunity to ask questions and participated in his discharge planning. While his anticoagulation was held in the setting of an acute GI bleed, the Aspirin, Plavix, and Eliquis have all been restarted in the setting of stable H&H given his significant vascular history. He has been discharged home on Carafate and an increased dose of Protonix. He additionally had low/normal BP and his Atenolol was reduced to 12.5mg twice daily. DISCHARGE MEDICATIONS: Please see below. ALLERGIES: Please see below. PHYSICAL EXAMINATION ON DISCHARGE: VITAL SIGNS: Please see below. GENERAL: Well appearing, thin older male, sitting up in bed, NAD HEENT: EOMI, PERRLA, mucosa are pink and moist NECK: No JVD, well healed scarring from endarterectomies, no appreciable bruits CARDIOVASCULAR EXAMINATION: RRR no M/R/G, no peripheral edema appreciated. PPM noted under skin of anterior left chest wall RESPIRATORY EXAMINATION: CTAB ABDOMINAL EXAMINATION: Soft, non distended, active bowel sounds, non tender to palpation EXTREMITIES: No obvious deformities SKIN: No lacerations/abrasions NEUROLOGICAL EXAMINATION: AOx3 PSYCHIATRIC EXAMINATION: Euthymic LABORATORY DATA: Please see below. IMAGING: CXR: IMPRESSION: Pacemaker in place. Cardiomegaly. Otherwise no acute disease. PROGNOSIS: Good ACTIVITY: [As tolerated]. DIET: Heart healthy DISCHARGE PLAN: Discharge to home with follow up with GI in the next week and PCM in the next week. Medication changes as noted above and below DISPOSITION: . DISCHARGE INSTRUCTIONS: Follow up with GI to schedule repeat EGD ITEMS TO FOLLOWUP ON ON OUTPATIENT: EGD scheduling DISCHARGE CONDITION: [Stable]. TIME SPENT ON DISCHARGE: Greater than 33 minutes. Vital Signs/I&Os Vital Signs Date Time Temp Pulse Resp B/P (MAP) Pulse Ox O2 Delivery O2 Flow Rate FiO2 12/09/20 10:00 97.9 53 17 126/68 (87) 98 Room Air I&O- Last 24 Hours up to 6 AM 12/09/20 06:00 Intake Total 2100 ml Output Total 0 ml Balance 2100 ml Laboratory Data Labs 24H Laboratory Tests 2 12/09/20 05:33: Immature Granulocyte % (Auto) 0.4, Neutrophils (%) (Auto) 71.3H, Lymphocytes (%) (Auto) 14.7L, Monocytes (%) (Auto) 10.3H, Eosinophils (%) (Auto) 2.4, Basophils (%) (Auto) 0.9, Neutrophils # (Auto) 6.9, Lymphocytes # (Auto) 1.4L, Monocytes # (Auto) 1.0H, Eosinophils # (Auto) 0.2, Basophils # (Auto) 0.1, Nucleated Red Blood Cells % (auto) 0.0, Anion Gap 7L, Glomerular Filtration Rate > 60.0, Calcium Level 8.2L, Total Bilirubin 0.4, Aspartate Amino Transf (AST/SGOT) 14, Alanine Aminotransferase (ALT/SGPT) 19, Alkaline Phosphatase 56, Total Protein 5.1L, Albumin 2.6L, Albumin/Globulin Ratio 1.0 CBC/BMP Laboratory Tests 12/09/20 05:33 12/09/20 12:06 Discharge Medications Scheduled Amlodipine Besylate (Amlodipine Besylate) 10 Mg Tablet, 10 MG PO DAILY, (Reported) Apixaban (Eliquis) 5 Mg Tablet, 5 MG PO BID, (Reported) Aspirin (Aspirin) 325 Mg Tablet, 325 MG PO DAILY, (Reported) Atenolol (Atenolol) 25 Mg Tablet, 12.5 MG PO BID Atorvastatin Calcium (Lipitor) 80 Mg Tab, 80 MG PO QHS, (Reported) Clopidogrel Bisulfate (Plavix) 75 Mg Tablet, 75 MG PO DAILY, (Reported) Digoxin (Digoxin) 250 Mcg Tablet, 250 MCG PO DAILY, (Reported) Duloxetine Hcl (Cymbalta) 30 Mg Capsule.dr, 30 MG PO BID, (Reported) Gabapentin (Neurontin) 800 Mg Tab, 800 MG PO TID, (Reported) Levetiracetam (Keppra) 1,000 Mg Tab, 1,000 MG PO BID, (Reported) Lisinopril (Lisinopril) 20 Mg Tablet, 20 MG PO DAILY, (Reported) Multivitamins (Thera M Plus Tablet) 1 Each Tablet, 1 TAB PO DAILY, (Reported) Pantoprazole Sodium (Pantoprazole Sodium) 40 Mg Tablet.dr, 40 MG PO BID Spironolactone (Spironolactone) 25 Mg Tablet, 25 MG PO DAILY, (Reported) Sucralfate (Sucralfate) 1 Gm/10 Ml Oral.susp, 1 GM PO ACHS Scheduled PRN Acetaminophen (Tylenol Extra Strength) 500 Mg Tablet, 1,000 MG PO Q8H PRN for PAIN LEVEL 1-5, (Reported) Allergies Coded Allergies: hydrochlorothiazide (Unverified Allergy, Unknown, Unknown, 07/06/20) LESLIE CHENG MD [facility] Dec 09, 2020 14:20
== END 2020-12-09 15:15 | disposition home or self-care (01) | DRG 378 ==
LOC: EDBD 10:20 → M ED 10:20 → M ED INP 13:16 → ENRESERV 14:45 → M MSPAV 16:32
PROVIDERS: ADMIT Internal Medicine; ATTEND General Practice
PROC: 30233N1 Transfusion of Nonautologous Red Blood Cells into Peripheral Vein, Percutaneous Approach (ICD-10-PCS; principal; 2020-12-06)
DX: K92.2 Gastrointestinal hemorrhage, unspecified (principal); D62 Acute posthemorrhagic anemia; Z85.038 Personal history of other malignant neoplasm of large intestine; F17.200 Nicotine dependence, unspecified, uncomplicated; Z79.899 Other long term (current) drug therapy; Z79.82 Long term (current) use of aspirin; Z88.8 Allergy status to other drugs, medicaments and biological substances

== ENCOUNTER → 2020-12-18 | Outpatient (REF) | payer MEDICARE, OTHER ==
[~2020-12-18] MED LIST changes: +SUCR1ORA PO
[2020-12-18 12:42] LABS: HEMATOCRIT 23.2 % (42.0-52.0); HEMOGLOBIN 7.2 g/dl (13.5-17.5); MEAN CORPUSCULAR HEMOGLOBIN 28.6 pg (27.0-33.0); MEAN CORPUSCULAR VOLUME 92.1 fl (80.0-96.0); PLATELET COUNT, AUTOMATED 367 10^3/uL (150-450); RED BLOOD COUNT 2.52 10^6/uL (4.30-6.10); WHITE BLOOD COUNT 10.9 10^3/uL (4.0-10.0)
[2020-12-18 13:31] LABS: BILIRUBIN,TOTAL 0.3 MG/DL (0.2-1.0); CALCIUM LEVEL 8.7 MG/DL (8.8-10.2); CHOLESTEROL RISK RATIO 3.651 (<5); CREATININE FOR GFR 1.38 MG/DL (0.70-1.30); DIGOXIN LEVEL 2.5 NG/ML (0.5-2.0); FREE T4 0.88 NG/DL (0.76-1.46); GLOMERULAR FILTRATION RATE 54.5 (>49); PERCENT SATURATION 5.5 % (19.7-50.0); POTASSIUM SERUM 4.8 MEQ/L (3.5-5.1); THYROID STIMULATING HORMONE 2.15 uIU/ML (0.358-3.740); TOTAL PROTEIN 5.7 GM/DL (6.4-8.2)
== END ==
LOC: M SFHCADAM 10:05
PROVIDERS: ATTEND Family Medicine
DX: D50.0 Iron deficiency anemia secondary to blood loss (chronic) (principal); I11.9 Hypertensive heart disease without heart failure; I48.91 Unspecified atrial fibrillation; I73.9 Peripheral vascular disease, unspecified

== ENCOUNTER 2020-12-19 16:16 | Inpatient (IN) | payer MEDICARE, OTHER ==
[~2020-12-19] VITALS: Ht 167.6 cm; Wt 53.1 kg
[2020-12-19] VITALS (8 sets, daily range): BP systolic 143–191; BP diastolic 67–80
[2020-12-19] MEDS: ATENOLOL 12.5MG PER 1/2 TABLET PO SCH (03:14)
[~2020-12-19 16:16] MED LIST changes: -AMPI2INJ2 IV; +AMPI2INJ3 IV
[2020-12-19 17:35] LABS: BASO # 0.1 10^3/uL (0.0-0.2); BASO % 0.5 % (0.0-1.0); EOS # 0.1 10^3/uL (0.0-0.5); EOS % 0.6 % (0.0-3.0); LYMPH # 1.1 10^3/uL (1.5-5.0); MEAN CORPUSCULAR HEMOGLOBIN 29.2 pg (27.0-33.0); MEAN CORPUSCULAR HGB CONC 32.4 g/dl (32.0-36.5); MONO % 7.8 % (2.0-8.0); NEUTROPHILS # 10.3 10^3/uL (1.5-8.5); NEUTROPHILS % 81.2 % (36.0-66.0); PLATELET COUNT, AUTOMATED 303 10^3/uL (150-450); RED BLOOD COUNT 2.09 10^6/uL (4.30-6.10); WHITE BLOOD COUNT 12.7 10^3/uL (4.0-10.0)
[2020-12-19 17:40] LABS: HEMATOCRIT 18.8 % (42.0-52.0); HEMOGLOBIN 6.1 g/dl (13.5-17.5)
[2020-12-19] MEDS ORDERED: SUCR1ORA PO (18:09)
[2020-12-19] MEDS ORDERED: PANT40TA29 PO (18:09)
[2020-12-19] MEDS ORDERED: AMLO1TAB24 PO (18:09)
[2020-12-19] MEDS ORDERED: ATEN25TA PO (18:09)
[2020-12-19] MEDS ORDERED: HOME MED LIST COMPLETE! XX SCH (18:10)
[2020-12-19 18:15] LABS: ALBUMIN 2.8 GM/DL (3.2-5.2); BILIRUBIN,TOTAL 0.2 MG/DL (0.2-1.0); CALCIUM LEVEL 8.8 MG/DL (8.8-10.2); CREATININE FOR GFR 1.44 MG/DL (0.70-1.30); GLOMERULAR FILTRATION RATE 51.9 (>49); MAGNESIUM LEVEL 1.7 MG/DL (1.8-2.4); POTASSIUM SERUM 4.4 MEQ/L (3.5-5.1); TOTAL PROTEIN 5.3 GM/DL (6.4-8.2)
[2020-12-19] MEDS ORDERED: ACETAMINOPHEN TAB 650MG DOSE (2X325MG) PO PRN (18:25)
[2020-12-19 18:48] LABS: INR 1.14; PROTHROMBIN TIME 14.9 SECONDS (12.5-14.3)
[2020-12-19 18:49] LABS: PARTIAL THROMBOPLASTIN TIME 25.1 SECONDS (24.2-38.5)
[2020-12-19] MEDS ORDERED: amLODIPine 5 MG TAB PO SCH (21:00)
[2020-12-19] MEDS: levETIRAcetam 250MG TABLET (KEPPRA) PO SCH (21:08)
[2020-12-19] MEDS: PANTOPRAZOLE 40MG VIAL (C9113 PER 1) IV SCH (21:08)
[2020-12-19] MEDS: GABAPENTIN 400MG CAP PO SCH (21:09)
[2020-12-19] MEDS: DULoxetine 30MG CAPSULE (CYMBALTA) PO SCH (21:09)
[2020-12-19] MEDS: ATORVASTATIN 20 MG TAB PO SCH (21:09)
[2020-12-19] MEDS: SUCRALFATE SUSP 1GM/10ML UD PO SCH (21:10)
[2020-12-19] MEDS: hydrALAZINE 20MG/ML 1ML VIAL (J0360 PER 20MG) IV PRN (23:31)
[2020-12-20] VITALS (8 sets, daily range): BP systolic 139–180; BP diastolic 64–72
[2020-12-20 01:04] LABS: HEMATOCRIT 27.8 % (42.0-52.0)
[2020-12-20 01:15] LABS: HEMOGLOBIN 9.1 g/dl (13.5-17.5)
[2020-12-20] MEDS: hydrALAZINE 20MG/ML 1ML VIAL (J0360 PER 20MG) IV PRN (03:07)
[2020-12-20 04:26] LABS: HEMATOCRIT 27.5 % (42.0-52.0); HEMOGLOBIN 9.1 g/dl (13.5-17.5); MEAN CORPUSCULAR HEMOGLOBIN 28.6 pg (27.0-33.0); MEAN CORPUSCULAR HGB CONC 33.1 g/dl (32.0-36.5); MEAN CORPUSCULAR VOLUME 86.5 fl (80.0-96.0); PLATELET COUNT, AUTOMATED 259 10^3/uL (150-450); RED BLOOD COUNT 3.18 10^6/uL (4.30-6.10); WHITE BLOOD COUNT 12.3 10^3/uL (4.0-10.0)
[2020-12-20 05:01] LABS: ALT/SGPT 25 U/L (12-78); BILIRUBIN,TOTAL 0.6 MG/DL (0.2-1.0); BLOOD UREA NITROGEN 21 MG/DL (7-18); CALCIUM LEVEL 8.5 MG/DL (8.8-10.2); CARBON DIOXIDE LEVEL 28 MEQ/L (21-32); CHLORIDE LEVEL 106 MEQ/L (98-107); CREATININE FOR GFR 1.25 MG/DL (0.70-1.30); GLOMERULAR FILTRATION RATE > 60.0 (>49); GLUCOSE, FASTING 103 MG/DL (70-100); MAGNESIUM LEVEL 1.7 MG/DL (1.8-2.4); POTASSIUM SERUM 3.8 MEQ/L (3.5-5.1); SODIUM LEVEL 139 MEQ/L (136-145); TOTAL PROTEIN 5.5 GM/DL (6.4-8.2)
[2020-12-20] MEDS: PANTOPRAZOLE 40MG VIAL (C9113 PER 1) IV SCH ×2 (08:50→20:08)
[2020-12-20] MEDS: SUCRALFATE SUSP 1GM/10ML UD PO SCH ×4 (08:51→20:06)
[2020-12-20] MEDS: GABAPENTIN 400MG CAP PO SCH ×3 (08:51→20:06)
[2020-12-20] MEDS: levETIRAcetam 250MG TABLET (KEPPRA) PO SCH ×2 (08:51→20:07)
[2020-12-20] MEDS: DULoxetine 30MG CAPSULE (CYMBALTA) PO SCH ×2 (08:52→20:07)
[2020-12-20] MEDS: ATENOLOL 12.5MG PER 1/2 TABLET PO SCH (08:52)
[2020-12-20] MEDS: lisinopriL 40 MG TAB PO SCH (08:52)
[2020-12-20] MEDS: DIGOXIN 0.25 MG TAB PO SCH (08:52)
[2020-12-20] MEDS: SPIRONOLACTONE 25 MG TAB PO SCH (08:55)
[2020-12-20 10:04] LABS: HEMATOCRIT 30.4 % (42.0-52.0)
[2020-12-20 12:08] LABS: DIGOXIN LEVEL 1.7 NG/ML (0.5-2.0)
[2020-12-20] MEDS ORDERED: fentaNYL 100 MCG/2 ML INJECTION As Ordered ONE (15:15)
[2020-12-20] MEDS ORDERED: LIDOCAINE 2% 100MG/5ML SDV (FOR ANES.) As Ordered ONE (15:53)
[2020-12-20] MEDS ORDERED: propofoL 200 MG/20 ML VIAL As Ordered ONE (15:53)
[2020-12-20 17:11] LABS: HEMATOCRIT 27.9 % (42.0-52.0); HEMOGLOBIN 9.1 g/dl (13.5-17.5)
[2020-12-20] MEDS: ATORVASTATIN 20 MG TAB PO SCH (20:08)
[2020-12-20 22:32] LABS: HEMOGLOBIN 8.6 g/dl (13.5-17.5)
[2020-12-21] VITALS: BP 109/53
[2020-12-21 04:00] VITALS: BP 119/61
[2020-12-21 04:03] LABS: HEMATOCRIT 27.3 % (42.0-52.0); HEMOGLOBIN 8.9 g/dl (13.5-17.5)
[2020-12-21] MEDS: SUCRALFATE SUSP 1GM/10ML UD PO SCH ×4 (07:42→21:00)
[2020-12-21 08:00] VITALS: BP 126/60
[2020-12-21 08:03] LABS: ALBUMIN 2.9 GM/DL (3.2-5.2); BILIRUBIN,TOTAL 0.4 MG/DL (0.2-1.0); CALCIUM LEVEL 8.8 MG/DL (8.8-10.2); CREATININE FOR GFR 1.3 MG/DL (0.70-1.30); GLOMERULAR FILTRATION RATE 58.4 (>49); POTASSIUM SERUM 4.1 MEQ/L (3.5-5.1); TOTAL PROTEIN 5.2 GM/DL (6.4-8.2)
[2020-12-21 08:05] LABS: BASO # 0.1 10^3/uL (0.0-0.2); BASO % 0.6 % (0.0-1.0); EOS # 0.2 10^3/uL (0.0-0.5); EOS % 1.6 % (0.0-3.0); LYMPH # 1.6 10^3/uL (1.5-5.0); LYMPH % 13.3 % (24.0-44.0); MEAN CORPUSCULAR HEMOGLOBIN 28.8 pg (27.0-33.0); MEAN CORPUSCULAR HGB CONC 32.8 g/dl (32.0-36.5); MEAN CORPUSCULAR VOLUME 87.8 fl (80.0-96.0); MONO % 8.3 % (2.0-8.0); NEUTROPHILS # 9.2 10^3/uL (1.5-8.5); NEUTROPHILS % 75.9 % (36.0-66.0); PLATELET COUNT, AUTOMATED 272 10^3/uL (150-450); RED BLOOD COUNT 3.12 10^6/uL (4.30-6.10); WHITE BLOOD COUNT 12.1 10^3/uL (4.0-10.0)
[2020-12-21] MEDS: ASPIRIN 325 MG TAB PO SCH (08:22)
[2020-12-21] MEDS: SPIRONOLACTONE 25 MG TAB PO SCH (08:22)
[2020-12-21] MEDS: GABAPENTIN 400MG CAP PO SCH ×3 (08:22→20:55)
[2020-12-21] MEDS: levETIRAcetam 250MG TABLET (KEPPRA) PO SCH ×2 (08:22→20:55)
[2020-12-21] MEDS: ATENOLOL 12.5MG PER 1/2 TABLET PO SCH (08:23)
[2020-12-21] MEDS: lisinopriL 40 MG TAB PO SCH (08:23)
[2020-12-21] MEDS: DULoxetine 30MG CAPSULE (CYMBALTA) PO SCH ×2 (08:23→20:55)
[2020-12-21] MEDS: PANTOPRAZOLE 40MG VIAL (C9113 PER 1) IV SCH ×2 (08:24→20:53)
[2020-12-21] MEDS: APIXABAN 5 MG TAB (ELIQUIS) PO SCH ×2 (08:24→20:55)
[2020-12-21] MEDS: DIGOXIN 0.25 MG TAB PO SCH (08:24)
[2020-12-21 10:22] LABS: HEMATOCRIT 27.9 % (42.0-52.0)
[2020-12-21 12:00] VITALS: BP 135/62
[2020-12-21 16:00] VITALS: BP 155/68
[2020-12-21 16:04] LABS: HEMATOCRIT 27.9 % (42.0-52.0); HEMOGLOBIN 9.1 g/dl (13.5-17.5)
[2020-12-21] MEDS ORDERED: SLF 3 ML SYR IV PRN (17:45)
[2020-12-21 20:00] VITALS: BP 160/78
[2020-12-21] MEDS: ATORVASTATIN 20 MG TAB PO SCH (20:54)
[2020-12-21] MEDS: SLF 3 ML SYR IV SCH (20:55)
[2020-12-22 04:00] VITALS: BP 143/63
[2020-12-22 05:35] LABS: BASO # 0.1 10^3/uL (0.0-0.2); BASO % 0.8 % (0.0-1.0); EOS # 0.3 10^3/uL (0.0-0.5); EOS % 2.8 % (0.0-3.0); HEMATOCRIT 27.1 % (42.0-52.0); HEMOGLOBIN 8.8 g/dl (13.5-17.5); LYMPH # 1.6 10^3/uL (1.5-5.0); LYMPH % 15.4 % (24.0-44.0); MEAN CORPUSCULAR HEMOGLOBIN 28.5 pg (27.0-33.0); MEAN CORPUSCULAR HGB CONC 32.5 g/dl (32.0-36.5); MEAN CORPUSCULAR VOLUME 87.7 fl (80.0-96.0); MONO # 0.9 10^3/uL (0.0-0.8); MONO % 8.6 % (2.0-8.0); NEUTROPHILS # 7.7 10^3/uL (1.5-8.5); PLATELET COUNT, AUTOMATED 246 10^3/uL (150-450); RED BLOOD COUNT 3.09 10^6/uL (4.30-6.10); WHITE BLOOD COUNT 10.6 10^3/uL (4.0-10.0)
[2020-12-22] MEDS: SLF 3 ML SYR IV SCH (05:42)
[2020-12-22 06:03] LABS: ALBUMIN 2.7 GM/DL (3.2-5.2); BILIRUBIN,TOTAL 0.4 MG/DL (0.2-1.0); CALCIUM LEVEL 8.8 MG/DL (8.8-10.2); CREATININE FOR GFR 1.29 MG/DL (0.70-1.30); MAGNESIUM LEVEL 1.6 MG/DL (1.8-2.4); POTASSIUM SERUM 3.9 MEQ/L (3.5-5.1); TOTAL PROTEIN 5.6 GM/DL (6.4-8.2)
[2020-12-22 08:00] VITALS: BP 136/60
[2020-12-22] MEDS: ASPIRIN 325 MG TAB PO SCH (08:50)
[2020-12-22] MEDS: APIXABAN 5 MG TAB (ELIQUIS) PO SCH (08:50)
[2020-12-22 08:51] VITALS: BP 136/60
[2020-12-22] MEDS: ATENOLOL 12.5MG PER 1/2 TABLET PO SCH (08:51)
[2020-12-22] MEDS: lisinopriL 40 MG TAB PO SCH (08:52)
[2020-12-22] MEDS: DIGOXIN 0.25 MG TAB PO SCH (08:52)
[2020-12-22] MEDS: SPIRONOLACTONE 25 MG TAB PO SCH (08:52)
[2020-12-22] MEDS: levETIRAcetam 250MG TABLET (KEPPRA) PO SCH (08:52)
[2020-12-22] MEDS: DULoxetine 30MG CAPSULE (CYMBALTA) PO SCH (08:52)
[2020-12-22] MEDS: SUCRALFATE SUSP 1GM/10ML UD PO SCH (08:53)
[2020-12-22] MEDS: PANTOPRAZOLE 40MG VIAL (C9113 PER 1) IV SCH (08:53)
[2020-12-22] MEDS: GABAPENTIN 400MG CAP PO SCH (08:53)
[2020-12-22] MEDS ORDERED: BAYE325T12 PO (09:41)
[2021-01-21] MEDS ORDERED: TRAM50TA2 PO (14:25)
[2021-05-07] MEDS ORDERED: CLOP75TA2 PO (09:57)
[2021-05-16] MEDS ORDERED: OXYC-517 PO (14:52)
[2021-05-22] MEDS ORDERED: OXYC1SOL3 PO (10:01)
[2021-06-04] MEDS ORDERED: ONDA-84 PO (10:33)
[2021-06-04] MEDS ORDERED: PROC10TA5 PO (10:33)
[2021-06-04] MEDS ORDERED: OXYC1SOL3 PO (14:33)
[2021-06-11] MEDS ORDERED: HYDR-3910 PO (14:47)
[2021-06-17] MEDS ORDERED: OXYC1SOL3 PO (15:41)
[2021-06-18] MEDS ORDERED: HYDR-3911 PO (08:33)
[2021-06-24] MEDS ORDERED: FLUC100T3 PO (15:20)
== END 2020-12-22 11:27 | disposition home or self-care (01) | DRG 378 ==
LOC: M ED 16:16 → M ED INP 18:21 → M PCU 12-20 02:25
PROVIDERS: ADMIT Internal Medicine; ATTEND Internal Medicine
PROC: 30233N1 Transfusion of Nonautologous Red Blood Cells into Peripheral Vein, Percutaneous Approach (ICD-10-PCS; principal; 2020-12-19)
PROC: 0W3P8ZZ Control Bleeding in Gastrointestinal Tract, Via Natural or Artificial Opening Endoscopic (ICD-10-PCS; 2020-12-20)
DX: K92.2 Gastrointestinal hemorrhage, unspecified (principal); N17.9 Acute kidney failure, unspecified; D62 Acute posthemorrhagic anemia; I10 Essential (primary) hypertension; I48.91 Unspecified atrial fibrillation; I73.9 Peripheral vascular disease, unspecified; F17.200 Nicotine dependence, unspecified, uncomplicated; Z85.038 Personal history of other malignant neoplasm of large intestine; Z79.01 Long term (current) use of anticoagulants; Z79.82 Long term (current) use of aspirin; Z79.899 Other long term (current) drug therapy; Z88.8 Allergy status to other drugs, medicaments and biological substances; J44.9 Chronic obstructive pulmonary disease, unspecified; E78.5 Hyperlipidemia, unspecified; K57.10 Diverticulosis of small intestine without perforation or abscess without bleeding

== ENCOUNTER → 2021-01-01 | Outpatient (REF) | payer MEDICARE, OTHER ==
[~2021-01-01] MED LIST changes: +AMPI2INJ2 IV; -AMPI2INJ3 IV
[2021-01-01 16:25] LABS: BASO # 0.1 10^3/uL (0.0-0.2); BASO % 0.6 % (0.0-1.0); EOS # 0.3 10^3/uL (0.0-0.5); EOS % 2.1 % (0.0-3.0); HEMATOCRIT 22.7 % (42.0-52.0); HEMOGLOBIN 7.1 g/dl (13.5-17.5); LYMPH # 1.9 10^3/uL (1.5-5.0); LYMPH % 15.4 % (24.0-44.0); MEAN CORPUSCULAR HEMOGLOBIN 29.5 pg (27.0-33.0); MEAN CORPUSCULAR HGB CONC 31.3 g/dl (32.0-36.5); MEAN CORPUSCULAR VOLUME 94.2 fl (80.0-96.0); MONO % 7.8 % (2.0-8.0); NEUTROPHILS # 9.1 10^3/uL (1.5-8.5); NEUTROPHILS % 72.7 % (36.0-66.0); PLATELET COUNT, AUTOMATED 316 10^3/uL (150-450); RED BLOOD COUNT 2.41 10^6/uL (4.30-6.10); WHITE BLOOD COUNT 12.6 10^3/uL (4.0-10.0)
== END ==
LOC: M WUC 16:12
PROVIDERS: ATTEND Specialist
DX: K63.89 Other specified diseases of intestine (principal)

== ENCOUNTER → 2021-01-08 | Outpatient (CLI) | payer MEDICARE, OTHER ==
[2021-01-08 16:29] LABS: BASO # 0.1 10^3/uL (0.0-0.2); BASO % 0.8 % (0.0-1.0); EOS # 0.3 10^3/uL (0.0-0.5); EOS % 3.6 % (0.0-3.0); HEMOGLOBIN 9.4 g/dl (13.5-17.5); LYMPH # 1.5 10^3/uL (1.5-5.0); LYMPH % 15.9 % (24.0-44.0); MEAN CORPUSCULAR HEMOGLOBIN 29.9 pg (27.0-33.0); MEAN CORPUSCULAR HGB CONC 31.3 g/dl (32.0-36.5); MEAN CORPUSCULAR VOLUME 95.5 fl (80.0-96.0); MONO # 0.9 10^3/uL (0.0-0.8); NEUTROPHILS # 6.6 10^3/uL (1.5-8.5); NEUTROPHILS % 69.8 % (36.0-66.0); PLATELET COUNT, AUTOMATED 316 10^3/uL (150-450); RED BLOOD COUNT 3.14 10^6/uL (4.30-6.10); WHITE BLOOD COUNT 9.5 10^3/uL (4.0-10.0)
== END ==
LOC: M WUC 11:48
PROVIDERS: ATTEND Specialist
DX: D37.4 Neoplasm of uncertain behavior of colon (principal)

== ENCOUNTER → 2021-01-15 | Outpatient (CLI) | payer MEDICARE, OTHER ==
[2021-01-15 16:50] LABS: BASO # 0.1 10^3/uL (0.0-0.2); BASO % 0.8 % (0.0-1.0); EOS # 0.3 10^3/uL (0.0-0.5); EOS % 2.6 % (0.0-3.0); HEMATOCRIT 31.1 % (42.0-52.0); HEMOGLOBIN 9.8 g/dl (13.5-17.5); LYMPH # 1.4 10^3/uL (1.5-5.0); LYMPH % 14.1 % (24.0-44.0); MEAN CORPUSCULAR HEMOGLOBIN 30.9 pg (27.0-33.0); MEAN CORPUSCULAR HGB CONC 31.5 g/dl (32.0-36.5); MEAN CORPUSCULAR VOLUME 98.1 fl (80.0-96.0); MONO # 0.8 10^3/uL (0.0-0.8); MONO % 8.1 % (2.0-8.0); NEUTROPHILS # 7.2 10^3/uL (1.5-8.5); PLATELET COUNT, AUTOMATED 336 10^3/uL (150-450); RED BLOOD COUNT 3.17 10^6/uL (4.30-6.10); WHITE BLOOD COUNT 9.7 10^3/uL (4.0-10.0)
== END ==
LOC: M WUC 10:48
PROVIDERS: ATTEND Specialist
DX: C18.9 Malignant neoplasm of colon, unspecified (principal)

== ENCOUNTER → 2021-01-18 | Outpatient (CLI) | payer MEDICARE, OTHER ==
[~2021-01-18] MED LIST changes: +TRAM50TA2 PO
--- NOTE | 2021-01-18 23:57 | REPVR ---
PROCEDURE INFORMATION: Exam: CT Lumbar Spine Without Contrast Exam date and time: 01/18/2021 10:32 AM Age: 70 years old Clinical indication: Low back pain; Prior surgery; Surgery date: 6+ months; Additional info: Neural foraminal stenosis of ls spine TECHNIQUE: Imaging protocol: Computed tomography images of the lumbar spine without contrast. Radiation optimization: All CT scans at this facility use at least one of these dose optimization techniques: automated exposure control; mA and/or kV adjustment per patient size (includes targeted exams where dose is matched to clinical indication); or iterative reconstruction. COMPARISON: CT ANGIO ABDOMINAL ARTERIES 10/19/2020 10:46 AM FINDINGS: Vertebrae: Chronic postoperative changes compatible with posterior decompression and instrumented fusion at L4-L5. Hardware is intact. Prominent lucency surrounding the bilateral transpedicular screws at the L4 level, concerning for loosening, best visualized on axial series 2, image 35. Lumbar lordosis is preserved. Vertebral body heights are maintained. Multilevel facet arthropathy. No acute lumbar spine fracture. No measurable spondylolisthesis. Discs/Spinal canal/Neural foramina: Multilevel degenerative disc height loss and osteophyte formation. Kidneys and ureters: Asymmetric right renal atrophy. Vasculature: Severe calcific atherosclerotic plaques of the aorta and major branches. Soft tissues: Unremarkable. IMPRESSION: 1. Prominent lucency surrounding the bilateral posterior transpedicular screws at the L4 level, concerning for loosening. Recommend surgical consultation. 2. Other chronic findings, as above. Electronically signed by: Louis Ramsey On 01/18/2021 23:57:19 PM
== END ==
LOC: M PLAIMG 10:20
PROVIDERS: ATTEND Family Medicine
DX: M48.07 Spinal stenosis, lumbosacral region (principal)

== ENCOUNTER → 2021-01-30 | Outpatient (CLI) | payer MEDICARE, OTHER ==
[2021-01-30 16:10] LABS: BASO # 0.1 10^3/uL (0.0-0.2); BASO % 0.9 % (0.0-1.0); EOS # 0.4 10^3/uL (0.0-0.5); EOS % 3.9 % (0.0-3.0); HEMATOCRIT 36.3 % (42.0-52.0); HEMOGLOBIN 11.8 g/dl (13.5-17.5); LYMPH # 1.6 10^3/uL (1.5-5.0); LYMPH % 16.7 % (24.0-44.0); MEAN CORPUSCULAR HEMOGLOBIN 30.8 pg (27.0-33.0); MEAN CORPUSCULAR HGB CONC 32.5 g/dl (32.0-36.5); MEAN CORPUSCULAR VOLUME 94.8 fl (80.0-96.0); MONO # 0.8 10^3/uL (0.0-0.8); NEUTROPHILS # 6.6 10^3/uL (1.5-8.5); NEUTROPHILS % 70.1 % (36.0-66.0); PLATELET COUNT, AUTOMATED 217 10^3/uL (150-450); RED BLOOD COUNT 3.83 10^6/uL (4.30-6.10); WHITE BLOOD COUNT 9.5 10^3/uL (4.0-10.0)
[2021-01-30 16:36] LABS: ALBUMIN 3.5 GM/DL (3.2-5.2); BILIRUBIN,TOTAL 0.5 MG/DL (0.2-1.0); CALCIUM LEVEL 9.5 MG/DL (8.8-10.2); CREATININE FOR GFR 1.28 MG/DL (0.70-1.30); GLOMERULAR FILTRATION RATE 59.5 (>49); PERCENT SATURATION 20.9 % (19.7-50.0); POTASSIUM SERUM 4.5 MEQ/L (3.5-5.1); TOTAL PROTEIN 6.6 GM/DL (6.4-8.2)
== END ==
LOC: M WUC 11:39
PROVIDERS: ATTEND Specialist
DX: D50.9 Iron deficiency anemia, unspecified (principal)

== ENCOUNTER → 2021-02-12 | Outpatient (CLI) | payer MEDICARE, OTHER ==
[2021-02-12 16:41] LABS: BASO # 0.1 10^3/uL (0.0-0.2); BASO % 0.8 % (0.0-1.0); EOS # 0.3 10^3/uL (0.0-0.5); EOS % 3.4 % (0.0-3.0); LYMPH # 1.5 10^3/uL (1.5-5.0); LYMPH % 14.9 % (24.0-44.0); MEAN CORPUSCULAR HEMOGLOBIN 32.1 pg (27.0-33.0); MEAN CORPUSCULAR HGB CONC 33.3 g/dl (32.0-36.5); MEAN CORPUSCULAR VOLUME 96.2 fl (80.0-96.0); MONO # 0.9 10^3/uL (0.0-0.8); MONO % 8.9 % (2.0-8.0); NEUTROPHILS # 7.1 10^3/uL (1.5-8.5); NEUTROPHILS % 71.6 % (36.0-66.0); PLATELET COUNT, AUTOMATED 273 10^3/uL (150-450); RED BLOOD COUNT 3.43 10^6/uL (4.30-6.10)
[2021-02-12 16:48] LABS: ALBUMIN 3.3 GM/DL (3.2-5.2); BILIRUBIN,TOTAL 0.4 MG/DL (0.2-1.0); CALCIUM LEVEL 9.1 MG/DL (8.8-10.2); CREATININE FOR GFR 1.34 MG/DL (0.70-1.30); GLOMERULAR FILTRATION RATE 56.4 (>49); POTASSIUM SERUM 4.3 MEQ/L (3.5-5.1); TOTAL PROTEIN 6.1 GM/DL (6.4-8.2)
== END ==
LOC: M WUC 14:33
PROVIDERS: ATTEND Specialist
DX: D50.9 Iron deficiency anemia, unspecified (principal)

== ENCOUNTER → 2021-03-05 | Outpatient (CLI) | payer MEDICARE, OTHER ==
[2021-03-05 16:19] LABS: BASO # 0.1 10^3/uL (0.0-0.2); BASO % 0.7 % (0.0-1.0); EOS # 0.3 10^3/uL (0.0-0.5); EOS % 3.3 % (0.0-3.0); HEMATOCRIT 32.8 % (42.0-52.0); HEMOGLOBIN 10.5 g/dl (13.5-17.5); LYMPH # 1.4 10^3/uL (1.5-5.0); LYMPH % 14.7 % (24.0-44.0); MEAN CORPUSCULAR HEMOGLOBIN 30.9 pg (27.0-33.0); MEAN CORPUSCULAR VOLUME 96.5 fl (80.0-96.0); MONO # 0.8 10^3/uL (0.0-0.8); MONO % 8.4 % (2.0-8.0); NEUTROPHILS # 6.8 10^3/uL (1.5-8.5); NEUTROPHILS % 72.4 % (36.0-66.0); PLATELET COUNT, AUTOMATED 242 10^3/uL (150-450); WHITE BLOOD COUNT 9.4 10^3/uL (4.0-10.0)
[2021-03-05 17:19] LABS: ALBUMIN 3.3 GM/DL (3.2-5.2); BILIRUBIN,TOTAL 0.4 MG/DL (0.2-1.0); CALCIUM LEVEL 9.5 MG/DL (8.8-10.2); CREATININE FOR GFR 1.36 MG/DL (0.70-1.30); GLOMERULAR FILTRATION RATE 55.5 (>49); POTASSIUM SERUM 4.4 MEQ/L (3.5-5.1); TOTAL PROTEIN 6.3 GM/DL (6.4-8.2)
== END ==
LOC: M WUC 11:27
PROVIDERS: ATTEND Specialist
DX: D50.9 Iron deficiency anemia, unspecified (principal)

== ENCOUNTER → 2021-03-19 | Outpatient (CLI) | payer MEDICARE, OTHER ==
[2021-03-19 16:19] LABS: BASO # 0.1 10^3/uL (0.0-0.2); BASO % 0.7 % (0.0-1.0); EOS # 0.3 10^3/uL (0.0-0.5); EOS % 2.7 % (0.0-3.0); HEMATOCRIT 33.7 % (42.0-52.0); HEMOGLOBIN 10.8 g/dl (13.5-17.5); LYMPH # 1.6 10^3/uL (1.5-5.0); LYMPH % 16.6 % (24.0-44.0); MEAN CORPUSCULAR HEMOGLOBIN 30.9 pg (27.0-33.0); MEAN CORPUSCULAR VOLUME 96.6 fl (80.0-96.0); MONO % 9.8 % (2.0-8.0); NEUTROPHILS # 6.7 10^3/uL (1.5-8.5); NEUTROPHILS % 69.9 % (36.0-66.0); PLATELET COUNT, AUTOMATED 249 10^3/uL (150-450); RED BLOOD COUNT 3.49 10^6/uL (4.30-6.10); WHITE BLOOD COUNT 9.7 10^3/uL (4.0-10.0)
[2021-03-19 16:26] LABS: INR 1.31; PARTIAL THROMBOPLASTIN TIME 35.4 SECONDS (25.9-37.0); PROTHROMBIN TIME 16.7 SECONDS (12.7-14.5)
[2021-03-19 17:14] LABS: CALCIUM LEVEL 9.9 MG/DL (8.8-10.2); CREATININE FOR GFR 1.53 MG/DL (0.70-1.30); GLOMERULAR FILTRATION RATE 48.4 (>49); POTASSIUM SERUM 4.6 MEQ/L (3.5-5.1)
== END ==
LOC: M WUC 11:41
PROVIDERS: ATTEND Surgery Vascular Surgery
DX: Z01.818 Encounter for other preprocedural examination (principal); D69.8 Other specified hemorrhagic conditions

== ENCOUNTER → 2021-04-11 | Outpatient (CLI) | payer MEDICARE, OTHER ==
[2021-04-11 16:12] LABS: BASO # 0.1 10^3/uL (0.0-0.2); BASO % 0.8 % (0.0-1.0); EOS # 0.4 10^3/uL (0.0-0.5); EOS % 3.5 % (0.0-3.0); HEMATOCRIT 35.8 % (42.0-52.0); HEMOGLOBIN 11.8 g/dl (13.5-17.5); LYMPH # 1.6 10^3/uL (1.5-5.0); LYMPH % 14.8 % (24.0-44.0); MEAN CORPUSCULAR HEMOGLOBIN 31.1 pg (27.0-33.0); MEAN CORPUSCULAR VOLUME 94.5 fl (80.0-96.0); MONO % 8.8 % (2.0-8.0); NEUTROPHILS # 7.9 10^3/uL (1.5-8.5); NEUTROPHILS % 71.6 % (36.0-66.0); PLATELET COUNT, AUTOMATED 358 10^3/uL (150-450); RED BLOOD COUNT 3.79 10^6/uL (4.30-6.10)
[2021-04-11 16:40] LABS: ALBUMIN 3.4 GM/DL (3.2-5.2); BILIRUBIN,TOTAL 0.4 MG/DL (0.2-1.0); CALCIUM LEVEL 9.9 MG/DL (8.8-10.2); CREATININE FOR GFR 1.37 MG/DL (0.70-1.30); PERCENT SATURATION 15.7 % (19.7-50.0); POTASSIUM SERUM 4.6 MEQ/L (3.5-5.1)
== END ==
LOC: M WUC 11:41
PROVIDERS: ATTEND Specialist
DX: D64.9 Anemia, unspecified (principal)

== ENCOUNTER → 2021-04-22 | Outpatient (CLI) | payer MEDICARE, OTHER ==
[~2021-04-22] MED LIST changes: -AMPI2INJ2 IV; +AMPI2INJ3 IV; +FLUC100T3 PO; +HYDR-3910 PO; +HYDR-3911 PO; +ISOVUE-370 76% 100ML VIAL As Ordered ONE; +ONDA-84 PO; +OXYC-517 PO; +OXYC1SOL3 PO; +PROC10TA5 PO
== END ==
LOC: M RAD 12:21
PROVIDERS: ATTEND Family Medicine
DX: R59.1 Generalized enlarged lymph nodes (principal); J33.0 Polyp of nasal cavity; J35.8 Other chronic diseases of tonsils and adenoids; J43.8 Other emphysema
CPT/HCPCS: 70491; Q9967

== ENCOUNTER → 2021-04-26 | Outpatient (CLI) | payer MEDICARE, OTHER ==
[~2021-04-26] MED LIST changes: +AMPI2INJ2 IV; -AMPI2INJ3 IV; +CLOP75TA2; -FLUC100T3 PO; -HYDR-3910 PO; -HYDR-3911 PO; -ISOVUE-370 76% 100ML VIAL As Ordered ONE; -ONDA-84 PO; -PROC10TA5 PO
[2021-04-26 15:53] LABS: BASO # 0.1 10^3/uL (0.0-0.2); BASO % 0.8 % (0.0-1.0); EOS # 0.5 10^3/uL (0.0-0.5); EOS % 4.9 % (0.0-3.0); HEMATOCRIT 36.3 % (42.0-52.0); HEMOGLOBIN 11.7 g/dl (13.5-17.5); LYMPH # 1.7 10^3/uL (1.5-5.0); LYMPH % 17.5 % (24.0-44.0); MEAN CORPUSCULAR HGB CONC 32.2 g/dl (32.0-36.5); MEAN CORPUSCULAR VOLUME 96.3 fl (80.0-96.0); MONO # 0.9 10^3/uL (0.0-0.8); MONO % 9.2 % (2.0-8.0); NEUTROPHILS # 6.5 10^3/uL (1.5-8.5); NEUTROPHILS % 67.2 % (36.0-66.0); PLATELET COUNT, AUTOMATED 249 10^3/uL (150-450); RED BLOOD COUNT 3.77 10^6/uL (4.30-6.10); WHITE BLOOD COUNT 9.7 10^3/uL (4.0-10.0)
[2021-04-26 16:33] LABS: ALBUMIN 3.5 GM/DL (3.2-5.2); BILIRUBIN,TOTAL 0.5 MG/DL (0.2-1.0); CALCIUM LEVEL 9.6 MG/DL (8.8-10.2); CREATININE FOR GFR 1.38 MG/DL (0.70-1.30); GLOMERULAR FILTRATION RATE 54.5 (>49); PERCENT SATURATION 18.3 % (19.7-50.0); POTASSIUM SERUM 4.5 MEQ/L (3.5-5.1); TOTAL PROTEIN 6.9 GM/DL (6.4-8.2)
== END ==
LOC: M WUC 11:40
PROVIDERS: ATTEND Specialist
DX: D50.9 Iron deficiency anemia, unspecified (principal)

== ENCOUNTER → 2021-04-30 | Outpatient (REF) | payer MEDICARE, OTHER ==
[~2021-04-30] MED LIST changes: -CLOP75TA2; -OXYC-517 PO; -OXYC1SOL3 PO
== END ==
LOC: M LAB REF 17:30
PROVIDERS: ATTEND Otolaryngology
DX: R22.1 Localized swelling, mass and lump, neck (principal)

== ENCOUNTER → 2021-05-07 | Outpatient (CLI) | payer MEDICARE, OTHER ==
[~2021-05-07] MED LIST changes: +CLOP75TA2
--- NOTE | 2021-05-07 12:14 | RADONC.CN ---
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 He is seen today for consideration of chemoradiation. Diagnosis/Treatment History Oncologic History Reports several months of right sided facial pain and difficulty opening his mouth. He had a dental evaluation which resulted in extraction of #14 which failed to improve his pain. He then noted in March 2021 swelling of the right neck which prompted ENT evaluation which revealed a right tonsil mass. He had a CT scan of the neck on 04/22/21 which showed a right sided tonsillar mass as well as several suspicious LN in the ipsilateral neck. He had a FNA biopsy on 04/30/21 which revealed SCC, p16 staining was not performed. Interval History Gio reports he has difficulty opening his mouth fully. He has pain in the throat but is able to eat at will. No difficulty swallowing. Weight is stable to increased per . He has noted increased right neck swelling over the past couple of weeks. He has ear pain as well on the right. He follows with Dr. Lazaro for hx of colon cancer. Currently smoking, wants to quit cold turkey. Past Medical History: Colon cancer HTN Seizures Past Surgical History: Back surgery Family History: Father kidney cancer Social History: 40 pack year current smoker Drinks on occasion Allergies / Meds Allergies: Coded Allergies: hydrochlorothiazide (Unverified Allergy, Unknown, Unknown, 07/06/20) Home Meds Reported Medications Clopidogrel Bisulfate (Clopidogrel) 75 Mg Tablet 05/07/21 Tramadol HCl (Tramadol HCl) 50 Mg Tablet, 50 MG PO DAILY, TAB 01/21/21 Amlodipine Besylate (Amlodipine Besylate) 5 Mg Tablet, 5 MG PO BID, TAB 12/19/20 Atenolol (Atenolol) 25 Mg Tablet, 12.5 MG PO BID, TAB 12/19/20 Pantoprazole Sodium (Pantoprazole Sodium) 40 Mg Tablet.dr, 40 MG PO BID, TAB 12/19/20 Sucralfate (Sucralfate) 1 Gm/10 Ml Oral.susp, 1 GM PO ACHS, STEVO 12/19/20 Lisinopril (Lisinopril) 20 Mg Tablet, 20 MG PO DAILY 12/06/20 Spironolactone (Spironolactone) 25 Mg Tablet, 25 MG PO DAILY 12/06/20 Multivitamins (Thera M Plus Tablet) 1 Each Tablet, 1 TAB PO DAILY, TAB 07/07/20 Apixaban (Eliquis) 5 Mg Tablet, 5 MG PO BID 01/19/20 Digoxin (Digoxin) 250 Mcg Tablet, 250 MCG PO DAILY, TAB 01/19/20 Duloxetine Hcl (Cymbalta) 30 Mg Capsule.dr, 30 MG PO BID, CAP 01/19/20 Acetaminophen (Tylenol Extra Strength) 500 Mg Tablet, 1000 MG PO Q8H PRN for PAIN LEVEL 1-5, TAB 02/04/19 Levetiracetam (Keppra) 1,000 Mg Tab, 1000 MG PO BID, TAB 09/14/17 Gabapentin (Neurontin) 800 Mg Tab, 800 MG PO TID, TAB 09/14/17 Atorvastatin Calcium (Lipitor) 80 Mg Tab, 80 MG PO QHS 09/14/17 Review of Systems Constitutional: Reports: Fatigue, Normal appetite; Denies: Weight Loss Eyes: Denies: Pain, Vision change HEENT: Reports: Ear Pain, Sore Throat; Denies: Head Aches, Dysphagia Skin: Denies: Lesions Pulmonary: Denies: Dyspnea, Cough Cardiovascular: Denies: Chest Pain, Palpitations Gastrointestinal: Denies: Nausea, Abdominal Pain Hematologic: Reports: Enlarged Lymph Nodes Endocrine: Denies: Cold Intolerance Musculoskeletal: Denies: Neck pain, Back pain Neurological: Denies: Weakness, Numbness Psych: Reports: Mood Normal Vital Signs Wt 126 lbs BMI 21 T 98.1 P 64 RR 18 BP 175/65 O2 94% Pain 7 Fatigue 6 General Exam: Alert, Cooperative, No Acute Distress Eye Exam: PERRLA, EOMI ENT EXAM: Atraumatic, Other ENT (Oral cavity exam: #15 with loose filling, #3 broken, remaining dentition without caries. There are april in the anterior mandible. There are no visible or palpable lesions in the oral cavity. On palpat ion there is a right tonsillar mass which extends to but does not involve the right tongue base. Left tonsillar fossa is empty, no lesions. No visible contralateral soft palate extension of tumor. There is trismus present. There is a firm fixed [address] consistent with metastasis, no lower neck disease on the right. There is a single soft mobile LN ~1cm in the left level II. No supraclavicular adenopathy BL. Laryngeal elevation with swallowing and crepitus intact. ) Chest Exam: Clear to auscultation, Normal air movement Heart Exam: Rate Normal, Regular Rhythm Abdomen Exam: Soft; Negative: Tenderness Extremity Exam: Negative: Edema Skin Exam: Nl turgor and temperature Neuro Exam: Normal Gait, Normal Speech, Cranial Nerves 3-12 NL Psych Exam: Mental status NL Other Physical Findings Laryngoscopy: The patient provided verbal consent to be scoped. Cetacaine was introduced in the right nare. The scope was introduced. The scope passed easily to the nasopharynx which was normal. The posterior pharyngeal wall was visualized and free of lesions, the scope passed to the oropharynx, on the right emanating from the tonsil is a bulky pale pink mass extending caudad to the right tongue base, it does not seemingly involve the right tongue base. There is no deviation of the posterior soft palate noted. There are no lesions present in the supraglottis or the left oropharynx. The glottis and epiglottis are normal appearing. The larynx is freely mobile with phonation. The scope was withdrawn and the patient tolerated the procedure well. Diagnostic and Laboratory Diagnostic Review Radiologic images, relevant labs and pathology reports were personally reviewed and discussed with Mr. Garcia. Assessment and Plan Impression Mr. 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 He is seen today for consideration of chemoradiation. Stage Right tonsil SCC [id number] p16 pending stage III Performance Status ECOG 1 Plan We had an extensive discussion with Mr. Garcia regarding the diagnosis at hand and available therapeutic options. He has a bulky node positive tumor which is causing pain and trismus. He needs a PET-CT to complete staging and for chemoradiation planning purposes as he does have nodes which are equivocal on CT scan. He also needs dental clearance as he has 2 questionable upper molar teeth. He eats well at present, therefore would not place a PEG tube a priori, although would have low threshold to place one should his weight fall. For treatment I recommend 70 Gy in 35 fractions with VMAT and daily CBCT. We also will likely perform an interim replan as his mandible will be at risk given the size of the tumor. He will also need to see Dr. Lazaro for weekly cisplatin for treatment. We discussed the logistics of receiving radiation therapy in detail including the need for a 1-time planning session. This can occur after dental clearance. We reviewed the side effects of treatment including fatigue, weight loss, pain, xerostomia, dysgeusia, ORN, and dysphagia. We also spent 4 minutes discussing the importance of quitting tobacco, we reviewed various quit aids and he has elected to try a cold turkey approach. After discussing the risks, benefits and alternatives to radiation therapy, Mr. Garcia was amenable to pursuing radiotherapy. All questions were answered to the patient's satisfaction. We instructed the patient that if there were any questions,concerns or changes in clinical status in the interim to contact us. Recommendations Chemoradiation 70 Gy in 35 fractions with VMAT Referral to Dr. Lazaro (established patient) for weekly chemotherapy Dental clearance PET-CT for staging/RT planning Billing Statement Total time of [64] minutes was spent preparing for the visit [3], obtaining HPI [7], examining the patient [10], reviewing diagnostic tests [5], discussing management options [23], coordinating care [7], and writing this note [9]. HYACINTH PAZ MD May 07, 2021 12:14
== END ==
LOC: M ONCR 07:54
PROVIDERS: ATTEND General Practice
DX: C09.9 Malignant neoplasm of tonsil, unspecified (principal); F17.210 Nicotine dependence, cigarettes, uncomplicated; D50.9 Iron deficiency anemia, unspecified; Z85.038 Personal history of other malignant neoplasm of large intestine; Z88.1 Allergy status to other antibiotic agents; Z79.899 Other long term (current) drug therapy
CPT/HCPCS: 31575; 36415; 80053; 82728; 83550; 85025; G0463

== ENCOUNTER → 2021-05-07 | Outpatient (CLI) | payer MEDICARE, OTHER ==
[2021-05-07 16:05] LABS: BASO # 0.1 10^3/uL (0.0-0.2); BASO % 0.3 % (0.0-1.0); EOS # 0.2 10^3/uL (0.0-0.5); HEMOGLOBIN 11.9 g/dl (13.5-17.5); LYMPH # 1.5 10^3/uL (1.5-5.0); LYMPH % 8.7 % (24.0-44.0); MEAN CORPUSCULAR HEMOGLOBIN 31.2 pg (27.0-33.0); MEAN CORPUSCULAR HGB CONC 32.2 g/dl (32.0-36.5); MEAN CORPUSCULAR VOLUME 96.9 fl (80.0-96.0); MONO # 1.3 10^3/uL (0.0-0.8); MONO % 7.6 % (2.0-8.0); NEUTROPHILS # 13.8 10^3/uL (1.5-8.5); NEUTROPHILS % 81.9 % (36.0-66.0); PLATELET COUNT, AUTOMATED 280 10^3/uL (150-450); RED BLOOD COUNT 3.82 10^6/uL (4.30-6.10); WHITE BLOOD COUNT 16.8 10^3/uL (4.0-10.0)
[2021-05-07 16:37] LABS: ALBUMIN 3.8 GM/DL (3.2-5.2); BILIRUBIN,TOTAL 0.6 MG/DL (0.2-1.0); CALCIUM LEVEL 9.6 MG/DL (8.8-10.2); CREATININE FOR GFR 1.34 MG/DL (0.70-1.30); GLOMERULAR FILTRATION RATE 56.4 (>49); PERCENT SATURATION 19.3 % (19.7-50.0); POTASSIUM SERUM 4.5 MEQ/L (3.5-5.1); TOTAL PROTEIN 7.2 GM/DL (6.4-8.2)
== END ==
LOC: M WUC 09:53
PROVIDERS: ATTEND Specialist
DX: D50.9 Iron deficiency anemia, unspecified (principal)

== ENCOUNTER → 2021-05-20 | Outpatient (CLI) | payer MEDICARE, OTHER ==
[~2021-05-20] MED LIST changes: -AMPI2INJ2 IV; +AMPI2INJ3 IV; -CLOP75TA2; +FLUC100T3 PO; +HYDR-3910 PO; +HYDR-3911 PO; +ONDA-84 PO; +OXYC-517 PO; +OXYC1SOL3 PO; +PROC10TA5 PO
[2021-05-20 16:14] LABS: BASO # 0.1 10^3/uL (0.0-0.2); BASO % 0.6 % (0.0-1.0); EOS # 0.3 10^3/uL (0.0-0.5); EOS % 3.6 % (0.0-3.0); HEMATOCRIT 35.7 % (42.0-52.0); HEMOGLOBIN 11.3 g/dl (13.5-17.5); LYMPH # 1.5 10^3/uL (1.5-5.0); LYMPH % 16.6 % (24.0-44.0); MEAN CORPUSCULAR HEMOGLOBIN 30.4 pg (27.0-33.0); MEAN CORPUSCULAR HGB CONC 31.7 g/dl (32.0-36.5); MONO # 0.9 10^3/uL (0.0-0.8); MONO % 10.2 % (2.0-8.0); NEUTROPHILS # 6.3 10^3/uL (1.5-8.5); NEUTROPHILS % 68.6 % (36.0-66.0); PLATELET COUNT, AUTOMATED 309 10^3/uL (150-450); RED BLOOD COUNT 3.72 10^6/uL (4.30-6.10); WHITE BLOOD COUNT 9.2 10^3/uL (4.0-10.0)
[2021-05-20 16:47] LABS: ALBUMIN 3.4 GM/DL (3.2-5.2); BILIRUBIN,TOTAL 0.3 MG/DL (0.2-1.0); CALCIUM LEVEL 9.4 MG/DL (8.8-10.2); CREATININE FOR GFR 1.52 MG/DL (0.70-1.30); GLOMERULAR FILTRATION RATE 48.8 (>49); MAGNESIUM LEVEL 1.7 MG/DL (1.8-2.4); POTASSIUM SERUM 5.3 MEQ/L (3.5-5.1); TOTAL PROTEIN 6.5 GM/DL (6.4-8.2)
== END ==
LOC: M WUC 13:53
PROVIDERS: ATTEND Specialist
DX: C76.0 Malignant neoplasm of head, face and neck (principal)

== ENCOUNTER 2021-05-22 12:21 | Outpatient (RCR) | payer MEDICARE, OTHER | END 2021-05-24 | LOC: M ONCR 12:21 | PROVIDERS: ATTEND General Practice | DX: C09.0 Malignant neoplasm of tonsillar fossa (principal) ==

== ENCOUNTER → 2021-05-22 | Outpatient (CLI) | payer MEDICARE, OTHER ==
[~2021-05-22] MED LIST changes: +AMPI2INJ2 IV; -AMPI2INJ3 IV; +CLOP75TA2; -FLUC100T3 PO; -HYDR-3910 PO; -HYDR-3911 PO; -ONDA-84 PO; -PROC10TA5 PO
--- NOTE | 2021-05-22 10:00 | RADENCPD ---
Date/Time of Encounter Date of Encounter: May 22, 2021 Time of Encounter: 09:58 Encounter Reviewed PET-CT results with Gio, showing BL cervical nodes, no distant metastases. We agreed to proceed as planned with simulation today and treatment to start next week. For his pain I will increase his regimen to include higher dose oxycodone. We discussed the significant side effects anticipated from treatment with chemoradiation and informed consent was obtained from Gio. HYACINTH PAZ MD May 22, 2021 10:00
== END ==
LOC: M ONCR 09:20
PROVIDERS: ATTEND General Practice
DX: C09.0 Malignant neoplasm of tonsillar fossa (principal)

== ENCOUNTER → 2021-06-24 | Outpatient (RCR) | payer MEDICARE, OTHER ==
[~2021-06-24] MED LIST changes: -AMPI2INJ2 IV; +AMPI2INJ3 IV; -CLOP75TA2; +FLUC100T3 PO; +HYDR-3910 PO; +HYDR-3911 PO; +ONDA-84 PO; +PROC10TA5 PO
== END ==
LOC: M ONCR 05-28 14:48
PROVIDERS: ATTEND General Practice
DX: C09.0 Malignant neoplasm of tonsillar fossa (principal)

== ENCOUNTER 2021-06-28 01:10 | Inpatient (IN) | payer MEDICARE, OTHER ==
[~2021-06-28] VITALS: Ht 170.2 cm; Wt 50.4 kg
[2021-06-28] MEDS ORDERED: methylPREDNISolone 125MG 2ML VIAL IV ONE (01:25)
[2021-06-28] MEDS: COMBIVENT RESPIMAT 100-20MCG INHALER 4GM INH SCH ×3 (01:30→08:50)
[2021-06-28 01:38] LABS: BASO # 0.1 10^3/uL (0.0-0.2); BASO % 0.4 % (0.0-1.0); EOS # 0.1 10^3/uL (0.0-0.5); EOS % 0.4 % (0.0-3.0); HEMATOCRIT 31.4 % (42.0-52.0); LYMPH # 1.2 10^3/uL (1.5-5.0); LYMPH % 6.1 % (24.0-44.0); MEAN CORPUSCULAR HEMOGLOBIN 32.3 pg (27.0-33.0); MEAN CORPUSCULAR HGB CONC 31.8 g/dl (32.0-36.5); MEAN CORPUSCULAR VOLUME 101.3 fl (80.0-96.0); MONO % 9.1 % (2.0-8.0); NEUTROPHILS # 16.1 10^3/uL (1.5-8.5); NEUTROPHILS % 82.9 % (36.0-66.0); PLATELET COUNT, AUTOMATED 247 10^3/uL (150-450); WHITE BLOOD COUNT 19.4 10^3/uL (4.0-10.0)
[2021-06-28 01:50] LABS: ABG BASE EXCESS -3.2 (-2.0-2.0); ABG HCO3 24.2 MEQ/L (22.0-26.0); ABG O2 SATURATION 92.8 % (95.0-99.0); ABG STANDARD HCO3 21.7 MEQ/L (22.0-26.0); ABG TOTAL CO2 25.9 MEQ/L (23.0-31.0); ABG pH (ARTERIAL) 7.261 UNITS (7.350-7.450)
[2021-06-28 01:54] LABS: MONO # 1.8 10^3/uL (0.0-0.8)
[2021-06-28 02:20] LABS: CK-MB VALUE MASS 1.5 NG/ML (<3.6); MB/CK RELATIVE INDEX 3.41 (< OR =4)
[2021-06-28 02:50] LABS: ALBUMIN 3.7 GM/DL (3.2-5.2); ALT/SGPT 43 U/L (12-78); BILIRUBIN,DIRECT 0.2 MG/DL (0.0-0.2); BILIRUBIN,TOTAL 0.3 MG/DL (0.2-1.0); BLOOD UREA NITROGEN 29 MG/DL (7-18); CALCIUM LEVEL 8.6 MG/DL (8.8-10.2); CARBON DIOXIDE LEVEL 26 MEQ/L (21-32); CHLORIDE LEVEL 105 MEQ/L (98-107); CREATININE FOR GFR 1.41 MG/DL (0.70-1.30); DIGOXIN LEVEL 2.2 NG/ML (0.5-2.0); ETHYL ALCOHOL (ETHANOL) < 0.003 % (0.000-0.010); GLOMERULAR FILTRATION RATE 53.2 (>49); GLUCOSE, FASTING 154 MG/DL (70-100); NT-PRO BNP 3287 PG/ML (<125); POTASSIUM SERUM 4.5 MEQ/L (3.5-5.1); SODIUM LEVEL 136 MEQ/L (136-145); TOTAL PROTEIN 6.7 GM/DL (6.4-8.2)
[2021-06-28] MEDS ORDERED: PIPERACILLIN/TAZOBACTAM SOD 3.375 GM in D5W MINI-BAG PLUS 50 ML IV ONE (02:50)
[2021-06-28] MEDS ORDERED: ISOVUE-370 76% 100ML VIAL As Ordered ONE (03:30)
[2021-06-28 03:58] LABS: MB/CK RELATIVE INDEX 3.51 (< OR =4)
[2021-06-28] MEDS ORDERED: MOM 30ML SUSPENSION UDC PO PRN (05:10)
[2021-06-28] MEDS ORDERED: MAALOX 30 ML SUSP *UDC PO PRN (05:10)
[2021-06-28] MEDS ORDERED: ACETAMINOPHEN TAB 650MG DOSE (2X325MG) PO PRN (05:10)
[2021-06-28] MEDS ORDERED: HYDR-3911 PO (07:42)
[2021-06-28] MEDS ORDERED: FLUC100T3 PO (07:42)
[2021-06-28] MEDS ORDERED: HOME MED LIST COMPLETE! XX SCH (07:45)
[2021-06-28 08:31] LABS: HEMATOCRIT 28.4 % (42.0-52.0); HEMOGLOBIN 9.4 g/dl (13.5-17.5); MEAN CORPUSCULAR HEMOGLOBIN 32.6 pg (27.0-33.0); MEAN CORPUSCULAR HGB CONC 33.1 g/dl (32.0-36.5); MEAN CORPUSCULAR VOLUME 98.6 fl (80.0-96.0); PLATELET COUNT, AUTOMATED 181 10^3/uL (150-450); RED BLOOD COUNT 2.88 10^6/uL (4.30-6.10); WHITE BLOOD COUNT 15.5 10^3/uL (4.0-10.0)
[2021-06-28 08:51] LABS: LYMPHOCYTES 1 % (16-44); MONOCYTES 4 % (0-5); NEUTROPHILS 95 % (28-66)
[2021-06-28 08:52] LABS: OVALOCYTES 3+
[2021-06-28 08:53] LABS: PLATELET ESTIMATE NORMAL (NORMAL)
[2021-06-28 09:00] VITALS: BP 156/62
[2021-06-28 09:00] LABS: CK-MB VALUE MASS 3.8 NG/ML (<3.6); MB/CK RELATIVE INDEX 5.85 (< OR =4)
[2021-06-28] MEDS ORDERED: FLUCONAZOLE 100 MG TAB PO SCH (09:00)
[2021-06-28] MEDS ORDERED: CLOPIDOGREL 75 MG TAB PO SCH (09:00)
[2021-06-28] MEDS ORDERED: ATORVASTATIN 20 MG TAB PO SCH (09:00)
[2021-06-28] MEDS ORDERED: SPIRONOLACTONE 25 MG TAB PO SCH (09:00)
[2021-06-28] MEDS ORDERED: MULTIVITAMINS/MINERALS THERAP 1 TAB PO SCH (09:00)
[2021-06-28] MEDS ORDERED: SUCRALFATE SUSP 1GM/10ML UD PO PRN (09:50)
[2021-06-28] MEDS ORDERED: ONDANSETRON 4 MG TAB PO PRN (09:50)
[2021-06-28] MEDS ORDERED: oxyCODONE 5MG TAB PO PRN (09:50)
[2021-06-28] MEDS ORDERED: PROCHLORPERAZINE 5 MG TAB (S0183) PO PRN (09:50)
[2021-06-28] MEDS: PIPERACILLIN/TAZOBACTAM SOD 4.5 GM in D5W MINI-BAG PLUS 50 ML IV SCH ×3 (09:56→20:10)
[2021-06-28 10:04] LABS: CK-MB VALUE MASS 4.7 NG/ML (<3.6); MB/CK RELATIVE INDEX 6.62 (< OR =4)
[2021-06-28] MEDS: levETIRAcetam 250MG TABLET (KEPPRA) PO SCH ×2 (11:02→20:09)
[2021-06-28] MEDS: GABAPENTIN 400MG CAP PO SCH ×3 (11:02→20:10)
[2021-06-28] MEDS: DULoxetine 30MG CAPSULE (CYMBALTA) PO SCH ×2 (11:02→20:10)
[2021-06-28] MEDS: **hydrALAZINE** 50 MG TAB PO SCH ×2 (11:03→20:11)
[2021-06-28] MEDS: PANTOPRAZOLE 40MG TAB (PROTONIX) PO SCH ×2 (11:03→20:10)
[2021-06-28] MEDS: APIXABAN 5 MG TAB (ELIQUIS) PO SCH ×2 (11:03→20:10)
[2021-06-28] MEDS: amLODIPine 5 MG TAB PO SCH ×2 (11:04→20:11)
[2021-06-28] MEDS ORDERED: AZITHROMYCIN INJ 500 MG, VIAL MATE ADAPTER 1 EACH in NS 250 ML IV SCH (12:00)
[2021-06-28] MEDS: ATENOLOL 12.5MG PER 1/2 TABLET PO SCH ×2 (12:09→20:11)
[2021-06-28 12:54] LABS: ALBUMIN 3.2 GM/DL (3.2-5.2); ALT/SGPT 36 U/L (12-78); BILIRUBIN,TOTAL 0.5 MG/DL (0.2-1.0); BLOOD UREA NITROGEN 27 MG/DL (7-18); CALCIUM LEVEL 8.5 MG/DL (8.8-10.2); CARBON DIOXIDE LEVEL 26 MEQ/L (21-32); CHLORIDE LEVEL 106 MEQ/L (98-107); CREATININE FOR GFR 1.15 MG/DL (0.70-1.30); GLOMERULAR FILTRATION RATE > 60.0 (>49); GLUCOSE, FASTING 162 MG/DL (70-100); POTASSIUM SERUM 4.9 MEQ/L (3.5-5.1); SODIUM LEVEL 137 MEQ/L (136-145)
[2021-06-28 14:00] VITALS: BP 146/62
[2021-06-28 14:01] LABS: CK-MB VALUE MASS 6.8 NG/ML (<3.6); MB/CK RELATIVE INDEX 6.18 (< OR =4)
[2021-06-28 20:11] VITALS: BP 132/56
[2021-06-28 22:00] VITALS: BP 127/53
[2021-06-28 22:17] LABS: MAGNESIUM LEVEL 1.8 MG/DL (1.7-2.2)
[2021-06-29] MEDS ORDERED: CALCIUM GLUCONATE 1,000MG/10ML VIAL (100MG/ML) (J0610) As Ordered ONE (00:10)
[2021-06-29] MEDS ORDERED: DIGOXIN 0.125 MG TAB PO SCH (09:00)
[2021-06-29 13:07] LABS: MYCOPLASMA PNEUMONIAE IgG <100 U/mL (0-99); MYCOPLASMA PNEUMONIAE IgM <770 U/mL (0-769)
== END 2021-06-29 06:53 | disposition expired | DRG 871 ==
LOC: M ED 01:10 → M ED INP 05:07 → ENRESERV 06:46 → M MSPAV 08:57 → M PCU 06-29 00:17 → M MSPAV 06-29 00:20
PROVIDERS: ADMIT Family Medicine; ATTEND Internal Medicine
PROC: 0BH17EZ Insertion of Endotracheal Airway into Trachea, Via Natural or Artificial Opening (ICD-10-PCS; principal; 2021-06-29)
DX: A41.9 Sepsis, unspecified organism (principal); J18.9 Pneumonia, unspecified organism; I21.A1 Myocardial infarction type 2; J96.01 Acute respiratory failure with hypoxia; C18.9 Malignant neoplasm of colon, unspecified; E46 Unspecified protein-calorie malnutrition; J44.0 Chronic obstructive pulmonary disease with (acute) lower respiratory infection; E87.1 Hypo-osmolality and hyponatremia; I48.91 Unspecified atrial fibrillation; R74.01 Elevation of levels of liver transaminase levels; K25.9 Gastric ulcer, unspecified as acute or chronic, without hemorrhage or perforation; I10 Essential (primary) hypertension; C09.9 Malignant neoplasm of tonsil, unspecified; I49.01 Ventricular fibrillation; Z79.899 Other long term (current) drug therapy; Z79.01 Long term (current) use of anticoagulants; Z88.8 Allergy status to other drugs, medicaments and biological substances; Z20.822 Contact with and (suspected) exposure to COVID-19; I46.9 Cardiac arrest, cause unspecified; E78.5 Hyperlipidemia, unspecified; G40.909 Epilepsy, unspecified, not intractable, without status epilepticus; F10.11 Alcohol abuse, in remission; F17.200 Nicotine dependence, unspecified, uncomplicated; I73.9 Peripheral vascular disease, unspecified; M48.061 Spinal stenosis, lumbar region without neurogenic claudication; D50.9 Iron deficiency anemia, unspecified; Z95.5 Presence of coronary angioplasty implant and graft

== ENCOUNTER 2021-06-28 11:41 | Outpatient (RCR) | payer MEDICARE, OTHER | END 2021-06-29 | LOC: M ONCR 11:41 | PROVIDERS: ATTEND General Practice | DX: C09.0 Malignant neoplasm of tonsillar fossa (principal) ==